=== PATIENT | male | born 1950 | race Caucasian/White ===

== ENCOUNTER 2021-03-04 08:16 | Emergency (ER) | payer MEDICARE, OTHER, SELFPAY ==
[2021-03-04 08:26] VITALS: BP 152/97; PULSE 86; RESP 20; TEMP 36.8; O2SAT 98
--- NOTE | 2021-03-04 08:50 | ED.URI ---
HPI - URI/Sore Throat General Chief Complaint: Upper Respiratory Infection Stated Complaint: Sore Throat/Dizziness Time Seen by Provider: 03/04/21 08:50 Source: patient and RN notes reviewed Mode of arrival: ambulatory Limitations: no limitations History of Present Illness HPI Narrative: Patient presents today complaining of a 3-week history of dry cough, rhinorrhea, sore throat. He also reports some sweats this morning. Denies shortness of breath. Reported some intermittent dizziness, but none currently. He has been taking some cough medicine with mild relief. Currently rates his sore throat 05/02. MD elicited complaint: cough and sore throat Related Data Allergies Allergy/AdvReac Type Severity Reaction Status Date / Time No Known Allergies Allergy Mild Verified 03/04/21 08:44 Review of Systems Review of Systems: CONSTITUTIONAL: Denies body aches, fever, chills. + Sweats EYES: Denies visual changes, redness, or discharge. ENT: Denies congestion, or otalgia.+ Sore throat, rhinorrhea CARDIOVASCULAR: Denies chest pain, palpitations, or edema. RESPIRATORY: Denies dyspnea.+ Cough GASTROINTESTINAL: Denies abdominal pain, nausea, vomiting, or diarrhea. GENITOURINARY: Denies dysuria or hematuria. SKIN: Denies rash, itching, or wounds. MUSCULOSKELETAL: Denies back pain, joint pain, or myalgia. NEUROLOGIC: Denies headache, numbness, tingling, or weakness. PSYCH: Denies depression or anxiety. PMFSH Comments At time of signature, I have reviewed and agree with nursing past medical, surgical, social and family history unless otherwise noted. Please see nursing chart for further information. There is no relevant family history pertinent to the presenting complaint Exam Narrative: GENERAL: Well-appearing, well-nourished, and in no acute distress. HEAD: Normocephalic, atraumatic. EYES: EOMI. No redness or drainage. Conjunctivae normal. ENT: Mucous membranes pink and moist. Nares congested. No rhinorrhea. TMs normal bilaterally. Throat mildly erythematous without edema or exudate. Uvula midline. NECK: Normal AROM. Supple. No lymphadenopathy. CHEST: No respiratory distress. Clear to auscultation. HEART: Regular rate and rhythm. No murmur appreciated. Normal peripheral pulses. EXTREMITIES: Normal range of motion. No edema. SKIN: Warm, dry, no rash. Capillary refill normal. Normal skin turgor. NEURO: No focal deficits. Alert and oriented x3. Gait steady. PSYCH: Normal affect. No signs of depression or anxiety. Course Vital Signs Vital signs: Vital Signs Temperature 98.3 F 03/04/21 08:26 Pulse Rate 86 03/04/21 08:26 Respiratory Rate 20 03/04/21 08:26 Blood Pressure 152/97 H 03/04/21 08:26 Pulse Oximetry 98 03/04/21 08:26 Temperature 98.3 F 03/04/21 08:26 Pulse Rate 86 03/04/21 08:26 Respiratory Rate 20 03/04/21 08:26 Blood Pressure 152/97 H 03/04/21 08:26 Pulse Oximetry 98 03/04/21 08:26 Reviewed. Pt has been instructed to follow up with his PCP regarding his elevated blood pressure today. MDM - URI/Sore Throat Differential Diagnosis Differential diagnosis: Likely upper respiratory infection, sinusitis, viral infection, bronchitis, pharyngitis and other (Strep throat) Lab Data Attestation: I reviewed the patient's lab results. Labs: Strep Screen Presumptive Negative *(Reference Range: Negative)* Critical Care Time Critical Care Time Critical Care Time: No Discharge Plan Discharge Clinical Impression: Bronchitis Upper respiratory infection Qualifiers: URI type: unspecified URI Qualified Code(s): J06.9 - Acute upper respiratory infection, unspecified Patient Disposition: Home, Self-Care Condition: Stable Instructions: Antibiotic Form, Upper Respiratory Infection (DC), Acute Bronchitis (ED) Additional Instructions: Your rapid strep screen is negative today. Please take the antibiotics and steroids as pre
== END 2021-03-04 09:12 | disposition home or self-care (01) ==
PROVIDERS: Emergency Provider Nurse Practitioner
DX: J40 Bronchitis, not specified as acute or chronic (principal); J06.9 Acute upper respiratory infection, unspecified
CPT/HCPCS: 87081; 87880; 99203; G0463

== ENCOUNTER 2024-08-25 08:41 | Emergency (ER) | payer MEDICARE, OTHER, SELFPAY ==
--- NOTE | ~2024-08-25 | XR_ITS ---
XR foot RT min 3V 08/25/2024 09:22 Indication: Right foot pain Procedure: 4 views right foot Comparison: No prior studies for comparison. Findings: There is a degenerative calcaneal enthesophyte. No fracture, subluxation or dislocation. Li sfranc joint intact. No focal soft tissue abnormality. No foreign bodies. Impression: 1: No acute fracture. Reviewed, dictated and finalized at location A. Impression: 1: No acute fracture.
[2024-08-25 08:49] VITALS: BP 166/95; PULSE 62; RESP 16; TEMP 37.1; O2SAT 99
--- OUTSIDE RECORDS SUMMARY | 2024-08-25 08:56 | XMS_ITS | Encounter Summary ---
Author Name [facility] [place] [facility] [place] Address [address] [place] [address] Care Team Providers Care [employer] Teacher Name Role Phone BERTHA RAYMOND Primary Care Provider [facility] Insurance Providers: All historical and current Section Date Range: From patient's date of to the date document was created. This section includes the names of all active insurance providers for the patient. Insurance Provider Type of Coverage Plan Name Start of Policy Coverage End of Policy Coverage Group Number Member ID Insurance Provider's Telephone Number Policy Rios's Name Patient's Relationship to Policy Rios SHIKHA NIEVES - [place] [employer] [place] SHIKHA YOUSIF Apr 27, 2019 SHIKHA NIEVES [id number] GODINEZ,TH [place] PATIENT MEDICARE (WNR) MEDICARE (M) PART A Nov 21, 2014 PART A [id number] [place] PATIENT MEDICARE (WNR) MEDICARE (M) PART B Nov 21, 2014 PART B [id number] PATIENT Selected Encounter This section includes the information on record at [place] for the Encounter. Date/Time Encounter Type Encounter Description Reason Provider Source Jun 17, 2024 11:00 AM OFF/OP EST JULY X REQ PHY/[facility] ICD-10-CM N42.89 Other specified disorders of prostate FERGUSON,AND REW IHE Encounter Template Text not used by [place] Assessments - Encounter Diagnoses This section includes the primary and secondary diagnoses documented for the Encounter. Date/Time Primary/Secondary Diagnosis Diagnosis Name Provider Source Jun 27, 2024 03:35 PM PRIMARY Other specified disorders of prostate [facility] Plan of Treatment: Future Appointments (+ 6 months) and Future Tests (+/- 45 days) The Plan of Treatment section includes future care activities for the patient from all [place] [facility] [place]. This section includes future appointments and future orders which are active, pending or scheduled. Future Appointments This section includes appointments that were scheduled to occur 6 months from the date of the Encounter, up to a maximum of 20 appointments. The data comes from all [facility]. Appointment Date/Time Appointment Type Appointme nt Facility Name Jun 28, 2024 02:06 PM [facility] Jul 11, 2024 09:00 AM AMBULATORY - SURGERY [facility] August 19, 2024 02:00 PM AMBULATORY - MEDICINE [facility] Oct 10, 2024 09:00 AM AMBULATORY - SURGERY [facility] Oct 18, 2024 09:30 AM AMBULATORY - MEDICINE [facility] Active, Pending, and Scheduled Orders This section includes a listing of several types of active, pending, and scheduled orders, including clinic medications orders, diagnostic test orders, procedure orders and consult orders; where the start date of the order is 45 days before the date of the Encounter or 45 days after the date of theEncounter. The data comes from all [facility]. Test Date/Time Test Type Test Details Facility Name May 11, 2024 12:00 AM Laboratory - Blood Bank Order TYPE & SCREEN - LAB BLOOD SP [facility] Jun 09, 2024 12:00 AM Laboratory - Blood Bank Order TYPE & SCREEN - LAB BLOOD [facility] Lab Results: +/- 30 days of the encounter This section includes the Chemistry and Hematology Lab Results on record with [place] for the patient. Radiology Reports and Pathology Reports are provided separately, in subsequent sections. Lab Results This section contains the Chemistry/Hematology Results that were resulted 30 days before or 30 daysafter the date of the Encounter. Date/Time Source Result Type Result - Unit Interpretation Reference Range Specimen Type Comment Jul 11, 2024 09:19 AM [facility] PROST. SPECIFIC AG.(PB-STL) SERUM Specimen Ty pe: SERUM Comment: The listed sex of this patient may not be a typical indication for this test. Therefore, reference ranges or interpretive criteria listed may not be valid. Clinical correlation suggested. Ordering Provider: JOSE FERGUSON Report Released Date/Time: Jul 11, 2024 08:55 AM Reporting Lab: [facility] [address] [facility] [address] Performing Lab: [address] [address] PROST. SPECIFIC AG.(PB-STL) <0.100 ng/mL 0-4 Jun 28, 2024 04:30 PM [facility] COMPREHENSIVE METABOLIC PANEL PLASMA Specimen Type: PLASMA Comment: No hemolysis noted. Ordering Provider: ABY RODRIGUES Report Released Date/Time: Jun 28, 2024 04:23 PM Reporting Lab: [facility] [address] [facility] [address] Performing Lab: [address] [address] CREATININE 1.18 mg/dL 0.7-1.3 UREA NITROGEN 19.0 mg/dL 9.0-25.0 GLUCOSE 100 mg/dL H 72-99 SODIUM 140 meq/L 136-145 POTASSIUM 4.3 meq/L 3.5-5 CHLORIDE 107 meq/L 98-107 CARBON DIOXIDE 26 meq/L 22-31 CALCIUM 9.3 mg/dL 8.4-10.4 PROTEIN 7.3 g/dL 6-8.6 ALBUMIN 4.2 g/dL 3.4-5 TOTAL BILIRUBIN 0.6 mg/dL 0.2-1.2 ALKALINE PHOSPHATASE 106 U/L 40-150 AST/SGOT 20 U/L 5-34 ALT/SGPT 15 U/L 8-40 EGFR (CKD-EPI 2020) 64.8 >60 Jun 28, 2024 04:30 PM [facility] CBC BLOOD Specimen Type: BLOOD No comment entered. Ordering Provider: ABY RODRIGUES Report Released Date/Time: Jun 28, 2024 04:23 PM Reporting Lab: [facility] [address] [facility] [address] Performing Lab: [place] [address] [facility] [address] WBC 5.5 10*3/uL 3.6-11.2 RBC 4.44 10*6/uL 4.10-5.70 HGB 14.2 g/dL 13.1-16.8 HCT 42.3 38.2-48.4 MCV 95.3 fL 80.0-100.0 MCH 32.0 pg 27.0-34.0 MCHC 33.6 g/dL 33.0-36.0 PLT 257 10*3/uL 150-400 MPV 10.2 fL 7.5-11.2 RDW 13.1 11.8-15.1 LYMPHOCYTES, AUTO % 43 MONOCYTES, AUTO % 7 NEUTROPHILS, AUTO % 45 EOSINOPHILS, AUTO % 3 BASOPHILS, AUTO % 1 LYMPHOCYTES, ABSOLUTE 2.38 10*3/uL 0.77- 4.50 MONOCYTES, ABSOLUTE 0.41 10*3/uL 0.19-0. 80 NEUTROPHILS, ABSOLUTE 2.47 10*3/uL 2.10- 8.00 EOSINOPHILS, ABSOLUTE 0.19 10*3/uL 0.00- 0.60 BASOPHILS, ABSOLUTE 0.06 10*3/uL 0.00-0. 20 Jun 10, 2024 04:46 AM [facility] GLUCOSE,BLOOD-poct (STL) BLOOD Specimen Type: BLOOD Comment: Test Performed by: [id number] Meter #: [id number] Ordering Provider: BRADLEY OVALLES Report Released Date/Time: Jun 10, 2024 05:21 AM Reporting Lab: [place] [address] [facility] [address] Performing Lab: [address] [address] GLUCOSE,BLOOD-poct (STL) 146 mg/dL H 72-99 Jun 09, 2024 08:12 PM [facility] CBC BLOOD Specimen Type: BLOOD No comment entered. Ordering Provider: BETO MCMILLAN Report Released Date/Time: Jun 09, 2024 05:43 PM Reporting Lab: [facility] [address] [facility] [address] Performing Lab: [address] [address] WBC 11.1 10*3/uL 3.6-11.2 RBC 4.00 10*6/uL L 4.10-5.70 HGB 12.6 g/dL L 13.1-16.8 HCT 36.8 L 38.2-48.4 MCV 92.0 fL 80.0-100.0 MCH 31.5 pg 27.0-34.0 MCHC 34.2 g/dL 33.0-36.0 PLT 173 10*3/uL 150-400 MPV 10.3 fL 7.5-11.2 RDW 13.2 11.8-15.1 NEUTROPHILS 95.6 MONOCYTES 0.9 PAPPENHEIMER BODIES 0 LYMPHOCYTES 3.5 PLT EST-CV ADEQUATE ADEQUATE NORMRBC Yes MONO#-MDIFF 0.10 10*3/uL L 0.19-0.80 LYMPH#-MDIFF 0.39 10*3/uL L 0.77-4.50 NEUT#-MDIFF 10.61 10*3/uL H 2.10-8.00 Jun 09, 2024 07:00 PM [facility] MRSA SURVL NARES DNA NARES Specimen Type: ZULEIKA ES Comment: Qualitative real-time PCR test for the rapid detection of methicillin-resistant Staphylococcus aureus (MRSA) DNA from nasal swabs. A negative result does not preclude infection with the agent(s) tested and should not be used as the sole basis for treatment or other patient management decisions. A positive test does not necessarily indicate the presence of viable organisms, following bacterial culture to recover the organism for further characterization and susceptibility testing. All results must be combined with clinical observations, patient history, and epidemiological information for final interpretation. Ordering Provider: BRADLEY OVALLES Report Released Date/Time: Jun 09, 2024 05:57 PM Reporting Lab: [address] [address] Performing Lab: [address] [address] MRSA SURVL NARES DNA Negative Negative Jun 09, 2024 10:40 AM [facility] COVID-19 DIAGNOSTIC (FLU/RSV)(STL) NASOPHARYNX Spec imen Type: NASOPHARYNX Comment: Qualitative real-time PCR and RT-PCR to detect viral RNA. A negative result does not preclude infection with the agent(s) tested and should not be used as the sole basis for treatment or other patient management decisions. If negative, but symptoms persist, consider re-testing. Positive results do not rule out bacterial infection or co-infection with other viruses. All results must be combined with clinical observations, patient history, and epidemiological information for final interpretation. Ordering Provider: RICKY RUSHING Report Released Date/Time: Jun 07, 2024 02:47 PM Reporting Lab: [place] [address] [facility] [address] Performing Lab: [address] [address] INFLUENZA A NEG Negative INFLUENZA B NEG Negative COVID-19 (STL-PB) NEG Not Detected RSV (Cepheid) Negative Negative Social History: Smoking Status (Most current) and Tobacco Use (All prior to encounter date) This section includes the most current, and the historical, smoking and tobacco- related health factors from the [place] facility where the Encounter took place. Current Smoking Status This section includes the most current smoking, or tobacco-related health factor, from the [place] facility where the Encounter took place. Date/Time Current Smoking Status Comment Facil ity Dec 24, 2023 11:44 AM CO-TOBACCO NEVER USED [facility] Radiology Reports: +/- 30 days of the encounter Radiology Reports For cases when an order for radiology services may have been completed prior to the date of the Encounter, the report list includes the Radiology Reports that were completed up to 30 days before dateof the Encounter. For cases when an order for radiology services may have been completed after the date of the Encounter, the report list also includes the Radiology Reports that were completed up to30 days after date of the Encounter. The data comes from all [place] treatment facilities. Date/Time Radiology Report Provider Source Jun 28, 2024 04:33 PM OBSTRUCTIVE SERIES : RAMEZ GODINEZ [id number] -1950 M Exm Date: JUN 28, 2024@16:33 Req Phys: ABY RODRIGUES Loc: PAT-EMERGENCY DEPT 2ND SHIFT (R Img Loc: -MAIN RADIOLOGY SUITE Service: Unknown [facility], [address] [place] [address] (Case [id number] COMPLETE) OBSTRUCTIVE SERIES (RAD Detailed) CPT:03900 Reason for Study: constipation x 2 wks Clinical History: Report Status: Verified Date Reported: JUN 28, 2024 Date Verified: JUN 28, 2024 Dump Motorman E-Sig:/ES/Ramez Schaffer MD Report: CASE #: [id number] DATE:06/28/2024 4:43 PM CLINICAL HISTORY:constipation x 2 wks COMPARISON: Chest radiograph dated 05/11/2024 PROCEDURES: OBSTRUCTIVE SERIES FINDINGS: Some right lung base atelectasis but no focal pneumonia or pleural effusion or CHF. Heart size within normal limits. Bowel gas pattern is nonspecific. No air-fluid levels identified on the upright view. No pneumoperitoneum identified. Visualized small bowel loop diameter within normal limits. Loops of colon over the right lower abdomen measures 6.5 cm in diameter, within upper limits of normal. Stool and gas throughout the colon to the rectum. Phleboliths over the pelvis. Impression: Nonspecific bowel gas pattern currently without evidence for bowel obstruction or perforation. Stool and gas throughout the colon to the rectum. Primary Interpreting Staff: Ramez Schaffer MD, Radiologist (Dump Motorman) /RAMEZ OLIVAS [facility] Pathology Reports: +/- 30 days of the encounter Pathology Reports For cases when an order for pathology services may have been completed prior to the date of the Encounter, the report list includes the Pathology Reports that were completed up to 30 days before dateof the Encounter. For cases when an order for pathology services may have been completed after the date of the Encounter, the report list also includes the Pathology Reports that were completed up to30 days after date of the Encounter. The data comes from all [place] treatment facilities. Date/Time Pathology Report Provider Source Jun 16, 2024 02:49 PM [facility] REPORT: LOCAL TITLE: LR SURGICAL PATHOLOGY REPORT STANDARD TITLE: PATHOLOGY PROCEDURE NOTE DATE OF NOTE: JUN 16, 2024@14:49:35 ENTRY DATE: JUN 16, 2024@14:49:35 AUTHOR: VIVEK ALLENIGNER: URGENCY: STATUS: COMPLETED $APHDR - - - - - - - - - - - - - - - - - - - - - - - - - - - - - - - - - - - - - - - - MEDICAL RECORD SURGICAL PATHOLOGY - - - - - - - - - - - - - - - - - - - - - - - - - - - - - - - - - - - - - - - - PATHOLOGY REPORT Accession No. SP [id number] - - - - - - - - - - - - - - - - - - - - - - - - - - - - - - - - - - - - - - - - $TEXT Submitted by: BETO MCMILLAN Date obtained: Jun 09, 2024 - - - - - - - - - - - - - - - - - - - - - - - - - - - - - - - - - - - - - - - - Specimen (Received Jun 10, 2024 10:03): A. LEFT BLADDER NECK MARGIN B. PROSTATE, BILATERAL SEMINAL VESSICLES C. BILATERAL PELVIC LYMPH NODES D. RIGHT BLADDER NECK MARGIN - - - - - - - - - - - - - - - - - - - - - - - - - - - - - - - - - - - - - - - - BRIEF CLINICAL HISTORY: None provided - - - - - - - - - - - - - - - - - - - - - - - - - - - - - - - - - - - - - - - - PREOPERATIVE DIAGNOSIS: Prostate cancer - - - - - - - - - - - - - - - - - - - - - - - - - - - - - - - - - - - - - - - - OPERATIVE FINDINGS: None provided - - - - - - - - - - - - - - - - - - - - - - - - - - - - - - - - - - - - - - - - POSTOPERATIVE DIAGNOSIS: Prostate cancer Surgeon/physician: KARLA FERGUSON MD =-=-=-=-=-=-=-=-=-=-=-=-=-=-= -=-=-=-=-=-=-=-=-=-=-=-=-=-=- =-=-=-=-=-=-=-=-=-=-= - - - - - - - - - - - - - - - - - - - - - - - - - - - - - - - - - - - - - - - - PATHOLOGY REPORT Accession No. SP [id number] - - - - - - - - - - - - - - - - - - - - - - - - - - - - - - - - - - - - - - - - GROSS DESCRIPTION: The specimen is received in formalin in four containers, each labeled with the patient's full name and SSN. Container A is additionally labeled left bladder neck margin is a tate-brown tissue fragment measuring 1.5 x 1.2 x 0.5 cm. The specimen is serially sectioned and entirely submitted in A1 and A2. Container B is additionally labeled Prostate and seminal vesicles and consists of a prostate gland with partially detached seminal vesicle and vas deferens, which is presumed to be a right seminal vesicle. Also present in the container is a separate detached seminal vesicle and vas deferens, which are presumed to be from left side. The right seminal vesicle measures 2.5 x 1 x 0.7 cm and the right vas deferens measures 1.5 cm in length and 0.5 cm in diameter. The detached presumed left seminal vesicle measures 2.2 x 1.7 x 0.7 cm and the left vas deferens measures 2.5 cm in length and 0.7 cm in diameter. There is also detached fibrofatty tissue measuring 3 x 1.2 x 0.3 cm. The prostate gland measures 4.5 x 4 x 2.5 cm. The specimen is inked in the following manner: Right- black Left- blue Posterior- central orange stripe Anterior- central yellow stripe Detached possible left seminal vesicle, vas deferens and fibrofatty tissue: Red After removing the right seminal vesicles and vas deferens the weight of the prostate is 41 g. The prostate is serially sectioned revealing a nodular cut surface with no dominant nodule identified. Pedodontist sections are submitted as follows: B1: fragment of fibrofatty tissue, entirely submitted B2 and B3: sections from detached possible left seminal vesicle B4: sections from right seminal vesicle B5: left apical margin B6: right apical margin B7: left bladder neck margin B8: right bladder neck margin B9-B10: first apical slice entirely submitted B11-B12: posterior part of second apical slice B13-B16: third slice entirely submitted B17-B18: posterior part of the fourth slice, entirely submitted B19-B22: fifth slice, entirely submitted B23-B24: posterior part of sixth slice, entirely submitted B25-B28: Eighth slice, entirely submitted B29: posterior part of the ninth slice, entirely submitted B30-B31: tenth slice, entirely submitted B32: posterior part of the eleventh slice, entirely submitted Approximately 95% of the specimen is submitted Container C is additionally labeled Bilateral pelvic lymph nodes and consists of tate-yellow adipose tissue measuring 5.5 x 3.5 x 2.5 cm. Sectioning reveals 3 possible lymph nodes ranging in size from 0.2 to 1.5 cm. The specimen is entirely submitted as follows C1: 1 possible lymph node candidate, bisected C2: 1 possible lymph node candidate C3:: 1 possible lymph node C4-C11: fibrofatty tissue, entirely submitted Container D is additionally labeled right bladder neck margin is a tate-brown tissue fragment measuring 2.5 x 1.3 x 0.7 cm. The specimen is Serially sectioned and entirely submitted in D1 and D2. MICROSCOPIC EXAM: (Dr. Juan Allen) The microscopic examination of the left bladder neck margin shows cauterized prostatic parenchyma with no definitive evidence of prostatic acinar adenocarcinoma. Immunostain for high molecular weight keratin (HMWK) is performed with appropriately reactive control and supports the diagnosis. The microscopic examination of the prostate specimen shows involvement of prostate by prostatic acinar adenocarcinoma, grade group 5 (Fairfield score 4+5=9). There is focal extraprostatic extension identified. There is involvement of the seminal vesicle also seen. The right posterior lateral margin is positive. There is perineural invasion also identified. Immunostains for for NKX3.1 are performed on blocks B2, B20, B23, B26, B30 and B32 with appropriately reactive controls and supports the diagnosis. The microscopic examination of bilateral pelvic lymph nodes show one of nine lymph nodes with evidence of metastatic adenocarcinoma. The microscopic examination of the right bladder neck margin show cauterized prostatic parenchyma with no definitive evidence of prostatic acinar adenocarcinoma. Immunostain for high molecular weight keratin (HMWK) is performed with appropriately reactive control and supports the diagnosis. Please see [facility] cancer case summary for further details. CASE SUMMARY: (PROSTATE GLAND: Radical Prostatectomy) Standard(s): AJCC-UICC 8 SPECIMEN Procedure: Radical prostatectomy Prostate Size: 41 g TUMOR Histologic Type: Acinar adenocarcinoma, conventional (usual) Histologic Grade: Grade group 5 (Fairfield Score 4 + 5 = 9) Intraductal Carcinoma (IDC): Not identified Cribriform Glands: Present, focal Treatment Effect: No known presurgical therapy TUMOR QUANTITATION Tumor Quantitation: Via percentage Estimated Percentage of Prostate Involved by Tumor: 10-15% Extraprostatic Extension (EPE): Present, focal Location of Extraprostatic Extension: Right posterolateral (neurovascular bundle) Urinary Bladder Neck Invasion: Not identified Seminal Vesicle Invasion: Present Lymphatic and / or Vascular Invasion: Not Identified Perineural Invasion: Present MARGINS Margin Status: Invasive carcinoma present at margin Linear Length of Margin(s) Involved by Carcinoma: Less than 3 mm (limited) Focality of Margin Involvement: Unifocal Margin(s) Involved by Invasive Carcinoma: Right posterolateral (neurovascular bundle) Margin Involvement by Invasive Carcinoma in Area of Extraprostatic Extension (EPE): Not identified REGIONAL LYMPH NODES Regional Lymph Node Status: Tumor present in regional lymph node Number of Lymph Nodes with Tumor: 1 Size of Largest Stephen Metastatic Deposit: 0.2 cm Number of Lymph Nodes Examined: 9 pTNM CLASSIFICATION (AJCC 8th Edition) pT Category pT3b: Tumor invades seminal vesicle pN1: Metastasis in regional nodes DIAGNOSIS: LEFT BLADDER NECK MARGIN, EXCISION (A): - CAUTERIZED PROSTATIC TISSUE WITH NO EVIDENCE OF PROSTATIC ADENOCARCINOMA PROSTATE AND BILATERAL SEMINAL VESICLES, RADICAL PROSTATECTOMY (B): - PROSTATIC ADENOCARCINOMA, GRADE GROUP 5, PATRICIA SCORE (4+5=9), pT3b/ pN1 - POSITIVE RIGHT POSTERIOR LATERAL MARGIN - SEMINAL VESICLE INVASION SEEN - EXTRAPROSTATIC EXTENSION IDENTIFIED - PERINEURAL INVASION PRESENT - SEE DESCRIPTION AND [facility] CANCER CASE SUMMARY FOR FURTHER DETAILS PELVIC LYMPH NODES, BILATERAL, EXCISION (C): - ONE OF NINE LYMPH NODES POSITIVE FOR METASTATIC ADENOCARCINOMA (/) RIGHT BLADDER NECK MARGIN, EXCISION (D): - CAUTERIZED PROSTATIC TISSUE WITH NO EVIDENCE OF PROSTATIC ADENOCARCINOMA /es/ VIVEK Bernabe ALLEN, PH.D. PATHOLOGIST Signed Jun 16, 2024@14:49 Performing Laboratory: Surgical Pathology Report Performed By: [address] CLIA# [id number] [address] [place] [phone] $FTR - - - - - - - - - - - - - - - - - - - - - - - - - - - - - - - - - - - - - - - - (End of report) VIVEK ALLEN MD evp managing director Date Jun 12, 2024 - - - - - - - - - - - - - - - - - - - - - - - - - - - - - - - - - - - - - - - - RAMEZ GODINEZ STANDARD FORM 515 ID:[id number] SEX:M :1950 AGE: 73 LOC:[facility] PCP: Bertha Raymond NP /paola/ VIVEK ALLEN M.D., PH.D. PATHOLOGIST Signed: 06/16/2024 14:49 VIVEK ALLEN [facility] May 31, 2024 04:37 PM LR SURG[facility] PATHOL OGY REPORT: LOCAL TITLE: LR SURGICAL PATHOLOGY REPORT STANDARD TITLE: PATHOLOGY PROCEDURE NOTE DATE OF NOTE: MAY 31, 2024@16:37:36 ENTRY DATE: MAY 31, 2024@16:37:36 AUTHOR: ALMA SÁNCHEZ EXP COSIGNER: URGENCY: STATUS: COMPLETED $APHDR - - - - - - - - - - - - - - - - - - - - - - - - - - - - - - - - - - - - - - - - MEDICAL RECORD SURGICAL PATHOLOGY - - - - - - - - - - - - - - - - - - - - - - - - - - - - - - - - - - - - - - - - PATHOLOGY REPORT Accession No. SP [id number] - - - - - - - - - - - - - - - - - - - - - - - - - - - - - - - - - - - - - - - - $TEXT Submitted by: ANKIT PUENTE Date obtained: May 27, 2024 13:32 - - - - - - - - - - - - - - - - - - - - - - - - - - - - - - - - - - - - - - - - Specimen (Received May 27, 2024 13:33): A. ASCENDING COLON POLYPS X 2 B. TRANSVERSE COLON POLYPS X 2 C. DESCENDING COLON POLYP - - - - - - - - - - - - - - - - - - - - - - - - - - - - - - - - - - - - - - - - BRIEF CLINICAL HISTORY: 73-year-old patient with a history of Positive FIT presents for colonoscopy assessment. - - - - - - - - - - - - - - - - - - - - - - - - - - - - - - - - - - - - - - - - PREOPERATIVE DIAGNOSIS: Polyps - - - - - - - - - - - - - - - - - - - - - - - - - - - - - - - - - - - - - - - - OPERATIVE FINDINGS: Same as above - - - - - - - - - - - - - - - - - - - - - - - - - - - - - - - - - - - - - - - - POSTOPERATIVE DIAGNOSIS: Colon polyps Surgeon/physician: RUSSELL RIBEIRO MD =-=-=-=-=-=-=-=-=-=-=-=-=-=-= -=-=-=-=-=-=-=-=-=-=-=-=-=-=- =-=-=-=-=-=-=-=-=-=-= - - - - - - - - - - - - - - - - - - - - - - - - - - - - - - - - - - - - - - - - PATHOLOGY REPORT Accession No. SP [id number] - - - - - - - - - - - - - - - - - - - - - - - - - - - - - - - - - - - - - - - - GROSS DESCRIPTION: Dr. Sánchez, 05/27/2024 The specimen is received in formalin in 3 containers, each labeled with the patient's full name and SSN. A. Labeled as ascending colon polyps x 2 are 2 tate-brown polypoid tissue fragments measuring from 0.6 x 0.4 x 0.3 and 0.3 x 0.2 x 0.1 cm, which are submitted in toto in A1. B. Labeled as transverse colon polyps x 2 are 4 tate-brown polypoid tissue fragments measuring from 1.3 x 0.4 x 0.3 cm, 1.3 x 0.3 x 0.3 cm, 1 x 0.5 x 0.4 cm which is inked and bisected, and 0.8 x 0.5 x 0.5 cm which is inked and bisected. Entirely submitted in toto in B1. C. Labeled as descending colon polyp are 2 tate polypoid tissue fragments measuring from 0.7 x 0.5 x 0.3 cm and 0.5 x 0.4 x 0.3 cm. Submitted in toto in C1. MICROSCOPIC EXAM: Microscopic examination substantiates the cited diagnoses. DIAGNOSIS: LARGE INTESTINE, ASCENDING COLON, POLYPS X 2, BIOPSY (A): -- TUBULAR ADENOMAS -- NO HIGH-GRADE DYSPLASIA OR MALIGNANCY LARGE INTESTINE, TRANSVERSE COLON, POLYPS X 2, BIOPSY (B): -- HYPERPLASTIC POLYP -- TUBULAR ADENOMA -- NO HIGH-GRADE DYSPLASIA OR MALIGNANCY LARGE INTESTINE, DESCENDING COLON, POLYP, BIOPSY (C): -- TUBULAR ADENOMAS -- NO HIGH-GRADE DYSPLASIA OR MALIGNANCY /paola/ ALMA SÁNCHEZ MD, PhD STAFF PATHOLOGIST Signed May 31, 2024@16:37 Performing Laboratory: Surgical Pathology Report Performed By: [facility] [address] [id number] [address] [place] [phone] $FTR - - - - - - - - - - - - - - - - - - - - - - - - - - - - - - - - - - - - - - - - (End of report) ALMA SÁNCHEZ MD Date May 31, 2024 - - - - - - - - - - - - - - - - - - - - - - - - - - - - - - - - - - - - - - - - RAMEZ GODINEZ STANDARD FORM 515 ID:[id number] SEX:M :1950 AGE: 73 LOC:GILABA2 PCP: Bertha Raymond NP /paola/ ALMA SÁNCHEZ MD, PhD STAFF PATHOLOGIST Signed: 05/31/2024 16:37 ALMA SÁNCHEZ [facility] Encounter Notes: All associated encounter notes This section contains the clinical notes associated to the Encounter. Date/Time Encounter Note(s) Provider Source Jun 23, 2024 02:44 PM ADDENDUM: LOCAL TITLE: Addendum STANDARD TITLE: ADDENDUM DATE OF NOTE: JUN 23, 2024@14:44:30 ENTRY DATE: JUN 23, 2024@14:44:30 AUTHOR: LES ROJAS EXP COSIGNER: URGENCY: STATUS: COMPLETED post-RALP......pt daughter in law called stating @ pt f/u visit pt, he was told Urology couldn't get all the cancer and she wanted to know more about that. Her name is Portia (pt son Nabil) neither one of their names on his acct. Informed her we would need to talk with the pt. She said ok. /es/ LES ROJAS, RN REGISTERED NURSE Signed: 06/23/2024 14:45 Receipt Acknowledged By: 06/23/2024 16:01 /paola/ KARLA FERGUSON MD Staff Physician, Urology --- Original Document --- 06/17/24 UROLOGY NOTE: CHIEF COMPLAINT, HPI, EXAM & DATA CC: POV HPI: 73 yo M with hx of CaP s/p RALP here for POV. - RALP 06/09 with path as below - postop notes pain well controlled, tolerating regular diet and ambulating without difficulty - incisions healing well DIAGNOSIS: LEFT BLADDER NECK MARGIN, EXCISION (A): - CAUTERIZED PROSTATIC TISSUE WITH NO EVIDENCE OF PROSTATIC ADENOCARCINOMA PROSTATE AND BILATERAL SEMINAL VESICLES, RADICAL PROSTATECTOMY (B): - PROSTATIC ADENOCARCINOMA, GRADE GROUP 5, PATRICIA SCORE (4+5=9), pT3b/ pN1 - POSITIVE RIGHT POSTERIOR LATERAL MARGIN - SEMINAL VESICLE INVASION SEEN - EXTRAPROSTATIC EXTENSION IDENTIFIED - PERINEURAL INVASION PRESENT - SEE DESCRIPTION AND CAP CANCER CASE SUMMARY FOR FURTHER DETAILS PELVIC LYMPH NODES, BILATERAL, EXCISION (C): - ONE OF NINE LYMPH NODES POSITIVE FOR METASTATIC ADENOCARCINOMA (03/31) RIGHT BLADDER NECK MARGIN, EXCISION (D): - CAUTERIZED PROSTATIC TISSUE WITH NO EVIDENCE OF PROSTATIC ADENOCARCINOMA ROS/PMH Denies F/C/N/V/CP/SOB Remainder of PMH listed below and reviewed? Yes TARGETED PHYSICAL EXAM: Gen: NAD HEENT: NC/AT Resp: NLB Abd: s/nt/nd, no rebound or guarding, incisions CDI with dermabond flaking off Back: No CVAT bilaterally Ext: WWP MSK: VADIM Neuro: non-focal Skin: warm and dry : rodriguez catheter with clear yellow urine (removed) CREATININE:CREATININE 1.08 mg/dL 05/11/2024 10:37 PSA: PROST. SPECIFIC AG.(PB-STL) 8.914 H* ng/mL 01/06/2024 13:14 ASSESS MENT AND PLAN ---- 73 yo M with hx of high risk CaP s/p RALP 06/09/2024 with pT3N1 disease here for postop check. FOLLOW-UP: - RTC as scheduled on 07/11 for postop check and first PSA - will defer referral for adjuvant therapies pending PSA - discussed Kegel exercises for KEVIN (MORE INFORMATION) --- * LABS----- PSA Trend: PROST. SPECIFIC AG.(PB-STL) 8.914 H* ng/mL 01/06/2024 13:14 PROST. SPECIFIC AG.(PB-STL) 8.468 H* ng/mL 12/28/2023 13:15 BMP: SODIUM 140 mEq/L 05/11/2024 10:37 POTASSIUM 4.4 mEq/L 05/11/2024 10:37 CHLORIDE 106 mEq/L 05/11/2024 10:37 UREA NITROGEN 17.0 mg/dL 05/11/2024 10:37 CREATININE 1.08 mg/dL 05/11/2024 10:37 CALCIUM 9.3 mg/dL 05/11/2024 10:37 CARBON DIOXIDE 27 mEq/L 05/11/2024 10:37 GLUCOSE 101 H mg/dL 05/11/2024 10:37 EGFR (CKD-EPI 2020) 72.0 05/11/2024 10:37 CBC: WBC 11.1 10*3/uL 06/09/2024 20:00 RBC 4.00 L 10*6/uL 06/09/2024 20:00 HGB 12.6 L g/dL 06/09/2024 20:00 HCT 36.8 L % 06/09/2024 20:00 MCV 92.0 fL 06/09/2024 20:00 MCH 31.5 pg 06/09/2024 20:00 MCHC 34.2 g/dL 06/09/2024 20:00 RDW 13.2 % 06/09/2024 20:00 PLT 173 10*3/uL 06/09/2024 20:00 MPV 10.3 fL 06/09/2024 20:00 NEUTROPHILS, AUTO % 54 % 05/11/2024 10:37 LYMPHOCYTES, AUTO % 35 % 05/11/2024 10:37 MONOCYTES, AUTO % 6 % 05/11/2024 10:37 EOSINOPHILS, AUTO % 3 % 05/11/2024 10:37 BASOPHILS, AUTO % 1 % 05/11/2024 10:37 NEUTROPHILS, ABSOLUTE 3.48 10*3/uL 05/11/2024 10:37 LYMPHOCYTES, ABSOLUTE 2.25 10*3/uL 05/11/2024 10:37 MONOCYTES, ABSOLUTE 0.39 10*3/uL 05/11/2024 10:37 EOSINOPHILS, ABSOLUTE 0.22 10*3/uL 05/11/2024 10:37 BASOPHILS, ABSOLUTE 0.05 10*3/uL 05/11/2024 10:37 NEUTROPHILS 95.6 % 06/09/2024 20:00 LYMPHOCYTES 3.5 % 06/09/2024 20:00 MONOCYTES 0.9 % 06/09/2024 20:00 UA: No URINALYSIS EO data found PAST MEDICAL, SOCIAL, FAMILY HX AND ROS 1) Exposure to potentially hazardous substance ([facility] [id number]) 2) HTN - Hypertension ([facility] [id number]) 3) Prediabetes 4) Chronic Kidney Disease Stage 3A ([facility] [id number]) 5) Elevated PSA MEDICATIONS: Active Outpatient Medications (including Supplies): Active Outpatient Medications Status 1) ACETAMINOPHEN 500MG TAB TAKE TWO TABLETS BY MOUTH FOUR TIMES ACTIVE A DAY CAUTION: DO NOT EXCEED 4000MG PER DAY ACETAMINOPHEN (APAP) FROM ALL MEDS. Indication: FOR PAIN 2) AMLODIPINE BESYLATE 2.5MG TAB TAKE THREE TABLETS BY MOUTH ACTIVE ONCE A DAY Indication: FOR HIGH BLOOD PRESSURE 3) BISACODYL 5MG EC TAB TAKE TWO TABLETS BY MOUTH ONE TIME TAKE ACTIVE BISACODYL TABLETS AT 4PM ON AFTERNOON PRIOR TO TEST. CALL [phone] WITH ANY QUESTIONS ABOUT THESE INSTRUCTIONS. MAIL Indication: Bowel Emptying 4) CEPHALEXIN 500MG CAP TAKE ONE CAPSULE BY MOUTH ONE-TIME FOR ACTIVE RODRIGUEZ CATHETER REMOVAL ON THURSDAY. TAKE BEFORE YOUR RODRIGUEZ CATHETER APPOINTMENT. TAKE WITH FOOD Indication: FOR URINARY TRACT INFECTION 5) COLON ELECTROLYTE LAVAGE PWD FOR SOLN MIX AND DRINK CONTENTS ACTIVE OF BOTTLE BY MOUTH DIRECTED FILL WITH WATER TO THE LINE INDICATED ON CONTAINER. DRINK DIRECTED. (THE DAY BEFORE YOUR TEST ONLY DRINK CLEAR LIQUIDS-NO SOLID FOOD! TAKE THE BISACODYL TABLETS AT 4PM AND MIX THE GOLYTELY WITH WATER AND REFRIGERATE. AT 7PM DRINK HALF OF THE GOLYTELY. REFRIGERATE OVERNIGHT. COMPLETE GOLYTELY 3 HRS BEFORE LEAVING HOME FOR TEST. READ YOUR INSTRUCTIONS!) Indication: Bowel Emptying 6) IBUPROFEN 600MG TAB TAKE ONE TABLET BY MOUTH THREE TIMES A ACTIVE DAY NEEDED TAKE WITH FOOD. Indication: FOR PAIN 7) OXYBUTYNIN CHLORIDE 5MG TAB TAKE ONE TABLET BY MOUTH THREE ACTIVE TIMES A DAY NEEDED Indication: FOR OVERACTIVE BLADDER 8) OXYCODONE HCL 5MG TAB TAKE ONE TABLET BY MOUTH EVERY 6 HOURS ACTIVE NEEDED MAY CAUSE CONSTIPATION Indication: FOR POST-OPERATIVE PAIN 9) PHENAZOPYRIDINE HCL 100MG TAB TAKE TWO TABLETS BY MOUTH ACTIVE THREE TIMES A DAY NEEDED TAKE WITH PLENTY OF WATER*MAY DISCOLOR THE URINE Indication: FOR URINARY ANALGESIA 10) POLYETHYLENE GLYCOL 3350 ORAL PWDR MIX AND DRINK 1 CAPFUL BY ACTIVE MOUTH ONCE A DAY NEEDED (MEASURE WITH CAP AND MIX IN 8 OZ OF WATER) Indication: FOR CONSTIPATION 11) SIMETHICONE 80MG CHEW TAB CHEW AND SWALLOW FOUR TABLETS BY ACTIVE MOUTH DIRECTED FOR TWO DOSES BEFORE GI PROCEDURE Indication: FOR GAS DISCOMFORT Allergies: Patient has answered NKA /paola/ KARLA FERGUSON MD Staff Physician, Urology Signed: 06/17/2024 11:28 LES ROJAS [facility] Jun 17, 2024 03:43 PM NURSING NOTE: LOCAL TITLE: JARVIS PROGRESS NOTE STL STANDARD TITLE: NURSING NOTE DATE OF NOTE: JUN 17, 2024@15:43 ENTRY DATE: JUN 17, 2024@15:47:32 AUTHOR: DEIDRE MCNEILL EXP COSIGNER: URGENCY: STATUS: COMPLETED JARVIS PROGRESS NOTE STL Has ADDENDA PT only needed catheter to be removed due the procedure he had few days ago,10cc of NS was extracted from the balloon of a 16fr rodriguez catheter and it was removed. Patient tolerated the procedure well and voiced no concerns. /paola/ DEIDRE MCNEILL LPN LICENSED PRACTICAL NURSE Signed: 06/17/2024 15:57 Receipt Acknowledged By: 06/20/2024 09:22 /carlita FERGUSON MD Staff Physician, Urology 06/24/2024 ADDENDUM STATUS: COMPLETED fixed encounter for the nursing clinic. [facility] is creating new encounter for provider and moving the note. /es/ CAMILO MERAZN, RN REGISTERED NURSE Signed: 06/24/2024 09:06 DEIDRE MCNEILL [facility] Jun 17, 2024 11:14 AM UROLOGY NOTE: LOCAL TITLE: UROLOGY NOTE STANDARD TITLE: UROLOGY NOTE DATE OF NOTE: JUN 17, 2024@11:14 ENTRY DATE: JUN 17, 2024@11:14:55 AUTHOR: KARLA FERGUSON COSIGNER: URGENCY: STATUS: COMPLETED UROLOGY NOTE Has ADDENDA CHIEF COMPLAINT, HPI, EXAM & DATA CC: POV HPI: 73 yo M with hx of CaP s/p RALP here for POV. - RALP 06/09 with path as below - postop notes pain well controlled, tolerating regular diet and ambulating without difficulty - incisions healing well DIAGNOSIS: LEFT BLADDER NECK MARGIN, EXCISION (A): - CAUTERIZED PROSTATIC TISSUE WITH NO EVIDENCE OF PROSTATIC ADENOCARCINOMA PROSTATE AND BILATERAL SEMINAL VESICLES, RADICAL PROSTATECTOMY (B): - PROSTATIC ADENOCARCINOMA, GRADE GROUP 5, PATRICIA SCORE (4+5=9), pT3b/ pN1 - POSITIVE RIGHT POSTERIOR LATERAL MARGIN - SEMINAL VESICLE INVASION SEEN - EXTRAPROSTATIC EXTENSION IDENTIFIED - PERINEURAL INVASION PRESENT - SEE DESCRIPTION AND CAP CANCER CASE SUMMARY FOR FURTHER DETAILS PELVIC LYMPH NODES, BILATERAL, EXCISION (C): - ONE OF NINE LYMPH NODES POSITIVE FOR METASTATIC ADENOCARCINOMA (03/31) RIGHT BLADDER NECK MARGIN, EXCISION (D): - CAUTERIZED PROSTATIC TISSUE WITH NO EVIDENCE OF PROSTATIC ADENOCARCINOMA ROS/PMH Denies F/C/N/V/CP/SOB Remainder of PMH listed below and reviewed? Yes TARGETED PHYSICAL EXAM: Gen: NAD HEENT: NC/AT Resp: NLB Abd: s/nt/nd, no rebound or guarding, incisions CDI with dermabond flaking off Back: No CVAT bilaterally Ext: WWP MSK: MAEW Neuro: non-focal Skin: warm and dry : rodriguez catheter with clear yellow urine (removed) CREATININE:CREATININE 1.08 mg/dL 05/11/2024 10:37 PSA: PROST. SPECIFIC AG.(PB-STL) 8.914 H* ng/mL 01/06/2024 13:14 ASSESS MENT AND PLAN ---- 73 yo M with hx of high risk CaP s/p RALP 06/09/2024 with pT3N1 disease here for postop check. FOLLOW-UP: - RTC as scheduled on 07/11 for postop check and first PSA - will defer referral for adjuvant therapies pending PSA - discussed Kegel exercises for KEVIN (MORE INFORMATION) --- * LABS----- PSA Trend: PROST. SPECIFIC AG.(PB-STL) 8.914 H* ng/mL 01/06/2024 13:14 PROST. SPECIFIC AG.(PB-STL) 8.468 H* ng/mL 12/28/2023 13:15 BMP: SODIUM 140 mEq/L 05/11/2024 10:37 POTASSIUM 4.4 mEq/L 05/11/2024 10:37 CHLORIDE 106 mEq/L 05/11/2024 10:37 UREA NITROGEN 17.0 mg/dL 05/11/2024 10:37 CREATININE 1.08 mg/dL 05/11/2024 10:37 CALCIUM 9.3 mg/dL 05/11/2024 10:37 CARBON DIOXIDE 27 mEq/L 05/11/2024 10:37 GLUCOSE 101 H mg/dL 05/11/2024 10:37 EGFR (CKD-EPI 2020) 72.0 05/11/2024 10:37 CBC: WBC 11.1 10*3/uL 06/09/2024 20:00 RBC 4.00 L 10*6/uL 06/09/2024 20:00 HGB 12.6 L g/dL 06/09/2024 20:00 HCT 36.8 L % 06/09/2024 20:00 MCV 92.0 fL 06/09/2024 20:00 MCH 31.5 pg 06/09/2024 20:00 MCHC 34.2 g/dL 06/09/2024 20:00 RDW 13.2 % 06/09/2024 20:00 PLT 173 10*3/uL 06/09/2024 20:00 MPV 10.3 fL 06/09/2024 20:00 NEUTROPHILS, AUTO % 54 % 05/11/2024 10:37 LYMPHOCYTES, AUTO % 35 % 05/11/2024 10:37 MONOCYTES, AUTO % 6 % 05/11/2024 10:37 EOSINOPHILS, AUTO % 3 % 05/11/2024 10:37 BASOPHILS, AUTO % 1 % 05/11/2024 10:37 NEUTROPHILS, ABSOLUTE 3.48 10*3/uL 05/11/2024 10:37 LYMPHOCYTES, ABSOLUTE 2.25 10*3/uL 05/11/2024 10:37 MONOCYTES, ABSOLUTE 0.39 10*3/uL 05/11/2024 10:37 EOSINOPHILS, ABSOLUTE 0.22 10*3/uL 05/11/2024 10:37 BASOPHILS, ABSOLUTE 0.05 10*3/uL 05/11/2024 10:37 NEUTROPHILS 95.6 % 06/09/2024 20:00 LYMPHOCYTES 3.5 % 06/09/2024 20:00 MONOCYTES 0.9 % 06/09/2024 20:00 UA: No URINALYSIS EO data found PAST MEDICAL, SOCIAL, FAMILY HX AND ROS 1) Exposure to potentially hazardous substance ([facility] [id number]) 2) HTN - Hypertension ([facility] [id number]) 3) Prediabetes 4) Chronic Kidney Disease Stage 3A ([facility] [id number]) 5) Elevated PSA MEDICATIONS: Active Outpatient Medications (including Supplies): Active Outpatient Medications Status 1) ACETAMINOPHEN 500MG TAB TAKE TWO TABLETS BY MOUTH FOUR TIMES ACTIVE A DAY CAUTION: DO NOT EXCEED 4000MG PER DAY ACETAMINOPHEN (APAP) FROM ALL MEDS. Indication: FOR PAIN 2) AMLODIPINE BESYLATE 2.5MG TAB TAKE THREE TABLETS BY MOUTH ACTIVE ONCE A DAY Indication: FOR HIGH BLOOD PRESSURE 3) BISACODYL 5MG EC TAB TAKE TWO TABLETS BY MOUTH ONE TIME TAKE ACTIVE BISACODYL TABLETS AT 4PM ON AFTERNOON PRIOR TO TEST. CALL [phone] WITH ANY QUESTIONS ABOUT THESE INSTRUCTIONS. MAIL Indication: Bowel Emptying 4) CEPHALEXIN 500MG CAP TAKE ONE CAPSULE BY MOUTH ONE-TIME FOR ACTIVE RODRIGUEZ CATHETER REMOVAL ON THURSDAY. TAKE BEFORE YOUR RODRIGUEZ CATHETER APPOINTMENT. TAKE WITH FOOD Indication: FOR URINARY TRACT INFECTION 5) COLON ELECTROLYTE LAVAGE PWD FOR SOLN MIX AND DRINK CONTENTS ACTIVE OF BOTTLE BY MOUTH DIRECTED FILL WITH WATER TO THE LINE INDICATED ON CONTAINER. DRINK DIRECTED. (THE DAY BEFORE YOUR TEST ONLY DRINK CLEAR LIQUIDS-NO SOLID FOOD! TAKE THE BISACODYL TABLETS AT 4PM AND MIX THE GOLYTELY WITH WATER AND REFRIGERATE. AT 7PM DRINK HALF OF THE GOLYTELY. REFRIGERATE OVERNIGHT. COMPLETE GOLYTELY 3 HRS BEFORE LEAVING HOME FOR TEST. READ YOUR INSTRUCTIONS!) Indication: Bowel Emptying 6) IBUPROFEN 600MG TAB TAKE ONE TABLET BY MOUTH THREE TIMES A ACTIVE DAY NEEDED TAKE WITH FOOD. Indication: FOR PAIN 7) OXYBUTYNIN CHLORIDE 5MG TAB TAKE ONE TABLET BY MOUTH THREE ACTIVE TIMES A DAY NEEDED Indication: FOR OVERACTIVE BLADDER 8) OXYCODONE HCL 5MG TAB TAKE ONE TABLET BY MOUTH EVERY 6 HOURS ACTIVE NEEDED MAY CAUSE CONSTIPATION Indication: FOR POST-OPERATIVE PAIN 9) PHENAZOPYRIDINE HCL 100MG TAB TAKE TWO TABLETS BY MOUTH ACTIVE THREE TIMES A DAY NEEDED TAKE WITH PLENTY OF WATER*MAY DISCOLOR THE URINE Indication: FOR URINARY ANALGESIA 10) POLYETHYLENE GLYCOL 3350 ORAL PWDR MIX AND DRINK 1 CAPFUL BY ACTIVE MOUTH ONCE A DAY NEEDED (MEASURE WITH CAP AND MIX IN 8 OZ OF WATER) Indication: FOR CONSTIPATION 11) SIMETHICONE 80MG CHEW TAB CHEW AND SWALLOW FOUR TABLETS BY ACTIVE MOUTH DIRECTED FOR TWO DOSES BEFORE GI PROCEDURE Indication: FOR GAS DISCOMFORT Allergies: Patient has answered NKA /paola/ KARLA FERGUSON MD Staff Physician, Urology Signed: 06/17/2024 11:28 06/23/2024 ADDENDUM STATUS: COMPLETED post-RALP......pt daughter in law called stating @ pt f/u visit pt, he was told Urology couldn't get all the cancer and she wanted to know more about that. Her name is Portia (pt son Nabil) neither one of their names on his acct. Informed her we would need to talk with the pt. She said ok. /paola/ LES ROJAS, RN REGISTERED NURSE Signed: 06/23/2024 14:45 Receipt Acknowledged By: * AWAITING SIGNATURE * KARLA FERGUSON [facility]
--- OUTSIDE RECORDS SUMMARY | 2024-08-25 08:56 | XMS_ITS | Encounter Summary ---
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 Name Role Phone BERTHA RAYMOND Primary Care Provider [facility] Insurance Providers: All historical and current Section [...] Relationship to Policy Rios SHIKHA NIEVES - GELA [place] SPECIAL CLASS SHIKHA YOUSIF Apr 27, 2019 SHIKHA NIEVES [id number] [phone] [id number] [facility] MEDICARE (WNR) MEDICARE (M) PART A Nov 21, 2014 PART A [id number] PATIENT MEDICARE (WNR) MEDICARE (M) PART B Nov 21, 2014 PART B [id number] [facility]18 [facility] PATIENT Selected Encounter This section includes the information on record at DC for the Encounter. Date/Time Encounter Type Encounter Description Reason Provider Source Apr 22, 2024 01:30 PM OFFICE O/P EST LOW 20 MIN PRIMARY CARE/MEDICINE ICD-10-CM I10 Essential (primary) hypertension FLORA RAYMOND OR Karla SHAVER Encounter Template Text not used by DC Assessments - Encounter Diagnoses This section includes the primary and secondary diagnoses documented for the Encounter. Date/Time Primary/Secondary Diagnosis Diagnosis Name Provider Source Apr 22, 2024 01:53 PM PRIMARY Essential (primary) hypertension CORINNA RAYMOND [facility] Apr 22, 2024 01:53 PM SECONDARY Chronic kidney disease, stage 3a CORINNA RAYMOND [facility] Apr 22, 2024 01:53 PM SECONDARY Elevated prostate specific antigen [PSA] CORINNA RAYMOND [facility] Apr 22, 2024 01:53 PM SECONDARY Prediabetes CORINNA RAYMOND [facility] Plan of Treatment: Future Appointments (+ 6 months) and Future Tests (+/- 45 days) The Plan of Treatment section includes future care activities for the patient from [facility] This section includes future appointments and future orders which are active, pending or scheduled. Future Appointments This section includes appointments that were scheduled to occur 6 months from the date of the Encounter, up to a maximum of 20 appointments. The data comes from all [place] treatment facilities. Appointment Date/Time Appointment Type Appointme nt Facility Name Apr 27, 2024 11:00 AM AMBULATORY - NONE [facility] May 06, 2024 10:00 AM AMBULATORY - MEDICINE [facility] May 11, 2024 10:00 AM AMBULATORY - SURGERY [facility] May 27, 2024 07:15 AM AMBULATORY - MEDICINE [facility] May 31, 2024 09:00 AM AMBULATORY - SURGERY [facility] Jun 09, 2024 08:44 AM AMBULATORY - NONE [facility] Jun 14, 2024 09:30 AM AMBULATORY - MEDICINE [facility] Jun 17, 2024 11:00 AM AMBULATORY - SURGERY [facility] Jun 28, 2024 02:06 PM AMBULATORY - MEDICINE [facility] Jul 11, 2024 09:00 AM AMBULATORY - SURGERY [facility] August 19, 2024 02:00 PM AMBULATORY - MEDICINE [facility] Oct 10, 2024 09:00 AM AMBULATORY - SURGERY [facility] Oct 18, 2024 09:30 AM AMBULATORY - MEDICINE [facility] Active, Pending, and Scheduled Orders This section includes a listing of several types of active, pending, and scheduled orders, including clinic medications orders, diagnostic test orders, procedure orders and consult orders; where the start date of the order is 45 days before the date of the Encounter or 45 days after the date of theEncounter. The data comes from all [place] treatment facilities. Test Date/Time Test Type Test Details Facility Name Apr 22, 2024 12:00 AM Laboratory - Chemi stry Order BASIC METABOLIC PANEL GREEN LI/HEP BLD/PLAS PLASMA SP [facility] May 11, 2024 12:00 AM Laboratory - Blood Bank Order TYPE & SCREEN - LAB BLOOD SP [facility] Lab Results: +/- 30 days of the encounter This section includes the Chemistry and Hematology Lab Results on record with DC for the patient. Radiology Reports and Pathology Reports are provided separately, in subsequent sections. Lab Results This section contains the Chemistry/Hematology Results that were resulted 30 days before or 30 daysafter the date of the Encounter. Date/Time Source Result Type Result - Unit Interpretation Reference Range Specimen Type Comment May 11, 2024 10:38 AM [facility] HGA1C BLOOD Specimen Type: BLOOD No comment entered. Ordering Provider: BERTHA RAYMOND Report Released Date/Time: Apr 22, 2024 01:42 PM Reporting Lab: [facility] [address] [facility] [address] Performing Lab: [facility] [address] [facility] [address] HGA1C 5.7 4.0-6.0 May 11, 2024 10:37 AM [facility] PT/INR NEW (STL-MA) PLASMA Specimen Type: PLAS MA No comment entered. Ordering Provider: MANJINDER CORBIN Report Released Date/Time: May 11, 2024 10:21 AM Reporting Lab: [facility] [address] [address] Performing Lab: [facility] [address] [facility] [address] PROTIME 11.6 s 9.4-12.5 INR VALUE 1.0 {INR} May 11, 2024 10:37 AM [facility] BASIC METABOLIC PANEL PLASMA Specimen Type: PL ASMA Comment: No hemolysis noted. Ordering Provider: MANJINDER CORBIN Report Released Date/Time: May 11, 2024 10:21 AM Reporting Lab: [address] [address] Performing Lab: [address] [address] CREATININE 1.08 mg/dL 0.7-1.3 UREA NITROGEN 17.0 mg/dL 9.0-25.0 GLUCOSE 101 mg/dL H 72-99 SODIUM 140 meq/L 136-145 POTASSIUM 4.4 meq/L 3.5-5 CHLORIDE 106 meq/L 98-107 CARBON DIOXIDE 27 meq/L 22-31 CALCIUM 9.3 mg/dL 8.4-10.4 EGFR (CKD-EPI 2020) 72.0 >60 May 11, 2024 10:37 AM [facility] CBC BLOOD Specimen Type: BLOOD No comment entered. Ordering Provider: MANJINDER CORBIN Report Released Date/Time: May 11, 2024 10:21 AM Reporting Lab: [address] [address] Performing Lab: [address] [address] WBC 6.4 10*3/uL 3.6-11.2 RBC 5.21 10*6/uL 4.10-5.70 HGB 16.2 g/dL 13.1-16.8 HCT 48.4 38.2-48.4 MCV 92.9 fL 80.0-100.0 MCH 31.1 pg 27.0-34.0 MCHC 33.5 g/dL 33.0-36.0 PLT 206 10*3/uL 150-400 MPV 10.1 fL 7.5-11.2 RDW 13.2 11.8-15.1 LYMPHOCYTES, AUTO % 35 MONOCYTES, AUTO % 6 NEUTROPHILS, AUTO % 54 EOSINOPHILS, AUTO % 3 BASOPHILS, AUTO % 1 LYMPHOCYTES, ABSOLUTE 2.25 10*3/uL 0.77- 4.50 MONOCYTES, ABSOLUTE 0.39 10*3/uL 0.19-0. 80 NEUTROPHILS, ABSOLUTE 3.48 10*3/uL 2.10- 8.00 EOSINOPHILS, ABSOLUTE 0.22 10*3/uL 0.00- 0.60 BASOPHILS, ABSOLUTE 0.05 10*3/uL 0.00-0. 20 Vital Signs: All taken on the encounter date This section contains inpatient and outpatient Vital Signs collected on the date of the Encounter. Date/Time Temperature Pulse Blood Pressure Respiratory Rate SP02 Pain Height Weight Body Mass Index Source Apr 22, 2024 01:46 PM 142/82 [facility] Apr 22, 2024 01:08 PM 146/86 [facility] Apr 22, 2024 01:04 PM 98.4 68 165/92 18 96 0 70 196.2 28 [facility] Radiology Reports: +/- 30 days of the [...] the Encounter. The data comes from all [place] treatment facilities. Date/Time Radiology Report Provider Source May 11, 2024 10:27 AM CHEST X-RAY, 2 VIE WS: RAMEZ GODINEZ [id number] -1950 M Ex Date: MAY 11, 2024@10:27 Req Phys: MANJINDER CORBIN Loc: PAT-UROLOGY RES (Req'g Loc) Img Loc: PAT-MAIN RADIOLOGY SUITE Service: [address] [address] (Case [id number] COMPLETE) CHEST X-RAY, 2 VIEWS (RAD Detailed) CPT:83790 Reason for Study: pre-operative testing Clinical History: Report Status: Verified Date Reported: MAY 12, 2024 Date Verified: MAY 12, 2024 Chief Yeoman E-Sig:/ES/ELIJAH MCCOY Report: CHEST X-RAY, 2 VIEWS COMPARISON: None. HISTORY: pre-operative testing FINDINGS: The heart size and pulmonary vasculature are normal. There is no consolidating infiltrate, effusion or pneumothorax. Mild hyperinflation. Impression: No active lung disease. RR Primary Interpreting Staff: ELIJAH MCCOY, Staff Physician (Chief Yeoman) /ELIJAH DELEON [facility] Apr 27, 2024 11:21 AM PET/CT PSMA-P: RAMEZ GODINEZ [id number] -1950 M Exm Date: APR 27, 2024@11:21 Req Phys: SAMANTHA JOINER S Pat Loc: PAT-UROLOGY TRUS NON-OR (Req'g Img Loc: PAT-PET-CT Service: [address] [address] (Case [id number] COMPLETE) PET/CT SKULL BASE TO MID-THIGH (NM Detailed) CPT:85205 CPT Modifiers : PI PET TUMOR INIT TX STRAT Reason for Study: high volume 4+5 on prostate biopsy, high risk patient (Case [id number] COMPLETE) F-18 PYLARIFY PER 1 MILLICURIE (NM Detailed) CPT:A9595 Clinical History: Indications for Diagnostic PSMA PET/CT: Patient: Suspected metastasis and a candidate for initial definitive therapy. Biopsy proven prostate cancer eligible for definitive treatment: Yes Biochemical recurrence of prostate cancer based on elevated PSA: No PSA level (ng/mL): PROST. SPECIFIC AG.(PB-STL) 8.914 H* ng/mL 01/06/2024 13:14 PROST. SPECIFIC AG.(PB-STL) 8.468 H* ng/mL 12/28/2023 13:15 Conventional imaging (bone scan and CT/MRI abdomen/pelvis) completed and available for viewing in PACS? Yes Conventional imaging negative/equivocal for metastatic disease? Report Status: Verified Date Reported: APR 27, 2024 Date Verified: APR 27, 2024 Chief Yeoman E-Sig:/ES/EMMANUEL PEREZ Report: PATIENT NAME: RAMEZ GODINEZ. CASE #: [id number], [id number]. PROCEDURE: PET/CT study Indication: high volume 4+5 on prostate biopsy, high risk patient HISTORY: 73-year-old Male with newly diagnosed prostatic acinar adenocarcinoma, grade group 5 (ankit score 4+5). PSA 8.9 ng/mL on 01/06/2024. TECHNIQUE:9.92 mCi of 18F-PSMA by IV in the left antecubital fossa. PET/CT image acquisition from top of the head to the upper thighs after approximately 67 minutes post-injection with the CT being low-dose, non-contrast. No separate report for the CT was generated since it was of non-diagnostic quality. SUV calculations were based on body weight. Comparison: No prior similar studies are available for comparison. FINDINGS: For reference, SUV max of liver is 9.8. HEAD AND NECK: A small lymph node in the left submental region with mild radiotracer activity SUV max 1.7 may be inflammatory. Physiologic activity in salivary and lacrimal glands. CHEST: Calcified granuloma in the right upper lobe below 1 cm without focal abnormal activity with calcified right hilar and right mediastinal small lymph nodes likely from old granulomatous disease etiology. There is mild increased radiotracer activity on the left hilum SUV max 3.1, nonspecific. The heart size is within normal limits. No pericardial effusion is noted. No pleural effusion is noted. ABDOMEN AND PELVIS: Photopenic cystic structures within the liver likely benign. Prostate gland is enlarged with increased radiotracer activity for example in the right side SUV max 40.0 and on the left side SUV max 6.4. No focal abnormal activity in the visceral organs. No hypermetabolic abdominal or pelvic lymphadenopathy is noted. Heterogeneous activity is seen in the bowel loops, likely physiologic There is no free intraperitoneal air or fluid. MUSCULOSKELETAL: Focal mild radiotracer activity in the left scapular fusing into medial spinous process SUV max 1.8 without significant underlying osseous changes difficult to characterize due to small size. Impression: 1. Multifocal disease within the enlarged prostate consistent with biopsy-proven malignancy. 2. No radiotracer avid concerning metastatic lymph node disease in the abdomen and pelvis. 3. Focus of mild radiotracer activity in the left scapula is indeterminate. Further correlation is recommended. Diagnostic code: 1001 Dictated by Emmanuel Perez MD (PET/CT fellow). Primary Diagnostic Code: SIGNIFICANT ABNORMALITY, ATTN NEEDED Primary Interpreting Staff: EMMANUEL PEREZ MD (Chief Yeoman) /PFT EMMANUEL PEREZ [facility] Mar 25, 2024 01:00 PM MRI PROSTATE W&W/O CONTRAST: RAMEZ GODINEZ [id number] -1950 M Exm Date: MAR 25, 2024@13:00 Req Phys: RICKY RUSHING Loc: PAT-UROLOGY RES (Req'g Loc) Img Loc: OUTSIDE -MRI Service: Unknown (Case [id number] COMPLETE) MRI PROSTATE W&W/O CONTRAST (MRI Detailed) CPT:88438 Reason for Study: OUTSIDE EXAM Clinical History: OUTSIDE EXAM Report Status: Electronically Filed Date Reported: JUL 12, 2024 Report: This study was performed outside the DC in another facility and images were uploaded into [employer] ([employer]). The report has been scanned into [employer]. In order to upload images a case number was needed, therefore this is an administrative report. Impression: This study was performed outside the DC in another facility and images were uploaded into [employer] ([employer]). The report has been scanned into [employer]. In order to upload images a case number was needed, therefore this is an administrative report VERIFIED BY: / *ELECTRONICALLY FILED* [facility] Pathology Reports: +/- 30 days of [...] the Encounter. The data comes from all [place] treatment facilities. Date/Time Pathology Report Provider Source May 11, 2024 10:45 AM LR MICROBIOLOGY REPORT: Accession [UID]: [id number] [[id number]] Received: May 11, 2024@10:46 Collection sample: URINE,CLEAN CATCH Collection date: May 11, 2024 10:45 Site/Specimen: URINE Provider: MANJINDER CORBIN Test(s) ordered: C&S URINE..................... completed: May 13, 2024 13:51 * BACTERIOLOGY FINAL REPORT => May 13, 2024 14:19 TECH CODE: [id number] GRAM STAIN: Bacteriology Remark(s): 2.20.25 KAA Culture in progress 2.21.25 KAA CULTURE SHOWS >10,000 - <25,000 CFU/ML PROTEUS MIRABILIS AND >10,000 - <25,000 CFU/ML STAPH EPIDERMIDIS There will be no work up. =--=--=--=--=--=--=--=--=--=-- =--=--=--=--=--=--=--=--=--=-- =--=--=--=--=--=-- Performing Laboratory: Bacteriology Report Performed By: [facility]# [id number] [address] [place] [id number] LIZZIE COYNE Sirisha [facility] Apr 22, 2024 11:50 AM LR SURGICAL PATHOLOGY REPORT: LOCAL TITLE: LR SURGICAL PATHOLOGY REPORT STANDARD TITLE: PATHOLOGY PROCEDURE NOTE DATE OF NOTE: APR 22, 2024@11:50:27 ENTRY DATE: APR 22, 2024@11:50:27 AUTHOR: WILKIMBERLY SHERMAN: URGENCY: STATUS: COMPLETED $APHDR - - - [...] - PATHOLOGY REPORT Accession No. SP [id number] - - - - - - - - - - - - - - - - - - - - - - - - - - - - - - - - - - - - - - - - $TEXT Submitted by: SAMANTHA JOINER Date obtained: Apr 20, 2024 - - - - - - - - - - - - - - - - - - - - - - - - - - - - - - - - - - - - - - - - Specimen (Received Apr 20, 2024 12:21): A. right prostate B. left prostate C. right MRI targeted lesion - - - - - - - - - - - - - - - - - - - - - - - - - - - - - - - - - - - - - - - - BRIEF CLINICAL HISTORY: elevated PSA - - - - - - - - - - - - - - - - - - - - - - - - - - - - - - - - - - - - - - - - PREOPERATIVE DIAGNOSIS: elevated PSA - - - - - - - - - - - - - - - - - - - - - - - - - - - - - - - - - - - - - - - - OPERATIVE FINDINGS: normal TRUS - - - - - - - - - - - - - - - - - - - - - - - - - - - - - - - - - - - - - - - - POSTOPERATIVE DIAGNOSIS: same Surgeon/physician: SAMANTHA JOINER MD =-=-=-=-=-=-=-=-=-=-=-=-=-=-=- =-=-=-=-=-=-=-=-=-=-=-=-=-=-=- =-=-=-=-=-=-=-=-=-= - - - - - - - - - - - - - - - - - - - - - - - - - - - - - - - - - - - - - - - - PATHOLOGY REPORT Accession No. SP [id number] - - - - - - - - - - - - - - - - - - - - - - - - - - - - - - - - - - - - - - - - GROSS DESCRIPTION: (Kaden Perez MD 04/20/24) The specimens are received in formalin in three containers, each labeled with the patient's full name and SSN. A. Labeled as Rt prostate are seven cores of tate tissue measuring from 0.6-1.6 cm in length and 0.1 cm in diameter, as well as three fragments of similar tissue measuring from 0.2 to 0.3 cm in greatest dimension, which are submitted in toto in A1 & A2. B. Labeled as Lt prostate are eight cores of tate tissue measuring from 0.5-1.2 cm in length and 0.1 cm in diameter, as well as two fragments of similar tissue measuring 0.3 and 0.4 cm in greatest dimension, which are submitted in toto in B1 & B2. C. Labeled as MRI targeted prostate are three cores of tate tissue measuring 1.1 and 1.3 cm in length and 0.1 cm in diameter, which are submitted in toto in C1. MICROSCOPIC EXAM: (Kaden Perez MD) Microscopic examination substantiates the stated diagnoses. Immunostains for high molecular weight keratin and NKX3.1, performed with appropriately reactive controls, support the diagnoses. These findings are called to Dr. Rosy Joiner at 11:42 a.m. on 04/22/[address] Kaden Perez. This case was reviewed intradepartmentally by Dr. Mahnaz Dewitt, with diagnostic agreement. DIAGNOSIS: PROSTATE, RIGHT, NEEDLE BIOPSY (A): - PROSTATIC ACINAR ADENOCARCINOMA, GRADE GROUP 4 (ANKIT SCORE 4+4) - CRIBRIFORM PATTERN 4: NOT IDENTIFIED - INTRADUCTAL CARCINOMA (IDC): NOT IDENTIFIED - TOTAL LINEAR LENGTH OF TUMOR: 14 MM - TUMOR INVOLVES 5 OF 10 CORES/FRAGMENTS OCCUPYING AN ESTIMATED 30% OF TOTAL PROSTATIC TISSUE - PERINEURAL INVASION IDENTIFIED PROSTATE, LEFT, NEEDLE BIOPSY (B): - BENIGN PROSTATIC TISSUE PROSTATE, RIGHT, MRI-TARGETED NEEDLE BIOPSY (C): - PROSTATIC ACINAR ADENOCARCINOMA, GRADE GROUP 5 (ANKIT SCORE 4+5) - PERCENTAGE OF PATTERN 4: 80-90% - PERCENTAGE OF PATTERN 5: 10-20% - CRIBRIFORM PATTERN 4: NOT IDENTIFIED - INTRADUCTAL CARCINOMA (IDC): NOT IDENTIFIED - TOTAL LINEAR LENGTH OF TUMOR: 10 MM - TUMOR INVOLVES 3 OF 3 CORES/FRAGMENTS OCCUPYING AN ESTIMATED 60% OF TOTAL PROSTATIC TISSUE /paola/ KIMBERLY PEREZ PATHOLOGIST Signed Apr 22, 2024@11:50 Performing Laboratory: Surgical Pathology Report Performed By: [facility] CLIA# [id number] [address] [place] [phone] $FTR - - - - - - - - - - - - - - - - - - - - - - - - - - - - - - - - - - - - - - - - (End of report) KIMBERLY PEREZ MD Date Apr 22, 2024 - - - - - - - - - - - - - - - - - - - - - - - - - - - - - - - - - - - - - - - - RAMEZ GODINEZ STANDARD FORM 515 ID:[id number] SEX:M :1950 AGE: 73 LOC:PAT-UROLOGY TRUS NON-OR PCP: Bertha Raymond NP /paola/ KIMBERLY PEREZ PATHOLOGIST Signed: 04/22/2024 11:50 KIMBERLY PEREZ [facility] Encounter Notes: All associated encounter notes This section contains the clinical notes associated to the Encounter. Date/Time Encounter Note(s) Provider Source May 12, 2024 09:59 AM PHYSICIAN LETTERS: LOCAL TITLE: TEST RESULT GENERAL LETTER STL STANDARD TITLE: PHYSICIAN LETTERS DATE OF NOTE: MAY 12, 2024@09:59 ENTRY DATE: MAY 12, 2024@09:59:33 AUTHOR: BERTHA RAYMOND EXP COSIGNER: URGENCY: STATUS: COMPLETED [address] [address] MAY 12, 2024 RAMEZ GODINEZ [address] [place], [place] [address] Dear Ramez Godinez, I would like to update you on your recent test results. HEMOGLOBIN A1C - Gives us information about your diabetes (sugar or glucose) control over the past 3 months. Your target is to keep your A1C below 5.7%. HGA1C 5.7 % 05/11/2024 10:38 These readings are within normal limits. PLAN Please continue your treatment as we discussed during your visit. If you have any questions please call your case filler. I look forward to seeing you at your next clinic appointment. Thank you for choosing the [facility] for your healthcare. FUTURE APPOINTMENTS: 05/26/2024 10:15 PAT-GI/ENDO LAB ANESTHESIA 08/19/2024 14:00 PAT-NOCO PACT 7 PCP Sincerely, BERTHA RAYMOND, MSN, AGNP-C NURSE PRACTITIONER RAMEZ GODINEZ [facility] Apr 22, 2024 01:22 PM PRIMARY CARE NOTE: LOCAL TITLE: PRIMARY CARE PROVIDER ESTABLISHED VISIT [facility] STANDARD TITLE: PRIMARY CARE NOTE DATE OF NOTE: APR 22, 2024@13:22 ENTRY DATE: APR 22, 2024@12:33:58 AUTHOR: BERTHA RAYMOND EXP COSIGNER: URGENCY: STATUS: COMPLETED ESTABLISHED PATIENT KGLE-IA-ERQT REASON FOR VISIT/CHIEF COMPLAINT: follow up HPI: PMH, see problem list 73 y/o male who presents to the medical clinic for his scheduled follow up visit. The purpose of the visit today is to follow up on the veterans chronic medical conditions. Denies new concerns or complaints. Last PCP visit: 12/28/2023 HTN. Home BP readings: not monitoring. Denies c/o SOB, CP, MELENDEZ, peripheral edema. WHAT IS YOUR GOAL FOR TODAY? F/U chronic medical conditions SOURCE(S) OF HISTORY: -Patient PAST MEDICAL HISTORY: 1) Exposure to potentially hazardous substance ([facility] [id number]) comment: Entered automatically through JOSE Problem List documentation prog 2) HTN - Hypertension ([facility] [id number]) 3) Prediabetes 4) Chronic Kidney Disease Stage 3A ([facility] [id number]) 5) Elevated PSA SURGICAL HISTORY: denies FAMILY MEDICAL HISTORY: Maternal Aunt: Mentally ill Mother: Lung cancer, Maternal nephews: issues SOCIAL HISTORY: Nicotine: denies Alcohol: consumes 1-2 drinks per month Illicit Drugs: denies -Lives: with daughter and grandchildren Allergy: Patient has answered NKA Allergy list reviewed and remains current. MEDICATIONS: Active Outpatient Medications (including Supplies): Active Outpatient Medications Status 1) AMLODIPINE BESYLATE 5MG TAB TAKE ONE TABLET BY MOUTH ONCE A ACTIVE DAY Indication: FOR HIGH BLOOD PRESSURE MEDICATION RECONCILIATION: completed REVIEW OF SYSTEMS: See HPI for further details of positive complaints. All 10 systems reviewed and otherwise negative. PHYSICAL EXAMINATION: VITALS (most recent, as listed in the electronic record): Temperature: 98.4 F [36.9 C] (04/22/2024 13:04) BP: 142/82 (04/22/2024 13:46) Pulse: 68 (04/22/2024 13:04) Resp: 18 (04/22/2024 13:04) PulsOx: 96% (04/22/2024 13:04) Pain: 0 (04/22/2024 13:04) Weight: Measurement DT WEIGHT LB(KG)[BMI] 04/22/2024 13:04 196.2(88.99)[28*] 02/15/2024 11:50 197.8(89.72)[28*] 01/29/2024 10:45 196.1(88.95)[27] PHYSICAL EXAMINATION: General appearance: well-groomed, well-nourished, in no distress HEENT: sclera/conjunctiva clear, TMs pearly horner, nares patent no secretions or inflammation, oropharynx WNL Neck: supple, no lymphadenopathy or thyromegaly Cardiovascular: RRR, no murmur, no gallop Respiratory: CTA, no wheezes, crackles or rhonchi ABD/GI: normal contour, bs + in all quads, non-tender M/S: normal gait and posture Extremities: radial/PT pulses 2+, warm, well-perfused Psych: normal affect Neuro: Alert and oriented x 3 Skin: warm, dry, normal color and texture, skin intact DATA REVIEW: HGA1C 5.8 % 12/28/2023 13:15 === Lipid Panel: TRIGLYCERIDE 81 mg/dL 12/28/2023 13:15 CHOLESTEROL 179 mg/dL 12/28/2023 13:15 HDL(New) 49 mg/dL 12/28/2023 13:15 CALCULATED LDL 114 mg/dL 12/28/2023 13:15 === CMP: SODIUM 142 mEq/L 12/28/2023 13:15 POTASSIUM 4.7 mEq/L 12/28/2023 13:15 CHLORIDE 108 H mEq/L 12/28/2023 13:15 UREA NITROGEN 14.6 mg/dL 12/28/2023 13:15 CREATININE 1.37 H mg/dL 12/28/2023 13:15 CALCIUM 9.7 mg/dL 12/28/2023 13:15 PROTEIN 7.2 g/dL 12/28/2023 13:15 ALBUMIN 4.1 g/dL 12/28/2023 13:15 ALKALINE PHOSPHATASE 100 U/L 12/28/2023 13:15 ALT/SGPT 21 U/L 12/28/2023 13:15 AST/SGOT 21 U/L 12/28/2023 13:15 TOTAL BILIRUBIN 0.6 mg/dL 12/28/2023 13:15 CARBON DIOXIDE 25 mEq/L 12/28/2023 13:15 GLUCOSE 102 H mg/dL 12/28/2023 13:15 EGFR (CKD-EPI 2020) 54.1 12/28/2023 13:15 === CBC: WBC 7.1 10*3/uL 12/28/2023 13:15 RBC 5.19 10*6/uL 12/28/2023 13:15 HGB 16.2 g/dL 12/28/2023 13:15 HCT 48.4 % 12/28/2023 13:15 MCV 93.3 fL 12/28/2023 13:15 MCH 31.2 pg 12/28/2023 13:15 MCHC 33.5 g/dL 12/28/2023 13:15 RDW 13.3 % 12/28/2023 13:15 PLT 193 10*3/uL 12/28/2023 13:15 MPV 11.3 H fL 12/28/2023 13:15 NEUTROPHILS, AUTO % 63 % 12/28/2023 13:15 LYMPHOCYTES, AUTO % 29 % 12/28/2023 13:15 MONOCYTES, AUTO % 6 % 12/28/2023 13:15 EOSINOPHILS, AUTO % 2 % 12/28/2023 13:15 BASOPHILS, AUTO % 1 % 12/28/2023 13:15 NEUTROPHILS, ABSOLUTE 4.45 10*3/uL 12/28/2023 13:15 LYMPHOCYTES, ABSOLUTE 2.01 10*3/uL 12/28/2023 13:15 MONOCYTES, ABSOLUTE 0.41 10*3/uL 12/28/2023 13:15 EOSINOPHILS, ABSOLUTE 0.13 10*3/uL 12/28/2023 13:15 BASOPHILS, ABSOLUTE 0.04 10*3/uL 12/28/2023 13:15 === PSA: PROST. SPECIFIC AG.(PB-STL) 8.914 H* ng/mL 01/06/2024 13:14 PROST. SPECIFIC AG.(PB-STL) 8.468 H* ng/mL 12/28/2023 13:15 === TSH: TSH 1.681 uIU/mL 12/28/2023 13:15 === ASSESSMENT/PLAN: # HTN: - Blood pressure marginally controlled. Increase amlodipine to 7.5mg/day to optimize BP control. Consider further dose titrations pending response to Tx. - Check renal function. Continue lifestyle modifications. F/U RNCM in two weeks for BP check. # Elevated PSA: - Evaluated by Urology. Prostate biopsy complete and showed benign prostatic tissue and adenocarcinoma. Vet has appt with on 05/02/2024 to review pathology further. pMRI on hold. # Prediabetes: - Diet controlled. Lifestyle modifications reviewed. Repeat a1c # CKD IIIa: - Repeat renal panel. Renally dose medications. Adequate hydration encouraged HM: AAA screen: denies h/o tobacco use Colorectal cancer screening: Last completed: + FOBT, referred to GI. c-scope scheduled 05/26/2024 Prostate cancer screening: Last completed: 8.914 H* ng/mL 01/06/2024 13:14 Lung cancer screening: Eligibility: denies h/o tobacco use ADMINISTERED Immunization Series Date Facility Reaction Info COVID-19 ([facility]), MRNA, LNP-S, * 2 07/07/2020 No Site COVID-19 ([facility]), MRNA, LNP-S, * 1 06/09/2020 No Site REFUSED ======= Immunization Date Facility Info COVID-19 ([facility]), MRNA, LNP-S, * 12/28/2023 [facility] <I> INFLUENZA, UNSPECIFIED FORMULATI* 12/28/2023 [facility] <I> INFLUENZA, UNSPECIFIED FORMULATI* 12/24/2023 No Site <I> PNEUMOCOCCAL CONJUGATE, UNSPECIF* 12/24/2023 No Site <I> TDAP 12/24/2023 No Site <I> ZOSTER RECOMBINANT 12/24/2023 No Site <I> clinical reminders completed; educated on continuing to avoid salt, conc sweets; benefits of continued exercise, reg PCP visits, routine eyes exams Plan of care has been discussed with including expected therapeutic benefits and potential side effects of prescribed medications and treatments. Current medication list has been reconciled with and updated accordingly. Gap was instructed to keep all scheduled appointments and to contact chemistry manager for any additional problems. Gap verbalizes understanding and is in agreement with the plan of care. RTC: two week BP check RNCM; 4m F2F visit PCP or sooner PRN PREVENTION & SCREENING: ALCOHOL: Clinical Reminder not due now or within a month BLOOD PRESSURE: Clinical Reminder not due now or within a month HEMOGLOBIN A1C: Clinical Reminder not due now or within a month RHS Screen - VS: RHS Screen Environmental Check Screening was not completed at this time due to: Other: single Diagnostic Colonoscopy - L,N,P,PH: (+) FIT/FOBT identified. A diagnostic Colonoscopy is due based on information available to this reminder. A colonoscopy is currently scheduled or in process of being scheduled. Influenza Immunization - L,N,P,PH,U: Deferral / Refusal The patient declines to receive the recommended dose of seasonal influenza vaccine. Immunization: INFLUENZA, UNSPECIFIED FORMULATION Refusal Reason: PATIENT DECISION Patient refuses all immunization(s) in the FLU group Date Documented: 04/22/24 13:51 HTN Assess for Elevated BP>=140/90 - N,P,PH: The patient's medication regimen was adjusted to improve blood pressure control. Comment: increase amlodipine to 7.5mg/day The patient was counseled on the importance of regular exercise and/or physical activity in the control of blood pressure. The patient was instructed to try to participate in 120 minutes of aerobic exercise per week if possible and that any increase in physical activity may be useful in controlling blood pressure. The patient was counseled on the importance of diet and weight loss/ control in the regulation of blood pressure. The patient was counseled to reduce their weight to within 10 percent of their ideal body weight. The possible improvement in blood pressure control with even 5 to 10 pounds of weight loss was reviewed. The patient was educated on the importance of taking prescribed therapy for hypertension. /paola/ BERTHA RAYMOND, MSN, AGNP-C NURSE PRACTITIONER Signed: 04/22/2024 13:54 BERTHA RAYMOND [facility] Apr 22, 2024 01:08 PM NURSING NOTE: LOCAL TITLE: V15 PACT FACE TO FACE NOTE STL STANDARD TITLE: NURSING NOTE DATE OF NOTE: APR 22, 2024@13:08 ENTRY DATE: APR 22, 2024@13:08:42 AUTHOR: MERLIN MACARIO EXP COSIGNER: URGENCY: STATUS: COMPLETED Provider Visit: Patient Identifiers : Full Name Date of Reason for visit: Established Follow-Up Mode of Arrival: Ambulatory Allergy Review: Patient has answered NKA Allergy list reviewed and remains current. Recent Vital Signs: Temperature: 98.4 F [36.9 C] (04/22/2024 13:04) Pulse: 68 (04/22/2024 13:04) Respiration: 18 (04/22/2024 13:04) B/P: 146/86 (04/22/2024 13:08) Pain: 0 (04/22/2024 13:04) Wt: 196.2 lb [88.99 kg] (04/22/2024 13:04) Ht: 70 in [177.8 cm] (04/22/2024 13:04) BMI: 28.2 POX: 96% (04/22/2024 13:04) PERSONAL HEALTH INVENTORY Notes: No data available for PHI note titles PERSONAL HEALTH INVENTORY - MAP: 01/06/2024 Personal Health Plan [place], [place] (MAP) family 12/28/2023 Personal Health Plan [place], [place] (MAP) My kids What matters most to you in your life right now? -- 's Response: safety of my children Would you like to discuss any personal problem, family problem, alcohol use, drug use, or a mental or emotional illness? No [facility] ([facility]), please select appointment type: Face to face: No- Are you interested in getting this done? No Contact provided Primary Care phone number and encouraged to call if any questions or concerns. Review that after hours nurse line [phone] and emergency room are available 13/10 for patient use. Contact verbalized good understanding. Sexual Orientation - CP,L,N,P,PH,PS,S,U: The patient thinks of their sexual orientation as: Straight or Heterosexual COVID-19 Immunization - L,N,P,PH,U: Refused Pfizer Monovalent COVID-19 vaccine Immunization: COVID-19 ([facility]), MRNA, LNP-S, PF, JENIFER-SUCROSE, 30 MCG/0.3 ML (AGES 12+ YEARS) Refusal Reason: PATIENT DECISION Patient refuses all immunization(s) in the COVID-19 group Date Documented: 04/22/24 13:11 Influenza Immunization - L,N,P,PH,U: Deferral / Refusal The patient declines to receive the recommended dose of seasonal influenza vaccine. Immunization: INFLUENZA, UNSPECIFIED FORMULATION Refusal Reason: PATIENT DECISION Patient refuses all immunization(s) in the FLU group Date Documented: 04/22/24 13:11 Herpes Zoster (Shingles) Vaccine - L,N,P,PH,U: The patient declines to receive the recommended dose of zoster (shingles) vaccine. Immunization: ZOSTER RECOMBINANT Refusal Reason: PATIENT DECISION Patient refuses all immunization(s) in the ZOSTER group Date Documented: 04/22/24 13:11 Pneumococcal Conjugate Vaccine (PCV15/PCV20) - L,N,P,PH,U: Refuses PCV vaccine Immunization: PNEUMOCOCCAL CONJUGATE, UNSPECIFIED FORMULATION Refusal Reason: PATIENT DECISION Patient refuses all immunization(s) in the PneumoPCV group Date Documented: 04/22/24 13:11 Tdap Immunization - L,N,P,PH,U: The patient declines to receive the recommended dose of Tdap vaccine. Immunization: TDAP Refusal Reason: PATIENT DECISION Patient refuses all immunization(s) in the TDAP group Date Documented: 04/22/24 13:12 /paola/ MERLIN MACARIO LICENSED PRACTICAL NURSE Signed: 04/22/2024 13:12 MERLIN MACARIO [facility]
--- OUTSIDE RECORDS SUMMARY | 2024-08-25 08:56 | XMS_ITS | Encounter Summary ---
Author Name [facility] [place] [facility] Address [address] [place] [address] Care Team Providers Care Hr Administrator Name Role Phone BERTHA RAYMOND Primary Care Provider [facility] Insurance Providers: All historical and current [...] Relationship to Policy Rios SHIKHA NIEVES - [facility] SHIKHA YOUSIF Apr 27, 2019 SHIKHA NIEVES [id number] [facility] PATIENT MEDICARE (WNR) MEDICARE (M) PART A Nov 21, 2014 PART A [id number] PATIENT MEDICARE (WNR) MEDICARE (M) PART B Nov 21, 2014 PART B [id number] [facility] PATIENT Selected Encounter This section includes the information on record at [place] for the Encounter. 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 Date/Time Primary/Secondary Diagnosis Diagnosis Name Provider Source May 11, 2024 02:02 PM PRIMARY Carcinoma in situ of prostate MADELYN CORBIN [facility] Plan of Treatment: Future Appointments (+ 6 months) and Future Tests (+/- 45 days) The Plan of Treatment section includes future care activities for the patient from all [place] [facility] This section includes future appointments and future orders which are active, pending or scheduled. Future Appointments This section includes appointments that were scheduled to occur 6 months from the date of the Encounter, up to a maximum of 20 appointments. The data comes from all [place] treatment [facility]. Appointment Date/Time Appointment Type Appointme nt Facility Name May 27, 2024 07:15 AM AMBULATORY - MEDICINE [facility] May 31, 2024 09:00 AM AMBULATORY - SURGERY [facility] Jun 09, 2024 08:44 AM AMBULATORY - NONE [facility] Jun 14, 2024 09:30 AM AMBULATORY - MEDICINE [facility] Jun 17, 2024 11:00 AM AMBULATORY - SURGERY [facility] Jun 28, 2024 02:06 PM AMBULATORY - [facility] Jul 11, 2024 09:00 AM AMBULATORY - SURGERY [facility] August 19, 2024 02:00 PM [facility] Oct 10, 2024 09:00 AM AMBULATORY - SURGERY [facility] Oct 18, 2024 09:30 AM AMBULATORY - MEDICINE [facility] Active, Pending, and Scheduled Orders This section includes a listing of several types of active, pending, and scheduled orders, including clinic medications orders, diagnostic test orders, procedure orders and consult orders; where the start date of the order is 45 days before the date of the Encounter or 45 days after the date of theEncounter. The data comes from all [facility]. Test Date/Time Test Type Test Details Facility Name Apr 22, 2024 12:00 AM Laboratory - Chemi stry Order BASIC METABOLIC PANEL GREEN LI/HEP BLD/PLAS PLASMA SP [facility] May 11, 2024 12:00 AM Laboratory - Blood Bank Order TYPE & SCREEN - LAB BLOOD SP [facility] Jun 09, 2024 12:00 AM Laboratory - Blood Bank Order TYPE & SCREEN - LAB BLOOD WC [facility] Lab Results: +/- 30 days of the encounter This section includes the Chemistry and Hematology Lab Results on record with [facility] for the [facility]. Radiology Reports and Pathology Reports are provided separately, in subsequent sections. Lab Results This section contains the Chemistry/Hematology Results that were resulted 30 days before or 30 daysafter the date of the Encounter. Date/Time Source Result Type Result - Unit Interpretation Reference Range Specimen Type Comment Jun 10, 2024 04:46 AM [facility] GLUCOSE,BLOOD-poct (STL) BLOOD Specimen Type: BLOOD Comment: Test Performed by: [id number] Meter #: [id number] Ordering Provider: HEBER OVALLES Report Released Date/Time: Jun 10, 2024 05:21 AM Reporting Lab: [place] [address] [facility] [address] Performing Lab: [place] [address] [facility] [address] GLUCOSE,BLOOD-poct (STL) 146 mg/dL H 72-99 Jun 09, 2024 08:12 PM [facility] CBC BLOOD Specimen Type: BLOOD No comment entered. Ordering Provider: BETO MCMILLAN Report Released Date/Time: Jun 09, 2024 05:43 PM Reporting Lab: [place] [address] [facility] [address] Performing Lab: [address] [address] WBC 11.1 10*3/uL 3.6-11.2 RBC 4.00 10*6/uL [...] H 2.10-8.00 Jun 09, 2024 07:00 PM [facility] MRSA SURVL NARES DNA NARES Specimen Type: [...] Jun 09, 2024 05:57 PM Reporting Lab: [address] [address] Performing Lab: [address] [address] MRSA SURVL NARES DNA Negative Negative Jun 09, 2024 10:40 AM [facility] COVID-19 DIAGNOSTIC (FLU/RSV)(STL) NASOPHARYNX Spec imen Type: [...] Jun 07, 2024 02:47 PM Reporting Lab: [address] [address] Performing Lab: [address] [address] INFLUENZA A NEG Negative INFLUENZA B NEG Negative COVID-19 (L-PB) NEG Not Detected RSV (Cepheid) Negative Negative May 11, 2024 10:38 AM [facility] HGA1C BLOOD Specimen Type: BLOOD No comment entered. Ordering Provider: BERTHA RAYMOND Report Released Date/Time: Apr 22, 2024 01:42 PM Reporting Lab: [address] [address] Performing Lab: [address] [address] HGA1C 5.7 4.0-6.0 May 11, 2024 10:37 AM [facility] PT/INR NEW ([facility] PLASMA Specimen Type: PLAS MA No comment entered. Ordering Provider: MANJINDER CORBIN Report Released Date/Time: May 11, 2024 10:21 AM Reporting Lab: [address] [address] Performing Lab: [address] [address] PROTIME 11.6 s 9.4-12.5 INR VALUE 1.0 {INR} May 11, 2024 10:37 AM [facility] BASIC METABOLIC PANEL PLASMA Specimen Type: PL ASMA Comment: No hemolysis noted. Ordering Provider: MANJINDER CORBIN Report Released Date/Time: May 11, 2024 10:21 AM Reporting Lab: [address] [address] Performing Lab: [address] [address] CREATININE 1.08 mg/dL 0.7-1.3 UREA NITROGEN 17.0 mg/dL 9.0-25.0 GLUCOSE 101 mg/dL H 72-99 SODIUM 140 meq/L 136-145 POTASSIUM 4.4 meq/L 3.5-5 CHLORIDE 106 meq/L 98-107 CARBON DIOXIDE 27 meq/L 22-31 CALCIUM 9.3 mg/dL 8.4-10.4 EGFR (CKD-EPI 2020) 72.0 >60 May 11, 2024 10:37 AM [facility] CBC BLOOD Specimen Type: BLOOD No comment entered. Ordering Provider: MANJINDER CORBIN Report Released Date/Time: May 11, 2024 10:21 AM Reporting Lab: [facility] [address] [facility] [address] Performing Lab: [facility] [address] [facility] [address] WBC 6.4 10*3/uL 3.6-11.2 RBC 5.21 10*6/uL [...] Pain Height Weight Body Mass Index Source May 11, 2024 09:31 AM 98.1 73 148/83 18 97 0 70 196 28 [facility] Social History: Smoking Status (Most current) and Tobacco Use (All prior to encounter date) This section includes the most current, and the historical, smoking and tobacco- related health factors from the [place] facility where the Encounter took place. Current Smoking Status This section includes the most current smoking, or tobacco-related health factor, from the [place] facility where the Encounter took place. Date/Time Current Smoking Status Comment Facil ity Dec 24, 2023 11:44 AM [place] NEVER USED [facility] Radiology Reports: +/- 30 days of the [...] the Encounter. The data comes from all [place] treatment facilities. Date/Time Radiology Report Provider Source May 11, 2024 10:27 AM CHEST X-RAY, 2 VIE WS: RAMEZ GODINEZ [id number] -1950 M Exm Date: MAY 11, 2024@10:27 Req Phys: MANJINDER CORBIN Loc: PAT-UROLOGY RES (Req'g Loc) Img Loc: -MAIN RADIOLOGY SUITE Service: [address] [address] (Case [id number] COMPLETE) CHEST X-RAY, 2 VIEWS (RAD Detailed) CPT:91151 Reason for Study: pre-operative testing Clinical History: Report Status: Verified Date Reported: MAY 12, 2024 Date Verified: MAY 12, 2024 Security Incident Handler E-Sig:/PAOLA/ELIJAH MCCOY Report: CHEST X-RAY, 2 VIEWS COMPARISON: None. HISTORY: pre-operative testing FINDINGS: The heart size and pulmonary vasculature are normal. There is no consolidating infiltrate, effusion or pneumothorax. Mild hyperinflation. Impression: No active lung disease. RR Primary Interpreting Staff: ELIJAH MCCOY Staff Physician (Security Incident Handler) /ELIJAH DELEON [facility] Apr 27, 2024 11:21 AM PET/CT PSMA-P: RAMEZ GODINEZ [id number] -1950 M Exm Date: APR 27, 2024@11:21 Req Phys: SAMANTHA JOINER Loc: PAT-UROLOGY TRUS NON-OR (Req'g Img Loc: PAT-PET-CT Service: [facility] [address] [place] [address] (Case [id number] COMPLETE) PET/CT SKULL BASE TO MID-THIGH (NM Detailed) CPT:63660 CPT Modifiers : PI PET TUMOR INIT [...] 27, 2024 Date Verified: APR 27, 2024 Security Incident Handler E-Sig:/ES/EMMANUEL PEREZ Report: PATIENT NAME: RAMEZ GODINEZ. CASE #: [id number], [id number]. PROCEDURE: PET/CT study Indication: high volume 4+5 [...] NEEDED Primary Interpreting Staff: EMMANUEL PEREZ MD (Security Incident Handler) /PFEMMANUEL JEREZ [facility] Pathology Reports: +/- 30 days of [...] the Encounter. The data comes from all [facility] facilities. Date/Time Pathology Report Provider Source May 31, 2024 04:37 PM LR SURGICAL PATHOLOGY REPORT: LOCAL TITLE: LR SURGICAL PATHOLOGY REPORT STANDARD TITLE: PATHOLOGY PROCEDURE NOTE DATE OF NOTE: MAY 31, 2024@16:37:36 ENTRY DATE: MAY 31, 2024@16:37:36 AUTHOR: ALMA SÁNCHEZ COSIGNER: URGENCY: STATUS: COMPLETED $APHDR - - [...] DIAGNOSIS: Colon polyps Surgeon/physician: RUSSELL RIBEIRO MD =-=-=-=-=-=-=-=-=-=-=-=-=-=-=- =-=-=-=-=-=-=-=-=-=-=-=-=-=-=- =-=-=-=-=-=-=-=-=-= - - - [...] Performing Laboratory: Surgical Pathology Report Performed By: [facility]# [id number] [address] [place] [phone] $FTR - - - - - - - - - - - - - - - - - - - - - - - - - - - - - - - - - - - - - - - - (End of report) ALMA SÁNCHEZ MD ph Date May 31, 2024 - - - - - - - - - - - - - - - - - - - - - - - - - - - - - - - - - - - - - - - - RAMEZ GODINEZ STANDARD FORM 515 ID:[id number] SEX:M :1950 AGE: 73 LOC:GILABA2 PCP: Bertha Raymond NP /paola/ ALMA ÁSNCHEZ MD, PhD STAFF PATHOLOGIST Signed: 05/31/2024 16:37 ALMA SÁNCHEZ [facility] May 11, 2024 10:45 AM LR MICROBIOLOGY REPORT: Accession [UID]: [id number] [[id number]] Received: May 11, 2024@10:46 Collection sample: URINE,CLEAN CATCH Collection date: May 11, 2024 10:45 Site/Specimen: URINE Provider: MANJINDER CORBIN Test(s) ordered: C&S URINE..................... completed: May 13, 2024 13:51 * BACTERIOLOGY FINAL REPORT => May 13, 2024 14:19 TECH CODE: [id number] GRAM STAIN: Bacteriology Remark(s): 2.20.25 KAA Culture in progress 2.21.25 KAA CULTURE SHOWS >10,000 - <25,000 CFU/ML PROTEUS MIRABILIS AND >10,000 - <25,000 CFU/ML STAPH EPIDERMIDIS There will be no work up. =--=--=--=--=--=--=--=--=--=-- =--=--=--=--=--=--=--=--=--=-- =--=--=--=--=--=-- Performing Laboratory: Bacteriology Report Performed By: [facility]# [id number] [facility] [address] [place] [phone] LIZZIE COYNE [facility] Apr 22, 2024 11:50 AM LR SURGICAL PATHOLOGY REPORT: LOCAL TITLE: LR SURGICAL PATHOLOGY REPORT STANDARD TITLE: PATHOLOGY PROCEDURE NOTE DATE OF NOTE: APR 22, 2024@11:50:27 ENTRY DATE: APR 22, 2024@11:50:27 AUTHOR: KIMBERLY PEREZ EXP COSIGNER: URGENCY: STATUS: COMPLETED $APHDR - [...] case was reviewed intradepartmentally by Dr. Mahnaz Sánchez, with diagnostic agreement. DIAGNOSIS: PROSTATE, RIGHT, NEEDLE [...] AN ESTIMATED 60% OF TOTAL PROSTATIC TISSUE /es/ KIMBERLY PEREZ PATHOLOGIST Signed Apr 22, 2024@11:50 Performing Laboratory: Surgical Pathology Report Performed By: [facility] CLIA# [id number] [facility] [address] [place] [address] $FTR - - - - - - - - - - - - - - - - - - - - - - - - - - - - - - - - - - - - - - - - (End of report) KIMBERLY PEREZ MD nw Date Apr 22, 2024 - - - - - - - - - - - - - - - - - - - - - - - - - - - - - - - - - - - - - - - - RAMEZ GODINEZ STANDARD FORM 515 ID:[id number] SEX:M :1950 AGE: 73 LOC:PAT-UROLOGY TRUS NON-OR PCP: Bertha Raymond NP /paola/ KIMBERLY PEREZ PATHOLOGIST Signed: 04/22/2024 11:50 KIMBERLY PEREZ [facility] Encounter Notes: All associated encounter notes This section contains the clinical notes associated to the Encounter. Date/Time Encounter Note(s) Provider Source May 23, 2024 03:00 PM UROLOGY H & P NOTE : LOCAL TITLE: UROLOGY HISTORY AND PHYSICAL STL STANDARD TITLE: UROLOGY H & P NOTE DATE OF NOTE: MAY 23, 2024@15:00 ENTRY DATE: MAY 23, 2024@15:00:56 AUTHOR: BETO MCMILLAN EXP COSIGNER: KARLA FERGUSON URGENCY: STATUS: COMPLETED PRE OP H&P Pre-OP diagnosis: Prostate Cancer Indication for surgery: 73 yo M with hx of elevated PSA 8.5>8.9 No prior PSAs, he is establishing primary care for first time in many years No family hx of medical records analyst breast Ca, ovarian Ca, social hx noncontributory No hematuria or UTIs No LUTS Good erections, no PDE5i No abdominal surgeries. Never had a surgery before He does not take blood thinners He does take amlodipine, recently had his dose of medication changed Very healthy and active Has been retired from [email or web address] since the 90s Runs marathons and other races, notes split times have incrased some in last 20-30 years Recently had prostate biopsy on 04/20/2024 which came back as GG5 in the MRI targeted needle biopsy, and GG4 in Right prostate biopsy. PET Scan obtained showing Multifocal disease within the enlarged prostate consistent with biopsy-proven malignancy. Urine Culture: Test(s) ordered: C&S URINE..................... completed: May 13, 2024 13:51 * BACTERIOLOGY FINAL REPORT => May 13, 2024 14:19 TECH CODE: [id number] GRAM STAIN: Bacteriology Remark(s): - 2.20.25 KAA - Culture in progress - 2.21.25 KAA - CULTURE SHOWS >10,000 - <25,000 CFU/ML PROTEUS MIRABILIS AND >10,000 - <25,000 CFU/ML STAPH EPIDERMIDIS There will be no work up. Antibiotics: Ancef Anticoagulant: None Clinically Significant Labs all normal?: Yes Appearance: Robust and comfortable? Yes Mental Status: Alert, oriented x3, normal cognitive function? Yes Other (Physical Exam, Lab, Radiology, Etc) All testing done, WNL Preoperative Findings/Diagnosis: Prostate Cancer Plan/Procedure: RALP PLJOHNNIE /paola/ BETO MCMILLAN MD Resident Physician, Urology Signed: 05/23/2024 15:14 /paola/ KARLA FERGUSON MD Staff Physician, Urology Cosigned: 05/23/2024 16:01 BETO MCMILLAN [facility] May 11, 2024 10:25 AM ADDENDUM: LOCAL TITLE: Addendum STANDARD TITLE: ADDENDUM DATE OF NOTE: MAY 11, 2024@10:25 ENTRY DATE: MAY 11, 2024@10:25:45 AUTHOR: CATHERINE CORBIN EXP COSIGNER: KARLA FERGUSON URGENCY: STATUS: COMPLETED Patient would like to proceed with RALP with PLND if we can get him on the schedule. Pre-operative testing has been ordered. Thanks! /es/ MANJINDER CORBIN MD, MD RESIDENT PHYSICIAN, UROLOGY // Signed: 05/11/2024 10:27 /es/ KARLA FERGUSON MD Staff Physician, Urology Cosigned: 05/11/2024 14:03 Receipt Acknowledged By: 05/12/2024 07:37 /es/ RICKY RUSHING, BEHAVIORAL SCIENCE CHAIR-HOOD, MSN, RN Nurse Practitioner, Urology 05/12/2024 15:55 /es/ TONY LOZANO PC-C 05/12/2024 07:09 /es/ GRACE RAMOS Physician Headlight Adjuster, Urology --- Original Document --- 05/11/24 UROLOGY NOTE: CHIEF COMPLAINT, HPI, EXAM & DATA CC: prostate cancer HPI: 73 yo M with hx of elevated PSA 8.5>8.9 No prior PSAs, he is establishing primary care for first time in many years No family hx of medical records analyst breast Ca, ovarian Ca No hematuria or UTIs No LUTS Good erections, no PDE5i No abdominal surgeries. Never had a surgery before He does not take blood thinners He does take amlodipine, recently had his dose of medication changed Very healthy and active Has been retired from [email or web address] since the s Runs marathons and other races, notes split times have incrased some in last 20-30 years Has a tip of a pencil (punctate) in arm and shoulder Recently had prostate biopsy on 04/20/2024 which came back as GG5 in the MRI targeted needle biopsy, and GG4 in Right prostate biopsy. PET Scan obtained showing Multifocal disease within the enlarged prostate consistent with biopsy-proven malignancy. ROS/PMH Denies F/C/N/V/CP/SOB Remainder of PMH listed below and reviewed? Yes TARGETED PHYSICAL EXAM: Gen: NAD HEENT: NC/AT Resp: NLB Abd: s/nt/nd, no rebound or guarding Back: No CVAT bilaterally Ext: WWP MSK: MAEW Neuro: non-focal Skin: warm and dry : PVR (by scan): CREATININE:CREATININE 1.37 H mg/dL 12/28/2023 13:15 PSA: PROST. SPECIFIC AG.(PB-STL) 8.914 H* ng/mL 01/06/2024 13:14 IMAGING: HISTORY: 73-year-old Male with newly diagnosed prostatic [...] scapula is indeterminate. Further correlation is recommended. Prostate Biopsy Results: DIAGNOSIS: PROSTATE, RIGHT, NEEDLE BIOPSY (A): - [...] AN ESTIMATED 60% OF TOTAL PROSTATIC TISSUE ASSESS MENT AND PLAN ---- 73 yo M with high risk localized GG5 prostate cancer based on MRI targeted biopsy, PET Scan with localized prostate cancer. We discussed definitive treatment as follows. 1. RADIATION THERAPY: This involves exposing the prostate to radiation in an attempt to either kill the cancer cells or at least make them stop multiplying. It can be delivered by several methods or combinations of methods. You can go in 5 days out of 7 for external beam radiation. This involves aiming radiation at the prostate from a different direction each day. This may take 5-6 weeks. There are risks of irritation of the bowel and bladder press tender long goods including overactive bowel/bladder and bladder bleeding. There is an equal rate of erectile dysfunction long-term after radiation or surgery, but this tends to occur over time (years) with radiation vs. immediately with surgery. Also, there is normal prostate remaining and the old cancer may become active or new cancer may arise. Salvage options after radiation are limited. 2. RADICAL PROSTATECTOMY: This is surgery that involves removing the entire prostate gland and the seminal vesicles. The bladder is then reattached to the urethra. This also allows for removal of the lymph nodes that drain the prostate, looking for possible spread of the cancer. This can be done in an open fashion through the lower abdomen, or laparoscopically, using a minimally invasive approach with a robot to aid the surgery. The advantage of the surgery is that if the cancer is confined to the prostate, and the prostate is totally removed, the cancer is gone forever. However, there may be a chance the cancer has already spread and this depends on your biopsy results, age and PSA. We simply do not have tests sensitive enough to know if there has been microscopic spread of the cancer. Only in time will a return of PSA tell us that cancer remains. There are secondary therapies available for this, including turning off the production of the male hormone, testosterone, and radiation. The main risks of the surgery can be loss of erectile function [75% of men notice some decrease or loss of function, which may be correctable with medication, a vacuum device, or implantation of a prosthesis] and loss of control of the urine [5% may lose complete control, while about 75% may find they leak a few drops if they strain, sneeze, or cough, when they are tired. Recovery of both erections and urinary control can take up to 12 months and there are surgeries to correct each long-term if desired. - Discussed risks of RALP including injury to blood vessels, rectum, bowel, postop incontinence and impotence Patient today would like to proceed with surgery. - preoperative labs and testing ordered (MORE INFORMATION) --- * LABS----- PSA Trend: PROST. SPECIFIC AG.(PB-STL) 8.914 H* ng/mL 01/06/2024 13:14 PROST. SPECIFIC AG.(PB-STL) 8.468 H* ng/mL 12/28/2023 13:15 BMP: SODIUM 142 mEq/L 12/28/2023 13:15 POTASSIUM 4.7 mEq/L 12/28/2023 13:15 CHLORIDE 108 H mEq/L 12/28/2023 13:15 UREA NITROGEN 14.6 mg/dL 12/28/2023 13:15 CREATININE 1.37 H mg/dL 12/28/2023 13:15 CALCIUM 9.7 mg/dL 12/28/2023 13:15 CARBON DIOXIDE 25 mEq/L 12/28/2023 13:15 GLUCOSE 102 H mg/dL 12/28/2023 13:15 EGFR (CKD-EPI 2020) 54.1 12/28/2023 13:15 CBC: WBC 7.1 10*3/uL 12/28/2023 13:15 RBC [...] 13:15 BASOPHILS, ABSOLUTE 0.04 10*3/uL 12/28/2023 13:15 UA: No URINALYSIS EO data found PAST MEDICAL, SOCIAL, FAMILY HX AND ROS 1) Exposure to potentially hazardous substance ([facility] [id number]) 2) HTN - Hypertension ([facility] [id number]) 3) Prediabetes 4) Chronic Kidney Disease Stage 3A ([facility] [id number]) 5) Elevated PSA MEDICATIONS: Active Outpatient Medications (including Supplies): Active Outpatient Medications Status 1) AMLODIPINE BESYLATE 2.5MG TAB TAKE THREE TABLETS BY MOUTH ACTIVE ONCE A DAY Indication: FOR HIGH BLOOD PRESSURE Allergies: Patient has answered NKA /paola/ MANJINDER CORBIN MD, MD RESIDENT PHYSICIAN, UROLOGY // Signed: 05/11/2024 10:24 /paola/ KARLA FERGUSON MD Staff Physician, Urology Cosigned: 05/11/2024 14:02 MANJINDER CORBIN [facility] May 11, 2024 09:48 AM UROLOGY NOTE: LOCAL TITLE: UROLOGY NOTE STANDARD TITLE: UROLOGY NOTE DATE OF NOTE: MAY 11, 2024@09:48 ENTRY DATE: MAY 11, 2024@09:48:53 AUTHOR: CATHERINE CORBIN EXP COSIGNER: FERGUSON,KARLA URGENCY: STATUS: COMPLETED UROLOGY NOTE Has ADDENDA CHIEF COMPLAINT, HPI, EXAM & DATA CC: prostate cancer HPI: 73 yo M with hx of elevated PSA 8.5>8.9 No prior PSAs, he is establishing primary care for first time in many years No family hx of medical records analyst breast Ca, ovarian Ca No hematuria or UTIs No LUTS Good erections, no PDE5i No abdominal surgeries. Never had a surgery before He does not take blood thinners He does take amlodipine, recently had his dose of medication changed Very healthy and active Has been retired from [email or web address] since the Runs marathons and other races, notes split times have incrased some in last 20-30 years Has a tip of a pencil (punctate) in arm and shoulder Recently had prostate biopsy on 04/20/2024 which came back as GG5 in the MRI targeted needle biopsy, and GG4 in Right prostate biopsy. PET Scan obtained showing Multifocal disease within the enlarged prostate consistent with biopsy-proven malignancy. ROS/PMH Denies F/C/N/V/CP/SOB Remainder of PMH listed below and reviewed? Yes TARGETED PHYSICAL EXAM: Gen: NAD HEENT: NC/AT Resp: NLB Abd: s/nt/nd, no rebound or guarding Back: No CVAT bilaterally Ext: WWP MSK: MAEW Neuro: non-focal Skin: warm and dry : PVR (by scan): CREATININE:CREATININE 1.37 H mg/dL 12/28/2023 13:15 PSA: PROST. SPECIFIC AG.(PB-STL) 8.914 H* ng/mL 01/06/2024 13:14 IMAGING: HISTORY: 73-year-old Male with newly diagnosed prostatic [...] scapula is indeterminate. Further correlation is recommended. Prostate Biopsy Results: DIAGNOSIS: PROSTATE, RIGHT, NEEDLE BIOPSY (A): - [...] AN ESTIMATED 60% OF TOTAL PROSTATIC TISSUE ASSESS MENT AND PLAN ---- 73 yo M with high risk localized GG5 prostate cancer based on MRI targeted biopsy, PET Scan with localized prostate cancer. We discussed definitive treatment as follows. 1. RADIATION THERAPY: This involves exposing the prostate to radiation in an attempt to either kill the cancer cells or at least make them stop multiplying. It can be delivered by several methods or combinations of methods. You can go in 5 days out of 7 for external beam radiation. This involves aiming radiation at the prostate from a different direction each day. This may take 5-6 weeks. There are risks of irritation of the bowel and bladder correction including overactive bowel/bladder and bladder bleeding. There is an equal rate of erectile dysfunction long-term after radiation or surgery, but this tends to occur over time (years) with radiation vs. immediately with surgery. Also, there is normal prostate remaining and the old cancer may become active or new cancer may arise. Salvage options after radiation are limited. 2. RADICAL PROSTATECTOMY: This is surgery that involves removing the entire prostate gland and the seminal vesicles. The bladder is then reattached to the urethra. This also allows for removal of the lymph nodes that drain the prostate, looking for possible spread of the cancer. This can be done in an open fashion through the lower abdomen, or laparoscopically, using a minimally invasive approach with a robot to aid the surgery. The advantage of the surgery is that if the cancer is confined to the prostate, and the prostate is totally removed, the cancer is gone forever. However, there may be a chance the cancer has already spread and this depends on your biopsy results, age and PSA. We simply do not have tests sensitive enough to know if there has been microscopic spread of the cancer. Only in time will a return of PSA tell us that cancer remains. There are secondary therapies available for this, including turning off the production of the male hormone, testosterone, and radiation. The main risks of the surgery can be loss of erectile function [75% of men notice some decrease or loss of function, which may be correctable with medication, a vacuum device, or implantation of a prosthesis] and loss of control of the urine [5% may lose complete control, while about 75% may find they leak a few drops if they strain, sneeze, or cough, when they are tired. Recovery of both erections and urinary control can take up to 12 months and there are surgeries to correct each long-term if desired. - Discussed risks of RALP including injury to blood vessels, rectum, bowel, postop incontinence and impotence Patient today would like to proceed with surgery. - preoperative labs and testing ordered (MORE INFORMATION) --- * LABS----- PSA Trend: PROST. SPECIFIC AG.(PB-STL) 8.914 H* ng/mL 01/06/2024 13:14 PROST. SPECIFIC AG.(PB-STL) 8.468 H* ng/mL 12/28/2023 13:15 BMP: SODIUM 142 mEq/L 12/28/2023 13:15 POTASSIUM 4.7 mEq/L 12/28/2023 13:15 CHLORIDE 108 H mEq/L 12/28/2023 13:15 UREA NITROGEN 14.6 mg/dL 12/28/2023 13:15 CREATININE 1.37 H mg/dL 12/28/2023 13:15 CALCIUM 9.7 mg/dL 12/28/2023 13:15 CARBON DIOXIDE 25 mEq/L 12/28/2023 13:15 GLUCOSE 102 H mg/dL 12/28/2023 13:15 EGFR (CKD-EPI 2020) 54.1 12/28/2023 13:15 CBC: WBC 7.1 10*3/uL 12/28/2023 13:15 RBC [...] 13:15 BASOPHILS, ABSOLUTE 0.04 10*3/uL 12/28/2023 13:15 UA: No URINALYSIS EO data found PAST MEDICAL, SOCIAL, FAMILY HX AND ROS 1) Exposure to potentially hazardous substance ([facility] [id number]) 2) HTN - Hypertension ([facility] [id number]) 3) Prediabetes 4) Chronic Kidney Disease Stage 3A ([facility] [id number]) 5) Elevated PSA MEDICATIONS: Active Outpatient Medications (including Supplies): Active Outpatient Medications Status 1) AMLODIPINE BESYLATE 2.5MG TAB TAKE THREE TABLETS BY MOUTH ACTIVE ONCE A DAY Indication: FOR HIGH BLOOD PRESSURE Allergies: Patient has answered NKA /paola/ MANJINDER CORBIN MD, MD RESIDENT PHYSICIAN, UROLOGY // Signed: 05/11/2024 10:24 /paola/ KARLA FERGUSON MD Staff Physician, Urology Cosigned: 05/11/2024 14:02 05/11/2024 ADDENDUM STATUS: COMPLETED Patient would like to proceed with RALP with [facility] if we can get him on the schedule. Pre-operative testing has been ordered. Thanks! /carlita CORBIN MD, MD RESIDENT PHYSICIAN, UROLOGY // Signed: 05/11/2024 10:27 /paola/ KARLA FERGUSON MD Staff Physician, Urology Cosigned: 05/11/2024 14:03 Receipt Acknowledged By: * AWAITING SIGNATURE * RICKY RUSHING * AWAITING SIGNATURE * TONY LOZANO ELIZABETH A [facility]
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
--- OUTSIDE RECORDS SUMMARY | 2024-08-25 08:56 | XMS_ITS ---
Author Name [facility] [place] [facility] Address [address] [place] [address] Care Team Providers Care Assembler Handbags Name Role Phone BERTHA RAYMOND Primary Care Provider [facility] Insurance Providers: All historical and current [...] Relationship to Policy Rios SHIKHA NIEVES - [place] SHIKHA YOUSIF Apr 27, 2019 SHIKHA NIEVES [id number] [facility] PATIENT MEDICARE (WNR) MEDICARE (M) PART A Nov 21, 2014 PART A [id number] [facility] PATIENT MEDICARE (WNR) MEDICARE (M) PART B Nov 21, 2014 PART B [id number] [facility] PATIENT Selected Encounter This section includes the information on record at [place] for the Encounter. Date/Time Encounter Type Encounter Description Reason Provider Source Jun 28, 2024 04:08 PM OFFICE O/P EST LOW 20 MIN [facility]OLOGY [facility] ICD-10-CM C61 Malignant neoplasm of prostate MALORIE FERGUSON Encounter Template Text not used by [place] Assessments - Encounter Diagnoses This section includes the primary and secondary diagnoses documented for the Encounter. Date/Time Primary/Secondary Diagnosis Diagnosis Name Provider Source Jul 06, 2024 04:31 PM PRIMARY Malignant neoplasm of prostate ANGELITA BACK [facility] Plan of Treatment: Future Appointments (+ 6 months) and Future Tests (+/- 45 days) The Plan of Treatment section includes future care activities for the patient from all [place] treatmentfacilities. This section includes future appointments and future orders which are active, pending or scheduled. Future Appointments This section includes appointments that were scheduled to occur 6 months from the date of the Encounter, up to a maximum of 20 appointments. The data comes from all [place] treatment facilities. Appointment Date/Time Appointment Type Appointme nt Facility Name Jul 11, 2024 09:00 AM AMBULATORY - SURGERY [facility] August 19, 2024 02:00 PM AMBULATORY - MEDICINE [facility] Oct 10, 2024 09:00 AM AMBULATORY SURGERY [facility] Oct 18, 2024 09:30 AM [facility] Active, Pending, and Scheduled Orders This section includes a listing of several types of active, pending, and scheduled orders, including clinic medications orders, diagnostic test orders, procedure orders and consult orders; where the start date of the order is 45 days before the date of the Encounter or 45 days after the date of theEncounter. The data comes from all [facility]. Test Date/Time Test Type Test Details Facility Name Jun 09, 2024 12:00 AM Laboratory - Blood Bank Order TYPE & SCREEN - LAB BLOOD [facility] Lab Results: +/- 30 days of the encounter This section includes the Chemistry and Hematology Lab Results on record with [place] for the patient. Radiology Reports and Pathology Reports are provided separately, in subsequent sections. Lab Results This section contains the Chemistry/Hematology Results that were resulted 30 days before or 30 daysafter the date of the Encounter. Date/Time Source Result Type Result - Unit Interpretation Reference Range Specimen Type Comment Jul 11, 2024 09:19 AM [facility] PROST. SPECIFIC AG.(PB-STL) SERUM Specimen Ty pe: SERUM Comment: The listed sex of this patient may not be a typical indication for this test. Therefore, reference ranges or interpretive criteria listed may not be valid. Clinical correlation suggested. Ordering Provider: JOSE FERGUSON Report Released Date/Time: Jul 11, 2024 08:55 AM Reporting Lab: [address] [address] Performing Lab: [address] [address] PROST. SPECIFIC AG.(PB-STL) <0.100 ng/mL 0-4 Jun 28, 2024 04:30 PM [facility] COMPREHENSIVE METABOLIC PANEL PLASMA Specimen Type: PLASMA Comment: No hemolysis noted. Ordering Provider: ABY RODRIGUES Report Released Date/Time: Jun 28, 2024 04:23 PM Reporting Lab: [address] [address] Performing Lab: [address] [address] CREATININE 1.18 mg/dL 0.7-1.3 UREA NITROGEN 19.0 [...] 64.8 >60 Jun 28, 2024 04:30 PM [facility] CBC BLOOD Specimen Type: BLOOD No comment entered. Ordering Provider: ABY RODRIGUES Report Released Date/Time: Jun 28, 2024 04:23 PM Reporting Lab: [address] [address] Performing Lab: [address] [address] WBC 5.5 10*3/uL 3.6-11.2 RBC 4.44 10*6/uL [...] 0.00-0. 20 Jun 10, 2024 04:46 AM [facility] GLUCOSE,BLOOD-poct (STL) BLOOD Specimen Type: BLOOD Comment: Test Performed by: [id number] Meter #: [id number] Ordering Provider: BRADLEY OVALLES Report Released Date/Time: Jun 10, 2024 05:21 AM Reporting Lab: [address] [address] Performing Lab: [address] [address] GLUCOSE,BLOOD-poct (STL) 146 mg/dL H 72-99 Jun 09, 2024 08:12 PM [facility] CBC BLOOD Specimen Type: BLOOD No comment entered. Ordering Provider: BETO MCMILLAN Report Released Date/Time: Jun 09, 2024 05:43 PM Reporting Lab: [address] [address] Performing Lab: [address] [address] WBC 11.1 10*3/uL 3.6-11.2 RBC 4.00 10*6/uL [...] H 2.10-8.00 Jun 09, 2024 07:00 PM [facility] MRSA SURVL NARES DNA NARES Specimen [...] Jun 09, 2024 05:57 PM Reporting Lab: [place] [id number] [facility] [address] Performing Lab: [address] [address] MRSA SURVL NARES DNA Negative Negative Jun 09, 2024 10:40 AM [facility] COVID-19 DIAGNOSTIC (FLU/RSV)(STL) NASOPHARYNX Spec imen [...] Jun 07, 2024 02:47 PM Reporting Lab: [facility] [address] [facility] [address] Performing Lab: [place] [address] [facility] [address] INFLUENZA A NEG Negative INFLUENZA B NEG Negative COVID-19 (STL-PB) NEG Not Detected RSV (Cepheid) Negative Negative Vital Signs: All taken on the encounter date This section contains inpatient and outpatient Vital Signs collected on the date of the Encounter. Date/Time Temperature Pulse Blood Pressure Respiratory Rate SP02 Pain Height Weight Body Mass Index Source Jun 28, 2024 02:16 PM 98 61 170/66 16 0 [facility] Social History: Smoking Status (Most current) and Tobacco Use (All prior to encounter date) This section includes the most current, and the historical, smoking and tobacco- related health factors from the [place] facility where the Encounter took place. Current Smoking Status This section includes the most current smoking, or tobacco-related health factor, from the [place] facility where the Encounter took place. Date/Time Current Smoking Status Comment Facil kunaly Dec 24, 2023 11:44 AM VA-TOBACCO NEVER USED [facility] Radiology Reports: +/- 30 days [...] the Encounter. The data comes from all [place] treatment facilities. Date/Time Radiology Report Provider Source Jun 28, 2024 04:33 PM OBSTRUCTIVE SERIES : RAMEZ GODINEZ [id number] -1950 M Exm Date: JUN 28, 2024@16:33 Req Phys: ABY RODRIGUES Loc: PAT-EMERGENCY DEPT 2ND SHIFT (R Img Loc: -MAIN RADIOLOGY SUITE Service: Unknown [facility], [address] [place] [address] (Case [id number] COMPLETE) OBSTRUCTIVE SERIES (RAD Detailed) CPT:54028 Reason for Study: constipation x 2 wks Clinical History: Report Status: Verified Date Reported: JUN 28, 2024 Date Verified: JUN 28, 2024 Manager Instrumentation E-Sig:/ES/Ramez Schaffer MD Report: CASE #: [id number] DATE:06/28/2024 4:43 PM CLINICAL HISTORY:constipation x 2 [...] Primary Interpreting Staff: Ramez Schaffer MD, Radiologist (Manager Instrumentation) /RAMEZ OLIVAS [facility] Pathology Reports: +/- 30 days of [...] the Encounter. The data comes from all [place] treatment facilities. Date/Time Pathology Report Provider Source [...] cut surface with no dominant nodule identified. Women'S Soccer Coach sections are submitted as follows: B1: fragment [...] conventional (usual) Histologic Grade: Grade group 5 (Edna Score 4 + 5 = 9) Intraductal [...] NINE LYMPH NODES POSITIVE FOR METASTATIC ADENOCARCINOMA (1/9) RIGHT BLADDER NECK MARGIN, EXCISION (D): - CAUTERIZED PROSTATIC TISSUE WITH NO EVIDENCE OF PROSTATIC ADENOCARCINOMA /es/ VIVEK Bernabe ALLEN, PH.D. PATHOLOGIST Signed Jun 16, 2024@14:49 Performing Laboratory: Surgical Pathology Report Performed By: [address] CLIA# [id number] [address] [place] [address] [place] [address] $FTR - - - - - - - - - - - - - - - - - - - - - - - - - - - - - - - - - - - - - - - - (End of report) VIVEK ALLEN MD vp product marketing Date Jun 12, 2024 - - - - - - - - - - - - - - - - - - - - - - - - - - - - - - - - - - - - - - - - RAMEZ GODINEZ STANDARD FORM 515 ID:[id number] SEX:M :1950 AGE: 73 LOC:APFEE PCP: Bertha Raymond NP /paola/ VIVEK ALLEN M.D., PH.D. PATHOLOGIST Signed: 06/16/2024 14:49 VIVEK ALLEN [facility] May 31, 2024 04:37 PM [...] Performing Laboratory: Surgical Pathology Report Performed By: [facility]# [id number] [address] [place] [phone] $FTR - - - - - - [...] - - RAMEZ GODINEZ STANDARD FORM 515 ID:[id number] SEX:M :1950 AGE: 73 LOC:GILABA2 PCP: Bertha Raymond NP /paola/ ALMA SÁNCHEZ MD, PhD STAFF PATHOLOGIST Signed: 05/31/2024 16:37 ALMA SÁNCHEZ [facility] Encounter Notes: All associated encounter notes This section contains the clinical notes associated to the Encounter. Date/Time Encounter Note(s) Provider Source Jun 28, 2024 04:08 PM UROLOGY NOTE: LOCAL TITLE: UROLOGY NOTE STANDARD TITLE: UROLOGY NOTE DATE OF NOTE: JUN 28, 2024@16:08 ENTRY DATE: JUN 28, 2024@16:11:53 AUTHOR: ANGELITA BACK COSIGNER: KARLA FERGUSON URGENCY: STATUS: COMPLETED CHIEF COMPLAINT, HPI, EXAM & DATA CC:Constipation, bump by incision HPI: 73 yo M with hx of CaP s/p RALP (06/09) here noting constipation and a knot by his midline incision. Patient recently noted bump by midline incision that is hard and not associated with pain, induration, erythema or other concerning signs. He notes he has not had a bowel movement since surgery which was 3 weeks prior. He has tried laxatives without improvement. He has continued to eat without nausea. Denies fevers. Void trialed post operatively without issue. No workup done at the time of evaluation. RELEVANT ROS/PMH: Denies frequency, urgency, dysuria, hematuria, fevers, chills Vital Signs: Pulse: 61 (06/28/2024 14:16) BP: 170/66 (06/28/2024 14:16) RESP: 16 (06/28/2024 14:16) Temp: 98 F [36.7 C] (06/28/2024 14:16) PHYSICAL EXAM: Gen: NAD HEENT: NC/AT Resp: NLB Abd: s/nt/nd, no rebound or guarding, tense lump superior to midline incision. Does not increase with valsalva, nontender Back: No CVAT bilaterally Ext: WWP MSK: MAEW Neuro: non-focal Skin: warm and dry Remainder of PMH listed below and reviewed? Yes -------LABS------- BMP: SODIUM 140 mEq/L 05/11/2024 10:37 POTASSIUM [...] 20:00 UA: No URINALYSIS EO data found PSA Trend: PROST. SPECIFIC AG.(PB-STL) 8.914 H* ng/mL 01/06/2024 13:14 PROST. SPECIFIC AG.(PB-STL) 8.468 H* ng/mL 12/28/2023 13:15 ASSESSME NT AND PLAN -- 73 yo M with constipation and tense lump by midline incsion. Presentation is not consistent with incarcerated incisional hernia. However, constipation x3 weeks should be investigated further. -KUB -CBC BMP -Additional workup pending these studies -Urology to follow (MORE INFORMATION) - * PAST MEDICAL, SOCIAL, FAMILY HX AND ROS 1) Exposure to potentially hazardous substance ([facility] [id number]) 2) HTN - Hypertension ([facility] [id number]) 3) Prediabetes 4) Chronic Kidney Disease Stage 3A ([facility] [id number]) 5) Elevated PSA MEDICATIONS: Active Outpatient Medications [...] EC TAB TAKE TWO TABLETS BY MOUTH ONCE A DAY ACTIVE NEEDED Indication: FOR CONSTIPATION 4) CEPHALEXIN 500MG CAP TAKE ONE CAPSULE BY MOUTH ONE-TIME FOR ACTIVE RODRIGUEZ CATHETER REMOVAL ON THURSDAY. TAKE BEFORE YOUR RODRIGUEZ CATHETER APPOINTMENT. TAKE WITH FOOD Indication: FOR URINARY TRACT INFECTION 5) IBUPROFEN 600MG TAB TAKE ONE TABLET BY MOUTH THREE TIMES A ACTIVE DAY NEEDED TAKE WITH FOOD. Indication: FOR PAIN 6) MAGNESIUM CITRATE LIQUID TAKE 1 BOTTLE BY MOUTH ONCE A DAY ACTIVE Indication: FOR BOWEL EMPTYING 7) OXYBUTYNIN CHLORIDE 5MG TAB TAKE ONE [...] 8 OZ OF WATER) Indication: FOR CONSTIPATION Allergies: Patient has answered NKA Cultures: SHRUTHI - Microbiology Collected: 05/11/2024 10:45 Acc: [facility] 25 1377 Collection Sample: URINE,CLEAN CATCH Site/Specimen: URINE Test(s) ordered: C&S URINE Bact Report: FINAL Remarks: 2.20.25 [facility] Culture in progress 2.21.25 [facility] CULTURE SHOWS >10,000 - <25,000 CFU/ML PROTEUS MIRABILIS AND >10,000 - <25,000 CFU/ML STAPH EPIDERMIDIS There will be no work up. /paola/ ANGELITA BACK MD RESIDENT Signed: 06/28/2024 16:25 /paola/ KARLA FERGUSON MD Staff Physician, Urology Cosigned: 06/28/2024 16:50 ANGELITA BACK [facility]
--- OUTSIDE RECORDS SUMMARY | 2024-08-25 08:56 | XMS_ITS ---
[place] HOSPITALIZATION [facility] Encounter Summary Created on: August 25, 2024 RAMEZ GODINEZ : 1950 Sex: Male Author Name [facility] [place] [facility] Address [address] [place] [address] Care Team Providers Care Clinical Informatics Specialist Name Role Phone BERTHA RAYMOND Primary Care Provider Unavailab le Insurance Providers: All historical and current [...] to Policy Rios SHIKHA NIEVES - GELA [place] SPECIAL CLASS SHIKHA YOUSIF Apr 27, 2019 SHIKHA NIEVES [id number] [facility] PATIENT MEDICARE (WNR) MEDICARE (M) PART A Nov 21, 2014 PART A [id number] [phone] [facility] PATIENT MEDICARE (WNR) MEDICARE (M) PART B Nov 21, 2014 PART B [id number] [phone] [facility] PATIENT Selected Encounter This section includes the information on record at [place] for the Encounter. Date/Time Encounter Type Encounter Description Reason Pro vider Source Jun 09, 2024 05:42 PM Inpatient Visit HOSPITALIZATION ICD-10-CM Z90.79 Acquired absence of other genital organ(s) SHERRON HORVATH IHHugo Encounter Template Text not used by [place] Assessments - Encounter Diagnoses This section includes the primary and secondary diagnoses documented for the Encounter. Date/Time Primary/Secondary Diagnosis Diagnosis Name Provider Source Jun 10, 2024 12:55 PM Diagnosis for Length of Stay Malignant neoplasm of prostate [facility] Jun 10, 2024 12:55 PM SECONDARY Acquired absence of other genital organ(s) [facility] Jun 10, 2024 12:55 PM SECONDARY Chronic kidney disease, stage 2 (mild) [facility] Jun 10, 2024 12:55 PM SECONDARY Encounter for surgical aftcr following surgery on the sys [facility] Jun 10, 2024 12:55 PM SECONDARY Hypertensive chronic kidney disease w stg 1-4/unsp chr kdny [facility] Plan of Treatment: Future Appointments (+ 6 months) and Future Tests (+/- 45 days) The Plan of Treatment section includes future care activities for the patient from all [place] [facility] This section includes future appointments and future orders which are active, pending or scheduled. Future Appointments This section includes appointments that were scheduled to occur 6 months from the date of the Encounter, up to a maximum of 20 appointments. The data comes from all [facility]. Appointment Date/Time Appointment Type Appointme nt Facility Name Jun 14, 2024 09:30 AM AMBULATORY - MEDICINE [facility] Jun 17, 2024 11:00 AM AMBULATORY - SURGERY [facility] Jun 28, 2024 02:06 PM AMBULATORY MEDICINE [facility] Jul 11, 2024 09:00 AM AMBULATORY - SURGERY [facility] August 19, 2024 02:00 PM AMBULATORY - MEDICINE [facility] Oct 10, 2024 09:00 AM AMBULATORY - SURGERY [facility] Oct 18, 2024 09:30 AM AMBULATORY MEDICINE [facility] Active, Pending, and Scheduled Orders This section includes a listing of several types of active, pending, and scheduled orders, including clinic medications orders, diagnostic test orders, procedure orders and consult orders; where the start date of the order is 45 days before the date of the Encounter or 45 days after the date of theEncounter. The data comes from all [facility]. Test Date/Time Test Type Test Details Facility Name May 11, 2024 12:00 AM Laboratory - Blood Bank Order TYPE & SCREEN - LAB BLOOD SP [facility] Jun 09, 2024 12:00 AM Laboratory - Blood Bank Order TYPE & SCREEN - LAB BLOOD WC [facility] Lab Results: +/- 30 days of the [...] Type Comment Jun 28, 2024 04:30 PM [facility] CBC BLOOD Specimen Type: BLOOD No comment entered. Ordering Provider: ABY RODRIGUES Report Released Date/Time: Jun 28, 2024 04:23 PM Reporting Lab: [address] [address] Performing Lab: [address] [address] WBC 5.5 10*3/uL 3.6-11.2 RBC 4.44 10*6/uL [...] 0.00-0. 20 Jun 28, 2024 04:30 PM [facility] COMPREHENSIVE METABOLIC PANEL PLASMA Specimen Type: PLASMA Comment: No hemolysis noted. Ordering Provider: ABY RODRIGUES Report Released Date/Time: Jun 28, 2024 04:23 PM Reporting Lab: [facility] [address] [address] Performing Lab: [address] [address] CREATININE 1.18 mg/dL 0.7-1.3 UREA NITROGEN 19.0 [...] 64.8 >60 Jun 10, 2024 04:46 AM [facility] GLUCOSE,BLOOD-poct (STL) BLOOD Specimen Type: BLOOD Comment: Test Performed by: [id number] Meter #: [id number] Ordering Provider: BANDAR HORVATH Report Released Date/Time: Jun 10, 2024 05:21 AM Reporting Lab: [facility] [address] [address] Performing Lab: [place] [address] [address] [address] GLUCOSE,BLOOD-poct (STL) 146 mg/dL H 72-99 Jun 09, 2024 08:12 PM [facility] CBC BLOOD Specimen Type: BLOOD No comment entered. Ordering Provider: XUAN MCMILLAN Report Released Date/Time: Jun 09, 2024 05:43 PM Reporting Lab: [address] [address] Performing Lab: [facility] [address] [facility] [address] WBC 11.1 10*3/uL 3.6-11.2 RBC 4.00 10*6/uL [...] H 2.10-8.00 Jun 09, 2024 07:00 PM [facility] MRSA SURVL NARES DNA NARES Specimen Type: [...] epidemiological information for final interpretation. Ordering Provider: BANDAR HORVATH Report Released Date/Time: Jun 09, 2024 05:57 PM Reporting Lab: [facility] [address] [facility] [address] Performing Lab: [place] [address] [address] [facility] [address] MRSA SURVL NARES DNA Negative Negative Jun 09, 2024 10:[address] [facility] COVID-19 DIAGNOSTIC (FLU/RSV)(STL) NASOPHARYNX Spec imen Type: [...] Jun 07, 2024 02:47 PM Reporting Lab: [address] [address] Performing Lab: [address] [address] INFLUENZA A NEG Negative INFLUENZA B NEG Negative COVID-19 (STL-PB) NEG Not Detected RSV (Cepheid) Negative Negative May 11, 2024 10:38 AM [facility] HGA1C BLOOD Specimen Type: BLOOD No comment entered. Ordering Provider: BERTHA RAYMOND Report Released Date/Time: Apr 22, 2024 01:42 PM Reporting Lab: [address] [address] Performing Lab: [address] [address] HGA1C 5.7 4.0-6.0 May 11, 2024 10:37 AM [facility] PT/INR NEW (L-MA) PLASMA Specimen Type: PLAS MA No comment entered. Ordering Provider: MANJINDER CORBIN Report Released Date/Time: May 11, 2024 10:21 AM Reporting Lab: [address] [address] Performing Lab: [address] [address] PROTIME 11.6 s 9.4-12.5 INR VALUE 1.0 {INR} May 11, 2024 10:37 AM [facility] BASIC METABOLIC PANEL PLASMA Specimen Type: PL ASMA Comment: No hemolysis noted. Ordering Provider: MANJINDER CORBIN Report Released Date/Time: May 11, 2024 10:21 AM Reporting Lab: [facility] [address] [facility] [address] Performing Lab: [address] [address] CREATININE 1.08 mg/dL 0.7-1.3 UREA NITROGEN 17.0 mg/dL 9.0-25.0 GLUCOSE 101 mg/dL H 72-99 SODIUM 140 meq/L 136-145 POTASSIUM 4.4 meq/L 3.5-5 CHLORIDE 106 meq/L 98-107 CARBON DIOXIDE 27 meq/L 22-31 CALCIUM 9.3 mg/dL 8.4-10.4 EGFR (CKD-EPI 2020) 72.0 >60 May 11, 2024 10:37 AM [facility] CBC BLOOD Specimen Type: BLOOD No comment entered. Ordering Provider: MANJINDER CORBIN Report Released Date/Time: May 11, 2024 10:21 AM Reporting Lab: [address] [address] Performing Lab: [address] [address] WBC 6.4 10*3/uL 3.6-11.2 RBC 5.21 10*6/uL [...] Source Jun 09, 2024 09:28 PM 3 [facility] Jun 09, 2024 09:02 PM 97.4 87 123/72 18 92 3 [facility] Jun 09, 2024 06:05 PM 4 [facility] Jun 09, 2024 06:03 PM 4 [facility] Jun 09, 2024 05:58 PM 97.7 91 103/64 20 95 4 [facility] Social History: Smoking Status (Most current) and Tobacco Use (All prior to encounter date) This section includes the most current, and the historical, smoking and tobacco- related health factors from the [place] facility where the Encounter took place. Current Smoking Status This section includes the most current smoking, or tobacco-related health factor, from the [place] facility where the Encounter took place. Date/Time Current Smoking Status Comment Facil ity Dec 24, 2023 11:44 AM VA-TOBACCO NEVER USED [facility] Radiology Reports: +/- 30 days [...] the Encounter. The data comes from all [place] treatment facilities. Date/Time Radiology Report Provider Source Jun 28, 2024 04:33 PM OBSTRUCTIVE SERIES : RAMEZ GODINEZ Jay [id number] -1950 M Exm Date: JUN 28, 2024@16:33 Req Phys: ABY RODRIGUES Loc: -EMERGENCY DEPT 2ND SHIFT (R Img Loc: -MAIN RADIOLOGY SUITE Service: Unknown [facility] [address] [place] [address] (Case [id number] COMPLETE) OBSTRUCTIVE SERIES (RAD Detailed) CPT:94235 Reason for Study: constipation x 2 wks Clinical History: Report Status: Verified Date Reported: JUN 28, 2024 Date Verified: JUN 28, 2024 Electronic Equipment Set Up Operator E-Sig:/ES/Ramez Schaffer MD Report: CASE #: [id number] DATE:06/28/2024 4:43 PM CLINICAL HISTORY:constipation x 2 [...] Primary Interpreting Staff: Ramez Schaffer MD, Radiologist (Electronic Equipment Set Up Operator) /RAMEZ OLIVSA [facility] May 11, 2024 10:27 AM CHEST X-RAY, 2 VIE WS: RAMEZ GODINEZ [id number] -1950 M Ex Date: MAY 11, 2024@10:27 Req Phys: MANJINDER CORBIN Loc: -UROLOGY RES (Req'g Loc) Img Loc: -MAIN RADIOLOGY SUITE Service: Unknown [facility] [address] [place] [address] (Case [id number] COMPLETE) CHEST X-RAY, 2 VIEWS (RAD Detailed) CPT:23701 Reason for Study: pre-operative testing Clinical History: Report Status: Verified Date Reported: MAY 12, 2024 Date Verified: MAY 12, 2024 Electronic Equipment Set Up Operator E-Sig:/ES/ELIJAH MCCOY Report: CHEST X-RAY, 2 VIEWS COMPARISON: None. HISTORY: pre-operative testing FINDINGS: The heart size and pulmonary vasculature are normal. There is no consolidating infiltrate, effusion or pneumothorax. Mild hyperinflation. Impression: No active lung disease. RR Primary Interpreting Staff: ELIJAH MCCOY Staff Physician (Boris) /ELIJAH DELEON [facility] Pathology Reports: +/- 30 days of [...] the Encounter. The data comes from all [place] treatment facilities. Date/Time Pathology Report Provider Source [...] - - - - $TEXT Submitted by: XUAN MCMILLAN Date obtained: Jun 09, 2024 - [...] cut surface with no dominant nodule identified. Kids Club Attendant sections are submitted as follows: B1: fragment [...] by prostatic acinar adenocarcinoma, grade group 5 ([place] score 4+5=9). There is focal extraprostatic extension [...] NINE LYMPH NODES POSITIVE FOR METASTATIC ADENOCARCINOMA (1/) RIGHT BLADDER NECK MARGIN, EXCISION (D): - CAUTERIZED PROSTATIC TISSUE WITH NO EVIDENCE OF PROSTATIC ADENOCARCINOMA /paola/ VIVEK ALLEN M.D., PH.D. PATHOLOGIST Signed Jun 16, 2024@14:49 Performing Laboratory: Surgical Pathology Report Performed By: [address]# [id number] [address] [place] [address] $FTR - - - - - - - - - - - - - - - - - - - - - - - - - - - - - - - - - - - - - - - - (End of report) VIVEK ALLEN MD Date Jun 12, 2024 - - - - - - - - - - - - - - - - - - - - - - - - - - - - - - - - - - - - - - - - RAMEZ GODINEZ STANDARD FORM 515 ID:[id number] SEX:M :1950 AGE: 73 LOC:APFEE PCP: Bertha Raymond NP /paola/ VIVEK ALLEN M.D., PH.D. PATHOLOGIST Signed: 06/16/2024 14:49 VIVEK ALLEN [facility] May 31, 2024 04:37 PM [...] Performing Laboratory: Surgical Pathology Report Performed By: [facility], V[facility]N [address] [facility] [id number] [address] [facility] [address] [place] [address] $FTR - - - - - - [...] - - - - - RAMEZ GODINEZ A STANDARD FORM 515 ID:[id number] SEX:M :1950 AGE: 73 LOC:GILABA2 PCP: Bertha Raymond NP /paola/ ALMA SÁNCHEZ MD, PhD STAFF PATHOLOGIST Signed: 05/31/2024 16:37 ALMA SÁNCHEZ [facility] May 11, 2024 10:45 AM LR MICROBIOLOGY RE PORT: Accession [UID]: [id number] [[id number]] Received: May 11, 2024@10:46 Collection sample: URINE,CLEAN CATCH Collection date: May 11, 2024 10:45 Site/Specimen: URINE Provider: MANJINDER CORBIN Test(s) ordered: C&S URINE..................... completed: May 13, 2024 13:51 * BACTERIOLOGY FINAL REPORT => May 13, 2024 14:19 TECH CODE: [id number] GRAM STAIN: Bacteriology Remark(s): 2.20.25 KAA Culture in progress 2.21.25 KAA CULTURE SHOWS >10,000 - <25,000 CFU/ML PROTEUS MIRABILIS AND >10,000 - <25,000 CFU/ML STAPH EPIDERMIDIS There will be no work up. =--=--=--=--=--=--=--=--=--=- -=--=--=--=--=--=--=--=--=--= --=--=--=--=--=--=-- Performing Laboratory: Bacteriology Report Performed By: [facility] CLIA# [id number] [address] [facility] [address] [place] [address] LIZZIE COYNE [facility] Encounter Notes: All associated encounter notes This section contains the clinical notes associated to the Encounter. Date/Time Encounter Note(s) Provider Source Jun 10, 2024 12:55 PM DISCHARGE SUMMARY: LOCAL TITLE: DISCHARGE OBSERVATION SURGERY STL STANDARD TITLE: DISCHARGE SUMMARY DICT DATE: JUN 10, 2024@10:43 ENTRY DATE: JUN 10, 2024@10:43:29 DICTATED BY: CATHERINE CORBIN ATTENDING: KARLA FERGUSON URGENCY: routine STATUS: COMPLETED DISCHARGE OBSERVATION SURGERY STL Has ADDENDA DISCHARGE OBSERVATION SURGERY STL DIAGNOSES: Other:Prostate Cancer Complications: none Comorbidities: HTN, CKD Reason for Observation Admission: Post-Op Prostatectomy Outcome: 73 yo M with hx of elevated PSA 8.5>8.9 Recently had prostate biopsy on 04/20/2024 which came back as GG5 in the MRI targeted needle biopsy, and GG4 in Right prostate biopsy. PET Scan obtained showing Multifocal disease within the enlarged prostate consistent with biopsy-proven malignancy. The patient underwent prostatectomy on May by Dr. Ferguson, was admitted to floor after stabilization in the PACU. See operative report for full details of procedure. IV fluids for hydration, rodriguez catheter in place draining pink urine. Pain controlled with multimodal agents, allowed clear liquid diet, vital signs closely monitored. POD #1 Advanced to regular diet, tolerated well. Pain controlled on oral agents. Incisions well approximated, closed with dermabond, no signs of infection. Ambulating at baseline. Pt to go home with rodriguez catheter, educated on care of rodriguez and use of leg strap and leg bag. The patient was deemed to be medically stable for discharge from the hospital on 06/10/2024 and was in agreement with the plan to discharge home. The patient will follow up in clinic in 7 days for rodriguez catheter removal. Strict return precautions were provided and good understanding was confirmed. DISCHARGE MEDICATIONS: TO HELP YOU UNDERSTAND YOUR DRUG LIST ACTIVE means that you are presently taking these meds PENDING means that the medications have just been renewed or just ordered. HOLD means that the medications are on your list but will not be sent to you unless you or your doctor wants them taken off hold. NON-VA means you are getting the medication from somewhere besides the [place]. Active Outpatient Medications (including Supplies): Active Outpatient [...] 4PM ON AFTERNOON PRIOR TO TEST. CALL [phone] WITH ANY QUESTIONS ABOUT THESE INSTRUCTIONS. MAIL [...] BEFORE GI PROCEDURE Indication: FOR GAS DISCOMFORT - Please take only those medications on the above list. - At your next appointment, please remember to bring all of your medication bottles with you. Please include any vitamins, herbal supplements & over the counter medications. - If you have any further questions regarding your medications, please call your primary care clinic or if after hours, please call and ask automatic pad making machine operator to connect to Nurse Talk. NEW MEDICATIONS (and indications): - Tylenol - for pain control - Ibuprofen - for pain control refractory to tylenol - Oxycodone - for pain control refractory to tylenol and ibuprofen - Miralax - for constipation *oxycodone may cause constipation - Keflex - one dose of antibiotic, to be taken the morning of rodriguez cathter removal - Oxybutynin - for bladder spasms related to your catheter. Do not take the mornign of catheter removal The following changes were made to the medications you were taking prior to this hospitalization: none These medications have been stopped during your hospitalization (and reason why): none At your next appointment, please remember to bring all of your medication bottles with you Medication Reconciliation: I have discussed active and pending medications with the patient and/or patient centered care specialist. I have made changes as appropriate............... ....YES DISCHARGE DIETARY INSTRUCTIONS: Your current weight is: 198.7 lb [90.13 kg] (06/09/2024 11:00) No Dietary Instructions If you have questions, contact the dietitians at . DISCHARGE PHYSICAL ACTIVITY INSTRUCTIONS: Other (specify below): * Do NOT lift anything over 10 pounds for 4 weeks. * Do NOT drive or operate machinery if you are taking narcotic pain medicine. * Do NOT take baths or swim in pools for 4 weeks. * You may take showers. Gently wash over wounds with soap and water, and dab or pat dry with a towel. * Take short frequent walks every day. Climbing stairs is OK. * Do NOT sit in hard backed chairs, ride bicycles, or engage in other activities that may put pressure on the perineal region. * Be VERY careful not to accidentally dislodge or pull your Rodriguez catheter out during activities. * It is normal to have some swelling in your penis and scrotum. This should improve over the next few days. To minimize or reduce the swelling, supportive briefs or a jock strap should be worn. When sitting or lying, scrotal elevation with a pillow or rolled up towel will help. Care Instructions: * Place over the counter triple antibiotic ointment on the tip of your penis 3 times a day while you have your catheter in place. * Measure and write down how much drainage comes from your catheter. Bring this information to your next doctors appointment. Your catheter can be attached to a leg bag as needed. * You may remove any bandages upon arriving home from the hospital. You may have paper strips left over your incisions. These strips will fall off on their own in about 10-14 days. If they do not fall off after 14 days, you may gently remove them. * Do NOT place anything in your rectum. This includes medications such as suppositories, applicators of any sort, enemas, sexual paraphernalia, or anal intercourse. * You may see some blood in or around the catheter during periods of increased activity or when having a bowel movement. This is expected to some degree. Do not be alarmed unless the bleeding continues for more than 30 minutes or if it gets worse. Then refer to above directions as to when to call your doctor. * Please be sure to take your stool softeners as prescribed to keep your bowel movements as effortless as possible until fully healed. If you develop diarrhea, you may hold the softeners until bowel movements firm up. WOUND MANAGEMENT: Other (specify below) You should expect to have some pain after your procedure. This is a normal part of the recovery process. The pain is more tolerable for some patients and less tolerable for others. When you are in pain: - Start by applying ice packs or heating pads and using over the counter medications such as acetaminophen (Tylenol) or ibuprofen (Advil or Motrin) unless otherwise specified by your doctor. - If your pain is still uncontrolled, you may take a stronger, prescription medication that contains opioids. Take only as much of this medication as you need. - As you recover, your pain will decrease and you will need less pain medication. You should only take pain medication if you are in pain. - If you are no longer taking any of your opioid medication and have leftover pills, dispose of them by placing them in a plastic bag, adding dish soap, and throwing them in the trash. TOBACCO CESSATION EDUCATION/COUNSELING: The patient is not a tobacco smoker WORSENING and/or DANGEROUS SYMPTOMS TO REPORT (Phys. entry required): * You have a fever higher than 101.5 F (38.6 C). * You have nausea, vomiting or diarrhea. * Your pain medicine is not helping your pain. * You feel dizzy, very tired or like you may faint. (It is normal to feel somewhat tired for 1-2 weeks after surgery.) * You have large blood clots in your urine. * You have pus or bright red drainage from your incision. * If your catheter or tube comes out accidentally. * If there is no urine in your tubing for 2-3 hours. * The urine should remain clear enough that you can see newsprint through the tubing. If you can NOT, please call. * If the urine in the tubing has white pus, blood clots, or resembles tomato juice. Contact your Primary Care Physician Thursday through Thursday 8:00a.m. - 4:00p.m. After normal business hours the [place] Telephone Care Program is available (Thursday through Thursday 4p.m. to 8a.m.; Weekends and Holidays) at [phone] ext. [phone]. DISCHARGE INTRUCTIONAL MATERIALS *To be printed by Nurse and provided to patient FUTURE APPOINTMENT(S): To reschedule [facility] appointments call and use extension below. Date/time Clinic Phone number 06/17/24 11:00 am PAT-UROLOGY CATHETER RN [phone] 07/11/24 9:00 am PAT-UROLOGY MD RES [phone] 08/19/24 2:00 pm [facility] PACT 7 PCP [phone] Follow-up with your Primary Care Physician: BERTHA RAYMOND in 1 month *This listing may be incomplete. CONDITION OF PATIENT AT DISCHARGE: Good Time Spent:31-[address] OF DISPOSITION: Home OTHER (Include employment status): Retired NOTE: If you are having feelings of Depression or EmotionalDistress, or feel you just need to talk with someone, please call 2-9-1 PRESS 1. verified by: nishant/ethan /paola/ KARLA FERGUSON MD Staff Physician, Urology Signed: 06/10/2024 12:51 for MANJINDER CORBIN MD, MD RESIDENT PHYSICIAN, UROLOGY // /paola/ KARLA FERGUSON MD Staff Physician, Urology Cosigned: 06/10/2024 12:51 06/10/2024 ADDENDUM STATUS: COMPLETED On review of laboratory values, patient with mildly decreased GFR consistent with likely Stage 2 CKD with undetermined etiology. /paola/ KARLA FERGUSON MD Staff Physician, Urology Signed: 06/20/2024 13:23 KARLA FERGUSON [facility] Jun 10, 2024 10:49 AM NURSING TRANSFER SUMMARIZATION DISCHARGE NOTE: LOCAL TITLE: JARVIS DISCHARGE/TRANSFER SUMMARY ST STANDARD TITLE: NURSING TRANSFER SUMMARIZATION DISCHARGE NOTE DATE OF NOTE: JUN 10, 2024@10:49 ENTRY DATE: JUN 10, 2024@10:49:22 AUTHOR: VASQUEZ COSTELLO EXP COSIGNER: URGENCY: STATUS: COMPLETED DISCHARGE - TRANSFER SUMMARY Action: Discharge Diagnosis: Last Admission: 06/09/24 5:42:12 pm Admit Dx: PROSTATE CANCER Age: 73 Allergies: Patient has answered NKA Patient Condition: Stable Vital Signs: Temperature: 98 F [36.7 C] (06/10/2024 08:05) Pulse: 73 (06/10/2024 08:05) Respiration: 20 (06/10/2024 08:05) Blood Pressure: 145/81 (06/10/2024 08:05) Pain: 0 (06/10/2024 10:40) Fall Risk Assessment Score: 20 Fall Risk Level: Low Risk ======= SUICIDE SCREEN ======= Result of C-SSRS screener done was NEGATIVE. C-SSRS Screen is Negative Isolation: No Precautions: None Orientation: x3 Hygiene: Self Care Nutrition: Regular diet Special needs: Assistance: Independent Bowel/Bladder: Date of last bowel movement: May Defecation: Normal Able to void: YES Continent: YES Catheter: Yes Date of insertion: May Type: Cymraes rodriguez Indication: Urology surgery Expected Duration: 7 days Wound / Skin Condition: Assessment Type: SKIN REINSPECTION/REASSESSMENT SKIN INSPECTION: Skin Color: Usual for ethnicity Skin Temperature: Warm Skin Moisture: Normal Skin Turgor: Elastic (normal/immediate) Echo Skin Assessment: The patient's Echo Scale Score is 21. The patient is considered not at risk for development of pressure ulcers/injuries. Sensory perception -- ability to respond meaningfully to pressure-related discomfort No impairment. Moisture -- degree to which skin is exposed to moisture Rarely moist. Activity -- ability to change and control body position Walks occasionally. Mobility -- ability to change and control body position No limitation. Nutrition -- usual food intake patterns Adequate. Friction and shear No apparent problem. INTERVENTIONS: The pressure injury interventions were not needed - patient/resident is not at risk. RISK FACTORS THAT INCREASE RISK FOR DEVELOPING PRESSURE INJURIES: The patient/resident has the following: Device(s): (nasogastric tubes, oxygen tubing, urinary catheters, cell phone etc.) Comment: maisha RUTLEDGE SKIN ALTERATIONS: Wound Documentation from the past year: Skin Assessment 06/09/2024 Skin Integrity - Wound 06/09/2024 Skin Integrity - Wound SKIN INTEGRITY: Intact Incision and Flaps: Incision 1: Location: 5 lap sites Status: Edges well approximated Closure: Glue Stabilization: None Wound drainage none. STANDARD OF CARE / PRACTICE IMPLEMENTED: Indicate status at Discharge/Transfer: Resolved Flu Shot Given: No Patient refused Pneumococcal Shot Given: No Patient refused MRSA Discharge Swab Done: No Reason: NA Discharged/Transfered to: Own home without home care services Accompanied by (Name & Relationship): Next of Kin notified: NO Discharge/Transfer Mode: Ambulatory Discharged/Transferred with: Written Discharge Instructions Medications Clothing / Valuables returned: Yes Describe: tablet, cell phone, temple meat cutter, pants, shirt, jacket Prosthetics with patient: Dentures/Partials with patient: None Glasses with patient: NA Other: NA Printed MD Instruction sheet with medication list reviewed and given to the patient/caregiver. Patient/Caregiver verifies medication list is complete and accurate. Patient/Caregiver appeared ready for instruction (good eye contact, appropriate questions, active participation, etc) Person(s) who received education: Patient Education Topic/Teaching Needs: Disease/Condition Medication Methods used Included: A copy of the Discharge Instructions Health Summary given to patient/caregiver and signed by patient/guardian. Patient's medications were reviewed and reconciled by discharge team. Teaching outcomes: Good level of understanding /paola/ MATTEO SPARROW, RN REGISTERED NURSE Signed: 06/10/2024 10:55 VASQUEZ COSTELLO [facility] Jun 10, 2024 10:47 AM NURSING NOTE: LOCAL TITLE: [facility] NSG IV INSERTION AND MAINTENANCE STANDARD TITLE: NURSING NOTE DATE OF NOTE: JUN 10, 2024@10:47 ENTRY DATE: JUN 10, 2024@10:48:01 AUTHOR: VASQUEZ COSTELLO EXP COSIGNER: URGENCY: STATUS: COMPLETED Version 2.2 Charting in accordance with [place] APPROVED [place] STANDARD (OKAES) ACUTE INPATIENT/REHABILITATION NURSING ADMISSION SCREENING, ASSESSMENT, AND STANDARDS OF CARE IV Line Insertion and Maintenance Peripheral IV Line #1: Discontinue: Location: Left, Wrist Date/Time: May@10:48 Reason for discontinuation: Therapy complete Line #2: Discontinue: Location: Left, Hand Date/Time: May@10:48 Reason for discontinuation: Therapy complete /es/ MATTEO SPARROW, RN REGISTERED NURSE Signed: 06/10/2024 10:48 VASQUEZ COSTELLO [facility] Jun 10, 2024 10:40 AM NURSING INPATIENT NOTE: LOCAL TITLE: [place] ACUTE INPATIENT NSG SHIFT ASSESSMENT STANDARD TITLE: NURSING INPATIENT NOTE DATE OF NOTE: JUN 10, 2024@10:40 ENTRY DATE: JUN 10, 2024@10:40:09 AUTHOR: VASQUEZ COSTELLO EXP COSIGNER: URGENCY: STATUS: COMPLETED Version 2.2 Charting in accordance with [facility] [place] STANDARD (OKAES) ACUTE INPATIENT/REHABILITATION NURSING ADMISSION SCREENING, ASSESSMENT, AND STANDARDS OF CARE ASSESSMENT HANDOFF Bedside report and handoff completed Safety check completed PAIN ASSESSMENT Patient's acceptable pain goal: 0 No pain Are you currently experiencing pain? No: Pain Score: 0 STANTON FALL SCALE & TIPS PROGRAM Stanton Fall Scale: The Stanton Fall scale was performed and score was 20. This is indicative of low risk of falls. History of falling: immediate or within 3 months? No Secondary diagnosis: No Ambulatory aid: None/bedrest/nurse assist Intravenous therapy/Heparin lock: Yes Gait/Transferring: Normal/bed rest/immobile Mental Status: Oriented to own ability/knows own limitations Fall Tailoring Interventions for Patient Safety (TIPS) Fall TIPS initiated with patient: Yes Interventions: IV assistance when walking Fall TIPS reviewed with patient: Yes Interventions: IV assistance when walking ENVIRONMENTAL SAFETY MANAGEMENT Implemented safety standards of care: -[place] to unit & environment -Adequate room lighting -Bed in low and locked position -Call light within reach -Personal items within reach -Traffic path in room free of clutter -Non-slip footwear -Upper/half length side rails up for bed mobility -Sensory aids within reach -Encourage patient to utilize sensory support NEUROLOGICAL Neurological Orientation: Oriented x4 Level of Consciousness (AVPU): Alert = Appears aware of and responsive to the environment on their own. Follows commands, opens eyes spontaneously, and tracks objects. Affect/behavior: Cooperative Calm NEUROMUSCULAR/NEUROVASCULA R EXTREMITIES ASSESSMENT Strength: Pest Control Service Technician Bilateral: Strong Upper Extremity Bilateral: Full strength Lower Extremity Bilateral: Full strength Sensation: Upper Extremity Sensation Bilateral: Intact Lower Extremity Sensation Bilateral: Intact Temperature: Upper Extremity Temperature Bilateral: Warm Lower Extremity Temperature Bilateral: Warm CARDIOVASCULAR Heart Sounds: Normal (S1S2) Heart Rate/Rhythm (without machine packaging technician): Regular Capillary Refill: All 4 extremities, less than or equal to 3 seconds. Peripheral Pulses: All 4 extremities, 3+ normal. Edema: None RESPIRATORY Respirations: Unlabored Pattern: Regular Breath Sounds Auscultated: Anterior and posterior Left Upper Lobe: Clear Right Upper Lobe: Clear Right Middle Lobe: Clear Left Lower Lobe: Clear Right Lower Lobe: Clear GASTROINTESTINAL Last bowel movement: 06/09/24 Elimination: Continent Abdominal Description: Rounded Palpation: Soft, Non-tender Bowel Sounds: RUQ: Active LUQ: Active RLQ: Active LLQ: Active GENITOURINARY Elimination: Continent Urinary catheter Urinary Catheter: Type: Indwelling: Assessment: Type: Urethral: Regular CAUTI Prevention Maintenance Bundle Maintained: - Maintain closed drainage system - Collecting bag below the level of the bladder and remains off the floor - Catheter and collecting tube free from kinking and remains off the floor - Collection bag regularly emptied using a separate, clean collecting container for single patient use; avoiding splashing, and no contact of the drainage spigot with the nonsterile collecting container - Daily periurethral hygiene Catheter secured: Left leg Site Condition: No redness, pain, swelling Indication(s): Urologic surgery ========= INTEGUMENTARY/SKIN/WOUND - (INCLUDING ECHO) SEE NOTE: VAAES SKIN INPECTION/ASSESSMENT ========= ACTIVITIES OF DAILY LIVING Hygiene ADLs: Oral Care: Non-ventilator patient: Patient teeth brushed: Independently MOBILITY Mobility Status: Independent: Able to stand and step without staff assistance Steady standing balance Gait: Steady IV LINES Peripheral IV: Line #1: Assessment: Location: Left, Wrist Gauge: 18 Dressing Condition: Clean, dry, intact Site Condition: No redness, swelling, pain Line Status: Flushed Line #2: Assessment: Location: Left, Hand Gauge: 20 Dressing Condition: Clean, dry, intact Site Condition: No redness, swelling, pain Line Status: Flushed PSYCHOSOCIAL Type of Emotional Support Provided: 1:1 discussion /es/ MATTEO SPARROW, RN REGISTERED NURSE Signed: 06/10/2024 10:47 VASQUEZ COSTELLO [facility] Jun 10, 2024 10:34 AM NURSING INPATIENT NOTE: LOCAL TITLE: [facility] NURSING FREQUENT DOCUMENTATION STANDARD TITLE: NURSING INPATIENT NOTE DATE OF NOTE: JUN 10, 2024@10:34 ENTRY DATE: JUN 10, 2024@10:34:44 AUTHOR: VASQUEZ COSTELLO EXP COSIGNER: URGENCY: STATUS: COMPLETED Version 2.4 Charting in accordance with [facility] [place] STANDARD (OKAES) ACUTE INPATIENT/REHABILITATION NURSING ADMISSION SCREENING, ASSESSMENT, AND STANDARDS OF CARE NATIONAL EARLY WARNING SCORE (NEWS) The vital signs below were used for scoring: Temperature: 98.0 Pulse: 73 Blood Pressure: 145/81 Respiration: 20 Pulse Oximetry: 95 The NEWS total is 1. 1. Temperature (C/F): Score = 0 36.1 - 38.0 C (96.9 - 100.4 F) 2. Pulse: Score = 0 51-90 3. Respirations: Score = 0 12-20 4. Blood Pressure (Only Systolic BP, mmHg): Score = 0 111-219 5. Pulse Oximetry: Score = 1 94% - 95% 6. Supplemental oxygen in use: Score = 0 No 7. AVPU: Score = 0 Alert /es/ MATTEO SPARROW, RN REGISTERED NURSE Signed: 06/10/2024 10:35 VASQUEZ COSTELLO [facility] Jun 10, 2024 07:21 AM UROLOGY NOTE: LOCAL TITLE: UROLOGY NOTE STANDARD TITLE: UROLOGY NOTE DATE OF NOTE: JUN 10, 2024@07:21 ENTRY DATE: JUN 10, 2024@07:22:11 AUTHOR: BANDAR HORVATH EXP COSIGNER: KARLA FERGUSON URGENCY: STATUS: COMPLETED Urology Progress Note Brief history: 73 y/o M POD 1 from [facility]. S/ Patient was seen and examined this morning No acute events overnight Endorses pain is well controlled Urine clear yellow in tubing Afebrile overnight. O/ Vitals: VS - Vital Signs Measurement DT TEMP PULSE RESP BP HT WT F(C) IN(CM) LB(KG)[BMI] ---- ----- ---- -- ------ 06/10/2024 04:50 98.2(36.8) 74 18 127/67 06/10/2024 00:48 98.3(36.8) 77 18 128/67 06/09/2024 21:02 97.4(36.3) 87 18 123/72 06/09/2024 17:58 97.7(36.5) 91 20 103/64 06/09/2024 11:00 97.5(36.4) 75 23 173/89 71.0(180) 199(90.1)[28*] 05/31/2024 08:39 98.3(36.8) 68 16 164/77 203(92.1)[29*] Measurement DT CVP POx CG CMH20(MMHG) (L/MIN)(%) IN(CM) ------ 06/10/2024 04:50 92 06/10/2024 00:48 92 06/09/2024 21:02 92 06/09/2024 17:58 95 06/09/2024 11:00 96 05/31/2024 08:39 96 Measurement DT Pain ---- 06/10/2024 05:00 3 06/10/2024 04:50 3 06/10/2024 00:48 3 06/09/2024 21:28 3 06/09/2024 21:02 3 06/09/2024 18:05 4 06/09/2024 18:03 4 06/09/2024 17:58 4 06/09/2024 11:00 2 Physical Exam: Constitutional: alert, cooperative, no acute distress. CV: RRR Resp: non-labored breathing. Abdomen: soft, non distended, Incisions c/d/i, abdomen is appropriately TTP : cyu in rodriguez Neuro: A&O x3. No focal deficits Labs: LAB CHEMISTRY & HEMATOLOGY Collection DT Specimen Test Name Result Units Ref Range 06/10/2024 04:46 BLOOD POCTGLU 146 H mg/dL 72 - 99 Comment: Test Performed by: [id number] Meter #: [id number] 06/09/2024 20:00 BLOOD PLT EST-CV ADEQUATE Ref: ADEQUATE WBC 11.1 10*3/uL 3.6 - 11.2 RBC 4.00 L 10*6/uL 4.10 - 5.70 HGB 12.6 L g/dL 13.1 - 16.8 HCT 36.8 L % 38.2 - 48.4 MCV 92.0 fL 80.0 - 100.0 MCH 31.5 pg 27.0 - 34.0 MCHC 34.2 g/dL 33.0 - 36.0 RDW 13.2 % 11.8 - 15.1 PLT 173 10*3/uL 150 - 400 MPV 10.3 fL 7.5 - 11.2 NEUTROPHILS 95.6 % LYMPHOCYTES 3.5 % MONOCYTES 0.9 % NEUT#-MDIFF 10.61 H K/cmm 2.10 - 8.00 LYMPH#-MDIFF 0.39 L K/cmm 0.77 - 4.50 MONO#-MDIFF 0.10 L K/cmm 0.19 - 0.80 NORMRBC Yes PAPPENHEIMER BODI 0 06/09/2024 10:40 NASOPHARYN COVID-19 ([facility]L-PB)Not Detected Ref: Not Detected RSV (Cepheid) Negative Ref: Negative INFLUENZA A NEG Ref: Negative INFLUENZA B NEG Ref: Negative Comment: Qualitative real-time PCR and RT-PCR to detect viral RNA. A Comment: negative result does not preclude infection with the agent(s) Comment: tested and should not be used as the sole basis for treatment or Comment: other patient management decisions. If negative, but symptoms Comment: persist, consider re-testing. Positive results do not rule out Comment: bacterial infection or co-infection with other viruses. All results Comment: must be combined with clinical observations, patient history, and Comment: epidemiological information for final interpretation. LAB MICROBIOLOGY No data available Assessment and Plan: The patient is a 73 yo M POD from [facility] and doing well meeting barriers to discharge. Will discharge xuan. Bandar Horvath M.D. Urology Resident [facility] in [place] /paola/ BANDAR HORVATH MD UROLOGY RESIDENT Signed: 06/10/2024 07:25 /paola/ KARLA FERGUSON MD Staff Physician, Urology Cosigned: 06/10/2024 08:04 BANDAR HORVATH [facility] Jun 10, 2024 07:12 AM PHYSICIAN EDUCATIO N DISCHARGE NOTE: LOCAL TITLE: DISCHARGE INSTRUCTIONS [facility] STANDARD TITLE: PHYSICIAN EDUCATION DISCHARGE NOTE DATE OF NOTE: JUN 10, 2024@07:12 ENTRY DATE: JUN 10, 2024@07:12:48 AUTHOR: CATHERINE CORBIN EXP COSIGNER: KARLA FERGUSON URGENCY: STATUS: COMPLETED DISCHARGE INSTRUCTIONS FOR PROSTATECTOMY Call your doctor if: * You have a fever higher than 101.5 F (38.6 C). * You have nausea, vomiting or diarrhea. * Your pain medicine is not helping your pain. * You feel dizzy, very tired or like you may faint. (It is normal to feel somewhat tired for 1-2 weeks after surgery.) * You have large blood clots in your urine. * You have pus or bright red drainage from your incision. * If your catheter or tube comes out accidentally. * If there is no urine in your tubing for 2-3 hours. * The urine should remain clear enough that you can see newsprint through the tubing. If you can NOT, please call. * If the urine in the tubing has white pus, blood clots, or resembles tomato juice. Call your surgeons office during regular business hours. Diet: You may resume your usual home diet. Activity: * Do NOT lift anything over 10 pounds for 4 weeks. * Do NOT drive or operate machinery if you are taking narcotic pain medicine. * Do NOT take baths or swim in pools for 4 weeks. * You may take showers. Gently wash over wounds with soap and water, and dab or pat dry with a towel. * Take short frequent walks every day. Climbing stairs is OK. * Do NOT sit in hard backed chairs, ride bicycles, or engage in other activities that may put pressure on the perineal region. * Be VERY careful not to accidentally dislodge or pull your Rodriguez catheter out during activities. * It is normal to have some swelling in your penis and scrotum. This should improve over the next few days. To minimize or reduce the swelling, supportive briefs or a jock strap should be worn. When sitting or lying, scrotal elevation with a pillow or rolled up towel will help. Care Instructions: * Place over the counter triple antibiotic ointment on the tip of your penis 3 times a day while you have your catheter in place. * Measure and write down how much drainage comes from your catheter. Bring this information to your next doctors appointment. Your catheter can be attached to a leg bag as needed. * You may remove any bandages upon arriving home from the hospital. You may have paper strips left over your incisions. These strips will fall off on their own in about 10-14 days. If they do not fall off after 14 days, you may gently remove them. * Do NOT place anything in your rectum. This includes medications such as suppositories, applicators of any sort, enemas, sexual paraphernalia, or anal intercourse. * You may see some blood in or around the catheter during periods of increased activity or when having a bowel movement. This is expected to some degree. Do not be alarmed unless the bleeding continues for more than 30 minutes or if it gets worse. Then refer to above directions as to when to call your doctor. * Please be sure to take your stool softeners as prescribed to keep your bowel movements as effortless as possible until fully healed. If you develop diarrhea, you may hold the softeners until bowel movements firm up. Special Instructions: Smoking increases wound healing time. Please refrain, or at least, reduce smoking for 4 weeks. If you would like a prescription for a nicotine patch, please contact your care provider who will be happy to help. ADDITIONAL INSTRUCTIONS: Pain Control You should expect to have some pain after your procedure. This is a normal part of the recovery process. The pain is more tolerable for some patients and less tolerable for others. When you are in pain: - Start by applying ice packs or heating pads and using over the counter medications such as acetaminophen (Tylenol) or ibuprofen (Advil or Motrin) unless otherwise specified by your doctor. - If your pain is still uncontrolled, you may take a stronger, prescription medication that contains opioids. Take only as much of this medication as you need. - As you recover, your pain will decrease and you will need less pain medication. You should only take pain medication if you are in pain. - If you are no longer taking any of your opioid medication and have leftover pills, dispose of them by placing them in a plastic bag, adding dish soap, and throwing them in the trash. FOLLOW UP: RODRIGUEZ CATHETER REMOVAL - You will have your catheter removed in the clinic on 06/17/2024 and then we will discuss the pathology results and next steps. The clinic will call you to confirm your appointment We would additionally like to see you in 1 month for a post-operative visit. The clinic will call you to schedule your appointment Active issues requiring follow up: rodriguez catheter removal Test results pending at discharge: pathology /paola/ MANJINDER CORBIN MD, MD RESIDENT PHYSICIAN, UROLOGY // Signed: 06/10/2024 07:14 /paola/ KARLA FERGUSON MD Staff Physician, Urology Cosigned: 06/10/2024 08:05 MANJINDER CORBIN [facility] Jun 10, 2024 06:49 AM NURSING INPATIENT NOTE: LOCAL TITLE: [facility] NURSING FREQUENT DOCUMENTATION STANDARD TITLE: NURSING INPATIENT NOTE DATE OF NOTE: JUN 10, 2024@06:49 ENTRY DATE: JUN 10, 2024@06:49:47 AUTHOR: GABRIELLE STEPHENS COSIGNER: URGENCY: STATUS: COMPLETED Version 2.4 Charting in accordance with [place] APPROVED [place] STANDARD (OKAES) ACUTE INPATIENT/REHABILITATION NURSING ADMISSION SCREENING, ASSESSMENT, AND STANDARDS OF CARE ACTIVITY/MOBILIZATION Mobility Status: Independent: Able to stand and step without staff assistance Steady standing balance Gait: Steady [facility] - Highest Level of Mobility achieved this shift: 7 - Walked 25 feet or more (walked outside room) ========= INCENTIVE SPIROMETRY ========= Maximum volume achieved (mL): 2000 Times performed: 6 teaching/return demonstration completed /paola/ GABRIELLE FELIPE RN REGISTERED NURSE Signed: 06/10/2024 06:51 GABRIELLE STEPHENS [facility] Jun 10, 2024 05:00 AM NURSING INPATIENT NOTE: LOCAL TITLE: VAAES ACUTE INPATIENT NSG SHIFT ASSESSMENT STANDARD TITLE: NURSING INPATIENT NOTE DATE OF NOTE: JUN 10, 2024@05:00 ENTRY DATE: JUN 10, 2024@05:00:25 AUTHOR: GABRIELLE STEPHENS COSIGNER: URGENCY: STATUS: COMPLETED Version 2.2 Charting in accordance with [place] APPROVED [place] STANDARD (VAAES) ACUTE INPATIENT/REHABILITATION NURSING ADMISSION SCREENING, ASSESSMENT, AND STANDARDS OF CARE REASSESSMENT PAIN ASSESSMENT Patient's acceptable pain goal: 3 Sometimes distracts me Are you currently experiencing pain? Yes - DVPRS scale used to assess Location: [employer] Pain Rating Scale (DVPRS): 3 Sometimes distracts me Pain Score: 3 ENVIRONMENTAL SAFETY MANAGEMENT Implemented safety standards of care: -[place] to unit & environment -Adequate room lighting -Bed in low and locked position -Call light within reach -Personal items within reach -Traffic path in room free of clutter -Non-slip footwear -Upper/half length side rails up for bed mobility -Sensory aids within reach -Encourage patient to utilize sensory support Additional safety measures: Increased frequency of rounding NEUROLOGICAL Neurological Orientation: Oriented x4 Level of Consciousness (AVPU): Alert = Appears aware of and responsive to the environment on their own. Follows commands, opens eyes spontaneously, and tracks objects. Affect/behavior: Cooperative Calm NEUROMUSCULAR/NEUROVASCULA R EXTREMITIES ASSESSMENT Strength: Pest Control Service Technician Bilateral: Strong Upper Extremity Bilateral: Full strength Lower Extremity Bilateral: Full strength Sensation: Upper Extremity Sensation Bilateral: Intact Lower Extremity Sensation Bilateral: Intact Temperature: Upper Extremity Temperature Bilateral: Warm Lower Extremity Temperature Bilateral: Warm CARDIOVASCULAR Heart Sounds: Normal (S1S2) Heart Rate/Rhythm (without machine packaging technician): Regular Capillary Refill: All 4 extremities, less than or equal to 3 seconds. Peripheral Pulses: All 4 extremities, 3+ normal. Edema: None RESPIRATORY Respirations: Unlabored Pattern: Regular Breath Sounds Auscultated: Anterior and posterior Left Upper Lobe: Clear Right Upper Lobe: Clear Right Middle Lobe: Clear Left Lower Lobe: Clear Right Lower Lobe: Clear Supplemental Oxygen Therapy: Measured FiO2 (%): 92 Method: Other: room air Comment: pt. denies/does not appear to have SOB GASTROINTESTINAL Elimination: Continent Abdominal Description: Rounded Palpation: Other: not palpated pt with ABD surgery Bowel Sounds: RUQ: Active LUQ: Active RLQ: Active LLQ: Active GENITOURINARY Elimination: Urinary catheter Color/Characteristic: Yellow Urinary Catheter: Type: Indwelling: Assessment: Type: Urethral: Regular CAUTI Prevention Maintenance Bundle Maintained: - Maintain closed drainage system - Collecting bag below the level of the bladder and remains off the floor - Catheter and collecting tube free from kinking and remains off the floor - Collection bag regularly emptied using a separate, clean collecting container for single patient use; avoiding splashing, and no contact of the drainage spigot with the nonsterile collecting container - Daily periurethral hygiene Catheter secured: Left leg Site Condition: No redness, pain, swelling Indication(s): Urologic surgery ========= INTEGUMENTARY/SKIN/WOUND - (INCLUDING ECHO) SEE NOTE: VAAES SKIN INPECTION/ASSESSMENT ========= /paola/ GABRIELLE FELIPE RN REGISTERED NURSE Signed: 06/10/2024 05:03 GABRIELLE STEPHENS [facility] Jun 09, 2024 09:27 PM NURSING INPATIENT NOTE: LOCAL TITLE: VAAES ACUTE INPATIENT NSG SHIFT ASSESSMENT STANDARD TITLE: NURSING INPATIENT NOTE DATE OF NOTE: JUN 09, 2024@21:27 ENTRY DATE: JUN 09, 2024@21:27:47 AUTHOR: GABRIELLE STEPHENS EXP COSIGNER: URGENCY: STATUS: COMPLETED Version 2.2 Charting in accordance with [place] APPROVED [place] STANDARD (VAAES) ACUTE INPATIENT/REHABILITATION NURSING ADMISSION SCREENING, ASSESSMENT, AND STANDARDS OF CARE ASSESSMENT HANDOFF Bedside report and handoff completed Safety check completed PAIN ASSESSMENT Patient's acceptable pain goal: 3 Sometimes distracts me Are you currently experiencing pain? Yes - DVPRS scale used to assess Location: [employer] Pain Rating Scale (DVPRS): 3 Sometimes distracts me Pain Score: 3 STANTON FALL SCALE & TIPS PROGRAM Stanton Fall Scale: The Stanton Fall scale was performed and score was 35. This is indicative of moderate risk for falls. History of falling: immediate or within 3 months? No Secondary diagnosis: Yes Ambulatory aid: None/bedrest/nurse assist Intravenous therapy/Heparin lock: Yes Gait/Transferring: Normal/bed rest/immobile Mental Status: Oriented to own ability/knows own limitations Fall Tailoring Interventions for Patient Safety (TIPS) Fall TIPS initiated with patient: Yes Interventions: Communicate recent fall or risk of harm Fall TIPS reviewed with patient: Yes Interventions: Communicate recent fall or risk of harm Comment: pt. able to walk/move independently at this time was encourage to call for staff assistance as needed ENVIRONMENTAL SAFETY MANAGEMENT Implemented safety standards of care: -[place] to unit & environment -Adequate room lighting -Bed in low and locked position -Call light within reach -Personal items within reach -Traffic path in room free of clutter -Non-slip footwear -Upper/half length side rails up for bed mobility -Sensory aids within reach -Encourage patient to utilize sensory support Additional safety measures: Increased frequency of rounding NEUROLOGICAL Neurological Orientation: Oriented x4 Level of Consciousness (AVPU): Alert = Appears aware of and responsive to the environment on their own. Follows commands, opens eyes spontaneously, and tracks objects. Affect/behavior: Cooperative Calm ========= ASPIRATION RISK ASSESSMENT AND SWALLOW SCREEN ========= Aspiration Risk(s): Screening complete. No aspiration risk identified. Bedside Swallow Screen not indicated. NEUROMUSCULAR/NEUROVASCULA R EXTREMITIES ASSESSMENT Strength: Pest Control Service Technician Bilateral: Strong Upper Extremity Bilateral: Full strength Lower Extremity Bilateral: Full strength Sensation: Upper Extremity Sensation Bilateral: Intact Lower Extremity Sensation Bilateral: Intact Temperature: Upper Extremity Temperature Bilateral: Warm Lower Extremity Temperature Bilateral: Warm CARDIOVASCULAR Heart Sounds: Normal (S1S2) Heart Rate/Rhythm (without machine packaging technician): Regular Capillary Refill: All 4 extremities, less than or equal to 3 seconds. Peripheral Pulses: All 4 extremities, 3+ normal. Edema: None Cardiovascular - Embolism Prevention: Graduated Compression Stockings: Knee high Bilateral RESPIRATORY Respirations: Unlabored Pattern: Regular Breath Sounds Auscultated: Anterior and posterior Left Upper Lobe: Clear Right Upper Lobe: Clear Right Middle Lobe: Clear Left Lower Lobe: Clear Right Lower Lobe: Clear Supplemental Oxygen Therapy: Measured FiO2 (%): 92 Method: Other: room air Comment: pt. denies/does not appear to have SOB pt. sitting up in bed GASTROINTESTINAL Elimination: Continent Abdominal Description: Rounded Palpation: Other: not palpated pt. with ABD surgery today Bowel Sounds: RUQ: Active LUQ: Active RLQ: Active LLQ: Active Symptoms: Constipation Comment: bowel regiment in place GENITOURINARY Elimination: Urinary catheter Color/Characteristic: Cherelle Urinary Catheter: Type: Indwelling: Assessment: Type: Urethral: Regular CAUTI Prevention Maintenance Bundle Maintained: - Maintain closed drainage system - Collecting bag below the level of the bladder and remains off the floor - Catheter and collecting tube free from kinking and remains off the floor - Collection bag regularly emptied using a separate, clean collecting container for single patient use; avoiding splashing, and no contact of the drainage spigot with the nonsterile collecting container - Daily periurethral hygiene Catheter secured: Left leg Site Condition: No redness, pain, swelling Indication(s): Urologic surgery ========= INTEGUMENTARY/SKIN/WOUND - (INCLUDING ECHO) SEE NOTE: VAAES SKIN INPECTION/ASSESSMENT ========= ACTIVITIES OF DAILY LIVING Hygiene ADLs: Eating: Independent Oral Care: Non-ventilator patient: Patient teeth brushed: Independently The [facility] was educated that poor oral hygiene increases the risk of hospital acquired pneumonia and dental problems like gingivitis and tooth decay. [facility] was educated using their preferred method and verbalized understanding. Personal Care: Independent Comment: towels/toiletries at bedside Toileting: Independent MOBILITY Mobility Status: Gait: Other: have not witnessed pt. ambulate IV LINES Peripheral IV: Line #1: Assessment: Location: Left, Hand Gauge: 18 Dressing Condition: Clean, dry, intact Site Condition: No redness, swelling, pain Line Status: Flushed Line #2: Assessment: Location: Left, Wrist Gauge: 20 Dressing Condition: Clean, dry, intact Site Condition: No redness, swelling, pain Line Status: Flushed /paola/ GABRIELLE S ANGELO BSN RN REGISTERED NURSE Signed: 06/09/2024 21:36 GABRIELLE STEPHENS [facility] Jun 09, 2024 09:24 PM NURSING NOTE: LOCAL TITLE: [facility] SKIN INSPECTION/ASSESSMENT STANDARD TITLE: NURSING NOTE DATE OF NOTE: JUN 09, 2024@21:24 ENTRY DATE: JUN 09, 2024@21:25:01 AUTHOR: GABRIELLE STEPHENS EXP COSIGNER: URGENCY: STATUS: COMPLETED Assessment Type: SKIN REINSPECTION/REASSESSMENT SKIN INSPECTION: Skin Color: Usual for ethnicity Skin Temperature: Warm Skin Moisture: Normal Skin Turgor: Elastic (normal/immediate) Echo Skin Assessment: The patient's Echo Scale Score is 21. The patient is considered not at risk for development of pressure ulcers/injuries. Sensory perception -- ability to respond meaningfully to pressure-related discomfort No impairment. Moisture -- degree to which skin is exposed to moisture Rarely moist. Activity -- ability to change and control body position Walks occasionally. Mobility -- ability to change and control body position No limitation. Nutrition -- usual food intake patterns Adequate. Friction and shear No apparent problem. INTERVENTIONS: New or changed pressure ulcer/injury interventions or medical condition. Pressure-Redistribution measures: Encourage small, frequent position changes Other: pt. able to move/turn self in bed independently at this time Maximize mobilization: Encourage activity as tolerated Manage nutrition: Monitor fluid/food intake Provide or encourage oral care prn RISK FACTORS THAT INCREASE RISK FOR DEVELOPING PRESSURE INJURIES: The patient/resident has the following: Device(s): (nasogastric tubes, oxygen tubing, urinary catheters, cell phone etc.) Comment: PIV x 2 rodriguez Cath Incision and Flaps: Incision 1: Location: ABD 4 lap sites Status: Edges well approximated Closure: Glue Stabilization: Other: VAISHALI Surrounding tissue: bruising Wound drainage none. /paola/ GABRIELLE FELIPE RN REGISTERED NURSE Signed: 06/09/2024 21:27 GABRIELLE STEPHENS [facility] Jun 09, 2024 09:17 PM NURSING INPATIENT NOTE: LOCAL TITLE: [facility] NURSING FREQUENT DOCUMENTATION STANDARD TITLE: NURSING INPATIENT NOTE DATE OF NOTE: JUN 09, 2024@21:17 ENTRY DATE: JUN 09, 2024@21:17:57 AUTHOR: GABRIELLE STEPHENS EXP COSIGNER: URGENCY: STATUS: COMPLETED Version 2.4 Charting in accordance with [place] APPR[place]ED [place] STANDARD (OKAES) ACUTE INPATIENT/REHABILITATION NURSING ADMISSION SCREENING, ASSESSMENT, AND STANDARDS OF CARE NATIONAL EARLY WARNING SCORE (NEWS) The following vital measurements were used to complete the NEWS. Measurement DT TEMP PULSE RESP BP POx F(C) (L/MIN)(%) 06/09/2024 21:02 97.4(36.3) 87 18 123/72 92 The NEWS total is 2. 1. Temperature (C/F): Score = 0 36.1 - 38.0 C (96.9 - 100.4 F) 2. Pulse: Score = 0 51-90 3. Respirations: Score = 0 12-20 4. Blood Pressure (Only Systolic BP, mmHg): Score = 0 111-219 5. Pulse Oximetry: Score = 2 92% - 93% 6. Supplemental oxygen in use: Score = 0 No 7. AVPU: Score = 0 Alert Patient Status: Remains on unit /paola/ GABRIELLE FELIPE RN REGISTERED NURSE Signed: 06/09/2024 21:19 GABRIELLE STEPHENS [facility] Jun 09, 2024 06:56 PM NURSING NOTE: LOCAL TITLE: JARVIS PERSONAL EFFECTS [facility] STANDARD TITLE: NURSING NOTE DATE OF NOTE: JUN 09, 2024@18:56 ENTRY DATE: JUN 09, 2024@18:56:37 AUTHOR: VASQUEZ COSTELLO EXP COSIGNER: URGENCY: STATUS: COMPLETED PERSONAL EFFECTS Hazardous Check: Advised of prohibited hazardous items, Denies hazardous items, No hazardous items observed Medication Check: Denies medication on person Prosthetic Check: None Patient Valuables Observed: tablet, cell phone, temple meat cutter, pants, shirt, jacket /paola/ MATTEO SPARROW, RN REGISTERED NURSE Signed: 06/09/2024 18:57 VASQUEZ COSTELLO [facility] Jun 09, 2024 06:55 PM NURSING TREATMENT PLAN NOTE: LOCAL TITLE: [facility]ARVIS PLAN OF CARE STANDARD TITLE: NURSING TREATMENT PLAN NOTE DATE OF NOTE: JUN 09, 2024@18:55 ENTRY DATE: JUN 09, 2024@18:55:09 AUTHOR: VASQUEZ COSTELLO EXP COSIGNER: URGENCY: STATUS: COMPLETED JARVIS PLAN OF CARE Has ADDENDA Plan of Care and Discharge Plan (nurse) TREATMENT PLAN Significant other involved in treatment plan and discharge planning No Patient involved in making decisions about their care, treatment and plan for discharge Yes Date: May Does patient have pain and/or chest pain? Yes, Pain NURSING DIAGNOSIS: Alteration in comfort: pain related to Goals: Prior to discharge, patient will:--Injury due to fall will be minimized during hospital stay, --Verbalize safety measures to lower risk of fall/injury (lock w/c, use hand rails, ask for assistance) --Be able to participate in daily activities, --Achieve acceptable pain level per patient Intervention: --Implement and document use of alternative , non pharmacological interventions i.e. Care plan status: Continued Progress toward goals documented continuously through progress notes Patient education: --Normal function and disease process. /MATTEO Perez, RN REGISTERED NURSE Signed: 06/09/2024 18:56 06/10/2024 ADDENDUM STATUS: COMPLETED Care plan resolved /MATTEO Perez RN REGISTERED NURSE Signed: 06/10/2024 10:47 VASQUEZ COSTELLO [facility] Jun 09, 2024 06:13 PM NURSING NOTE: LOCAL TITLE: VAAES SKIN INSPECTION/ASSESSMENT STANDARD TITLE: NURSING NOTE DATE OF NOTE: JUN 09, 2024@18:13 ENTRY DATE: JUN 09, 2024@18:13:25 AUTHOR: VASQUEZ COSTELLO COSIGNER: URGENCY: STATUS: COMPLETED Assessment Type: INITIAL SKIN INSPECTION/ASSESSMENT SKIN INSPECTION: Skin Color: Usual for ethnicity Skin Temperature: Warm Skin Moisture: Normal Skin Turgor: Elastic (normal/immediate) Echo Skin Assessment: The patient's Echo Scale Score is 21. The patient is considered not at risk for development of pressure ulcers/injuries. Sensory perception -- ability to respond meaningfully to pressure-related discomfort No impairment. Moisture -- degree to which skin is exposed to moisture Rarely moist. Activity -- ability to change and control body position Walks occasionally. Mobility -- ability to change and control body position No limitation. Nutrition -- usual food intake patterns Adequate. Friction and shear No apparent problem. INTERVENTIONS: The pressure injury interventions were not needed - patient/resident is not at risk. RISK FACTORS THAT INCREASE RISK FOR DEVELOPING PRESSURE INJURIES: The patient/resident has the following: Device(s): (nasogastric tubes, oxygen tubing, urinary catheters, cell phone etc.) Comment: maisha cell will SKIN ALTERATIONS: Pressure Ulcer/Injury Documentation from the past year: No data available SKIN INTEGRITY: Intact Incision and Flaps: Incision 1: Location: 5 lap sites Status: Edges well approximated Closure: Glue Wound drainage none. /paola/ MATTEO SPARROW, RN REGISTERED NURSE Signed: 06/09/2024 18:15 VASQUEZ COSTELLO [facility] Jun 09, 2024 06:12 PM ADMINISTRATIVE NOT E: LOCAL TITLE: ADMINISTRATIVE STL STANDARD TITLE: ADMINISTRATIVE NOTE DATE OF NOTE: JUN 09, 2024@18:12 ENTRY DATE: JUN 09, 2024@18:12:44 AUTHOR: RACHEL THOMPSON EXP COSIGNER: URGENCY: STATUS: COMPLETED ADVISED RESIDENT: MAGDALENA HORVATH PT HAS ARRIVED TO THE FLOOR /paola/ RACHEL Richardson ADVANCED CARE CONSULTANT Signed: 06/09/2024 18:13 Receipt Acknowledged By: * AWAITING SIGNATURE * KEVIN LAMAR 06/09/2024 23:52 /paola/ MAHENDRA GUTIERREZ SUPERVISOR OF COMMUNICATIONS CARE CONSULTANT RACHEL THOMPSON [facility] Jun 09, 2024 06:10 PM NURSING INPATIENT NOTE: LOCAL TITLE: [facility] NURSING FREQUENT DOCUMENTATION STANDARD TITLE: NURSING INPATIENT NOTE DATE OF NOTE: JUN 09, 2024@18:10 ENTRY DATE: JUN 09, 2024@18:10:45 AUTHOR: VASQUEZ COSTELLO EXP COSIGNER: URGENCY: STATUS: COMPLETED Version 2.4 Charting in accordance with [place] APPROVED [place] STANDARD (VAAES) ACUTE INPATIENT/REHABILITATION NURSING ADMISSION SCREENING, ASSESSMENT, AND STANDARDS OF CARE NATIONAL EARLY WARNING SCORE (NEWS) The following vital measurements were used to complete the NEWS. Measurement DT TEMP PULSE RESP BP POx F(C) (L/MIN)(%) 06/09/2024 17:58 97.7(36.5) 91 20 103/64 95 06/09/2024 11:00 97.5(36.4) 75 23 173/89 96 05/31/2024 08:39 98.3(36.8) 68 16 164/77 96 05/11/2024 09:31 98.1(36.7) 73 18 148/83 97 04/22/2024 13:46 142/82 04/22/2024 13:08 146/86 04/22/2024 13:04 98.4(36.9) 68 18 165/92 96 02/15/2024 11:50 152/88 02/15/2024 11:50 97.7(36.5) 70 16 142/88 98 01/29/2024 10:45 97.6(36.4) 60 16 149/87 96 01/21/2024 17:16 97.1(36.2) 68 18 150/78 97 01/15/2024 14:17 63 164/81 01/06/2024 13:34 172/72 01/06/2024 12:57 160/90 01/06/2024 12:50 98.2(36.8) 61 20 188/96 97 12/28/2023 12:58 170/72 12/28/2023 12:31 178/93 12/28/2023 12:31 98(36.7) 75 18 168/82 97 The NEWS total is 3. 1. Temperature (C/F): Score = 0 36.1 - 38.0 C (96.9 - 100.4 F) 2. Pulse: Score = 1 91-110 3. Respirations: Score = 0 12-20 4. Blood Pressure (Only Systolic BP, mmHg): Score = 1 101-110 5. Pulse Oximetry: Score = 1 94% - 95% 6. Supplemental oxygen in use: Score = 0 No 7. AVPU: Score = 0 Alert 1730 - patient arrived to the floor 1755 - took patient vitals 1830 - patient family is at the bedside /paola/ MATTEO SPARROW, RN REGISTERED NURSE Signed: 06/09/2024 18:13 VASQUEZ COSTELLO [facility] Jun 09, 2024 06:09 PM NURSING NOTE: LOCAL TITLE: [facility] NSG IV INSERTION AND MAINTENANCE STANDARD TITLE: NURSING NOTE DATE OF NOTE: JUN 09, 2024@18:09 ENTRY DATE: JUN 09, 2024@18:09:59 AUTHOR: VASQUEZ COSTELLO EXP COSIGNER: URGENCY: STATUS: COMPLETED Version 2.2 Charting in accordance with [place] APPROVED [place] STANDARD (OKAES) ACUTE INPATIENT/REHABILITATION NURSING ADMISSION SCREENING, ASSESSMENT, AND STANDARDS OF CARE IV Line Insertion and Maintenance Peripheral IV Line #1: Assessment: Location: Left, Wrist Gauge: 18 Dressing Condition: Clean, dry, intact Site Condition: No redness, swelling, pain Line Status: Flushed Line #2: Assessment: Location: Left, Hand Gauge: 20 Dressing Condition: Clean, dry, intact Site Condition: No redness, swelling, pain Line Status: Flushed /es/ MATTEO SPARROW, RN REGISTERED NURSE Signed: 06/09/2024 18:10 VASQUEZ COSTELLO [facility] Jun 09, 2024 06:03 PM NURSING INPATIENT NOTE: LOCAL TITLE: [place] ACUTE INPATIENT NSG SHIFT ASSESSMENT STANDARD TITLE: NURSING INPATIENT NOTE DATE OF NOTE: JUN 09, 2024@18:03 ENTRY DATE: JUN 09, 2024@18:03:54 AUTHOR: VASQUEZ COSTELLO EXP COSIGNER: URGENCY: STATUS: COMPLETED Version 2.2 Charting in accordance with [place] APPROVED [place] STANDARD (OKAES) ACUTE INPATIENT/REHABILITATION NURSING ADMISSION SCREENING, ASSESSMENT, AND STANDARDS OF CARE ASSESSMENT HANDOFF Bedside report and handoff completed Safety check completed PAIN ASSESSMENT Patient's acceptable pain goal: 2 Notice pain, does not interfere with activities Are you currently experiencing pain? Yes - DVPRS scale used to assess Location: pelvic Defense and [employer] Pain Rating Scale (DVPRS): 4 Distracts me, can do usual activities Pain Score: 4 STANTON FALL SCALE & TIPS PROGRAM Stanton Fall Scale: The Stanton Fall scale was performed and score was 20. This is indicative of low risk of falls. History of falling: immediate or within 3 months? No Secondary diagnosis: No Ambulatory aid: None/bedrest/nurse assist Intravenous therapy/Heparin lock: Yes Gait/Transferring: Normal/bed rest/immobile Mental Status: Oriented to own ability/knows own limitations Fall Tailoring Interventions for Patient Safety (TIPS) Fall TIPS initiated with patient: Yes Interventions: Assistance out of bed: Call for assistance before getting out of bed Fall TIPS reviewed with patient: Yes Interventions: Assistance out of bed: Call for assistance before getting out of bed ENVIRONMENTAL SAFETY MANAGEMENT Implemented safety standards of care: -[place] to unit & environment -Adequate room lighting -Bed in low and locked position -Call light within reach -Personal items within reach -Traffic path in room free of clutter -Non-slip footwear -Upper/half length side rails up for bed mobility -Sensory aids within reach -Encourage patient to utilize sensory support NEUROLOGICAL Neurological Orientation: Oriented x4 Level of Consciousness (AVPU): Alert = Appears aware of and responsive to the environment on their own. Follows commands, opens eyes spontaneously, and tracks objects. Affect/behavior: Cooperative Calm NEUROMUSCULAR/NEUROVASCULA R EXTREMITIES ASSESSMENT Strength: Pest Control Service Technician Bilateral: Strong Upper Extremity Bilateral: Full strength Lower Extremity Bilateral: Full strength Sensation: Upper Extremity Sensation Bilateral: Intact Lower Extremity Sensation Bilateral: Intact Temperature: Upper Extremity Temperature Bilateral: Warm Lower Extremity Temperature Bilateral: Warm CARDIOVASCULAR Heart Sounds: Normal (S1S2) Heart Rate/Rhythm (without machine packaging technician): Regular Capillary Refill: All 4 extremities, less than or equal to 3 seconds. Peripheral Pulses: All 4 extremities, 3+ normal. Edema: None RESPIRATORY Respirations: Unlabored Pattern: Regular Breath Sounds Auscultated: Anterior and posterior Left Upper Lobe: Clear Right Upper Lobe: Clear Right Middle Lobe: Clear Left Lower Lobe: Clear Right Lower Lobe: Clear GASTROINTESTINAL Last bowel movement: 06/07/24 Elimination: Continent Abdominal Description: Rounded Palpation: Soft, Non-tender Bowel Sounds: RUQ: Active LUQ: Active RLQ: Active LLQ: Active GENITOURINARY Elimination: Continent Urinary catheter Urinary Catheter: Type: Indwelling: Assessment: Type: Urethral: Regular CAUTI Prevention Maintenance Bundle Maintained: - Maintain closed drainage system - Collecting bag below the level of the bladder and remains off the floor - Catheter and collecting tube free from kinking and remains off the floor - Collection bag regularly emptied using a separate, clean collecting container for single patient use; avoiding splashing, and no contact of the drainage spigot with the nonsterile collecting container - Daily periurethral hygiene Catheter secured: Left leg Site Condition: No redness, pain, swelling Indication(s): Urologic surgery ========= INTEGUMENTARY/SKIN/WOUND - (INCLUDING ECHO) SEE NOTE: VAAES SKIN INPECTION/ASSESSMENT ========= ACTIVITIES OF DAILY LIVING Hygiene ADLs: Oral Care: Non-ventilator patient: Patient teeth brushed: Independently MOBILITY Mobility Status: Independent: Able to stand and step without staff assistance Steady standing balance Gait: Steady IV LINES Peripheral IV: Present on admission: Line #1: Location: Left, Wrist Gauge: 18 Line #2: Location: Left, Hand Gauge: 20 PSYCHOSOCIAL Type of Emotional Support Provided: 1:1 discussion /es/ MATTEO SPARROW, RN REGISTERED NURSE Signed: 06/09/2024 18:09 VASQUEZ COSTELLO [facility] Jun 09, 2024 05:59 PM NURSING ADMISSION EVALUATION NOTE: LOCAL TITLE: VAAES ACUTE INPATIENT NSG ADMISSION SCREEN STANDARD TITLE: NURSING ADMISSION EVALUATION NOTE DATE OF NOTE: JUN 09, 2024@17:59 ENTRY DATE: JUN 09, 2024@17:59:23 AUTHOR: VASQUEZ COSTELLO EXP COSIGNER: URGENCY: STATUS: COMPLETED ========= ALLERGY/ADVERSE DRUG REACTION (ADR) REVIEW (MRT5) ========= FACILITY ALLERGY/ADR -------- No Remote Allergy/ADR Data available for this patient [facility] No Known Allergies Allergy/Adverse Drug Reaction Review to be conducted by: Provider ======== MEDICATION REVIEW (MRR1) ======== Did patient bring medication(s) from home? No Medication Review to be conducted by Provider ======== GENERAL INFORMATION ======== Admission information given by: Patient Is there a legal guardian/conservator? No Preferred language for discussing healthcare: Spanish Preferred mode of communication: Verbal Items at Bedside: None ========= INFECTIOUS DISEASE RISK SCREEN ========= Travel Screen: Have you traveled within the [place] within the last 21 days? No Have you traveled outside the [place] within the last 21 days? No Within the last 14 days, have you had: No known exposure Other Exposure to Infectious Disease: No known exposure Patient reported the following symptoms: No Symptoms Present History of Multiple Drug Resistant Organism (MDRO): No ========= NUTRITION SCREENING ========= Malnutrition Screening Weight (Previous 6 months): Measurement DT WEIGHT LB(KG)[BMI] 06/09/2024 11:00 198.7(90.13)[28*] 05/31/2024 08:39 203(92.08)[29*] 05/11/2024 09:31 196(88.90)[28*] 04/22/2024 13:04 196.2(88.99)[28*] 02/15/2024 11:50 197.8(89.72)[28*] 01/29/2024 10:45 196.1(88.95)[27] 01/06/2024 12:50 196(88.90)[27] 12/28/2023 12:31 199(90.26)[28*] Lost weight recently without trying: No (0 points) Have you been eating poorly because of decreased appetite? No (0 points) Total Score: 0 Other Nutrition Screening Questions: The patient does not report any concerns with their teeth that would make it difficult to eat. The patient does not report overeating to the point of feeling sick or making themselves vomit. The patient denies gaining 10 lbs.(4.5 kgs) or more in the past 3 months without trying. The patient denies having any food allergies, intolerance, special dietary needs, or ethnic, cultural or gnosticist preferences that would affect their dietary needs. Food Insecurity Screening Within the past 12 months, you worried whether your food would run out before you got money to buy more. Never true Within the past 12 months, the food you bought just did not last you and you did not have the money to get more. Never true Food Insecurity Disposition: ======== RISK SCREENINGS ======== Alcohol Screen: Screen to be completed by: Nurse: SCREEN FOR ALCOHOL (AUDIT-C) An alcohol screening test (AUDIT-C) was negative (score=0). 1. How often did you have a drink containing alcohol in the past year? Consider a drink to be a 12 ounce can or bottle of regular beer, 8 ounces of malt liquor, a 5 ounce glass of table wine, or a 1.5 ounce shot of liquor (like scotch, gin, or vodka). Never 2. How many drinks containing alcohol did you have on a typical day when you were drinking in the past year? Response not required due to responses to other questions. 3. How often did you have six or more drinks on one occasion in the past year? Response not required due to responses to other questions. *Does the patient consume alcohol? No Tobacco Use: Never - tobacco user Do you currently or have you ever used alternative nicotine products? No Substance Use Assessment: *Do you use any recreational drugs or narcotics (prescription or non-prescription)? No ========= RISK OF WANDERING ========= The patient does not have a history of wandering. The patient does not have a history of elopement. The patient is not expressing a desire to leave. ======= SUICIDE SCREEN ======= [place] Suicide Severity Rating Scale (C-SSRS) 1. Over the past month, have you wished you were or wished you could go to sleep and not wake up? No 2. Over the past month, have you had any actual thoughts of killing yourself? No 3. Over the past month, have you been thinking about how you might do this? Response not required due to responses to other questions. 4. Over the past month, have you had these thoughts and had some intention of acting on them? Response not required due to responses to other questions. 5. Over the past month, have you started to work out or worked out the details of how to kill yourself? Response not required due to responses to other questions. 6. If yes, at any time in the past month did you intend to carry out this plan? Response not required due to responses to other questions. 7. In your lifetime, have you ever done anything, started to do anything, or prepared to do anything to end your life (for example, collected pills, obtained a gun, gave away valuables, went to the roof but didn't jump)? No 8. If YES, was this within the past 3 months? Response not required due to responses to other questions. C-SSRS Screen is Negative ======== EXPOSURE TO VIOLENCE AND ABUSE PRE-SCREEN ======== Are you worried for your safety, that you will be hurt or harmed? No Has anyone tried to force you to sign papers or use your money against your will? No ======== POST TRAUMATIC STRESS DISORDER CARE CONSIDERATIONS ======== To minimize a startle response, what is your preference on how best to awaken you? No preference ========= REPRODUCTIVE & SEXUAL HEALTH ========= Do you have any sexual or reproductive concerns you would like your healthcare team to be aware of? No ======== ADVANCE DIRECTIVE ======== Notification of Rights Related to Advance Directives: Written notification not provided. Explain: pt refused *The patient wishes to receive information about or assistance with Advance Care Planning and/or Advance Directive: No ======= SPIRITUALITY ======= Are there gnosticist practices or spiritual concerns you want the seconds grader, your provider, and other health care team members to know? No ======== ANTICIPATED DISCHARGE NEEDS ======== Where do you live? Housing owned/rented by [employer]: Method of transportation upon discharge: Private Vehicle: Are there any anticipated barriers to discharge? No ======= EDUCATIONAL NEEDS/LEARNING STYLE ======= Barriers to learning: None evident Patient learning style preferences: 1:1 STANTON FALL SCALE & TIPS PROGRAM Stanton Fall Scale: The Stanton Fall scale was performed and score was 35. This is indicative of moderate risk for falls. History of falling: immediate or within 3 months? No Secondary diagnosis: Yes Ambulatory aid: None/bedrest/nurse assist Intravenous therapy/Heparin lock: Yes Gait/Transferring: Normal/bed rest/immobile Mental Status: Oriented to own ability/knows own limitations Fall Tailoring Interventions for Patient Safety (TIPS) Fall TIPS initiated with patient: Yes Interventions: Assistance out of bed: Call for assistance before getting out of bed PAIN ASSESSMENT Patient's acceptable pain goal: 2 Notice pain, does not interfere with activities Are you currently experiencing pain? Yes - DVPRS scale used to assess Location: pelvic Defense and [facility] Pain Rating Scale (DVPRS): 4 Distracts me, can do usual activities Pain Score: 4 /paola/ MATTEO SPARROW, RN REGISTERED NURSE Signed: 06/09/2024 18:03 VASQUEZ COSTELLO [facility] Jun 09, 2024 05:48 PM ADMINISTRATIVE NOT E: LOCAL TITLE: ADMINISTRATIVE ST STANDARD TITLE: ADMINISTRATIVE NOTE DATE OF NOTE: JUN 09, 2024@17:48 ENTRY DATE: JUN 09, 2024@17:49:01 AUTHOR: RACHEL THOMPSON EXP COSIGNER: URGENCY: STATUS: COMPLETED PT WAS ADMITTED UNDER OE ON 06/09/2024 @17:42 /paola/ RACHEL Richardson ADVANCED CARE CONSULTANT Signed: 06/09/2024 17:49 Receipt Acknowledged By: 06/09/2024 23:51 /es/ JOBY MOYER SUPERVISORY CARE CONSULTANT * AWAITING SIGNATURE * ELIJAH CORNEJO TIFFANY M [facility]
--- OUTSIDE RECORDS SUMMARY | 2024-08-25 08:56 | XMS_ITS | Encounter Summary ---
Author Name [facility] [place] Organization [facility] [place] Address [address] [place] [address] Care Team Providers Care Cushion Worker Name Role Phone BERTHA RAYMOND Primary Care Provider [facility] Insurance Providers: All historical and current [...] Relationship to Policy Rios SHIKHA NIEVES - [facility] SHIKHA YOUSIF Apr 27, 2019 SHIKHA NIEVES [id number] [facility] PATIENT MEDICARE (WNR) MEDICARE (M) PART A Nov 21, 2014 PART A [id number] [facility] OM PATIENT MEDICARE (WNR) MEDICARE (M) PART B Nov 21, 2014 PART B [id number] [facility] PATIENT Selected Encounter This section includes the information on record at [place] for the Encounter. Date/Time Encounter Type Encounter Description Reason Provider Source May 31, 2024 09:00 AM OFFICE O/P EST HI 40 MIN ANESTHESIA PRE/POST-OP CONSULT ICD-10-CM Z01.818 Encounter for other preprocedural examination TONY BAH IHE Encounter Template Text not used by [place] Assessments - Encounter Diagnoses This section includes the primary and secondary diagnoses documented for the Encounter. Date/Time Primary/Secondary Diagnosis Diagnosis Name Provider Source May 31, 2024 09:08 AM PRIMARY Encounter for other preprocedural examination DELANEY BAH [facility] May 31, 2024 09:08 AM SECONDARY Carcinoma in situ of prostate DELANEY BAH [facility] May 31, 2024 09:08 AM SECONDARY Chronic kidney disease, stage 3a DELANEY BAH [facility] May 31, 2024 09:08 AM SECONDARY Essential (primary) hypertension DELANEY BAH [facility] Plan of Treatment: Future Appointments (+ 6 [...] Appointment Type Appointme nt Facility Name Jun 09, 2024 08:44 AM AMBULATORY - NONE [facility] Jun 14, 2024 09:30 AM AMBULATORY - MEDICINE [facility] Jun 17, 2024 11:00 AM AMBULATORY - SURGERY [facility] Jun 28, 2024 02:06 PM AMBULATORY - MEDICINE [facility] Jul 11, 2024 09:00 AM AMBULATORY - SURGERY [facility] August 19, 2024 02:00 PM AMBULATORY - MEDICINE [facility] Oct 10, 2024 09:00 AM AMBULATORY - SURGERY [facility] Oct 18, 2024 09:30 AM AMBULATORY - MEDICINE [facility] Active, Pending, and Scheduled Orders This section includes a listing of several types of active, pending, and scheduled orders, including clinic medications orders, diagnostic test orders, procedure orders and consult orders; where the start date of the order is 45 days before the date of the Encounter or 45 days after the date of theEncount. The data comes from all [place] treatment facilities. Test Date/Time Test Type Test Details Facility Name Apr 22, 2024 12:00 AM Laboratory - Chemi stry Order BASIC METABOLIC PANEL GREEN LI/HEP BLD/PLAS PLASMA SP [facility] May 11, 2024 12:00 AM Laboratory - Blood Bank Order TYPE & SCREEN - LAB BLOOD SP [facility] Jun 09, 2024 12:00 AM Laboratory - Blood Bank Order TYPE & SCREEN - LAB BLOOD WC [facility] Lab Results: +/- 30 days of the [...] Type Comment Jun 28, 2024 04:30 PM [facility] CBC BLOOD Specimen Type: BLOOD No comment entered. Ordering Provider: ABY RODRIGUES Report Released Date/Time: Jun 28, 2024 04:23 PM Reporting Lab: [address] [address] Performing Lab: [address] [address] WBC 5.5 10*3/uL 3.6-11.2 RBC 4.44 10*6/uL [...] 0.00-0. 20 Jun 28, 2024 04:30 PM [facility] COMPREHENSIVE METABOLIC PANEL PLASMA Specimen Type: PLASMA Comment: No hemolysis noted. Ordering Provider: ABY RODRIGUES Report Released Date/Time: Jun 28, 2024 04:23 PM Reporting Lab: [address] [address] Performing Lab: [address] [address] CREATININE 1.18 mg/dL 0.7-1.3 UREA NITROGEN 19.0 [...] 64.8 >60 Jun 10, 2024 04:46 AM [facility] GLUCOSE,BLOOD-poct (STL) BLOOD Specimen Type: BLOOD Comment: Test Performed by: [id number] Meter #: [id number] Ordering Provider: BRADLEY OVALLES Report Released Date/Time: Jun 10, 2024 05:21 AM Reporting Lab: [address] [address] Performing Lab: [address] [address] GLUCOSE,BLOOD-poct (STL) 146 mg/dL H 72-99 Jun 09, 2024 08:12 PM [facility] CBC BLOOD Specimen Type: BLOOD No comment entered. Ordering Provider: BETO MCMILLAN Report Released Date/Time: Jun 09, 2024 05:43 PM Reporting Lab: [address] [address] Performing Lab: [address] [address] WBC 11.1 10*3/uL 3.6-11.2 RBC 4.00 10*6/uL [...] H 2.10-8.00 Jun 09, 2024 07:00 PM [facility] MRSA SURVL NARES DNA NARES Specimen Type: [...] Jun 09, 2024 05:57 PM Reporting Lab: [address] [address] Performing Lab: [facility] [address] [facility] [address] MRSA SURVL NARES DNA Negative Negative Jun 09, 2024 10:40 AM [facility] COVID-19 DIAGNOSTIC (FLU/RSV)(STL) NASOPHARYNX Spec imen Type: [...] Jun 07, 2024 02:47 PM Reporting Lab: [address] [address] Performing Lab: [address] [address] INFLUENZA A NEG Negative INFLUENZA B NEG Negative COVID-19 (STL-PB) NEG Not Detected RSV (Cepheid) Negative Negative May 11, 2024 10:38 AM [facility] HGA1C BLOOD Specimen Type: BLOOD No comment entered. Ordering Provider: BERTHA RAYMOND Report Released Date/Time: Apr 22, 2024 01:42 PM Reporting Lab: [address] [address] Performing Lab: [address] [address] HGA1C 5.7 4.0-6.0 May 11, 2024 10:37 AM [facility] PT/INR NEW (L-MA) PLASMA Specimen Type: PLAS MA No comment entered. Ordering Provider: MANJINDER CORBIN Report Released Date/Time: May 11, 2024 10:21 AM Reporting Lab: [address] [address] Performing Lab: [facility] [address] [address] PROTIME 11.6 s 9.4-12.5 INR VALUE 1.0 {INR} May 11, 2024 10:37 AM [facility] BASIC METABOLIC PANEL PLASMA Specimen Type: PL ASMA Comment: No hemolysis noted. Ordering Provider: MANJINDER CORBIN Report Released Date/Time: May 11, 2024 10:21 AM Reporting Lab: [place] [id number] Performing Lab: [address] [address] CREATININE 1.08 mg/dL 0.7-1.3 UREA NITROGEN 17.0 mg/dL 9.0-25.0 GLUCOSE 101 mg/dL H 72-99 SODIUM 140 meq/L 136-145 POTASSIUM 4.4 meq/L 3.5-5 CHLORIDE 106 meq/L 98-107 CARBON DIOXIDE 27 meq/L 22-31 CALCIUM 9.3 mg/dL 8.4-10.4 EGFR (CKD-EPI 2020) 72.0 >60 May 11, 2024 10:37 AM [facility] CBC BLOOD Specimen Type: BLOOD No comment entered. Ordering Provider: MANJINDER CORBIN Report Released Date/Time: May 11, 2024 10:21 AM Reporting Lab: [address] [address] Performing Lab: [address] [address] WBC 6.4 10*3/uL 3.6-11.2 RBC 5.21 10*6/uL [...] Height Weight Body Mass Index Source May 31, 2024 08:39 AM 98.3 68 164/77 16 96 203 29 [facility] Social History: Smoking Status [...] Facil ity Dec 24, 2023 11:44 AM [place]-TOBACCO NEVER USED [facility] Radiology Reports: +/- 30 days [...] 04:33 PM OBSTRUCTIVE SERIES : RAMEZ GODINEZ [id number] -1950 M Exm Date: JUN 28, 2024@16:33 Req Phys: ABY RODRIGUES Loc: PAT-EMERGENCY DEPT 2ND SHIFT (R Img Loc: PAT-MAIN RADIOLOGY SUITE Service: [facility], [address]IS [address] [place] [address] (Case [id number] COMPLETE) OBSTRUCTIVE SERIES (RAD Detailed) CPT:32437 Reason for Study: constipation x 2 wks Clinical History: Report Status: Verified Date Reported: JUN 28, 2024 Date Verified: JUN 28, 2024 Clay Maker E-Sig:/ES/Ramez Schaffer MD Report: CASE #: [id number] DATE:06/28/2024 4:43 PM CLINICAL HISTORY:constipation x 2 [...] Primary Interpreting Staff: Ramez Schaffer MD, Radiologist (Clay Maker) /RAMEZ OLIVAS [facility] May 11, 2024 10:27 AM CHEST X-RAY, 2 VIE WS: HERBERTRAMEZ Thompson [id number] -1950 M Exm Date: MAY 11, 2024@10:27 Req Phys: MANJINDER CORBIN Loc: PAT-UROLOGY RES (Req'g Loc) Img Loc: -MAIN RADIOLOGY SUITE Service: Unknown [facility] [address] [place] [address] (Case [id number] COMPLETE) CHEST X-RAY, 2 VIEWS (RAD Detailed) CPT:44184 Reason for Study: pre-operative testing Clinical History: Report Status: Verified Date Reported: MAY 12, 2024 Date Verified: MAY 12, 2024 Clay Maker E-Sig:/ES/ELIJAH MCCOY Report: CHEST X-RAY, 2 VIEWS COMPARISON: None. HISTORY: pre-operative testing FINDINGS: The heart size and pulmonary vasculature are normal. There is no consolidating infiltrate, effusion or pneumothorax. Mild hyperinflation. Impression: No active lung disease. RR Primary Interpreting Staff: ELIJAH MCCOY Staff Physician (Clay Maker) /ELIJAH DELEON [facility] Pathology Reports: +/- 30 [...] cut surface with no dominant nodule identified. Battery Builder sections are submitted as follows: B1: fragment [...] by prostatic acinar adenocarcinoma, grade group 5 ([place] score 4+5=9). There is focal extraprostatic extension [...] conventional (usual) Histologic Grade: Grade group 5 ([place] Score 4 + 5 = 9) Intraductal [...] NO EVIDENCE OF PROSTATIC ADENOCARCINOMA /es/ VIVEK ALLEN M.D., PH.D. PATHOLOGIST Signed Jun 16, 2024@14:49 Performing Laboratory: Surgical Pathology Report Performed By: [facility] CLIA# [id number] [address] [place] [id number] $FTR - - - - - - - - - - - - - - - - - - - - - - - - - - - - - - - - - - - - - - - - (End of report) VIVEK ALLEN MD svp innovation partnerships Date Jun 12, 2024 - - - - - - - - - - - - - - - - - - - - - - - - - - - - - - - - - - - - - - - - RAMEZ GODINEZ STANDARD FORM 515 ID:[id number] SEX:M :1950 AGE: 73 LOC:APFEE PCP: Bertha Raymond NP /paola/ VIVEK ALLEN M.D., PH.D. PATHOLOGIST Signed: 06/16/2024 14:49 VIVEK ALLEN [facility] May 31, 2024 04:37 PM [...] Performing Laboratory: Surgical Pathology Report Performed By: [id number] [address] [address] $FTR - - - - - - [...] - RAMEZ GODINEZ A STANDARD FORM 515 ID:[id number] SEX:M :1950 AGE: 73 LOC:GILABA2 PCP: Bertha Raymond NP /es/ ALMA SÁNCHEZ MD, PhD STAFF PATHOLOGIST Signed: 05/31/2024 16:37 ALMA SÁNCHEZ [facility] May 11, 2024 10:45 AM LR MICROBIOLOGY RE PORT: Accession [UID]: [id number] [[id number]] Received: May 11, 2024@10:46 Collection sample: URINE,CLEAN CATCH Collection date: May 11, 2024 10:45 Site/Specimen: URINE Provider: MANJINDER CORBIN Test(s) ordered: C&S URINE..................... completed: May 13, 2024 13:51 * BACTERIOLOGY FINAL REPORT => May 13, 2024 14:19 TECH CODE: [id number] GRAM STAIN: Bacteriology Remark(s): 2..25 KAA Culture in progress 2..25 KAA CULTURE SHOWS >10,000 - <25,000 CFU/ML PROTEUS MIRABILIS AND >10,000 - <25,000 CFU/ML STAPH EPIDERMIDIS There will be no work up. =--=--=--=--=--=--=--=--=--=- -=--=--=--=--=--=--=--=--=--= --=--=--=--=--=--=-- Performing Laboratory: Bacteriology Report Performed By: [facility] CLIA# [id number] [address] [facility] [address] [place] [address] LIZZIE COYNE [facility] Encounter Notes: All associated encounter notes This section contains the clinical notes associated to the Encounter. Date/Time Encounter Note(s) Provider Source May 31, 2024 08:21 AM ANESTHESIOLOGY CONSULT: LOCAL TITLE: ANESTHESIA PREOPERATIVE EVALUATION CONSULT STL STANDARD TITLE: ANESTHESIOLOGY CONSULT DATE OF NOTE: MAY 31, 2024@08:21 ENTRY DATE: MAY 31, 2024@08:21:55 AUTHOR: ARTUR BAHER: URGENCY: STATUS: COMPLETED ANESTHESIA PREOPERATIVE EVALUATION CONSULT STL Has ADDENDA I have reviewed pertinent CPRS documentation in the electronic medical record for this patient. The recommendations/findings offered are the result of information from the requesting provider, a chart review, and IN PERSON CLINIC VISIT. RAMEZ GODINEZ is a 73 year old MALE Pre-operative diagnosis: prostate cancer Operation proposed: RALP + BLND on 06/16/2024 VITALS: Age: 73 Weight: 203 lb [92.08 kg] (05/31/2024 08:39) Height: 70 in [177.8 cm] (05/11/2024 09:31) BP: 164/77 (05/31/2024 08:39) Pulse: 68 (05/31/2024 08:39) Resp: 16 (05/31/2024 08:39) SpO2: 96% (05/31/2024 08:39) Temp: 98.3 F [36.8 C] (05/31/2024 08:39) BMI: 29.2 ALLERGIES Patient has answered NKA MEDICATIONS RXAE - Active/Exp Opt Meds 1) AMLODIPINE BESYLATE 2.5MG TAB ACTIVE TAKE THREE TABLETS BY MOUTH ONCE A DAY FOR HIGH BLOOD PRESSURE 2) BISACODYL 5MG EC TAB ACTIVE TAKE TWO TABLETS BY MOUTH ONE TIME TAKE BISACODYL TABLETS AT 4PM ON AFTERNOON PRIOR TO TEST. CALL [phone] WITH ANY QUESTIONS ABOUT THESE INSTRUCTIONS. MAIL 3) COLON ELECTROLYTE LAVAGE PWD FOR SOLN ACTIVE MIX AND DRINK CONTENTS OF BOTTLE BY MOUTH DIRECTED FILL WITH WATER TO THE LINE INDICATED ON CONTAINER. DRINK DIRECTED. (THE DAY BEFORE YOUR TEST ONLY DRINK CLEAR LIQUIDS-NO SOLID FOOD! TAKE THE BISACODYL TABLETS AT 4PM AND MIX THE GOLYTELY WITH WATER AND REFRIGERATE. AT 7PM DRINK HALF OF THE GOLYTELY. REFRIGERATE OVERNIGHT. COMPLETE GOLYTELY 3 HRS BEFORE LEAVING HOME FOR TEST. READ YOUR INSTRUCTIONS!) 4) SIMETHICONE 80MG CHEW TAB ACTIVE CHEW AND SWALLOW FOUR TABLETS BY MOUTH DIRECTED FOR GAS DISCOMFORT FOR TWO DOSES BEFORE GI PROCEDURE LABS WBC 6.4 10*3/uL 05/11/2024 10:37 RBC 5.21 10*6/uL 05/11/2024 10:37 HGB 16.2 g/dL 05/11/2024 10:37 HCT 48.4 % 05/11/2024 10:37 MCV 92.9 fL 05/11/2024 10:37 MCH 31.1 pg 05/11/2024 10:37 MCHC 33.5 g/dL 05/11/2024 10:37 RDW 13.2 % 05/11/2024 10:37 PLT 206 10*3/uL 05/11/2024 10:37 MPV 10.1 fL 05/11/2024 10:37 NEUTROPHILS, AUTO % 54 % 05/11/2024 10:37 [...] 10:37 BASOPHILS, ABSOLUTE 0.05 10*3/uL 05/11/2024 10:37 INR VALUE 1.0 INR 05/11/2024 10:37 PROTIME 11.6 sec 05/11/2024 10:37 No PTT EO data found SODIUM 140 mEq/L 05/11/2024 10:37 POTASSIUM 4.4 mEq/L 05/11/2024 10:37 CHLORIDE 106 mEq/L 05/11/2024 10:37 UREA NITROGEN 17.0 mg/dL 05/11/2024 10:37 CREATININE 1.08 mg/dL 05/11/2024 10:37 CALCIUM 9.3 mg/dL 05/11/2024 10:37 PROTEIN 7.2 g/dL 12/28/2023 13:15 ALBUMIN 4.1 g/dL 12/28/2023 13:15 ALKALINE PHOSPHATASE 100 U/L 12/28/2023 13:15 ALT/SGPT 21 U/L 12/28/2023 13:15 AST/SGOT 21 U/L 12/28/2023 13:15 TOTAL BILIRUBIN 0.6 mg/dL 12/28/2023 13:15 CARBON DIOXIDE 27 mEq/L 05/11/2024 10:37 GLUCOSE 101 H mg/dL 05/11/2024 10:37 EGFR (CKD-EPI 2020) 72.0 05/11/2024 10:37 HGA1C 5.7 % 05/11/2024 10:38 No URINE DRUG SCREEN EO data found No HIV SCREENING EO data found [facility] Hep C tests in last five years. HEP C Ab HCV Ab (STL) Nonreactive S/CO (12/28/23 13:15) DIAGNOSTICS EKG 05/11/24: Normal sinus rhythm, 64 bpm Normal ECG When compared with ECG of 28-DEC-2023 13:02, No significant change was found CXR: Impression for CHEST X-RAY, 2 VIEWS, 05/11/24, case [id number] No active lung disease. 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 RESPIRATORY for: - Recent or current SOB - Sleep apnea - Asthma - COPD - recent URI symptoms CARDIAC for: - Recent chest pain + Hypertension, marginally controlled per PCP - Hyperlipidemia - Myocardial infarction - Coronary artery disease - Heart failure - Valvular disease - Atrial fibrillation/flutter - orthopnea - syncope PSYCH/CENTRAL NERVOUS for: - Depression - Anxiety - Post-traumatic stress disorder - Cerebral vascular accident - Seizures ENDOCRINE for: - Diabetes - Hypothyroid RENAL for: + Chronic kidney disease, stage 3a - Nephrolithiasis GI for: - GERD - Liver disease - GI bleed VASCULAR/HEMATOLOGY/ONCOLOG Y for: - Anemia - Thrombocytopenia - Bleeding disorders MUSCULOSKELETAL/SKIN/PERIPH ERAL NERVOUS for: - Obesity - Arthritis/Degenerative joint disease - Rheumatoid arthritis - Neuropathy /REPRODUCTIVE for: + Prostate cancer HABITS: Alcohol: occas Tobacco: never Other drugs: none SURGICAL HISTORY: colonoscopy 05/27/24 Previous anesthesia complications: None Family history of anesthesia complications: None PHYSICAL EXAM: Auscultation Finding: Heart Sounds: Regular Rate, Regular Rhythm Breath Sounds: Clear, no wheezes/rales/rhonchi AIRWAY: MP CLASS: 1 SUBMANDIBULAR SPACE: 3 fingerbreadths RANGE OF MOTION: slightly limited extension TEETH: Intact BETA BLOCKERS: none RECOMMENDATIONS/PLAN: 1. Additional labs/imaging/consults needed for anesthesia team: NONE 2. he patient may proceed as planned and will be reassessed by Anesthesia AM of surgery. 3. NPO after midnight except for small sips of water with meds. 4. Unless directed by procedural team, take morning medications with a sip of water. Time spent reviewing patient's [place] medical records: 15 min Time spent in consultation with the patient: 25 minutes /paola/ ARTUR BAH PA-C Physician Heavy Truck Technician, Anesthesiology Signed: 05/31/2024 09:08 Receipt Acknowledged By: 05/31/2024 10:03 /paola/ GRACE RAMOS Physician Heavy Truck Technician, Urology 06/06/2024 ADDENDUM STATUS: COMPLETED pt moved up to 06/09/2024 /carlita BAH PA-C Physician Heavy Truck Technician, Anesthesiology Signed: 06/06/2024 12:55 ARTUR BAH [facility]
--- OUTSIDE RECORDS SUMMARY | 2024-08-25 08:56 | XMS_ITS | Encounter Summary ---
Author Name [facility] of [facility] ([place]) Organization [facility] of [facility] Address [address] [place] [address] Care Team Providers Care Sand Molder Name Role Phone BERTHA RAYMOND Primary Care Provider [facility] Insurance Providers: All historical and current [...] to Policy Rios SHIKHA NIEVES - GELA [place] SPECIAL CLASS SHIKHA YOUSIF Apr 27, 2019 SHIKHA NIEVES [id number] [facility] PATIENT MEDICARE (WNR) MEDICARE (M) PART A Nov 21, 2014 PART A [id number] [facility] PATIENT MEDICARE (WNR) MEDICARE (M) PART B Nov 21, 2014 PART B [id number] [facility] PATIENT Selected Encounter This section includes the information on record at ME for the Encounter. Date/Time Encounter Type Encounter Description Reason Pro vider Source May 11, 2024 10:21 AM Outpatient Encounter [facility]OLOGY [facility]INIC [facility] Encounter Template Text not used by ME Plan of Treatment: Future Appointments (+ 6 months) and Future Tests (+/- 45 days) The Plan of Treatment section includes future care activities for the patient [facility] This section includes future appointments and future orders which are active, pending or scheduled. Future Appointments This section includes appointments that were scheduled to occur 6 months from the date of the Encounter, up to a maximum of 20 appointments. The data comes from all [facility]. Appointment Date/Time Appointment Type Appointme nt Facility Name May 27, 2024 07:15 AM AMBULATORY - MEDICINE [facility] May 31, 2024 09:00 AM AMBULATORY - SURGERY [facility] Jun 09, 2024 08:44 AM AM[facility]ULATORY - NONE [facility] Jun 14, 2024 09:30 AM AMBULATORY - MEDICINE [facility] Jun 17, 2024 11:00 AM AMBULATORY - SURGERY [facility] Jun 28, 2024 02:06 PM AMBULATORY - MEDICINE [facility] Jul 11, 2024 09:00 AM AMBULATORY - SURGERY [facility] August 19, 2024 02:00 PM AMBULATORY - MEDICINE [facility] Oct 10, 2024 09:00 AM AMBULATORY - SURGERY [facility] L [facility] Oct 18, 2024 09:30 AM AMBULATORY [...] of theEncounter. The data comes from all [facility]. Test Date/Time Test Type Test Details Facility Name Apr 22, 2024 12:00 AM Laboratory - Chemi stry Order BASIC METABOLIC PANEL GREEN LI/HEP BLD/PLAS PLASMA [facility] May 11, 2024 12:00 AM Laboratory - Blood Bank Order TYPE & SCREEN - LAB BLOOD SP [facility] Jun 09, 2024 12:00 AM Laboratory - Blood Bank Order TYPE & SCREEN - LAB BLOOD WC [facility] Lab Results: +/- 30 days of the encounter This section includes the Chemistry and Hematology Lab Results on record with ME for the patient. Radiology Reports and Pathology Reports are provided separately, in subsequent sections. Lab Results This section contains the Chemistry/Hematology Results that were resulted 30 days before or 30 daysafter the date of the Encounter. Date/Time Source Result Type Result - Unit Interpretation Reference Range Specimen Type Comment Jun 10, 2024 04:46 AM [facility] GLUCOSE,BLOOD-poct (STL) BLOOD Specimen Type: BLOOD Comment: Test Performed by: [id number] Meter #: [id number] Ordering Provider: HEBER OVALLES Report Released Date/Time: Jun 10, 2024 05:21 AM Reporting Lab: [address] [address] Performing Lab: [address] [address] GLUCOSE,BLOOD-poct (L) 146 mg/dL H 72-99 Jun 09, 2024 08:12 PM [facility] CBC BLOOD Specimen Type: BLOOD No comment entered. Ordering Provider: BETO MCMILLAN Report Released Date/Time: Jun 09, 2024 05:43 PM Reporting Lab: [place] [address] [facility] [address] Performing Lab: [address] [address] WBC 11.1 10*3/uL 3.6-11.2 RBC 4.00 10*6/uL [...] H 2.10-8.00 Jun 09, 2024 07:00 PM [facility] MRSA SURVL NARES DNA NARES Specimen [...] Jun 09, 2024 05:57 PM Reporting Lab: [address] [address] Performing Lab: [address] [address] MRSA SURVL NARES DNA Negative Negative Jun 09, 2024 10:40 AM [facility] COVID-19 DIAGNOSTIC (FLU/RSV)(STL) NASOPHARYNX Spec imen [...] Jun 07, 2024 02:47 PM Reporting Lab: [address] [address] Performing Lab: [address] [address] INFLUENZA A NEG Negative INFLUENZA B NEG Negative COVID-19 (STL-PB) NEG Not Detected RSV (Cepheid) Negative Negative May 11, 2024 10:38 AM [facility] HGA1C BLOOD Specimen Type: BLOOD No comment entered. Ordering Provider: BERTHA RAYMOND Report Released Date/Time: Apr 22, 2024 01:42 PM Reporting Lab: [facility] [address] [place] [address] Performing Lab: [address] [address] HGA1C 5.7 4.0-6.0 May 11, 2024 10:37 AM [facility] PT/INR NEW (STL-MA) PLASMA Specimen Type: PLAS MA No comment entered. Ordering Provider: MANJINDER CORBIN Report Released Date/Time: May 11, 2024 10:21 AM Reporting Lab: [address] [address] Performing Lab: [address] [address] PROTIME 11.6 s 9.4-12.5 INR VALUE 1.0 {INR} May 11, 2024 10:37 AM [facility] BASIC METABOLIC PANEL PLASMA Specimen Type: PL ASMA Comment: No hemolysis noted. Ordering Provider: MANJINDER CORBIN Report Released Date/Time: May 11, 2024 10:21 AM Reporting Lab: [place] [address] [facility] [address] Performing Lab: [address] [address] CREATININE 1.08 mg/dL 0.7-1.3 UREA NITROGEN 17.0 mg/dL 9.0-25.0 GLUCOSE 101 mg/dL H 72-99 SODIUM 140 meq/L 136-145 POTASSIUM 4.4 meq/L 3.5-5 CHLORIDE 106 meq/L 98-107 CARBON DIOXIDE 27 meq/L 22-31 CALCIUM 9.3 mg/dL 8.4-10.4 EGFR (CKD-EPI 2020) 72.0 >60 May 11, 2024 10:37 AM [facility] CBC BLOOD Specimen Type: BLOOD No comment entered. Ordering Provider: MANJINDER CORBIN Report Released Date/Time: May 11, 2024 10:21 AM Reporting Lab: [facility] [address] [facility] [address] Performing Lab: [facility] [address] [facility] [address] WBC 6.4 10*3/uL 3.6-11.2 RBC 5.21 10*6/uL [...] 148/83 18 97 0 70 196 28 [facility] Social History: Smoking Status (Most current) and Tobacco Use (All prior to encounter date) This section includes the most current, and the historical, smoking and tobacco- related health factors from the ME facility where the Encounter took place. Current Smoking Status This section includes the most current smoking, or tobacco-related health factor, from the ME facility where the Encounter took place. Date/Time Current Smoking Status Comment Facil ity Dec 24, 2023 11:44 AM VA-TOBACCO NEVER USED [facility] Radiology Reports: +/- 30 days of [...] the Encounter. The data comes from all [place] treatment facilities. Date/Time Radiology Report Provider Source May 11, 2024 10:27 AM CHEST X-RAY, 2 VIE WS: HERBERTRAMEZ Thompson [id number] -1950 M Exm Date: MAY 11, 2024@10:27 Req Phys: MANJINDER CORBIN Loc: -UROLOGY MD RES (Req'g Loc) Img Loc: -MAIN RADIOLOGY SUITE Service: [address] [address] (Case [id number] COMPLETE) CHEST X-RAY, 2 VIEWS (RAD Detailed) CPT:83771 Reason for Study: pre-operative testing Clinical History: Report Status: Verified Date Reported: MAY 12, 2024 Date Verified: MAY 12, 2024 Laboratory Chemist E-Sig:/PAOLA/ELIJAH MCCOY Report: CHEST X-RAY, 2 VIEWS COMPARISON: None. HISTORY: pre-operative testing FINDINGS: The heart size and pulmonary vasculature are normal. There is no consolidating infiltrate, effusion or pneumothorax. Mild hyperinflation. Impression: No active lung disease. RR Primary Interpreting Staff: ELIJAH MCCOY, Staff Physician (Laboratory Chemist) /ELIJAH DELEON [facility] Apr 27, 2024 11:21 AM PET/CT PSMA-P: HERBERTRAMEZ Jay [id number] -1950 M Exm Date: APR 27, 2024@11:21 Req Phys: SAMANTHA JOINER Loc: -UROLOGY TRUS NON-OR (Req'g Img Loc: -PET-CT Service: Unknown [address] [address] (Case [id number] COMPLETE) PET/CT SKULL BASE TO MID-THIGH (NM Detailed) CPT:29694 CPT Modifiers : PI PET TUMOR INIT [...] 27, 2024 Date Verified: APR 27, 2024 Laboratory Chemist E-Sig:/ES/EMMANUEL PEREZ Report: PATIENT NAME: RAMEZ GODINEZ. CASE #: [id number], [id number]. PROCEDURE: PET/CT study Indication: high volume 4+5 [...] NEEDED Primary Interpreting Staff: EMMANUEL PEREZ MD (Laboratory Chemist) /PFT EMMANUEL PEREZ [facility] Pathology Reports: +/- 30 days [...] the Encounter. The data comes from all [place] treatment facilities. Date/Time Pathology Report Provider Source [...] - POSTOPERATIVE DIAGNOSIS: Colon polyps Surgeon/physician: RUSSELL K DIECKGRAEFE MD =-=-=-=-=-=-=-=-=-=-=-=-=-=-=- =-=-=-=-=-=-=-=-=-=-=-=-=-=-=- =-=-=-=-=-=-=-=-=-= - - - [...] Performing Laboratory: Surgical Pathology Report [facility] By: [facility] CLIA# [id number] [address] [facility] [address] [place] [address] $FTR - - - - - - [...] - RAMEZ GODINEZ A STANDARD FORM 515 ID:[id number] SEX:M :1950 AGE: 73 [facility] PCP: Bertha Raymond NP /paola/ ALMA SÁNCHEZ MD, PhD STAFF PATHOLOGIST Signed: 05/31/2024 16:37 ALMA SÁNCHEZ [facility] May 11, 2024 10:45 AM LR MICROBIOLOGY REPORT: Accession [UID]: [id number] [[id number]] Received: May 11, 2024@10:46 Collection sample: URINE,CLEAN CATCH Collection date: May 11, 2024 10:45 Site/Specimen: URINE Provider: MANJINDER CORBIN Test(s) ordered: C&S URINE..................... completed: May 13, 2024 13:51 * BACTERIOLOGY FINAL REPORT => May 13, 2024 14:19 TECH CODE: [id number] GRAM STAIN: Bacteriology Remark(s): 2..25 KAA Culture in progress 2.21.25 KAA CULTURE SHOWS >10,000 - <25,000 CFU/ML PROTEUS MIRABILIS AND >10,000 - <25,000 CFU/ML STAPH EPIDERMIDIS There will be no work up. =--=--=--=--=--=--=--=--=--=-- =--=--=--=--=--=--=--=--=--=-- =--=--=--=--=--=-- Performing Laboratory: Bacteriology Report Performed By: [facility] CLIA# [id number] [address] [place] [address] LIZZIE COYNE [facility] Apr 22, 2024 11:50 AM LR SURGICAL PATHOLOGY REPORT: LOCAL TITLE: LR SURGICAL PATHOLOGY REPORT STANDARD TITLE: PATHOLOGY PROCEDURE NOTE DATE OF NOTE: APR 22, 2024@11:50:27 ENTRY DATE: APR 22, 2024@11:50:27 AUTHOR: KIMBERLY PEREZ: URGENCY: STATUS: COMPLETED $APHDR - - - [...] Performing Laboratory: Surgical Pathology Report Performed By: [facility] [address] [facility] CLIL# [id number] [facility] Kaden HERRERA [address] [address] $FTR - - - - - - [...] - - RAMEZ GODINEZ STANDARD FORM 515 ID:[id number] SEX:M :1950 AGE: 73 LOC:PAT-UROLOGY TRUS NON-OR PCP: Bertha Raymond NP /paola/ KIMBERLY PEREZ PATHOLOGIST Signed: 04/22/2024 11:50 KIMBERLY PEREZ [facility] Encounter Notes: All associated encounter notes This section contains the clinical notes associated to the Encounter. Date/Time Encounter Note(s) Provider Source May 11, 2024 02:15 PM CARDIOLOGY DIAGNOS TIC STUDY CONSULT: LOCAL TITLE: EKG CONSULT ST STANDARD TITLE: CARDIOLOGY DIAGNOSTIC STUDY CONSULT DATE OF NOTE: MAY 11, 2024@14:15:08 ENTRY DATE: MAY 11, 2024@14:15:08 AUTHOR: CLINICAL,DEVICE PRO EXP COSIGNER: URGENCY: STATUS: COMPLETED DOCUMENT IN [facility] SEE FULL REPORT IN [facility] SIGNATURE NOT REQUIRED SEE SIGNATURE IN [facility] ([place] EKG) AUTO-INSTRUMENT DIAGNOSIS Procedure: [id number] 12 Lead ECG Release Status: Released Off-Line Verified Date Verified: May 11, 2024@14:15:04 04265.2 Ventricular Rate: 64 BPM 99390.3 Atrial Rate: 64 BPM 98342.4 P-R Interval: 170 ms 14288.5 QRS Duration: 82 ms 86119.6 Q-T Interval: 408 ms 41287 QTC Calculation(Bazett)420 ms 84339.12 Calculated P [place]: 50 degrees 81456.13 Calculated R [place]: 30 degrees 79889.14 Calculated T [place]: 54 degrees Normal sinus rhythm Normal ECG When compared with ECG of 28-DEC-2023 13:02, No significant change was found Administrative Closure: 05/11/2024 by: CLINICAL,DEVICE PROXY SERVICE CLINICAL,DEVICE PROXY SERVICE [facility]
--- OUTSIDE RECORDS SUMMARY | 2024-08-25 08:56 | XMS_ITS ---
Author Name [facility] [place] [facility] Address [address] [place] [address] Care Team Providers Care Machine Binder Stripper Name Role Phone BERTHA RAYMOND Primary Care Provider [facility] Insurance Providers: All historical and current [...] to Policy Rios SHIKHA NIEVES - [place] SHIKHA YOUSIF Apr 27, 2019 SHIKHA NIEVES [id number] GODINEZ,TH OM PATIENT MEDICARE (WNR) MEDICARE (M) PART A Nov 21, 2014 PART A [id number] [phone] [facility] PATIENT MEDICARE (WNR) MEDICARE (M) PART B Nov 21, 2014 PART B [id number] [facility] PATIENT Selected Encounter This section includes the information on record at [place] for the Encounter. Date/Time Encounter Type Encounter Description Reason Provider Source May 27, 2024 09:10 AM Outpatient Encounter ADMIN PAT ACTIVTIES (MASNONCT) NATALIE WASHINGTON Encounter Template Text not used by [place] Plan of Treatment: Future Appointments (+ 6 months) and Future Tests (+/- 45 days) The Plan of Treatment section includes future care activities for the [facility] [place] [facility] This section includes future appointments and future orders which are active, pending or scheduled. Future Appointments This section includes appointments that were scheduled to occur 6 months from the date of the Encounter, up to a maximum of 20 appointments. The [facility] comes from [facility] Appointment Date/Time Appointment Type Appointme nt Facility Name May 31, 2024 09:00 AM AMBULATORY - SURGERY [facility] Jun 09, 2024 08:44 [facility] Jun 14, 2024 09:30 AM AMBULATORY - MEDICINE [facility] Jun 17, 2024 11:00 AM AMBULATORY - SUR[facility]ERY [facility] Jun 28, 2024 02:06 PM AMBULATORY - MEDICINE [facility] Jul 11, 2024 09:00 AM AMBULATORY - SURGERY [facility] August 19, 2024 02:00 PM AMBULATORY - MEDICINE [facility] Oct 10, 2024 09:00 AM AMBULATORY - SURGERY [facility] Oct 18, 2024 09:30 AM AMBULATORY - MEDICINE [facility] Active, Pending, and Scheduled Orders This section includes a listing of several types of active, pending, and scheduled orders, including clinic medications orders, diagnostic test orders, procedure orders and consult orders; where the start date of the order is 45 days before the date of the Encounter or 45 days after the date of theEncounter. The [facility] comes from [facility]. Test Date/Time Test Type Test Details Facility Name Apr 22, 2024 12:00 AM Laboratory - Chemi stry Order BASIC METABOLIC PANEL GREEN LI/HEP BLD/PLAS PLASMA SP [facility] May 11, 2024 12:00 AM Laboratory - Blood Bank Order TYPE & SCREEN - LAB BLOOD SP [facility] Jun 09, 2024 12:00 AM Laboratory - Blood Bank Order TYPE & SCREEN - LAB BLOOD WC [facility] Lab Results: +/- 30 days of the encounter This section includes the Chemistry and Hematology Lab Results on record with [place] for the patient. Radiology Reports and Pathology Reports are provided separately, in subsequent sections. Lab Results This section contains the Chemistry/Hematology Results that were resulted 30 days before or 30 daysafter the date of the Encounter. Date/Time Source Result Type Result - Unit Interpretation Reference Range Specimen Type Comment Jun 10, 2024 04:46 AM [facility] GLUCOSE,BLOOD-poct (STL) BLOOD Specimen Type: BLOOD Comment: Test Performed by: [id number] Meter #: [id number] Ordering Provider: HEBER OVALLES Report Released Date/Time: Jun 10, 2024 05:21 AM Reporting Lab: [address] [address] Performing Lab: [address] [address] GLUCOSE,BLOOD-poct (STL) 146 mg/dL H 72-99 Jun 09, 2024 08:12 PM [facility] CBC BLOOD Specimen Type: BLOOD No comment entered. Ordering Provider: BETO MCMILLAN Report Released Date/Time: Jun 09, 2024 05:43 PM Reporting Lab: [place] [address] [facility] [address] Performing Lab: [address] [address] WBC 11.1 10*3/uL 3.6-11.2 RBC 4.00 10*6/uL [...] H 2.10-8.00 Jun 09, 2024 07:00 PM [facility] MRSA SURVL NARES [...] Jun 09, 2024 05:57 PM Reporting Lab: [address] [address] Performing Lab: [address] [address] MRSA SURVL NARES DNA Negative Negative Jun 09, 2024 10:40 AM [facility] COVID-19 DIAGNOSTIC (FLU/RSV)(STL) [...] Jun 07, 2024 02:47 PM Reporting Lab: [address] [address] Performing Lab: [address] [address] INFLUENZA A NEG Negative INFLUENZA B NEG Negative COVID-19 (STL-PB) NEG Not Detected RSV (Cepheid) Negative Negative May 11, 2024 10:[address] [facility] HGA1C BLOOD Specimen Type: BLOOD No comment entered. Ordering Provider: BERTHA RAYMOND Report Released Date/Time: Apr 22, 2024 01:42 PM Reporting Lab: [address] [address] Performing Lab: [address] [address] HGA1C 5.7 4.0-6.0 May 11, 2024 10:37 AM [facility] PT/INR NEW (STL-MA) PLASMA Specimen Type: PLAS MA No comment entered. Ordering Provider: MANJINDER CORBIN Report Released Date/Time: May 11, 2024 10:21 AM Reporting Lab: [address] [address] Performing Lab: [address] [address] PROTIME 11.6 s 9.4-12.5 INR VALUE 1.0 {INR} May 11, 2024 10:37 AM [facility] BASIC METABOLIC PANEL PLASMA Specimen Type: PL ASMA Comment: No hemolysis noted. Ordering Provider: MANJINDER CORBIN Report Released Date/Time: May 11, 2024 10:21 AM Reporting Lab: [address] [address] Performing Lab: [address] [address] CREATININE 1.08 mg/dL 0.7-1.3 UREA NITROGEN 17.0 mg/dL 9.0-25.0 GLUCOSE 101 mg/dL H 72-99 SODIUM 140 meq/L 136-145 POTASSIUM 4.4 meq/L 3.5-5 CHLORIDE 106 meq/L 98-107 CARBON DIOXIDE 27 meq/L 22-31 CALCIUM 9.3 mg/dL 8.4-10.4 EGFR (CKD-EPI 2020) 72.0 >60 May 11, 2024 10:37 AM [facility] CBC BLOOD Specimen Type: BLOOD No comment entered. Ordering Provider: MANJINDER CORBIN Report Released Date/Time: May 11, 2024 10:21 AM Reporting Lab: [facility] [address] [facility] [address] Performing Lab: [facility] [address] [facility] [address] WBC 6.4 10*3/uL 3.6-11.2 RBC 5.21 10*6/uL [...] 0.60 BASOPHILS, ABSOLUTE 0.05 10*3/uL 0.00-0. 20 Social History: Smoking Status (Most current) and Tobacco Use (All prior to encounter date) This section includes the most current, and the historical, smoking and tobacco- related health factors from the [place] facility where the Encounter took place. Current Smoking Status This section includes the most current smoking, or tobacco-related health factor, from the [place] facility where the Encounter took place. Date/Time Current Smoking Status Comment Facil ity Dec 24, 2023 11:44 AM VA-TOBACCO NEVER USED [facility] Radiology Reports: +/- 30 days [...] the Encounter. The data comes from all [place] treatment facilities. Date/Time Radiology Report Provider Source May 11, 2024 10:27 AM CHEST X-RAY, 2 VIE WS: RAMEZ GODINEZ [id number] -1950 M Exm Date: MAY 11, 2024@10:27 Req Phys: MANJINDER CORBIN Loc: -UROLOGY MD RES (Req'g Loc) Img Loc: -MAIN RADIOLOGY SUITE Service: Unknown [address] [address] (Case [id number] COMPLETE) CHEST X-RAY, 2 VIEWS (RAD Detailed) CPT:96798 Reason for Study: pre-operative testing Clinical History: Report Status: Verified Date Reported: MAY 12, 2024 Date Verified: MAY 12, 2024 Geological Engineer E-Sig:/PAOLA/ELIJAH MCCOY Report: CHEST X-RAY, 2 VIEWS COMPARISON: None. HISTORY: pre-operative testing FINDINGS: The heart size and pulmonary vasculature are normal. There is no consolidating infiltrate, effusion or pneumothorax. Mild hyperinflation. Impression: No active lung disease. RR Primary Interpreting Staff: ELIJAH MCCOY, Staff Physician (Geological Engineer) /ELIJAH DELEON [facility] Apr 27, 2024 11:21 AM PET/CT PSMA-P: RAMEZ GODINEZ [id number] -1950 M Exm Date: APR 27, 2024@11:21 Req Phys: SAMANTHA JOINER Pat Loc: -UROLOGY TRUS NON-OR (Req'g Img Loc: -PET-CT Service: Unknown [address] [address] (Case [id number] COMPLETE) PET/CT SKULL BASE TO MID-THIGH (NM Detailed) CPT:58575 CPT Modifiers : PI PET TUMOR INIT [...] 27, 2024 Date Verified: APR 27, 2024 Geological Engineer E-Sig:/PAOLA/EMMANUEL PEREZ Report: PATIENT NAME: RAMEZ GODINEZ. CASE #: [id number], [id number]. PROCEDURE: PET/CT study Indication: high volume 4+5 on prostate biopsy, high risk patient HISTORY: 73-year-old Male with newly diagnosed prostatic acinar adenocarcinoma, grade group 5 (edna score 4+5). PSA 8.9 ng/mL on 01/06/2024. [...] NEEDED Primary Interpreting Staff: EMMANUEL PEREZ MD (Geological Engineer) /PFT EMMANUEL PEREZ [facility] Pathology Reports: +/- 30 days of [...] the Encounter. The data comes from all [place] treatment facilities. Date/Time Pathology Report Provider Source [...] cut surface with no dominant nodule identified. Manager Of Human Resources sections are submitted as follows: B1: fragment [...] conventional (usual) Histologic Grade: Grade group 5 ([place] Score 4 + 5 = 9) Intraductal [...] Performing Laboratory: Surgical Pathology Report Performed By: [address] CLIA# [id number] [address] [address] $FTR - - - - - - - - - - - - - - - - - - - - - - - - - - - - - - - - - - - - - - - - (End of report) IVVEK ALLEN MD vp software engineering Date Jun 12, 2024 - - - - - - - - - - - - - - - - - - - - - - - - - - - - - - - - - - - - - - - - RAMEZ GODINEZ STANDARD FORM 515 ID:[id number] SEX:M :1950 AGE: 73 LOC:APFEE PCP: Bertha Raymond NP /paola/ VIVEK ALLEN M.D., PH.D. PATHOLOGIST Signed: 06/16/2024 14:49 VIVEK ALLEN [facility] May 31, 2024 04:37 PM LR [...] Performing Laboratory: Surgical Pathology Report Performed By: [address]# [id number] [address] [place] [id number] $FTR - - - - - - [...] - - RAMEZ GODINEZ STANDARD FORM 515 ID:[id number] SEX:M :1950 AGE: 73 LOC:GILABA2 PCP: Bertha Raymond NP /paola/ ALMA SÁNCHEZ MD, PhD STAFF PATHOLOGIST Signed: 05/31/2024 16:37 ALMA SÁNCHEZ [facility] May 11, 2024 10:45 AM LR MICROBIOLOGY RE PORT: Accession [UID]: [id number] [[id number]] Received: May 11, 2024@10:46 Collection sample: URINE,CLEAN CATCH Collection date: May 11, 2024 10:45 Site/Specimen: URINE Provider: MANJINDER CORBIN Test(s) ordered: C&S URINE..................... completed: May 13, 2024 13:51 * BACTERIOLOGY FINAL REPORT => May 13, 2024 14:19 TECH CODE: [id number] GRAM STAIN: Bacteriology Remark(s): 2..25 KAA Culture in progress 2..25 KAA CULTURE SHOWS >10,000 - <25,000 CFU/ML PROTEUS MIRABILIS AND >10,000 - <25,000 CFU/ML STAPH EPIDERMIDIS There will be no work up. =--=--=--=--=--=--=--=--=--=- -=--=--=--=--=--=--=--=--=--= --=--=--=--=--=--=-- Performing Laboratory: Bacteriology Report Performed By: [facility] [address] [place] [address]# [id number] [address] [facility] [address] [place] [address] LIZZIE COYNE [facility] Encounter Notes: All associated encounter notes This section contains the clinical notes associated to the Encounter. Date/Time Encounter Note(s) Provider Source May 27, 2024 09:10 AM ANESTHESIOLOGY SIVA WSHEET: LOCAL TITLE: ANES INTRA-OP FLOWSHEET STL STANDARD TITLE: ANESTHESIOLOGY FLOWSHEET DATE OF NOTE: MAY 27, 2024@09:10 ENTRY DATE: MAY 27, 2024@09:10:59 AUTHOR: NATALIE WASHINGTON EXP COSIGNER: URGENCY: STATUS: COMPLETED Patient: RAMEZ GODINEZ SSN: [id number] Date of Operation: 05/27/2024 Surgery Start Time: Surgery End Time: Anesthesia Care Start: 05/27/2024 7:47 Anesthesia Care End: 05/27/2024 9:10 Anesthesia Method: - Monitored 05/27/2024 7:57 (Primary), Level Of Consciousness: Sedated, Monitors Applied, Oxygen Therapy: Mask, EtCO2 Verified: Waveform Positioning: Head Neutral, Head And Neck In Alignment With Spine, Pressure Points Padded & Checked, Eyes, Ears And Nose Free Of Pressure ASA Number: 2 Procedure: colonoscopy Diagnosis: +fit Holding, Anesthesia, PACU Drugs: --------- Lidocaine: 100 mg Propofol: 100 mg Propofol gtt: 553.134 mg Holding, Anesthesia, PACU Fluids: Normal Saline: 500 ml Resources: Headrest - Pillow Staff: --------- BELL BAXTER ANES. SUPER. NATALIE WASHINGTON PRIN. ANES. Procedure Date: 05/27/2024 Procedure Start Time: 05/27/2024 7:56 Procedure End Time: 05/27/2024 9:05 /paola/ NATALIE WASHINGTON TYPEWRITERS FUNCTIONAL TESTER, Anesthesiology Signed: 05/27/2024 09:10 NATALIE WASHINGTON [facility]
--- OUTSIDE RECORDS SUMMARY | 2024-08-25 08:56 | XMS_ITS | Encounter Summary ---
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 Date/Time Encounter Type Encounter Description Reason Provider Source August 19, 2024 02:00 PM OFFICE O/P EST LOW 20 MIN PRIMARY CARE/MEDICINE ICD-10-CM I10 Essential (primary) hypertension FLORA PERES OR Karla SHAVER Encounter Template Text not used by [place] Assessments - Encounter Diagnoses This section includes the primary and secondary diagnoses documented for the Encounter. Date/Time Primary/Secondary Diagnosis Diagnosis Name Provider Source August 19, 2024 12:00 PM PRIMARY Essential (primary) hypertension CORINNA PERES [facility] August 19, 2024 12:00 PM SECONDARY Carcinoma in situ of prostate CORINNA PERES [facility] August 19, 2024 12:00 PM SECONDARY Corns and callosities CORINNA PERES [facility] August 19, 2024 12:00 PM SECONDARY Pain in left foot CORINNA PERES [facility] Plan of Treatment: Future Appointments (+ 6 months) and Future Tests (+/- 45 days) The Plan of Treatment section includes future care activities for the patient from all [place] treatmentfacilities. This section includes future appointments and future orders which are active, pending or scheduled. Future Appointments This section includes appointments that were scheduled to occur 6 months from the date of the Encounter, up to a maximum of 20 appointments. The data comes from all [facility] facilities. Appointment Date/Time Appointment Type Appointme nt Facility Name Oct 10, 2024 09:00 AM AMBULATORY - SURGERY [facility] Oct 18, 2024 09:30 AM AMBULATORY [...] of theEncounter. The data comes from all [place] treatment facilities. Test Date/Time Test Type Test Details Facility Name August 19, 2024 12:00 AM Imaging - General Radiology Order FOOT,LEFT 3 VIEWS OR MORE LEFT [facility] Vital Signs: All taken on the encounter date This section contains inpatient and outpatient Vital Signs collected on the date of the Encounter. Date/Time Temperature Pulse Blood Pressure Respiratory Rate SP02 Pain Height Weight Body Mass Index Source August 19, 2024 11:17 AM 140/78 [facility] August 19, 2024 11:15 AM 97.5 62 147/78 20 95 9 195.4 28 [facility] Encounter Notes: All associated encounter notes This section contains the clinical notes associated to the Encounter. Date/Time Encounter Note(s) Provider Source August 19, 2024 11:20 AM PRIMARY CARE NOTE: LOCAL TITLE: PRIMARY CARE PROVIDER ESTABLISHED VISIT ST STANDARD TITLE: PRIMARY CARE NOTE DATE OF NOTE: AUGUST 19, 2024@11:20 ENTRY DATE: AUGUST 19, 2024@11:20:58 AUTHOR: BERTHA PERES EXP COSIGNER: URGENCY: STATUS: COMPLETED Reason for visit: Scheduled follow-up Chief complaint: Denies new concerns or complaints. HPI: PMH, see problem list 73 y/o male who presents to the medical clinic for his scheduled follow up visit. The purpose of the visit today is to follow up on the veterans chronic medical conditions. Last PCP visit: 04/04/2024 HTN. Home BP readings: not monitoring. Denies c/o SOB, CP, MELENDEZ, peripheral edema. Prostate cancer. Underwent laparoscopic prostatectomy 06/09/2024. Managed by urology. Last PSA level undetectable. Chronic left heel pain ongoing for 1 year. [place] states pain significantly limits his ability to walk long distance. His goal is to obtain a podiatry consult. WHAT IS YOUR GOAL FOR TODAY? F/U chronic medical conditions SOURCE(S) OF HISTORY: -Patient PAST MEDICAL HISTORY: 1) Exposure to potentially hazardous substance ([facility] [id number]) comment: Entered automatically through JOSE Problem List documentation prog 2) HTN - Hypertension ([facility] [id number]) 3) Prediabetes 4) Chronic Kidney Disease Stage 3A ([facility] [id number]) 5) Elevated PSA SURGICAL HISTORY: denies FAMILY MEDICAL HISTORY: Maternal Aunt: Mentally ill Mother: Lung cancer, Maternal nephews: issues SOCIAL HISTORY: Nicotine: denies Alcohol: consumes 1-2 drinks per month Illicit Drugs: denies -Lives: with daughter and grandchildren allergy: Patient has answered NKA Allergy list reviewed and remains current. MEDICATIONS: Active Outpatient Medications (including Supplies): Active Outpatient Medications Status 1) AMLODIPINE BESYLATE 2.5MG TAB TAKE THREE TABLETS BY MOUTH ACTIVE ONCE A DAY Indication: FOR HIGH BLOOD PRESSURE 2) BRIEF,PROTECTIVE UNDERWEAR LARGE [place]INSON USE 1 BRIEF TO ACTIVE AFFECTED AREA(S) NEEDED Indication: FOR INCONTINENCE 3) INCONT LINER DEPEND GUARDS USE/APPLY PAD THREE TIMES A ACTIVE DAY NEEDED Indication: FOR INCONTINENCE CARE MEDICATION RECONCILIATION: completed REVIEW OF SYSTEMS: See HPI for further details of positive complaints. All 10 systems reviewed and otherwise negative. PHYSICAL EXAMINATION: VITALS (most recent, as listed in the electronic record): Temperature: 97.5 F [36.4 C] (08/19/2024 11:15) BP: 140/78 (08/19/2024 11:17) Pulse: 62 (08/19/2024 11:15) Resp: 20 (08/19/2024 11:15) PulsOx: 95% (08/19/2024 11:15) Pain: 9 (08/19/2024 11:15) Weight: Measurement DT WEIGHT LB(KG)[BMI] 08/19/2024 11:15 195.4(88.63)[28*] 07/11/2024 08:54 197.5(89.58)[28*] 06/09/2024 11:00 198.7(90.13)[28*] PHYSICAL EXAMINATION: General appearance: well-groomed, well-nourished, in [...] and texture, skin intact DATA REVIEW: HGA1C 5.7 % 05/11/2024 10:38 HGA1C 5.8 % 12/28/2023 13:15 === Lipid Panel: TRIGLYCERIDE 81 mg/dL 12/28/2023 13:15 CHOLESTEROL 179 mg/dL 12/28/2023 13:15 HDL(New) 49 mg/dL 12/28/2023 13:15 CALCULATED LDL 114 mg/dL 12/28/2023 13:15 === CMP: SODIUM 140 mEq/L 06/28/2024 16:30 POTASSIUM 4.3 mEq/L 06/28/2024 16:30 CHLORIDE 107 mEq/L 06/28/2024 16:30 UREA NITROGEN 19.0 mg/dL 06/28/2024 16:30 CREATININE 1.18 mg/dL 06/28/2024 16:30 CALCIUM 9.3 mg/dL 06/28/2024 16:30 PROTEIN 7.3 g/dL 06/28/2024 16:30 ALBUMIN 4.2 g/dL 06/28/2024 16:30 ALKALINE PHOSPHATASE 106 U/L 06/28/2024 16:30 ALT/SGPT 15 U/L 06/28/2024 16:30 AST/SGOT 20 U/L 06/28/2024 16:30 TOTAL BILIRUBIN 0.6 mg/dL 06/28/2024 16:30 CARBON DIOXIDE 26 mEq/L 06/28/2024 16:30 GLUCOSE 100 H mg/dL 06/28/2024 16:30 EGFR (CKD-EPI 2020) 64.8 06/28/2024 16:30 === CBC: WBC 5.5 10*3/uL 06/28/2024 16:30 RBC 4.44 10*6/uL 06/28/2024 16:30 HGB 14.2 g/dL 06/28/2024 16:30 HCT 42.3 % 06/28/2024 16:30 MCV 95.3 fL 06/28/2024 16:30 MCH 32.0 pg 06/28/2024 16:30 MCHC 33.6 g/dL 06/28/2024 16:30 RDW 13.1 % 06/28/2024 16:30 PLT 257 10*3/uL 06/28/2024 16:30 MPV 10.2 fL 06/28/2024 16:30 NEUTROPHILS, AUTO % 45 % 06/28/2024 16:30 LYMPHOCYTES, AUTO % 43 % 06/28/2024 16:30 MONOCYTES, AUTO % 7 % 06/28/2024 16:30 EOSINOPHILS, AUTO % 3 % 06/28/2024 16:30 BASOPHILS, AUTO % 1 % 06/28/2024 16:30 NEUTROPHILS, ABSOLUTE 2.47 10*3/uL 06/28/2024 16:30 LYMPHOCYTES, ABSOLUTE 2.38 10*3/uL 06/28/2024 16:30 MONOCYTES, ABSOLUTE 0.41 10*3/uL 06/28/2024 16:30 EOSINOPHILS, ABSOLUTE 0.19 10*3/uL 06/28/2024 16:30 BASOPHILS, ABSOLUTE 0.06 10*3/uL 06/28/2024 16:30 NEUTROPHILS 95.6 % 06/09/2024 20:00 LYMPHOCYTES 3.5 % 06/09/2024 20:00 MONOCYTES 0.9 % 06/09/2024 20:00 === PSA: PROST. SPECIFIC AG.(PB-STL) <0.100 ng/mL 07/11/2024 09:19 PROST. SPECIFIC AG.(PB-STL) 8.914 H* ng/mL 01/06/2024 13:14 PROST. SPECIFIC AG.(PB-STL) 8.468 H* ng/mL 12/28/2023 13:15 === TSH: TSH 1.681 uIU/mL 12/28/2023 13:15 === ASSESSMENT/PLAN: # HTN: - Blood pressure marginally controlled. Increase amlodipine to 10mg/day to optimize BP control. Trend renal function. Continue lifestyle modifications. F/U RNCM in two weeks for BP check. # H/O Prostate CA: - Managed by urology. S/P laparoscopic prostatectomy 06/09/2024. Continue surveillance PSA with specialist. # Chronic left heel pain: - Callus likely contributing. Order left foot x-ray as prerequisite to podiatry consult. See reminders for foot exam. Can submit podiatry consult once imaging is complete. HM: AAA screen: denies h/o tobacco use Colorectal cancer screening: Last completed: + FOBT 12/2023. C-scope 05/27/2024 5 TA, repeat 3 years. Prostate cancer screening: Last completed: <0.100 ng/mL 07/11/2024 09:19 Lung cancer screening: Eligibility: denies h/o tobacco use ADMINISTERED Immunization Series Date Facility Reaction Info COVID-19 (PFIZER), MRNA, LNP-S, * 2 07/07/2020 No Site COVID-19 (PFIZER), MRNA, LNP-S, * 1 06/09/2020 No Site REFUSED ======= Immunization Date Facility Info COVID-19 ([facility]), MRNA, LNP-S, * 08/18/2024 No Site <I> COVID-19 (PFIZER), MRNA, LNP-S, * 04/22/2024 [facility] <I> COVID-19 (PFIZER), MRNA, LNP-S, * 12/28/2023 [facility] <I> INFLUENZA, UNSPECIFIED FORMULATI* 04/22/2024 [facility] <I> INFLUENZA, UNSPECIFIED FORMULATI* 12/28/2023 [facility] <I> INFLUENZA, UNSPECIFIED FORMULATI* 12/24/2023 No Site <I> PNEUMOCOCCAL CONJUGATE, UNSPECIF* 04/22/2024 [facility]* <I> PNEUMOCOCCAL CONJUGATE, UNSPECIF* 12/24/2023 No Site <I> TDAP 04/22/2024 [facility]* <I> TDAP 12/24/2023 No Site <I> ZOSTER RECOMBINANT 04/22/2024 [facility]* <I> ZOSTER RECOMBINANT 12/24/2023 No Site <I> clinical reminders completed; educated on continuing to avoid salt, conc sweets; benefits of continued exercise, reg PCP visits, routine eyes exams Plan of care has been discussed with including expected therapeutic benefits and potential side effects of prescribed medications and treatments. Current medication list has been reconciled with and updated accordingly. was instructed to keep all scheduled appointments and to contact insurance manager for any additional problems. [place] verbalizes understanding and is in agreement with the plan of care. RTC: 2 months hypertension follow-up: 2-week BP check RN TANG Chavira spent 29 minutes in records review, chart review, examination/assessment of patient, education, charting and seismograph recorder. RHS Screen - VS: RHS Screen Environmental Check Upon inquiry, the individual reports that the environment is safe to proceed. Informed Consent to Screen and Document The individual consents to proceed with screening. The individual consents to documentation of responses. PRIMARY SCREEN: In the past 12 months, how often did a current or former intimate partner (e.g., boyfriend, girlfriend, , , sexual partner): 1. Scream or curse at you Never 2. Insult or talk down to you Never 3. Threaten you with harm Never 4. Physically hurt you Never 5. Force or pressure you to have sexual contact against your will, or when you were unable to say no Never The HITS tool (items 1-4 above) is [place] copyright protected by Augusto Ward MD, and the user has full rights to use it throughout the [place] system. PRIMARY SCREEN RESULT: The Primary Screen is NEGATIVE. The individual answered never to all forms of IPV above (i.e., answered never to all 5 items) The individual accepts education and/or resources: No EDUCATION: The individual indicated readiness to learn. Education offered during this session as noted above. The individual indicated understanding by asking relevant questions and making appropriate comments. No barriers to learning were observed or identified. PAVE Foot Check - L,N,P,PH,PO,PT,U: A complete foot check was completed at this encounter. VISUAL INSPECTION: Includes inspection for skin breaks, deformity, erythema, trauma, pallor on elevation, dependent rubor, nail deformities, extensive callus and pitting edema. Visual exam results: Abnormal Observations: Thickened toenails, Other: callus left heel PEDAL PULSES: Includes palpation of dorsalis and posterior tibial pulses and signs/symptoms of vascular compromise like pain, pallor, parasthesia or paralysis. Present (even if diminished) SENSORY CHECK: Includes 10 gram Monofilament ([place]-Cash) test of sensation. Intact (Greater than or equal to 80% of sites checked) Abnormal (Less than 80% of sites checked): Intact LOW-RISK: LOW RISK INFORMATION PROVIDED: 1. Advised patient not to walk barefoot. 2. Explained the importance of daily foot checks for changes. 3. Stressed the importance of daily foot hygiene, including bathing and complete drying. /paola/ BERTHA PERES, MSN, AGNP-C NURSE PRACTITIONER Signed: 08/19/2024 12:02 BERTHA PERES [facility] August 19, 2024 11:18 AM NURSING NOTE: LOCAL TITLE: V15 PACT FACE TO FACE NOTE STL STANDARD TITLE: NURSING NOTE DATE OF NOTE: AUGUST 19, 2024@11:18 ENTRY DATE: AUGUST 19, 2024@11:18:23 AUTHOR: ZANDRA PALUMBO EXP COSIGNER: URGENCY: STATUS: COMPLETED Provider Visit: Patient Identifiers : Full Name Date of Reason for visit: Established Follow-Up Mode of Arrival: Ambulatory Allergy Review: ALLERGIES/ADVERSE REACTIONS - NONE FOUND Allergy list reviewed and remains current. Recent Vital Signs: Temperature: 97.5 F [36.4 C] (08/19/2024 11:15) Pulse: 62 (08/19/2024 11:15) Respiration: 20 (08/19/2024 11:15) B/P: 140/78 (08/19/2024 11:17) Pain: 9 (08/19/2024 11:15) Wt: 195.4 lb [88.63 kg] (08/19/2024 11:15) Ht: 70 in [177.8 cm] (07/11/2024 08:54) BMI: 28.1 POX: 95% (08/19/2024 11:15) PERSONAL HEALTH INVENTORY Notes: No data available for PHI note titles PERSONAL HEALTH INVENTORY - MAP: 04/22/2024 Personal Health Plan [place], [place]iration, Purpose (MAP) safety of my children 01/06/2024 Personal Health Plan [place], Aspiration, Purpose (MAP) family 12/28/2023 Personal Health Plan [place], Aspiration, Purpose (MAP) My kids What matters most to you in your life right now? 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 No My [facility] ([facility]), please select appointment type: Face to face: Yes- Done Contact provided Primary Care phone number and encouraged to call if any questions or concerns. Review that after hours nurse line [phone] and emergency room are available 13/10 for patient use. Contact verbalized good understanding. No notification required for this note. Herpes Zoster (Shingles) Vaccine - L,N,P,PH,U: The patient declines to receive the recommended dose of zoster (shingles) vaccine. Immunization: ZOSTER RECOMBINANT Refusal Reason: PATIENT DECISION Patient refuses all immunization(s) in the ZOSTER group Date Documented: 08/19/24 11:21 Pneumococcal Conjugate Vaccine (PCV15/PCV20/PCV21) - L,N,P,PH,U: Refuses PCV vaccine Immunization: PNEUMOCOCCAL CONJUGATE, UNSPECIFIED FORMULATION Refusal Reason: PATIENT DECISION Patient refuses all immunization(s) in the PneumoPCV group Date Documented: 08/19/24 11:21 Tdap Immunization - L,N,P,PH,U: The patient declines to receive the recommended dose of Tdap vaccine. Immunization: TDAP Refusal Reason: PATIENT DECISION Patient refuses all immunization(s) in the TDAP group Date Documented: 08/19/24 11:21 /paola/ ZANDRA PALUMBO RN, MSN REGISTERED NURSE Signed: 08/19/2024 11:22 ZANDRA PALUMBO [facility]
--- OUTSIDE RECORDS SUMMARY | 2024-08-25 08:57 | XMS_ITS | Encounter Summary ---
Author Name [facility] [place] [facility] [place] Address [address] [place] [address] Care Team Providers Care Utility Operator Name Role Phone BERTHA RAYMOND Primary Care Provider [facility] Insurance Providers: All historical and current [...] to Policy Rios SHIKHA NIEVES - [place] [facility] SHIKHA YOUSIF Apr 27, 2019 SHIKHA NIEVES [id number] GODINEZ,TH [place] PATIENT MEDICARE (WNR) MEDICARE (M) PART A Nov 21, 2014 PART A [id number] [facility] OM PATIENT MEDICARE (WNR) MEDICARE (M) PART B Nov 21, 2014 PART B [id number] [facility] PATIENT Selected Encounter This section includes the information on record at [place] for the Encounter. Date/Time Encounter Type Encounter Description Reason Provider Source May 27, 2024 07:15 AM OFF/OP CNSLTJ NEW/EST MOD 40 GI ENDOSCOPY ICD-10-CM Z12.11 Encounter for screening for malignant neoplasm of colon LG RIBEIRO IHHugo Encounter Template Text not used by [place] Assessments - Encounter Diagnoses This section includes the primary and secondary diagnoses documented for the Encounter. Date/Time Primary/Secondary Diagnosis Diagnosis Name Provider Source Jun 17, 2024 12:23 PM PRIMARY Encounter for screening for malignant neoplasm of colon YUE PU[facility]EID ON [facility] Plan of Treatment: Future Appointments (+ 6 months) and Future Tests (+/- 45 days) The Plan of Treatment section includes future care activities for the patient [facility] [place] [facility] This section includes future appointments and future orders which are active, pending or scheduled. Future Appointments This section includes appointments that were scheduled to occur 6 months from the date of the Encounter, up to a maximum of 20 appointments. The data comes from all [facility]. Appointment Date/Time Appointment Type Appointme nt Facility Name May 31, 2024 09:00 AM AMBULATORY - SURGERY . [facility] Jun 09, 2024 08:44 AM AMBULATORY - NONE [facility] Jun 14, 2024 09:30 AM AMBULATORY - MEDICINE [facility] Jun 17, 2024 11:00 AM AMBULATORY - SURGERY [facility] Jun 28, 2024 02:06 PM AMBULATORY - MEDICINE [facility] Jul 11, 2024 09:00 AM AMBULATORY - SURGERY [facility] August 19, 2024 02:00 PM AMBULATORY - [facility] Oct 10, 2024 09:00 AM AMBULATORY - SURGERY [facility] Oct 18, 2024 09:30 AM AMBULATORY - MEDICINE [facility] Active, Pending, and Scheduled Orders This section includes a listing of several types of active, pending, and scheduled orders, including clinic medications orders, diagnostic test orders, procedure orders and consult orders; where the start date of the order is 45 days before the date of the Encounter or 45 days after the date of theEncounter. The data comes from all [facility]. Test Date/Time Test Type Test Details Facility Name Apr 22, 2024 12:00 AM Laboratory - Chemi stry Order BASIC METABOLIC PANEL GREEN LI/HEP BLD/PLAS PLASMA SP [facility] May 11, 2024 12:00 AM Laboratory - Blood Bank Order TYPE & SCREEN - LAB BLOOD SP [facility] Jun 09, 2024 12:00 AM Laboratory - Blood Bank Order TYPE & SCREEN - LAB BLOOD WC [facility] Lab Results: +/- 30 days of the [...] Type Comment Jun 10, 2024 04:46 AM [facility] GLUCOSE,BLOOD-poct (STL) BLOOD Specimen Type: BLOOD Comment: Test Performed by: [id number] Meter #: [id number] Ordering Provider: HEBER OVALLES Report Released Date/Time: Jun 10, 2024 05:21 AM Reporting Lab: [address] [address] Performing Lab: [address] [address] GLUCOSE,BLOOD-poct (STL) 146 mg/dL H 72-99 Jun 09, 2024 08:12 PM [facility] CBC BLOOD Specimen Type: BLOOD No comment entered. Ordering Provider: BETO MCMILLAN Report Released Date/Time: Jun 09, 2024 05:43 PM Reporting Lab: [address] [address] Performing Lab: [address] [address] WBC 11.1 10*3/uL 3.6-11.2 RBC 4.00 10*6/uL [...] H 2.10-8.00 Jun 09, 2024 07:00 PM [facility] MRSA SURVL NARES DNA NARES Specimen Type: [...] 09, 2024 05:57 PM Reporting Lab: [address] [address] Performing Lab: [address] [address] MRSA SURVL NARES DNA Negative Negative Jun 09, 2024 10:40 AM [facility] COVID-19 DIAGNOSTIC (FLU/RSV)(STL) NASOPHARYNX Spec imen Type: [...] Jun 07, 2024 02:47 PM Reporting Lab: [facility] [address] [facility] [address] Performing Lab: [address] [address] INFLUENZA A NEG Negative INFLUENZA B NEG Negative COVID-19 (STL-PB) NEG Not Detected RSV (Cepheid) Negative Negative May 11, 2024 10:38 AM [facility] HGA1C BLOOD Specimen Type: BLOOD No comment entered. Ordering Provider: BERTHA RAYMOND Report Released Date/Time: Apr 22, 2024 01:42 PM Reporting Lab: [address] [address] Performing Lab: [address] [address] HGA1C 5.7 4.0-6.0 May 11, 2024 10:37 AM [facility] PT/INR NEW ([facility]) PLASMA Specimen Type: PLAS MA No comment entered. Ordering Provider: MANJINDER CORBIN Report Released Date/Time: May 11, 2024 10:21 AM Reporting Lab: [address] [address] Performing Lab: [address] [address] PROTIME 11.6 s 9.4-12.5 INR VALUE 1.0 {INR} May 11, 2024 10:37 AM [facility] BASIC METABOLIC PANEL PLASMA Specimen Type: PL ASMA Comment: No hemolysis noted. Ordering Provider: MANJINDER CORBIN Report Released Date/Time: May 11, 2024 10:21 AM Reporting Lab: [address] [address] Performing Lab: [address] [address] CREATININE 1.08 mg/dL 0.7-1.3 UREA NITROGEN 17.0 mg/dL 9.0-25.0 GLUCOSE 101 mg/dL H 72-99 SODIUM 140 meq/L 136-145 POTASSIUM 4.4 meq/L 3.5-5 CHLORIDE 106 meq/L 98-107 CARBON DIOXIDE 27 meq/L 22-31 CALCIUM 9.3 mg/dL 8.4-10.4 EGFR (CKD-EPI 2020) 72.0 >60 May 11, 2024 10:37 AM [facility] CBC BLOOD Specimen Type: BLOOD No comment entered. Ordering Provider: MANJINDER CORBIN Report Released Date/Time: May 11, 2024 10:21 AM Reporting Lab: [facility] [address] [facility] [address] Performing Lab: [facility] [address] [facility] [address] WBC 6.4 10*3/uL 3.6-11.2 RBC 5.21 10*6/uL [...] and tobacco- related health factors from the [place] facility where the Encounter took place. Current Smoking Status This section includes the most current smoking, or tobacco-related health factor, from the [place] facility where the Encounter took place. Date/Time Current Smoking Status Comment Facil ity Dec 24, 2023 11:44 AM VA-TOBACCO NEVER USED [facility] Radiology Reports: +/- 30 days of [...] the Encounter. The data comes from all [place] treatment facilities. Date/Time Radiology Report Provider Source May 11, 2024 10:27 AM CHEST X-RAY, 2 VIE WS: RAMEZ GODINEZ [id number] -1950 M Exm Date: MAY 11, 2024@10:27 Req Phys: MANJINDER CORBIN Loc: -UROLOGY MD RES (Req'g Loc) Img Loc: -MAIN RADIOLOGY SUITE Service: Unknown [address] [address] (Case [id number] COMPLETE) CHEST X-RAY, 2 VIEWS (RAD Detailed) CPT:68602 Reason for Study: pre-operative testing Clinical History: Report Status: Verified Date Reported: MAY 12, 2024 Date Verified: MAY 12, 2024 Cloth Colors Examiner E-Sig:/PAOLA/ELIJAH MCCOY Report: CHEST X-RAY, 2 VIEWS COMPARISON: None. HISTORY: pre-operative testing FINDINGS: The heart size and pulmonary vasculature are normal. There is no consolidating infiltrate, effusion or pneumothorax. Mild hyperinflation. Impression: No active lung disease. RR Primary Interpreting Staff: ELIJAH MCCOY, Staff Physician (Cloth Colors Examiner) /ELIJAH DELEON [facility] Apr 27, 2024 11:21 AM PET/CT PSMA-P: RAMEZ GODINEZ [id number] -1950 M Exm Date: APR 27, 2024@11:21 Req Phys: SAMANTHA JOINER Loc: -UROLOGY TRUS NON-OR (Req'g Img Loc: -PET-CT Service: Unknown [facility] [address] [place] [address] (Case [id number] COMPLETE) PET/CT SKULL BASE TO MID-THIGH (NM Detailed) CPT:91149 CPT Modifiers : PI PET TUMOR INIT [...] 27, 2024 Date Verified: APR 27, 2024 Cloth Colors Examiner E-Sig:/ES/EMMANUEL PEREZ Report: PATIENT NAME: RAMEZ GODINEZ. CASE #: [id number], [id number]. PROCEDURE: PET/CT study Indication: high volume 4+5 [...] NEEDED Primary Interpreting Staff: EMMANUEL PEREZ MD (Cloth Colors Examiner) /PFT EMMANUEL PEREZ [facility] Pathology Reports: +/- 30 days of [...] the Encounter. The data comes from all [place] treatment facilities. Date/Time Pathology Report Provider Source [...] cut surface with no dominant nodule identified. Instructional Aide sections are submitted as follows: B1: fragment [...] conventional (usual) Histologic Grade: Grade group 5 ([place] Score 4 + 5 = 9) Intraductal [...] Performing Laboratory: Surgical Pathology Report Performed By: [facility], [facility] [address] [facility]# [id number] [address] [facility] [address] [place] [address] $FTR - - - - - - - - - - - - - - - - - - - - - - - - - - - - - - - - - - - - - - - - (End of report) VIVEK ALLEN MD vp scientific Date Jun 12, 2024 - - - - - - - - - - - - - - - - - - - - - - - - - - - - - - - - - - - - - - - - RAMEZ GODINEZ STANDARD FORM 515 ID:[id number] SEX:M :1950 AGE: 73 LOC:APFEE PCP: Bertha Raymond NP /paola/ VIVEK ALLEN M.D., PH.D. PATHOLOGIST Signed: 06/16/2024 14:49 VIVEK ALLEN Sirisha [facility] May 31, 2024 04:37 PM [...] Performing Laboratory: Surgical Pathology Report Performed By: [facility] [address]# [id number] [address] [place] [address] $FTR - - - - - - [...] - - RAMEZ GODINEZ STANDARD FORM 515 ID:[id number] SEX:M :1950 AGE: 73 LOC:GILABA2 PCP: Bertha Raymond NP /paola/ ALMA SÁNCHEZ MD, PhD STAFF PATHOLOGIST Signed: 05/31/2024 16:37 ALMA SÁNCHEZ [facility] May 11, 2024 10:45 AM LR MICROBIOLOGY RE PORT: Accession [UID]: [id number] [[id number]] Received: May 11, 2024@10:46 Collection sample: URINE,CLEAN CATCH Collection date: May 11, 2024 10:45 Site/Specimen: URINE Provider: MANJINDER CORBIN Test(s) ordered: C&S URINE..................... completed: May 13, 2024 13:51 * BACTERIOLOGY FINAL REPORT => May 13, 2024 14:19 TECH CODE: [id number] GRAM STAIN: Bacteriology Remark(s): 2.20.25 KAA Culture in progress 2.21.25 KAA CULTURE SHOWS >10,000 - <25,000 CFU/ML PROTEUS MIRABILIS AND >10,000 - <25,000 CFU/ML STAPH EPIDERMIDIS There will be no work up. =--=--=--=--=--=--=--=--=--=- -=--=--=--=--=--=--=--=--=--= --=--=--=--=--=--=-- Performing Laboratory: Bacteriology Report Performed By: [place] [facility] [address] [facility] CLIA# [id number] [address] [facility] [address] [place] [address] LIZZIE COYNE [facility] Encounter Notes: All associated encounter notes This section contains the clinical notes associated to the Encounter. Date/Time Encounter Note(s) Provider Source Jun 04, 2024 01:17 PM GASTROENTEROLOGY LETTERS: LOCAL TITLE: GI BIOPSY RESULTS LETTER STANDARD TITLE: GASTROENTEROLOGY LETTERS DATE OF NOTE: JUN 04, 2024@13:17 ENTRY DATE: JUN 04, 2024@13:17:13 AUTHOR: RUSSELL RIBEIRO EXP COSIGNER: URGENCY: STATUS: COMPLETED [place] [address] [place] [address] JUN 04, 2024 RAMEZ GODINEZ [address] [place], [place] [address] Dear Ramez Godinez, Thank you for completing your Colonoscopy recently at [facility]. I am writing to give you the pathology results for the tissue removed during the procedure. I am happy to report that the tissue we removed is not cancer. This is good news. The tissue samples sent to pathology were: One or more small tubular adenoma - Adenomatous polyps are pre-cancerous polyps. These are the most common type of polyps. Most adenomas do not develop into cancer, but they do have the potential to become malignant over several years. This is why they are most oftern removed. After reviewing your results I recommend you complete a follow-up colonoscopy in 3 years. If you want to see the full pathology report, you may do this by logging on the [employer] website at www.[employer].nc.gov. If you have not already done so, I recommend you visit this web site to set up your account. You will then be able to review this result and all future results. Please call [phone] if you have any questions about this letter. Sincerely, Russell Ribeiro MD, PhD. Staff Physician, Chief, Gastroenterology Service RUSSELL RIBEIRO [facility] Jun 01, 2024 12:00 PM GASTROENTEROLOGY LETTERS: LOCAL TITLE: GI BIOPSY RESULTS LETTER STANDARD TITLE: GASTROENTEROLOGY LETTERS DATE OF NOTE: JUN 01, 2024@12:00 ENTRY DATE: JUN 01, 2024@12:00:13 AUTHOR: RUSSELL RIBEIRO EXP COSIGNER: URGENCY: STATUS: COMPLETED [place] [address] [place] [address] JUN 01, 2024 RAMEZ GODINEZ [address] [place], [place] [address] Dear Ramez Godinez, Thank you for completing your Colonoscopy recently at [facility]. I am writing to give you the pathology results for the tissue removed during the procedure. I am happy to report that the tissue we removed is not cancer. This is good news. The tissue samples sent to pathology were: One or more small tubular adenoma - Adenomatous polyps are pre-cancerous polyps. These are the most common type of polyps. Most adenomas do not develop into cancer, but they do have the potential to become malignant over several years. This is why they are most oftern removed. After reviewing your results I recommend you complete a follow-up colonoscopy in 3 years due to the size and number of polyps. If you want to see the full pathology report, you may do this by logging on the [employer] website at www.[employer].nc.gov. If you have not already done so, I recommend you visit this web site to set up your account. You will then be able to review this result and all future results. Please call [phone] if you have any questions about this letter. Sincerely, Russell Ribeiro MD, PhD. Staff Physician, Chief, Gastroenterology Service RUSSELL RIBEIRO [facility] May 27, 2024 07:36 AM PREPROCEDURE NOTE: LOCAL TITLE: PHYSICIAN PRE-PROCEDURE ASSESSMENT STL STANDARD TITLE: PREPROCEDURE NOTE DATE OF NOTE: MAY 27, 2024@07:36 ENTRY DATE: MAY 27, 2024@07:37:21 AUTHOR: ANKIT PUENTE EXP COSIGNER: RUSSELL RIBEIRO URGENCY: STATUS: COMPLETED PHYSICIAN PRE-PROCEDURE ASSESSMENT STL Has ADDENDA Airway: No significant abnormality Mallampati Score: 2 Neck Extension: Not Limited Teeth: No significant abnormality Cardiac: No significant abnormality Pulmonary: No significant abnormality Gastrointestinal: No significant abnormality Neurological: No significant abnormality ASA Score: 2 Abdominal and Pelvic Surgical History: Sedation/Anesthesia Plan: Moderate sedation History of previous adverse reaction to sedation: No Tobacco use: No Alcohol use: No Recreational drug use: No Last oral intake:3/4 Time spent:5-9 minutes /paola/ ANKIT PUENTE Gastroenterology Fellow Signed: 05/27/2024 09:16 /paola/ Russell Ribeiro MD, PhD. Staff Physician, Chief, Gastroenterology Service Cosigned: 05/27/2024 14:00 06/01/2024 ADDENDUM STATUS: COMPLETED GROSS DESCRIPTION: Dr. Sánchez, 05/27/2024 The specimen [...] ADENOMAS -- NO HIGH-GRADE DYSPLASIA OR MALIGNANCY /es/ Russell Ribeiro MD, PhD. Staff Physician, Chief, Gastroenterology Service Signed: 06/01/2024 11:43 ANKIT PUENTE [facility]
--- OUTSIDE RECORDS SUMMARY | 2024-08-25 08:57 | XMS_ITS | Encounter Summary ---
Author Name [facility] [place] [facility] [place] [facility] [place] Address [address] [place] [address] Care Team Providers Care Emission Specialist Name Role Phone BERTHA PERES Primary Care Provider [facility] Insurance Providers: All historical and current [...] to Policy Rios SHIKHA NIEVES - GELA [place] SHIKHA YOUSIF Apr 27, 2019 SHIKHA NIEVES [id number] [facility] (WNR) MEDICARE (M) PART A Nov 21, 2014 PART A [id number] [facility] PATIENT MEDICARE (WNR) MEDICARE (M) PART B Nov 21, 2014 PART B [id number] [facility] PATIENT Selected Encounter This section includes the information on record at [place] for the Encounter. Date/Time Encounter Type Encounter Description Reason Provider Source Jul 11, 2024 09:00 AM POSTOP FOLLOW-UP VISIT UROLOGY CLINIC ICD-10-CM C61 Malignant neoplasm of prostate MALORIE FERGUSON Encounter Template Text not used by [place] Assessments - Encounter Diagnoses This section includes the primary and secondary diagnoses documented for the Encounter. Date/Time Primary/Secondary Diagnosis Diagnosis Name Provider Source Jul 20, 2024 09:10 AM PRIMARY Malignant neoplasm of prostate BATSHEVA FERGUSON [facility] Plan of Treatment: Future Appointments (+ 6 months) and Future Tests (+/- 45 days) The Plan of Treatment section includes future care activities for the patient from all [place] treatmentfacilities. This section includes future appointments and future orders which are active, pending or scheduled. Future Appointments This section includes appointments that were scheduled to occur 6 months from the date of the Encounter, up to a maximum of 20 appointments. The data comes from all [place] treatment [facility]. Appointment Date/Time Appointment Type Appointme nt Facility Name August 19, 2024 02:00 PM AMBULATORY - MEDICINE [facility] Oct 10, 2024 09:00 AM AMBULATORY - SURGERY [facility] Oct 18, 2024 09:30 AM AMBULATORY - MEDICINE [facility] Active, Pending, and Scheduled Orders This section includes a listing of several types of active, pending, and scheduled orders, including clinic medications orders, diagnostic test orders, procedure orders and consult orders; where the start date of the order is 45 days before the date of the Encounter or 45 days after the date of theEncounter. The data comes from all [facility]. Test Date/Time Test Type Test Details Facility Name Jun 09, 2024 12:00 AM Laboratory - Blood Bank Order TYPE & SCREEN - LAB BLOOD WC [facility] August 19, 2024 12:00 AM Imaging - General Radiology Order FOOT,LEFT [address] [facility] Lab Results: +/- 30 days of the encounter This section includes the Chemistry and Hematology Lab Results on record with [place] for the patient. Radiology Reports and Pathology Reports are provided separately, in subsequent sections. Lab Results This section contains the Chemistry/Hematology Results that were resulted 30 days before or 30 daysafter the date of the Encounter. Date/Time Source Result Type Result - Unit Interpretation Reference Range Specimen Type Comment Jul 11, 2024 09:19 AM [facility] PROST. SPECIFIC AG.(PB-STL) SERUM Specimen Ty pe: SERUM Comment: The listed sex of this patient may not be a typical indication for this test. Therefore, reference ranges or interpretive criteria listed may not be valid. Clinical correlation suggested. Ordering Provider: JOSE FERGUSON Report Released Date/Time: Jul 11, 2024 08:55 AM Reporting Lab: [address] [address] Performing Lab: [place] [address] [facility] [address] PROST. SPECIFIC AG.(PB-STL) <0.100 ng/mL 0-4 Jun 28, 2024 04:30 PM [facility] CBC BLOOD Specimen Type: BLOOD No comment entered. Ordering Provider: ABY RODRIGUES Report Released Date/Time: Jun 28, 2024 04:23 PM Reporting Lab: [place] [address] [facility] [address] Performing Lab: [address] [address] WBC 5.5 10*3/uL 3.6-11.2 RBC 4.44 10*6/uL [...] 0.00-0. 20 Jun 28, 2024 04:30 PM [facility] COMPREHENSIVE METABOLIC PANEL PLASMA Specimen Type: PLASMA Comment: No hemolysis noted. Ordering Provider: ABY RODRIGUES Report Released Date/Time: Jun 28, 2024 04:23 PM Reporting Lab: [facility] [address] [facility] [address] Performing Lab: [facility] [address] [facility] [address] CREATININE 1.18 mg/dL 0.7-1.3 UREA NITROGEN 19.0 [...] U/L 8-40 EGFR (CKD-EPI 2020) 64.8 >60 Vital Signs: All taken on the encounter date This section contains inpatient and outpatient Vital Signs collected on the date of the Encounter. Date/Time Temperature Pulse Blood Pressure Respiratory Rate SP02 Pain Height Weight Body Mass Index Source Jul 11, 2024 08:54 AM 97.3 70 148/87 18 98 0 70 197.5 28 [facility] Social History: Smoking Status (Most current) and Tobacco Use (All prior to encounter date) This section includes the most current, and the historical, smoking and tobacco- related health factors from the [place] facility where the Encounter took place. Current Smoking Status This section includes the most current smoking, or tobacco-related health factor, from the [place] facility where the Encounter took place. Date/Time Current Smoking Status Comment Facil ity Dec 24, 2023 11:44 AM [place]-TOBACCO NEVER USED [facility] Radiology Reports: +/- 30 days of [...] the Encounter. The data comes from all [place] treatment facilities. Date/Time Radiology Report Provider Source Jun 28, 2024 04:33 PM OBSTRUCTIVE SERIES : RAMEZ GODINEZ [id number] -1950 M Exm Date: JUN 28, 2024@16:33 Req Phys: ABY RODRIGUES Loc: PAT-EMERGENCY DEPT 2ND SHIFT (R Img Loc: PAT-MAIN RADIOLOGY SUITE Service: Unknown [facility] [address] [place] [address] (Case [id number] COMPLETE) OBSTRUCTIVE SERIES (RAD Detailed) CPT:19177 Reason for Study: constipation x 2 wks Clinical History: Report Status: Verified Date Reported: JUN 28, 2024 Date Verified: JUN 28, 2024 Art Instructor E-Sig:/ES/Ramez Schaffer MD Report: CASE #: [id number] DATE:06/28/2024 4:43 PM CLINICAL HISTORY:constipation x 2 [...] Primary Interpreting Staff: Ramez Schaffer MD, Radiologist (Art Instructor) /RAMEZ OLIVAS [facility] Pathology Reports: +/- 30 days [...] the Encounter. The data comes from all [place] treatment facilities. Date/Time Pathology Report Provider Source [...] cut surface with no dominant nodule identified. Cooperer sections are submitted as follows: B1: fragment [...] by prostatic acinar adenocarcinoma, grade group 5 (Ambler score 4+5=9). There is focal extraprostatic extension [...] conventional (usual) Histologic Grade: Grade group 5 (Ambler Score 4 + 5 = 9) Intraductal [...] NO EVIDENCE OF PROSTATIC ADENOCARCINOMA /es/ VIVEK ALLEN, M.D., PH.D. PATHOLOGIST Signed Jun 16, 2024@14:49 Performing Laboratory: Surgical Pathology Report [facility] By: [facility] CLIA# [id number] [address] [address] $FTR - - - - - - - - - - - - - - - - - - - - - - - - - - - - - - - - - - - - - - - - (End of report) VIVEK ALLEN MD svp marketing & communications at [employer] Date Jun 12, 2024 - - - - - - - - - - - - - - - - - - - - - - - - - - - - - - - - - - - - - - - - RAMEZ GODINEZ STANDARD FORM 515 ID:[id number] SEX:M :1950 AGE: 73 LOC:APFEE PCP: Bertha Peres NP /paola/ VIVEK ALLEN M.D., PH.D. PATHOLOGIST Signed: 06/16/2024 14:49 VIVEK ALLEN [facility] Encounter Notes: All associated encounter notes This section contains the clinical notes associated to the Encounter. Date/Time Encounter Note(s) Provider Source Jul 11, 2024 09:00 AM ADDENDUM: LOCAL TITLE: Addendum STANDARD TITLE: ADDENDUM DATE OF NOTE: JUL 11, 2024@09:00 ENTRY DATE: JUL 11, 2024@09:00:01 AUTHOR: KARLA FERGUSON EXP COSIGNER: URGENCY: STATUS: COMPLETED Patient with complaint of chronic left heel pain since February, denies specific trauma. Has noted difficulty wearing hard soled shoes and with ambulation, primarily walking on the balls of his left foot since then. Physical exam without concerning point tenderness, edema, erythema or palpable bony abnormality. Discussed follow up with PCP for further evaluation. /carlita FERGUSON MD Staff Physician, Urology Signed: 07/11/2024 09:02 Receipt Acknowledged By: 07/11/2024 12:34 /paola/ BERTHA PERES, MSN, AGNP-C NURSE PRACTITIONER === --- Original Document --- 07/11/24 UROLOGY NOTE: CHIEF COMPLAINT, HPI, EXAM & DATA CC: postop visit HPI: 73 yo with hx of HR CaP s/p RALP. - PSA trend as below, none postop - 03/2024 TRUS bx with Gl 4+5 disease - 04/2024 PSMA PET without met disease - 05/2024 RALP with pT3bN1 disease - 06/2024 ED visit with constipation, KUB not concerning for ileus and labs wnl - presents today doing well, having regular BMs, tolerating diet and denies incisional or abdominal pain - voiding well with good stream, has leakage with standing, coughing, straining that is mild in nature - denies postop erections, not a current priority ROS/PMH Denies F/C/N/V/CP/SOB Remainder of PMH listed below and reviewed? Yes TARGETED PHYSICAL EXAM: Gen: NAD Resp: NLB Neuro: non-focal Skin: warm and dry Abd: incisions CDI without evidence of hernia : deferred CREATININE:CREATININE 1.18 mg/dL 06/28/2024 16:30 PSA: PROST. SPECIFIC AG.(PB-STL) 8.914 H* ng/mL 01/06/2024 13:14 ASSES SMENT AND PLAN ----- 73 yo with hx of HR CaP s/p RALP 05/2024 here for postop visit. Discussed Kegel exercises for improved urinary control. Reviewed his pathology and discussed high risk of persistently elevated PSA and need for further therapies for his prostate cancer. Will hold off on additional treatments pending PSA today. FOLLOW-UP: - obtain PSA today - RTC in 3 months with PSA (MORE INFORMATION) ---- * LABS---- PSA Trend: PROST. SPECIFIC AG.(PB-STL) 8.914 H* ng/mL 01/06/2024 13:14 PROST. SPECIFIC AG.(PB-STL) 8.468 H* ng/mL 12/28/2023 13:15 BMP: SODIUM 140 mEq/L 06/28/2024 16:30 POTASSIUM 4.3 mEq/L 06/28/2024 16:30 CHLORIDE 107 mEq/L 06/28/2024 16:30 UREA NITROGEN 19.0 mg/dL 06/28/2024 16:30 CREATININE 1.18 mg/dL 06/28/2024 16:30 CALCIUM 9.3 mg/dL 06/28/2024 16:30 CARBON DIOXIDE 26 mEq/L 06/28/2024 16:30 GLUCOSE 100 H mg/dL 06/28/2024 16:30 EGFR (CKD-EPI 2020) 64.8 06/28/2024 16:30 CBC: WBC 5.5 10*3/uL 06/28/2024 16:30 RBC [...] ROS 1) Exposure to potentially hazardous substance ([facility] [id number]) 2) HTN - Hypertension ([facility] [id number]) 3) Prediabetes 4) Chronic Kidney Disease Stage 3A ([facility] [id number]) 5) Elevated PSA MEDICATIONS: Active Outpatient Medications (including Supplies): Active Outpatient Medications Status == = 1) AMLODIPINE BESYLATE 2.5MG TAB TAKE THREE TABLETS BY MOUTH ACTIVE ONCE A DAY Indication: FOR HIGH BLOOD PRESSURE 2) BISACODYL 5MG EC TAB TAKE TWO TABLETS BY MOUTH ONCE A DAY ACTIVE NEEDED Indication: FOR CONSTIPATION 3) BRIEF,PROTECTIVE UNDERWEAR LARGE ROBINSON USE 1 BRIEF TO ACTIVE AFFECTED AREA(S) NEEDED Indication: FOR INCONTINENCE 4) DOCUSATE NA 100MG CAP TAKE ONE CAPSULE BY MOUTH TWICE A DAY ACTIVE HOLD FOR LOOSE STOOL/DIARRHEA. Indication: FOR SOFTENING STOOL 5) INCONT LINER DEPEND GUARDS USE/APPLY PAD THREE TIMES A ACTIVE DAY NEEDED Indication: FOR INCONTINENCE CARE 6) MAGNESIUM CITRATE LIQUID TAKE 1 BOTTLE BY MOUTH ONCE A DAY ACTIVE Indication: FOR BOWEL EMPTYING Allergies: Patient has answered NKA /paola/ KARLA FERGUSON MD Staff Physician, Urology Signed: 07/11/2024 08:59 07/11/2024 ADDENDUM STATUS: COMPLETED Called patient with PSA results, came back at undetectable. Will continue plan for close monitoring with PSA in 3 months. Will defer adjuvant therapies at this time to allow full recovery from surgery and further monitoring of his PSA. /paola/ KARLA FERGUSON MD Staff Physician, Urology Signed: 07/11/2024 11:03 07/11/2024 ADDENDUM STATUS: COMPLETED Vet has PC appt scheduled. Will adress at upcoming visit. /paola/ BERTHA PERES, MSN, AGNP-C NURSE PRACTITIONER Signed: 07/11/2024 12:35 KARLA FERGUSON [facility] Jul 11, 2024 08:36 AM UROLOGY NOTE: LOCAL TITLE: UROLOGY NOTE STANDARD TITLE: UROLOGY NOTE DATE OF NOTE: JUL 11, 2024@08:36 ENTRY DATE: JUL 11, 2024@08:36:44 AUTHOR: KARLA FERGUSON EXP COSIGNER: URGENCY: STATUS: COMPLETED UROLOGY NOTE Has ADDENDA CHIEF COMPLAINT, HPI, EXAM & DATA CC: postop visit HPI: 73 yo with hx of HR CaP s/p RALP. - PSA trend as below, none postop - 03/2024 TRUS bx with Gl 4+5 disease - 04/2024 PSMA PET without met disease - 05/2024 RALP with pT3bN1 disease - 06/2024 ED visit with constipation, KUB not concerning for ileus and labs wnl - presents today doing well, having regular BMs, tolerating diet and denies incisional or abdominal pain - voiding well with good stream, has leakage with standing, coughing, straining that is mild in nature - denies postop erections, not a current priority ROS/PMH Denies F/C/N/V/CP/SOB Remainder of PMH listed below and reviewed? Yes TARGETED PHYSICAL EXAM: Gen: NAD Resp: NLB Neuro: non-focal Skin: warm and dry Abd: incisions CDI without evidence of hernia : deferred CREATININE:CREATININE 1.18 mg/dL 06/28/2024 16:30 PSA: PROST. SPECIFIC AG.(PB-STL) 8.914 H* ng/mL 01/06/2024 13:14 ASSES SMENT AND PLAN ----- 73 yo with hx of HR CaP s/p RALP 05/2024 here for postop visit. Discussed Kegel exercises for improved urinary control. Reviewed his pathology and discussed high risk of persistently elevated PSA and need for further therapies for his prostate cancer. Will hold off on additional treatments pending PSA today. FOLLOW-UP: - obtain PSA today - RTC in 3 months with PSA (MORE INFORMATION) ---- * LABS---- PSA Trend: PROST. SPECIFIC AG.(PB-STL) 8.914 H* ng/mL 01/06/2024 13:14 PROST. SPECIFIC AG.(PB-STL) 8.468 H* ng/mL 12/28/2023 13:15 BMP: SODIUM 140 mEq/L 06/28/2024 16:30 POTASSIUM 4.3 mEq/L 06/28/2024 16:30 CHLORIDE 107 mEq/L 06/28/2024 16:30 UREA NITROGEN 19.0 mg/dL 06/28/2024 16:30 CREATININE 1.18 mg/dL 06/28/2024 16:30 CALCIUM 9.3 mg/dL 06/28/2024 16:30 CARBON DIOXIDE 26 mEq/L 06/28/2024 16:30 GLUCOSE 100 H mg/dL 06/28/2024 16:30 EGFR (CKD-EPI 2020) 64.8 06/28/2024 16:30 CBC: WBC 5.5 10*3/uL 06/28/2024 16:30 RBC [...] ROS 1) Exposure to potentially hazardous substance ([facility] [id number]) 2) HTN - Hypertension ([facility] [id number]) 3) Prediabetes 4) Chronic Kidney Disease Stage 3A ([facility] [id number]) 5) Elevated PSA MEDICATIONS: Active Outpatient Medications (including Supplies): Active Outpatient Medications Status == = 1) AMLODIPINE BESYLATE 2.5MG TAB TAKE THREE TABLETS BY MOUTH ACTIVE ONCE A DAY Indication: FOR HIGH BLOOD PRESSURE 2) BISACODYL 5MG EC TAB TAKE TWO TABLETS BY MOUTH ONCE A DAY ACTIVE NEEDED Indication: FOR CONSTIPATION 3) BRIEF,PROTECTIVE UNDERWEAR LARGE ROBINSON USE 1 BRIEF TO ACTIVE AFFECTED AREA(S) NEEDED Indication: FOR INCONTINENCE 4) DOCUSATE NA 100MG CAP TAKE ONE CAPSULE BY MOUTH TWICE A DAY ACTIVE HOLD FOR LOOSE STOOL/DIARRHEA. Indication: FOR SOFTENING STOOL 5) INCONT LINER DEPEND GUARDS USE/APPLY PAD THREE TIMES A ACTIVE DAY NEEDED Indication: FOR INCONTINENCE CARE 6) MAGNESIUM CITRATE LIQUID TAKE 1 BOTTLE BY MOUTH ONCE A DAY ACTIVE Indication: FOR BOWEL EMPTYING Allergies: Patient has answered NKA /es/ KARLA FERGUSON MD Staff Physician, Urology Signed: 07/11/2024 08:59 07/11/2024 ADDENDUM STATUS: COMPLETED Patient with complaint of chronic left heel pain since February, denies specific trauma. Has noted difficulty wearing hard soled shoes and with ambulation, primarily walking on the balls of his left foot since then. Physical exam without concerning point tenderness, edema, erythema or palpable bony abnormality. Discussed follow up with PCP for further evaluation. /paola/ KARLA FERGUSON MD Staff Physician, Urology Signed: 07/11/2024 09:02 Receipt Acknowledged By: 07/11/2024 12:34 /paola/ BERTHA PERES MSN, AVELINAP-C NURSE PRACTITIONER 07/11/2024 ADDENDUM STATUS: COMPLETED Called patient with PSA results, came back at undetectable. Will continue plan for close monitoring with PSA in 3 months. Will defer adjuvant therapies at this time to allow full recovery from surgery and further monitoring of his PSA. /paola/ KARLA FERGUSON MD Staff Physician, Urology Signed: 07/11/2024 11:03 07/11/2024 ADDENDUM STATUS: COMPLETED Vet has PC appt scheduled. Will adress at upcoming visit. /paola/ ELIUD MAJANO, AVELINAP-C NURSE PRACTITIONER Signed: 07/11/2024 12:35 KARLA FERGUSON [facility]
--- OUTSIDE RECORDS SUMMARY | 2024-08-25 08:57 | XMS_ITS | Encounter Summary ---
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 Date/Time Encounter Type Encounter Description Reason Provider Source Jun 09, 2024 02:49 PM Outpatient Encounter ADMIN PAT ACTIVTIES (MASNONCT) ZULLY GONZALEZ [facility] Encounter Template Text not used by [place] Plan of Treatment: Future Appointments (+ 6 months) and Future Tests (+/- 45 days) The Plan of Treatment section includes future care activities for the patient [facility] [place] [facility] This section includes future appointments and future orders which are active, pending or scheduled. Future Appointments This section includes appointments that were scheduled to occur 6 months from the date of the Encounter, up to a maximum of 20 appointments. The data comes from all [facility]. Appointment Date/Time Appointment Type Appointme nt Facility Name Jun 14, 2024 09:30 AM AMBULATORY - MEDICINE [facility] Jun 17, 2024 11:00 AM AMBULATORY - SURGERY [facility] Jun 28, 2024 02:06 PM AMBULATORY MEDICINE [facility] Jul 11, 2024 09:00 AM [facility] SURGERY [facility] August 19, 2024 02:00 PM AMBULATORY [facility] Oct 10, 2024 09:00 AM AMBULATORY SURGERY [facility] Oct 18, 2024 09:30 AM [facility] Active, Pending, and Scheduled Orders This section includes a listing of several types of active, pending, and scheduled orders, including clinic medications orders, diagnostic test orders, procedure orders and consult orders; where the start date of the order is 45 days before the date of the Encounter or 45 days after the date of theEncounter. The data comes from all [facility]. Test Date/Time Test Type Test Details Facility Name May 11, 2024 12:00 AM Laboratory - Blood Bank Order TYPE & SCREEN - LAB BLOOD SP [facility] Jun 09, 2024 12:00 AM Laboratory - Blood Bank Order TYPE & SCREEN - LAB BLOOD WC [facility] Lab Results: +/- 30 days of the encounter This section includes the Chemistry and Hematology Lab Results on record with [place] for the patient. Radiology Reports and Pathology Reports are provided separately, in subsequent sections. Lab Results This section contains the Chemistry/Hematology Results that were resulted 30 days before or 30 daysafter the date of the Encounter. Date/Time Source Result Type Result - Unit Interpretation Reference Range Specimen Type Comment Jun 28, 2024 04:30 PM [facility] COMPREHENSIVE METABOLIC PANEL PLASMA Specimen Type: PLASMA Comment: No hemolysis noted. Ordering Provider: ABY RODRIGUES Report Released Date/Time: Jun 28, 2024 04:23 PM Reporting Lab: [address] [address] Performing Lab: [address] [address] CREATININE 1.18 mg/dL 0.7-1.3 UREA NITROGEN 19.0 [...] 64.8 >60 Jun 28, 2024 04:30 PM [facility] CBC BLOOD Specimen Type: BLOOD No comment entered. Ordering Provider: ABY RODRIGUES Report Released Date/Time: Jun 28, 2024 04:23 PM Reporting Lab: [address] [address] Performing Lab: [address] [address] WBC 5.5 10*3/uL 3.6-11.2 RBC 4.44 10*6/uL [...] 0.00-0. 20 Jun 10, 2024 04:46 AM [facility] GLUCOSE,BLOOD-poct (STL) BLOOD Specimen Type: BLOOD Comment: Test Performed by: [id number] Meter #: [id number] Ordering Provider: BRADLEY OVALLES Report Released Date/Time: Jun 10, 2024 05:21 AM Reporting Lab: [address] [address] Performing Lab: [address] [address] GLUCOSE,BLOOD-poct (STL) 146 mg/dL H 72-99 Jun 09, 2024 08:12 PM [facility] CBC BLOOD Specimen Type: BLOOD No comment entered. Ordering Provider: BETO MCMILLAN Report Released Date/Time: Jun 09, 2024 05:43 PM Reporting Lab: [address] [address] Performing Lab: [address] [address] WBC 11.1 10*3/uL 3.6-11.2 RBC 4.00 10*6/uL [...] H 2.10-8.00 Jun 09, 2024 07:00 PM [facility] MRSA SURVL NARES DNA NARES Specimen [...] Jun 09, 2024 05:57 PM Reporting Lab: [address] [address] Performing Lab: [address] [address] MRSA SURVL NARES DNA Negative Negative Jun 09, 2024 10:40 AM [facility] COVID-19 DIAGNOSTIC (FLU/RSV)(STL) NASOPHARYNX Spec imen [...] Jun 07, 2024 02:47 PM Reporting Lab: [address] [address] Performing Lab: [address] [place] [address] INFLUENZA A NEG Negative INFLUENZA B NEG Negative COVID-19 ([facility]) NEG Not Detected RSV (Cepheid) Negative Negative May 11, 2024 10:38 AM [facility] HGA1C BLOOD Specimen Type: BLOOD No comment entered. Ordering Provider: BERTHA RAYMOND Report Released Date/Time: Apr 22, 2024 01:42 PM Reporting Lab: [place] [id number] Performing Lab: [place] [id number] HGA1C 5.7 4.0-6.0 May 11, 2024 10:37 AM [facility] PT/INR NEW ([facility]) PLASMA Specimen Type: PLAS MA No comment entered. Ordering Provider: MANJINDER CORBIN Report Released Date/Time: May 11, 2024 10:21 AM Reporting Lab: [address] [address] Performing Lab: [address] [address] PROTIME 11.6 s 9.4-12.5 INR VALUE 1.0 {INR} May 11, 2024 10:37 AM [facility] BASIC METABOLIC PANEL PLASMA Specimen Type: PL ASMA Comment: No hemolysis noted. Ordering Provider: MANJINDER CORBIN Report Released Date/Time: May 11, 2024 10:21 AM Reporting Lab: [address] [address] Performing Lab: [address] [address] CREATININE 1.08 mg/dL 0.7-1.3 UREA NITROGEN 17.0 mg/dL 9.0-25.0 GLUCOSE 101 mg/dL H 72-99 SODIUM 140 meq/L 136-145 POTASSIUM 4.4 meq/L 3.5-5 CHLORIDE 106 meq/L 98-107 CARBON DIOXIDE 27 meq/L 22-31 CALCIUM 9.3 mg/dL 8.4-10.4 EGFR (CKD-EPI 2020) 72.0 >60 May 11, 2024 10:37 AM [facility] CBC BLOOD Specimen Type: BLOOD No comment entered. Ordering Provider: MANJINDER CORBIN Report Released Date/Time: May 11, 2024 10:21 AM Reporting Lab: [facility] [address] [facility] [address] Performing Lab: [facility] [address] [facility] [address] WBC 6.4 10*3/uL 3.6-11.2 RBC 5.21 10*6/uL [...] Source Jun 09, 2024 09:28 PM 3 [facility] N Jun 09, 2024 09:02 PM 97.4 87 123/72 18 92 3 [facility] N Jun 09, 2024 06:05 PM 4 [facility] Jun 09, 2024 06:03 PM 4 [facility] Jun 09, 2024 05:58 PM 97.7 91 103/64 20 95 4 [facility] N Social History: Smoking Status (Most current) and Tobacco Use (All prior to encounter date) This section includes the most current, and the historical, smoking and tobacco- related health factors from the [place] facility where the Encounter took place. Current Smoking Status This section includes the most current smoking, or tobacco-related health factor, from the [place] facility where the Encounter took place. Date/Time Current Smoking Status Comment Facil ity Dec 24, 2023 11:44 AM VA-TOBACCO NEVER USED [facility] Radiology Reports: +/- 30 days [...] the Encounter. The data comes from all [place] treatment facilities. Date/Time Radiology Report Provider Source Jun 28, 2024 04:33 PM OBSTRUCTIVE SERIES : RAMEZ GODINEZ [id number] -1950 M Exm Date: JUN 28, 2024@16:33 Req Phys: ABY RODRIGUES Loc: -EMERGENCY DEPT 2ND SHIFT (R Img Loc: -MAIN RADIOLOGY SUITE Service: [facility], [facility] [address] [place] [address] (Case [id number] COMPLETE) OBSTRUCTIVE SERIES (RAD Detailed) CPT:11309 Reason for Study: constipation x 2 wks Clinical History: Report Status: Verified Date Reported: JUN 28, 2024 Date Verified: JUN 28, 2024 Production Superintendent Hydro E-Sig:/ES/Ramez Schaffer MD Report: CASE #: [id number] DATE:06/28/2024 4:43 PM CLINICAL HISTORY:constipation x 2 [...] Primary Interpreting Staff: Ramez Schaffer MD, Radiologist (Production Superintendent Hydro) /RAMEZ OLIVAS [facility] May 11, 2024 10:27 AM CHEST X-RAY, 2 VIE WS: RAMEZ GODINEZ [id number] -1950 M Exm Date: MAY 11, 2024@10:27 Req Phys: MANJINDER CORBIN Loc: PAT-UROLOGY RES (Req'g Loc) Img Loc: -MAIN RADIOLOGY SUITE Service: [address] [address] (Case [id number] COMPLETE) CHEST X-RAY, 2 VIEWS (RAD Detailed) CPT:76440 Reason for Study: pre-operative testing Clinical History: Report Status: Verified Date Reported: MAY 12, 2024 Date Verified: MAY 12, 2024 Boris E-Sig:/PAOLA/ELIJAH MCCOY Report: CHEST X-RAY, 2 VIEWS COMPARISON: None. HISTORY: pre-operative testing FINDINGS: The heart size and pulmonary vasculature are normal. There is no consolidating infiltrate, effusion or pneumothorax. Mild hyperinflation. Impression: No active lung disease. RR Primary Interpreting Staff: ELIJAH MCCOY Staff Physician (Production Superintendent Hydro) /ELIJAH DELEON [facility] Pathology Reports: +/- 30 days [...] the Encounter. The data comes from all [place] treatment facilities. Date/Time Pathology Report Provider Source [...] cut surface with no dominant nodule identified. Superintendent Refuse Disposal sections are submitted as follows: B1: fragment [...] by prostatic acinar adenocarcinoma, grade group 5 (Enumclaw score 4+5=9). There is focal extraprostatic extension [...] NO EVIDENCE OF PROSTATIC ADENOCARCINOMA /es/ VIVEK Jonel ALLEN., PH.D. PATHOLOGIST Signed Jun 16, 2024@14:49 Performing Laboratory: Surgical Pathology Report Performed By: [facility] [address] [facility] CLCARMEN# [id number] [address] [facility] [address] [place] [address] $FTR - - - - - - - - - - - - - - - - - - - - - - - - - - - - - - - - - - - - - - - - (End of report) VIVEK ALLEN MD svp digital sales Date Jun 12, 2024 - - - - - - - - - - - - - - - - - - - - - - - - - - - - - - - - - - - - - - - - RAMEZ GODINEZ STANDARD FORM 515 ID:[id number] SEX:M :1950 AGE: 73 LOC:APFEE PCP: Bertha Raymond NP /carlita ALLEN M.D., PH.D. PATHOLOGIST Signed: 06/16/2024 14:49 VIVEK ALLEN [facility] May 31, 2024 04:37 [...] Performing Laboratory: Surgical Pathology Report Performed By: [address] CLIA# [id number] [address] [place] [phone] $FTR - - - - - - [...] - - RAMEZ GODINEZ STANDARD FORM 515 ID:[id number] SEX:M :1950 AGE: 73 LOC:GILABA PCP: Bertha Raymond NP /es/ ALMA SÁNCHEZ MD, PhD STAFF PATHOLOGIST Signed: 05/31/2024 16:37 ALMA SÁNCHEZ [facility] May 11, 2024 10:45 AM LR MICROBIOLOGY RE PORT: Accession [UID]: [id number] [[id number]] Received: May 11, 2024@10:46 Collection sample: URINE,CLEAN CATCH Collection date: May 11, 2024 10:45 Site/Specimen: URINE Provider: MANJINDER CORBIN Test(s) ordered: C&S URINE..................... completed: May 13, 2024 13:51 * BACTERIOLOGY FINAL REPORT => May 13, 2024 14:19 TECH CODE: [id number] GRAM STAIN: Bacteriology Remark(s): 2.20.25 KAA Culture in progress 2.21.25 KAA CULTURE SHOWS >10,000 - <25,000 CFU/ML PROTEUS MIRABILIS AND >10,000 - <25,000 CFU/ML STAPH EPIDERMIDIS There will be no work up. =--=--=--=--=--=--=--=--=--=- -=--=--=--=--=--=--=--=--=--= --=--=--=--=--=--=-- Performing Laboratory: Bacteriology Report Performed By: [facility] [address] [facility] CLIA# [id number] [address] [facility] [address] [place] [address] [facility] Encounter Notes: All associated encounter notes This section contains the clinical notes associated to the Encounter. Date/Time Encounter Note(s) Provider Source Jun 09, 2024 02:49 PM ANESTHESIOLOGY NOT E: LOCAL TITLE: ANESTHESIA ALBUMIN MEDICATION NOTE STL STANDARD TITLE: ANESTHESIOLOGY NOTE DATE OF NOTE: JUN 09, 2024@14:49 ENTRY DATE: JUN 09, 2024@14:49:45 AUTHOR: ZULLY GONZALEZ EXP COSIGNER: URGENCY: STATUS: COMPLETED ALBUMIN ADMINISTRATION Bottle 1 Lot# [id number] Expiration Date: 2026 Comment: discussed with Dr. Pabon /paola/ ZULLY GONZALEZ CRNA COMPOSITE BOND TECHNICIAN, Anesthesiology Signed: 06/09/2024 14:50 ZULLY GONZALEZ [facility]
--- OUTSIDE RECORDS SUMMARY | 2024-08-25 08:57 | XMS_ITS | Encounter Summary ---
Author Name [facility] [place] [facility] [place] Organization [facility] [place] [facility] [place] Address [address] [place] [address] Care Team Providers Care Plodding Operator Name Role Phone BERTHA RAYMOND Primary Care Provider [facility] Insurance Providers: All historical and current [...] to Policy Rios SHIKHA NIEVES - GELA [place] SPECIAL [place] SHIKHA YOUSIF Apr 27, 2019 SHIKHA NIEVES [id number] [facility]ICARE (WNR) MEDICARE (M) PART A Nov 21, 2014 PART A [id number] [phone] [facility] PATIENT MEDICARE (WNR) MEDICARE (M) PART B Nov 21, 2014 PART B [id number] [facility] PATIENT Selected Encounter This section includes the information on record at [place] for the Encounter. Date/Time Encounter Type Encounter Description Reason Provider Source Jun 28, 2024 02:06 PM EMERGENCY DEPT VISIT LOW [facility] EMERGENCY DEPT ICD-10-CM K59.00 Constipation, unspecified LOUIS RODRIGUES Encounter Template Text not used by [place] Assessments - Encounter Diagnoses This section includes the primary and secondary diagnoses documented for the Encounter. Date/Time Primary/Secondary Diagnosis Diagnosis Name Provider Source Jun 28, 2024 06:31 PM PRIMARY Constipation, unspecified LOUIS RODRIGUES [facility] Plan of Treatment: Future Appointments (+ 6 months) and Future Tests (+/- 45 days) The Plan of Treatment section includes future care activities for the patient from all [place] treatmentfacilities. This section includes future appointments and future orders which are active, pending or scheduled. Future Appointments This section includes appointments that were scheduled to occur 6 months from the date of the Encounter, up to a maximum of 20 appointments. The data comes from all [facility]. Appointment Date/Time Appointment Type Appointme nt Facility Name Jul 11, 2024 09:00 AM AMBULATORY - SURGERY [facility] August 19, 2024 02:00 PM AMBULATORY - MEDICINE [facility] Oct 10, 2024 09:00 AM AMBULATORY SURGERY [facility] Oct 18, 2024 09:30 AM [facility] Active, Pending, and Scheduled Orders This section includes a listing of several types of active, pending, and scheduled orders, including clinic medications orders, diagnostic test orders, procedure orders and consult orders; where the start date of the order is 45 days before the date of the Encounter or 45 days after the date of theEncounter. The data comes from all [facility]. Test Date/Time Test Type Test Details Facility Name Jun 09, 2024 12:00 AM Laboratory - Blood Bank Order TYPE & SCREEN - LAB BLOOD WC [facility] Lab Results: +/- 30 days of the encounter This section includes the Chemistry and Hematology Lab Results on record with [place] for the patient. Radiology Reports and Pathology Reports are provided separately, in subsequent sections. Lab Results This section contains the Chemistry/Hematology Results that were resulted 30 days before or 30 daysafter the date of the Encounter. Date/Time Source Result Type Result - Unit Interpretation Reference Range Specimen Type Comment Jul 11, 2024 09:19 AM [facility] PROST. SPECIFIC AG.(PB-STL) SERUM Specimen Ty pe: SERUM Comment: The listed sex of this patient may not be a typical indication for this test. Therefore, reference ranges or interpretive criteria listed may not be valid. Clinical correlation suggested. Ordering Provider: JOSE FERGUSON Report Released Date/Time: Jul 11, 2024 08:55 AM Reporting Lab: [address] [address] Performing Lab: [address] [address] PROST. SPECIFIC AG.(PB-STL) <0.100 ng/mL 0-4 Jun 28, 2024 04:30 PM [facility] CBC BLOOD Specimen Type: BLOOD No comment entered. Ordering Provider: LOUIS RODRIGUES Report Released Date/Time: Jun 28, 2024 04:23 PM Reporting Lab: [address] [address] Performing Lab: [address] [address] WBC 5.5 10*3/uL 3.6-11.2 RBC 4.44 10*6/uL [...] 0.00-0. 20 Jun 28, 2024 04:30 PM [facility] COMPREHENSIVE METABOLIC PANEL PLASMA Specimen Type: PLASMA Comment: No hemolysis noted. Ordering Provider: LOUIS RODRIGUES Report Released Date/Time: Jun 28, 2024 04:23 PM Reporting Lab: [address] [address] Performing Lab: [address] [address] CREATININE 1.18 mg/dL 0.7-1.3 UREA NITROGEN 19.0 [...] 64.8 >60 Jun 10, 2024 04:46 AM [facility] GLUCOSE,BLOOD-poct (STL) BLOOD Specimen Type: BLOOD Comment: Test Performed by: [id number] Meter #: [id number] Ordering Provider: BRADLEY OVALLES Report Released Date/Time: Jun 10, 2024 05:21 AM Reporting Lab: [address] [address] Performing Lab: [address] [address] GLUCOSE,BLOOD-poct (STL) 146 mg/dL H 72-99 Jun 09, 2024 08:12 PM [facility] CBC BLOOD Specimen Type: BLOOD No comment entered. Ordering Provider: BETO MCMILLAN Report Released Date/Time: Jun 09, 2024 05:43 PM Reporting Lab: [address] [address] Performing Lab: [address] [address] WBC 11.1 10*3/uL 3.6-11.2 RBC 4.00 10*6/uL [...] H 2.10-8.00 Jun 09, 2024 07:00 PM [facility] MRSA SURVL NARES DNA NARES Specimen Type: NA RES Comment: Qualitative real-time PCR test for the [...] epidemiological information for final interpretation. Ordering Provider: BRADLYE OVALLES Report Released Date/Time: Jun 09, 2024 05:57 PM Reporting Lab: [facility] [address] [facility] [address] Performing Lab: [address] [address] MRSA SURVL NARES DNA Negative Negative Jun 09, 2024 10:40 AM [facility] COVID-19 DIAGNOSTIC (FLU/RSV)(STL) NASOPHARYNX Spec imen Type: [...] Jun 07, 2024 02:47 PM Reporting Lab: [facility] [address] [facility] [address] Performing Lab: [place] [address] [facility] [address] INFLUENZA A NEG Negative INFLUENZA B NEG [...] 02:16 PM 98 61 170/66 16 0 [facility] Social History: Smoking Status (Most current) and Tobacco Use (All prior to encounter date) This section includes the most current, and the historical, smoking and tobacco- related health factors from the [place] facility where the Encounter took place. Current Smoking Status This section includes the most current smoking, or tobacco-related health factor, from the [place] facility where the Encounter took place. Date/Time Current Smoking Status Comment Facil kunaly Dec 24, 2023 11:44 AM [place]-TOBACCO NEVER USED [facility] Radiology Reports: +/- 30 days of [...] the Encounter. The data comes from all [place] treatment facilities. Date/Time Radiology Report Provider Source Jun 28, 2024 04:33 PM OBSTRUCTIVE SERIES : RAMEZ GODINEZ [id number] -1950 M Exm Date: JUN 28, 2024@16:33 Req Phys: LOUIS RODRIGUES Loc: PAT-EMERGENCY DEPT 2ND SHIFT (R Img Loc: -MAIN RADIOLOGY SUITE Service: Unknown [facility], [address] [place] [address] (Case [id number] COMPLETE) OBSTRUCTIVE SERIES (RAD Detailed) CPT:09294 Reason for Study: constipation x 2 wks Clinical History: Report Status: Verified Date Reported: JUN 28, 2024 Date Verified: JUN 28, 2024 Planting Machine Operator E-Sig:/ES/Ramez Schaffer MD Report: CASE #: [id number] DATE:06/28/2024 4:43 PM CLINICAL HISTORY:constipation x 2 [...] Primary Interpreting Staff: Ramez Schaffer MD, Radiologist (Planting Machine Operator) /RAMEZ OLIVAS [facility] Pathology Reports: +/- 30 days [...] the Encounter. The data comes from all [place] treatment facilities. Date/Time Pathology Report Provider Source Jun 16, 2024 02:49 PM LR SURGICAL PATHOL OGY REPORT: LOCAL TITLE: LR SURGICAL PATHOLOGY REPORT STANDARD TITLE: PATHOLOGY PROCEDURE NOTE DATE OF NOTE: JUN 16, 2024@14:49:35 ENTRY DATE: JUN 16, 2024@14:49:35 AUTHOR: VIVEK ALLENER: URGENCY: STATUS: COMPLETED $APHDR - - - [...] cut surface with no dominant nodule identified. Cosmetic Sales Advisor sections are submitted as follows: B1: fragment [...] Laboratory: Surgical Pathology Report Performed By: [address] CLIA# [id number] [address] [place] [address], [place] [address] $FTR - - - - - - - - - - - - - - - - - - - - - - - - - - - - - - - - - - - - - - - - (End of report) VIVEK ALLEN MD vp purchasing Date Jun 12, 2024 - - - - - - - - - - - - - - - - - - - - - - - - - - - - - - - - - - - - - - - - RAMEZ GODINEZ STANDARD FORM 515 ID:[id number] SEX:M :1950 AGE: 73 LOC:APFEE PCP: Bertha Raymond NP /paola/ VIVEK ALLEN M.D., PH.D. PATHOLOGIST Signed: 06/16/2024 14:49 VIVEK ALLEN [facility] May 31, 2024 [...] - - - - GROSS DESCRIPTION: Dr. Sánchze, 05/27/2024 The specimen is received in formalin [...] Performing Laboratory: Surgical Pathology Report Performed By: [facility] [address] [facility]# [id number] [address] [place] [phone] $FTR - - - - - - [...] - - RAMEZ GODINEZ STANDARD FORM 515 ID:[id number] SEX:M :1950 AGE: 73 LOC:GILABA2 PCP: Bertha Raymond NP /paola/ ALMA SÁNCHEZ MD, PhD STAFF PATHOLOGIST Signed: 05/31/2024 16:37 ALMA SÁNCHEZ [facility] Encounter Notes: All associated encounter notes This section contains the clinical notes associated to the Encounter. Date/Time Encounter Note(s) Provider Source Jun 28, 2024 04:29 PM NURSING NOTE: LOCAL TITLE: [facility] IV INSERTION AND MAINTENANCE STANDARD TITLE: NURSING NOTE DATE OF NOTE: JUN 28, 2024@16:29 ENTRY DATE: JUN 28, 2024@16:29:39 AUTHOR: JACINTO ADRIAN COSIGNER: URGENCY: STATUS: COMPLETED Version 2.2 Charting in accordance with [facility] SUN'AQ STANDARD (CAAES) ACUTE INPATIENT/REHABILITATION NURSING ADMISSION SCREENING, ASSESSMENT, AND STANDARDS OF CARE IV Line Insertion and Maintenance Peripheral IV Line #1: Insertion: Date: 06/28/2024 Time: 16:30 Inserted by (name): Jacinto BONNER Gauge: [id number] Location: [facility] Line # 1: Assessment: Dressing Condition: --Clean, dry, intact --Transparent dressing Site Condition: --No redness, swelling, pain. Line Status: -- + Blood return. -- IV flushed. -- IV saline locked. /es/ JACINTO ADRIAN RN REGISTERED NURSE Signed: 06/28/2024 16:30 JACINTO ADRIAN [facility] Jun 28, 2024 02:35 PM PHYSICIAN EMERGENC Y DEPT NOTE: LOCAL TITLE: EMERGENCY DEPARTMENT ST STANDARD TITLE: PHYSICIAN EMERGENCY DEPT NOTE DATE OF NOTE: JUN 28, 2024@14:35 ENTRY DATE: JUN 28, 2024@14:35:40 AUTHOR: LOUIS RODRIGUES COSIGNER: URGENCY: STATUS: COMPLETED TRIAGE CHIEF COMPLAINT: Localized area of swelling noted by patient anterior abdominal wall, adjacent to surgical incision, status post prostatectomy HPI: Patient is a 73-year-old male patient with past medical history of hypertension, recent diagnosis of prostate carcinoma, status post prostatectomy by urology on 06/09/2024, presented to the emergency room today with complaints that he had noticed small area of swelling right adjacent to the anterior lower abdominal wall surgical incision that he has noticed since a day or so after his surgery. Patient denies having any pain in that area, feels like there is a small tiny nodular swelling. Denies any redness, denies any surgical incision opening up or having any drainage from it. On further questioning patient also described that he has not had any significant bowel movement for last 2 weeks, says that he is feeling fine, denies any abdominal pain, denies any nausea or vomiting or any abdominal distention. He also says that he has been passing gas and has had no discomfort. His appetite is normal. Has used ethylene glycol in small amounts as needed for constipation but has not had any bowel movement. Spoke to his son as well along with the patient who is here with the patient. REVIEW OF SYSTEMS: See HPI for further details. All 10 systems reviewed and otherwise negative unless otherwise detailed herein. PAST MEDICAL HISTORY: 1) Exposure to potentially hazardous substance ([facility] [id number]) 2) HTN - Hypertension ([facility] [id number]) 3) Prediabetes 4) Chronic Kidney Disease Stage 3A ([facility] [id number]) 5) Elevated PSA CURRENT MEDICATIONS: Active Outpatient Medications (including Supplies): Active Outpatient Medications Status 1) ACETAMINOPHEN 500MG TAB TAKE TWO TABLETS BY MOUTH FOUR TIMES ACTIVE A DAY CAUTION: DO NOT EXCEED 4000MG PER DAY ACETAMINOPHEN (APAP) FROM ALL MEDS. Indication: FOR PAIN 2) AMLODIPINE BESYLATE 2.5MG TAB TAKE THREE TABLETS BY MOUTH ACTIVE ONCE A DAY Indication: FOR HIGH BLOOD PRESSURE 3) CEPHALEXIN 500MG CAP TAKE ONE CAPSULE BY MOUTH ONE-TIME FOR ACTIVE RODRIGUEZ CATHETER REMOVAL ON THURSDAY. TAKE BEFORE YOUR RODRIGUEZ CATHETER APPOINTMENT. TAKE WITH FOOD Indication: FOR URINARY TRACT INFECTION 4) IBUPROFEN 600MG TAB TAKE ONE TABLET BY MOUTH THREE TIMES A ACTIVE DAY NEEDED TAKE WITH FOOD. Indication: FOR PAIN 5) OXYBUTYNIN CHLORIDE 5MG TAB TAKE ONE TABLET BY MOUTH THREE ACTIVE TIMES A DAY NEEDED Indication: FOR OVERACTIVE BLADDER 6) OXYCODONE HCL 5MG TAB TAKE ONE TABLET BY MOUTH EVERY 6 HOURS ACTIVE NEEDED MAY CAUSE CONSTIPATION Indication: FOR POST-OPERATIVE PAIN 7) PHENAZOPYRIDINE HCL 100MG TAB TAKE TWO TABLETS BY MOUTH ACTIVE THREE TIMES A DAY NEEDED TAKE WITH PLENTY OF WATER*MAY DISCOLOR THE URINE Indication: FOR URINARY ANALGESIA 8) POLYETHYLENE GLYCOL 3350 ORAL PWDR MIX AND DRINK 1 CAPFUL BY ACTIVE MOUTH ONCE A DAY NEEDED (MEASURE WITH CAP AND MIX IN 8 OZ OF WATER) Indication: FOR CONSTIPATION I have reviewed the patient's medication list with the patient and/or his/her care-business account leader. Any medication discrepancies have been resolved. Patient will be provided with an updated list of his/her medication(s). SURGICAL HISTORY: not pertinent FAMILY HISTORY: not pertinent SOCIAL HISTORY: Social History Main Topics: Smoking status: No data available for: Current Tobacco User Alcohol Use: not indorsed ____ Illicit Drug Use: not indorsed Sexual Activity: Other Topics of Concern: ALLERGIES: Review of patient's allergies indicates: Patient has answered NKA PHYSICAL EXAM: VITAL SIGNS: 170/66 (06/28/2024 14:16)61 (06/28/2024 14:16)95% (06/10/2024 08:05)98 F [36.7 C] (06/28/2024 14:16)16 (06/28/2024 14:16) Measurement DT WEIGHT LB(KG)[BMI] 06/09/2024 11:00 198.7(90.13)[28*] 05/31/2024 08:39 203(92.08)[29*] 05/11/2024 09:31 196(88.90)[28*] Measurement DT PAIN 06/28/2024 14:16 0 CONSTITUTIONAL: No acute distress, Non-toxic appearance HENT: airway patent, oropharynx clear EYES: Conj pink, sclera clear NECK: Normal range of motion, No tenderness, Supple, No stridor, No LAD. CARDIOVASCULAR: Normal heart rate, Normal rhythm, No murmurs, No rubs, No gallops. PULMONARY/CHEST: CTA bilaterally, thorax stable without tenderness ABDOMEN: Bowel sounds normal, Soft, flat, No tenderness, No bruit, No masses, No pulsatile masses Has anterior lower abdominal wall surgical scars, adjacent to one of the midline transverse scar there is a small 1 cm palpable swelling lateral to the scar, nontender Also seems to have a small umbilical hernia, nontender BACK: No tenderness, No CVA tenderness : RECTAL: EXTREMITIES: Normal range of motion, Intact distal pulses, No edema, No tenderness LYMPHATIC: No LAD appreciated NEUROLOGIC: Alert & oriented x 3, Normal motor function, Normal gait, no ataxia, No focal deficits appreciated on cursory screening exam SKIN: Warm, Dry, No erythema, No rash LABS: CBC, CMP unremarkable RADIOLOGY: Obstructive series: Impression: Nonspecific bowel gas pattern currently without evidence for bowel obstruction or perforation. Stool and gas throughout the colon to the rectum. Primary Interpreting Staff: Ramez Schaffer MD, Radiologist (Planting Machine Operator) /TE ECG IMPRESSION: ED COURSE & MEDICAL DECISION MAKING: Nursing notes, medications, vital signs, allergies and pertinent labs & imaging studies reviewed (see chart for details) with lab results reviewed with patient/family and radiology results reviewed with patient/family. Stable, alert, nontoxic, nonfocal with clinically apparent small area of anterior abdominal wall swelling adjacent to the surgical incision, the area seems to be very small about less than 1 cm in swelling, nontender on palpation. Urology was consulted for this. Patient also describes having constipation however he has no other complaints with good appetite, has been passing flatus, has had no vomiting or abdominal pain. Obstructive series is negative for any signs of bowel obstruction with having normal bowel gas pattern throughout the colon. Patient encouraged to increase fiber, increase p.o. fluids. Laxatives given. Urology is okay with discharge, informed the patient about all those findings. Discharged home. SHEARER SCREEN MEASURER AND TRIMMER SERVICE/TIME: Urology consulted at 1500 MEDICATIONS GIVEN IN ED: [ ] YES [X] NO DIFFERENTIAL DIAGNOSES CONSIDERED: DECISION to ADMIT / DISCHARGE TIME: 1545 SMOKING CESSATION RECOMMENDATION: N/A ABNORMAL BLOOD PRESSURE: The patient was advised vis-a-vis observation of abnormal blood pressure, risk and complications of same, need for possible treatment or enhanced treatment and advised to follow-up with their PCP for a 5- day blood pressure screen and determination of a diagnosis and possible need for treatment or enhanced treatment of previously established hypertension. DISPOSITION CONDITION:[ ] Improved [X] Unchanged [ ] Deteriorated CLINICAL IMPRESSION: 1 -anterior abdominal surgical site area localized swelling evaluation, status post prostatectomy, rule out incisional hernia 2 -constipation 3 - DISCHARGE INSTRUCTIONS AND PATIENT-DIRECTED FOLLOW-UP RECOMMENDATIONS: Home DIET: regular, increase fiber in the diet, increase p.o. fluids ACTIVITY: ad josh NEW MEDS: Magnesium citrate 1 bottle p.o. x 1 Dulcolax 10 mg as needed for constipation Docusate sodium 100 mg twice daily as stool softener as needed MEDICATION RECONCILIATION: CONTINUE ALL PRESCRIBED MEDICATIONS DIRECTED EXCEPT: FOLLOW-UP WITH PRIMARY COOK NIGHT/SPECIALIST: routine in 1-2 weeks if not improving, sooner if worse RETURN TO EMERGENCY: if any worries or concerns ADDITIONAL SIGNATURE PCP: [X] YES [ ] NO [ ] not listed Active Outpatient Medications (including Supplies): Active Outpatient Medications Status 1) ACETAMINOPHEN 500MG TAB TAKE TWO TABLETS BY MOUTH FOUR TIMES ACTIVE A DAY CAUTION: DO NOT EXCEED 4000MG PER DAY ACETAMINOPHEN (APAP) FROM ALL MEDS. Indication: FOR PAIN 2) AMLODIPINE BESYLATE 2.5MG TAB TAKE THREE TABLETS BY MOUTH ACTIVE ONCE A DAY Indication: FOR HIGH BLOOD PRESSURE 3) CEPHALEXIN 500MG CAP TAKE ONE CAPSULE BY MOUTH ONE-TIME FOR ACTIVE RODRIGUEZ CATHETER REMOVAL ON THURSDAY. TAKE BEFORE YOUR RODRIGUEZ CATHETER APPOINTMENT. TAKE WITH FOOD Indication: FOR URINARY TRACT INFECTION 4) IBUPROFEN 600MG TAB TAKE ONE TABLET BY MOUTH THREE TIMES A ACTIVE DAY NEEDED TAKE WITH FOOD. Indication: FOR PAIN 5) OXYBUTYNIN CHLORIDE 5MG TAB TAKE ONE TABLET BY MOUTH THREE ACTIVE TIMES A DAY NEEDED Indication: FOR OVERACTIVE BLADDER 6) OXYCODONE HCL 5MG TAB TAKE ONE TABLET BY MOUTH EVERY 6 HOURS ACTIVE NEEDED MAY CAUSE CONSTIPATION Indication: FOR POST-OPERATIVE PAIN 7) PHENAZOPYRIDINE HCL 100MG TAB TAKE TWO TABLETS BY MOUTH ACTIVE THREE TIMES A DAY NEEDED TAKE WITH PLENTY OF WATER*MAY DISCOLOR THE URINE Indication: FOR URINARY ANALGESIA 8) POLYETHYLENE GLYCOL 3350 ORAL PWDR MIX AND DRINK 1 CAPFUL BY ACTIVE MOUTH ONCE A DAY NEEDED (MEASURE WITH CAP AND MIX IN 8 OZ OF WATER) Indication: FOR CONSTIPATION /es/ Louis Rodrigues MD Staff Physician Signed: 06/28/2024 18:08 Receipt Acknowledged By: 06/29/2024 13:21 /paola/ BERTHA RAYMOND, ELIUD, AGNP-C NURSE PRACTITIONER LOUIS RODRIGUES [facility] Jun 28, 2024 02:08 PM EMERGENCY DEPT TRI AGE NOTE: LOCAL TITLE: EMERGENCY DEPARTMENT TRIAGE NOTE STANDARD TITLE: EMERGENCY DEPT TRIAGE NOTE DATE OF NOTE: JUN 28, 2024@14:08 ENTRY DATE: JUN 28, 2024@14:09 AUTHOR: JACINTO ADRIAN EXP COSIGNER: URGENCY: STATUS: COMPLETED Emergency Department/Urgent Care Center Triage Patient age:73 Sex in chart: MALE Mode of Arrival: Self Mode of Mobility: * Walk Chief Complaint: Knot over abdomen certified prosthetist/orthotist Note (Subjective/Objective): Pt c/o a knot over his abd that began shortly after pt had his prostate removed ~ 2 to 3 weeks ago. Pt also reports he has not had a BM in approx 2 weeks. Pt reports he is passing gas and has been taking oxycodone for pain relief. Denies tenderness over site where knot is located, n/v, fever, chills, urinary issues. Level of Consciousness (AVPU): Alert = Appears aware of and responsive to the environment on their own. Follows commands, opens eyes spontaneously, and tracks objects. Vital Signs: Temperature 98 F (36.7 C) Pulse 61 Respirations 16 Blood Pressure 170/66 Pulse Oximetry 96 Room Air Pain: No pain Pain Score: 0 Suicide Screen: [place] Suicide Severity Rating Scale (C-SSRS) screener 1. Over the past month, have you [...] required due to responses to other questions. Emergency Severity Index (KONG) level: Level 4 Previously documented allergies: Patient has answered NKA Current Problems: 1) Exposure to potentially hazardous substance ([facility] [id number]) 2) HTN - Hypertension ([facility] [id number]) 3) Prediabetes 4) Chronic Kidney Disease Stage 3A ([facility] [id number]) 5) Elevated PSA /es/ JACINTO ADRIAN RN REGISTERED NURSE Signed: 06/28/2024 14:17 JACINTO ADRIAN [facility]
--- OUTSIDE RECORDS SUMMARY | 2024-08-25 08:57 | XMS_ITS ---
Author Name [facility] ([place] Address [address] [place] [address] Care Team Providers Care Certified Cytotechnologist Name Role Phone BERTHA RAYMOND Primary Care Provider [facility] Insurance Providers: [...] Relationship to Policy Rios SHIKHA NIEVES - [facility] SPECIAL CLASS SHIKHA YOUSIF Apr 27, 2019 SHIKHA NIEVES [id number] [facility] PATIENT MEDICARE (WNR) MEDICARE (M) PART A Nov 21, 2014 PART A [id number] [phone] [facility] PATIENT MEDICARE (WNR) MEDICARE (M) PART B Nov 21, 2014 PART B [id number] [facility] PATIENT Selected Encounter This section includes the information on record at [place] for the Encounter. Date/Time Encounter Type Encounter Description Reason Provider Source Jun 09, 2024 04:26 PM Outpatient Encounter ADMIN PAT ACTIVTIES (MASNONCT) HOSSEIN PRICE Encounter Template Text not used by NE Plan of Treatment: Future Appointments (+ 6 months) and Future Tests (+/- 45 days) The Plan of Treatment section includes future care activities for the [facility] This section includes future appointments and future orders which are active, pending or scheduled. Future Appointments This section includes appointments that were scheduled to occur 6 months from the date of the Encounter, up to a maximum of 20 appointments. The data comes from all [facility]. Appointment Date/Time Appointment Type Appointme nt Facility Name Jun 14, 2024 09:30 AM AMBULATORY - MEDICINE [facility] Jun 17, 2024 11:00 AM AMBULATORY - SURGERY [facility] Jun 28, 2024 02:06 PM [facility] MED[facility] Jul 11, 2024 09:00 AM [facility] SURG[facility] August 19, 2024 02:00 PM AMBULATORY [facility] Oct 10, 2024 09:00 AM AMBULATORY SURGERY [facility] Oct 18, 2024 09:30 AM [facility] Active, Pending, and Scheduled Orders This section includes a listing of several types of active, pending, and scheduled orders, including clinic medications orders, diagnostic test orders, procedure orders and consult orders; where the start date of the order is 45 days before the date of the Encounter or 45 days after the date of theEncounter. The data comes from all [facility]. Test Date/Time Test Type Test Details Facility Name May 11, 2024 12:00 AM Laboratory - Blood Bank Order TYPE & SCREEN - LAB BLOOD SP [facility] Jun 09, 2024 12:00 AM Laboratory - Blood Bank Order TYPE & SCREEN - LAB BLOOD WC [facility] Lab Results: +/- 30 days of the encounter This section includes the Chemistry and Hematology Lab Results on record with NE for the patient. Radiology Reports and Pathology Reports are provided separately, in subsequent sections. Lab Results This section contains the Chemistry/Hematology Results that were resulted 30 days before or 30 daysafter the date of the Encounter. Date/Time Source Result Type Result - Unit Interpretation Reference Range Specimen Type Comment Jun 28, 2024 04:30 PM [facility] CBC BLOOD Specimen Type: BLOOD No comment entered. Ordering Provider: ABY RODRIGUES Report Released Date/Time: Jun 28, 2024 04:23 PM Reporting Lab: [facility] [address] [place] [phone] Performing Lab: [facility] [address] [place] [address] WBC 5.5 10*3/uL 3.6-11.2 RBC 4.44 10*6/uL [...] 0.00-0. 20 Jun 28, 2024 04:30 PM [facility] COMPREHENSIVE METABOLIC PANEL PLASMA Specimen Type: PLASMA Comment: No hemolysis noted. Ordering Provider: ABY RODRIGUES Report Released Date/Time: Jun 28, 2024 04:23 PM Reporting Lab: [facility] [address] [place] [phone] Performing Lab: [address] [address] CREATININE 1.18 mg/dL 0.7-1.3 UREA NITROGEN 19.0 [...] 64.8 >60 Jun 10, 2024 04:46 AM [facility] GLUCOSE,BLOOD-poct (STL) BLOOD Specimen Type: BLOOD Comment: Test Performed by: [id number] Meter #: [id number] Ordering Provider: BRADLEY OVALLES Report Released Date/Time: Jun 10, 2024 05:21 AM Reporting Lab: [address] [address] Performing Lab: [address] [address] GLUCOSE,BLOOD-poct (STL) 146 mg/dL H 72-99 Jun 09, 2024 08:12 PM [facility] CBC BLOOD Specimen Type: BLOOD No comment entered. Ordering Provider: BETO MCMILLAN Report Released Date/Time: Jun 09, 2024 05:43 PM Reporting Lab: [address] [address] Performing Lab: [address] [address] WBC 11.1 10*3/uL 3.6-11.2 RBC 4.00 10*6/uL [...] H 2.10-8.00 Jun 09, 2024 07:00 PM [facility] MRSA SURVL NARES DNA NARES Specimen [...] Jun 09, 2024 05:57 PM Reporting Lab: [address] [address] Performing Lab: [address] [address] MRSA SURVL NARES DNA Negative Negative Jun 09, 2024 10:40 AM [facility] COVID-19 DIAGNOSTIC (FLU/RSV)(STL) NASOPHARYNX Spec imen [...] Jun 07, 2024 02:47 PM Reporting Lab: [address] [address] Performing Lab: [address] [place] [address] INFLUENZA A NEG Negative INFLUENZA B NEG Negative COVID-19 (L-PB) NEG Not Detected RSV (Cepheid) Negative Negative May 11, 2024 10:38 AM [facility] HGA1C BLOOD Specimen Type: BLOOD No comment entered. Ordering Provider: BERTHA RAYMOND Report Released Date/Time: Apr 22, 2024 01:42 PM Reporting Lab: [address] [address] Performing Lab: [place] [phone] HGA1C 5.7 4.0-6.0 May 11, 2024 10:37 AM [facility] PT/INR NEW ([facility]) PLASMA Specimen Type: PLAS MA No comment entered. Ordering Provider: MANJINDER CORBIN Report Released Date/Time: May 11, 2024 10:21 AM Reporting Lab: [address] [address] Performing Lab: [address] [address] PROTIME 11.6 s 9.4-12.5 INR VALUE 1.0 {INR} May 11, 2024 10:37 AM [facility] BASIC METABOLIC PANEL PLASMA Specimen Type: PL ASMA Comment: No hemolysis noted. Ordering Provider: MANJINDER CORBIN Report Released Date/Time: May 11, 2024 10:21 AM Reporting Lab: [address] [address] Performing Lab: [address] [address] CREATININE 1.08 mg/dL 0.7-1.3 UREA NITROGEN 17.0 mg/dL 9.0-25.0 GLUCOSE 101 mg/dL H 72-99 SODIUM 140 meq/L 136-145 POTASSIUM 4.4 meq/L 3.5-5 CHLORIDE 106 meq/L 98-107 CARBON DIOXIDE 27 meq/L 22-31 CALCIUM 9.3 mg/dL 8.4-10.4 EGFR (CKD-EPI 2020) 72.0 >60 May 11, 2024 10:37 AM [facility] CBC BLOOD Specimen Type: BLOOD No comment entered. Ordering Provider: MANJINDER CORBIN Report Released Date/Time: May 11, 2024 10:21 AM Reporting Lab: [facility] [address] [facility] [address] Performing Lab: [facility] [address] [facility] [address] WBC 6.4 10*3/uL 3.6-11.2 RBC 5.21 10*6/uL [...] Source Jun 09, 2024 09:28 PM 3 [facility] N Jun 09, 2024 09:02 PM 97.4 87 123/72 18 92 3 [facility] N Jun 09, 2024 06:05 PM 4 [facility] Jun 09, 2024 06:03 PM 4 [facility] Jun 09, 2024 05:58 PM 97.7 91 103/64 20 95 4 [facility] N Social History: Smoking Status (Most current) and Tobacco Use (All prior to encounter date) This section includes the most current, and the historical, smoking and tobacco- related health factors from the NE facility where the Encounter took place. Current Smoking Status This section includes the most current smoking, or tobacco-related health factor, from the [place] facility where the Encounter took place. Date/Time Current Smoking Status Comment Facil ity Dec 24, 2023 11:44 AM VA-TOBACCO NEVER USED [facility] Radiology Reports: +/- 30 days of [...] the Encounter. The data comes from all [place] treatment facilities. Date/Time Radiology Report Provider Source Jun 28, 2024 04:33 PM OBSTRUCTIVE SERIES : RAMEZ GODINEZ [id number] -1950 M Exm Date: JUN 28, 2024@16:33 Req Phys: ABY RODRIGUES Loc: -EMERGENCY DEPT 2ND SHIFT (R Img Loc: -MAIN RADIOLOGY SUITE Service: [facility], [facility] [address] [place] [address] (Case [id number] COMPLETE) OBSTRUCTIVE SERIES (RAD Detailed) CPT:81696 Reason for Study: constipation x 2 wks Clinical History: Report Status: Verified Date Reported: JUN 28, 2024 Date Verified: JUN 28, 2024 Grade Teacher E-Sig:/ES/Ramez Schaffer MD Report: CASE #: [id number] DATE:06/28/2024 4:43 PM CLINICAL HISTORY:constipation x 2 [...] Primary Interpreting Staff: Ramez Schaffer MD, Radiologist (Grade Teacher) /RAMEZ OLIVAS [facility] May 11, 2024 10:27 AM CHEST X-RAY, 2 VIE WS: RAMEZ GODINEZ [id number] -1950 M Exm Date: MAY 11, 2024@10:27 Req Phys: MANJINDER CORBIN Loc: -UROLOGY RES (Req'g Loc) Img Loc: -MAIN RADIOLOGY SUITE Service: [address] [address] (Case [id number] COMPLETE) CHEST X-RAY, 2 VIEWS (RAD Detailed) CPT:10768 Reason for Study: pre-operative testing Clinical History: Report Status: Verified Date Reported: MAY 12, 2024 Date Verified: MAY 12, 2024 Grade Teacher E-Sig:/PAOLA/ELIJAH MCCOY Report: CHEST X-RAY, 2 VIEWS COMPARISON: None. HISTORY: pre-operative testing FINDINGS: The heart size and pulmonary vasculature are normal. There is no consolidating infiltrate, effusion or pneumothorax. Mild hyperinflation. Impression: No active lung disease. RR Primary Interpreting Staff: ELIJAH MCCOY Staff Physician (Grade Teacher) /ELIJAH DELEON [facility] Pathology Reports: +/- 30 days of [...] the Encounter. The data comes from all [place] treatment facilities. Date/Time Pathology Report Provider Source [...] cut surface with no dominant nodule identified. Buyer sections are submitted as follows: B1: fragment [...] conventional (usual) Histologic Grade: Grade group 5 (Eden Score 4 + 5 = 9) Intraductal [...] Performing Laboratory: Surgical Pathology Report Performed By: [facility] [address] [facility] CLCARMEN# [id number] [address] [address] [place] [address] $FTR - - - - - - - - - - - - - - - - - - - - - - - - - - - - - - - - - - - - - - - - (End of report) VIVEK ALLEN MD evp head of [employer] strategy Date Jun 12, 2024 - - - - - - - - - - - - - - - - - - - - - - - - - - - - - - - - - - - - - - - - RAMEZ GODINEZ STANDARD FORM 515 ID:[id number] SEX:M :1950 AGE: 73 LOC:APFEE PCP: Bertha Raymond NP /paola/ VIVEK ALLEN M.D., PH.D. PATHOLOGIST Signed: 06/16/2024 14:49 VIVEK ALLEN [facility] May 31, 2024 04:37 PM [...] Performing Laboratory: Surgical Pathology Report Performed By: [address] CLIA# [id number] [address] [place] [phone] $FTR - - - - - - [...] - - RAMEZ GODINEZ STANDARD FORM 515 ID:[id number] SEX:M :1950 AGE: 73 LOC:GILABA PCP: Bertha Raymond NP /paola/ ALMA SÁNCHEZ MD, PhD STAFF PATHOLOGIST Signed: 05/31/2024 16:37 ALMA SÁNCHEZ [facility] May 11, 2024 10:45 AM LR MICROBIOLOGY RE PORT: Accession [UID]: [id number] [[id number]] Received: May 11, 2024@10:46 Collection sample: URINE,CLEAN CATCH Collection date: May 11, 2024 10:45 Site/Specimen: URINE Provider: MANJINDER CORBIN Test(s) ordered: C&S URINE..................... completed: May 13, 2024 13:51 * BACTERIOLOGY FINAL REPORT => May 13, 2024 14:19 TECH CODE: [id number] GRAM STAIN: Bacteriology Remark(s): 2.20.25 KAA Culture in progress 2.21.25 KAA CULTURE SHOWS >10,000 - <25,000 CFU/ML PROTEUS MIRABILIS AND >10,000 - <25,000 CFU/ML STAPH EPIDERMIDIS There will be no work up. =--=--=--=--=--=--=--=--=--=- -=--=--=--=--=--=--=--=--=--= --=--=--=--=--=--=-- Performing Laboratory: Bacteriology Report Performed By: [facility] CLIA# [id number] [facility] [address] [place] [address] LIZZIE COYNE [facility] Encounter Notes: All associated encounter notes This section contains the clinical notes associated to the Encounter. Date/Time Encounter Note(s) Provider Source Jun 09, 2024 04:26 PM ANESTHESIOLOGY SIVA WSHEET: LOCAL TITLE: ANES INTRA-OP FLOWSHEET ST STANDARD TITLE: ANESTHESIOLOGY FLOWSHEET DATE OF NOTE: JUN 09, 2024@16:26 ENTRY DATE: JUN 09, 2024@16:26:06 AUTHOR: HOSSEIN PRICE EXP COSIGNER: URGENCY: STATUS: COMPLETED Patient: RAMEZ GODINEZ SSN: [id number] Date of Operation: 06/09/2024 Surgery Start Time: 06/09/2024 11:36 Surgery End Time: 06/09/2024 16:13 Anesthesia Care Start: 06/09/2024 11:12 Anesthesia Care End: 06/09/2024 16:28 Anesthesia Method: - General 06/09/2024 11:46 (Primary), Airway: Endotracheal Intubation, Technique: Direct Laryngoscopy, Level Of Consciousness: Sedated, Patient Position: Supine, Preoxygenated, Induction Type: Intravenous, Breathing Circuit: [place] Adult, Ventilation by Mask: Easy to Ventilate with Aid/Adjunct, Intubating Device: Curved Blade, Ease: Easy, 1 Number Of Attempts, Intubation View: Grade 1, Blade Size: 4, Size: 7.5 mm, Depth (cm): 24, Tube: Cuffed, Depth Measurement Location: Teeth, Tracheal Cuff Inflated With Min. Volume To Create Seal, Tracheal Cuff Inflated With: Air, EtCO2 Verified: Waveform, Breath Sounds: Equal And Bilateral, Epigastric Sounds Negative, Performed By: Other, Result: Successful Rationale For Selected Technique: Elective Route: Oral Tube Checklist: Balloons Checked, Attachments Available Airway Tube: Standard Adjunct Devices: Oral Airway, Stylet Verification Of Tube Placement: Tube Inserted Via DVVC (Direct Vision Vocal Cords), Bilateral Chest Movement Securement: Taped Eye Protection: Both Eyes, Tape Insertion Complication: No Complications Noted Positioning: Head Neutral, Head And Neck In Alignment With Spine, Pressure Points Padded & Checked, Eyes, Ears And Nose Free Of Pressure, Groin Free Of Pressure Intubated by Oskar [facility] ASA Number: 3 Procedure: ROBOTIC ASSISTED LAPAROSCOPIC PROSTATECTOMY WITH BILATERAL PELVIC LYMPH NODE DISSECTION Diagnosis: PROSTATE CANCER Holding, Anesthesia, PACU Drugs: --------- Phenylephrine gtt: 46928.226 mcg FentaNYL: 200 mcg Lidocaine: 100 mg Propofol: 150 mg Sugammadex: 280 mg Rocuronium: 210 mg Phenylephrine: 450 mcg ePHEDrine: 50 mg HYDROmorphone: 0.8 mg Ondansetron: 4 mg Glycopyrrolate: 0.3 mg ceFAZolin: 4 g Dexamethasone: 8 mg Acetaminophen IVPB: 1 g Holding, Anesthesia, PACU Fluids: Ringers Lactated Solution: 2000 ml Normal Saline: 300 ml Urine Output: 275 ml Albumin, 5%(Plasmanate): 500 ml Estimated Blood Loss: 500 ml Resources: Aquacel foam placed on travis prominence to protect skin during surgery Safety Belt Staff: --------- BETO MCMILLAN, KARLA IVEY, ATT. SURGEON GENOVEVA PULIDO ANES. SUPER. FELDMANN, REBECCA, PRIN. ANES. CRECELIUS, CURT, RELIEF INTERNETWORKING TECHNICIAN MARIA TERESA CASPER, RELIEF INTERNETWORKING TECHNICIAN HOSSEIN PRICE, RELIEF INTERNETWORKING TECHNICIAN Anesthesia Procedure: ----- Procedure 06/09/2024 11:12 In Situ, Line Number: 1, Site: Hand, Laterality: Left, Catheter Type: Angio, Catheter Size: 20 Ga Securement: Taped, Sterile Occlusive Dressing Procedure 06/09/2024 12:12 Line Number: 2, Level Of Consciousness: Anesthetized, Site: Arm, Laterality: Left, Catheter Type: Angio, Catheter Size: 18 Ga, Inserted By: Other, 1 Number Of Attempts, Ease: Easy Patient Location: Post Induction - OR Technique: Standard Securement: Taped, Sterile Occlusive Dressing placed by Oskar Alvarez RN/OSIRIS Procedure Date: 06/09/2024 Procedure Start Time: Procedure End Time: /paola/ HOSSEIN PRICE BOWLING BALL GRADER AND MARKER Signed: 06/09/2024 16:26 HOSSEIN PRICE [facility]
--- OUTSIDE RECORDS SUMMARY | 2024-08-25 08:57 | XMS_ITS ---
Author Name [facility] [place] [facility] [place] Address [address] [place] [address] Care Team Providers Care Improvement Coordinator Name Role Phone BERTHA RAYMOND Primary Care Provider [facility] Insurance Providers: All historical and current [...] to Policy Rios SHIKHA NIEVES - [place] SPECIAL [place] SHIKHA YOUSIF Apr 27, 2019 SHIKHA NIEVES [id number] [facility] (WNR) MEDICARE (M) PART A Nov 21, 2014 PART A [id number] [facility]LY [facility] OM PATIENT MEDICARE (WNR) MEDICARE (M) PART B Nov 21, 2014 PART B [id number] [phone] [facility] PATIENT Selected Encounter This section includes the information on record at [place] for the Encounter. Date/Time Encounter Type Encounter Description Reason Provider Source Jun 09, 2024 03:37 PM Outpatient Encounter ADMIN PAT ACTIVTIES (MASNONCT) ZULLY GONZALEZ [facility] Encounter Template Text not used by [place] Plan of Treatment: Future Appointments (+ 6 months) and Future Tests (+/- 45 days) The Plan of Treatment section includes future care activities for the patient [facility] [place] [facility] This section includes future appointments and future orders which are active, pending or scheduled. Future Appointments This section includes appointments that were scheduled to occur 6 months from the date of the Encounter, up to a maximum of 20 appointments. The data comes from all [facility]. Appointment Date/Time Appointment Type Appointme nt Facility Name Jun 14, 2024 09:30 AM AMBULATORY - MEDICINE [facility] Jun 17, 2024 11:00 AM AM[facility]ATORY - SURGERY [facility] Jun 28, 2024 02:06 PM [facility] MEDICINE [facility] Jul 11, 2024 09:00 AM [facility] SURGERY [facility] August 19, 2024 02:00 PM AMBULATORY [facility] Oct 10, 2024 09:00 AM AMBULATORY SURGERY [facility] Oct 18, 2024 09:30 AM [facility] Active, Pending, and Scheduled Orders This section includes a listing of several types of active, pending, and scheduled orders, including clinic medications orders, diagnostic test orders, procedure orders and consult orders; where the start date of the order is 45 days before the date of the Encounter or 45 days after the date of theEncounter. The data comes from all [facility]. Test Date/Time Test Type Test Details Facility Name May 11, 2024 12:00 AM Laboratory - Blood Bank Order TYPE & SCREEN - LAB BLOOD SP [facility] Jun 09, 2024 12:00 AM Laboratory - Blood Bank Order TYPE & SCREEN - LAB BLOOD WC [facility] Lab Results: +/- 30 days of [...] Type Comment Jun 28, 2024 04:30 PM [facility] CBC BLOOD Specimen Type: BLOOD No comment entered. Ordering Provider: ABY RODRIGUES Report Released Date/Time: Jun 28, 2024 04:23 PM Reporting Lab: [facility] [address] [place] [phone] Performing Lab: [address] [address] WBC 5.5 10*3/uL 3.6-11.2 RBC 4.44 10*6/uL [...] 0.00-0. 20 Jun 28, 2024 04:30 PM [facility] COMPREHENSIVE METABOLIC PANEL PLASMA Specimen Type: PLASMA Comment: No hemolysis noted. Ordering Provider: ABY RODRIGUES Report Released Date/Time: Jun 28, 2024 04:23 PM Reporting Lab: [facility] [address] [place] [phone] Performing Lab: [address] [address] CREATININE 1.18 mg/dL 0.7-1.3 UREA NITROGEN 19.0 [...] 64.8 >60 Jun 10, 2024 04:46 AM [facility] GLUCOSE,BLOOD-poct (STL) BLOOD Specimen Type: BLOOD Comment: Test Performed by: [id number] Meter #: [id number] Ordering Provider: BRADLEY OVALLES Report Released Date/Time: Jun 10, 2024 05:21 AM Reporting Lab: [address] [address] Performing Lab: [address] [address] GLUCOSE,BLOOD-poct (STL) 146 mg/dL H 72-99 Jun 09, 2024 08:12 PM [facility] CBC BLOOD Specimen Type: BLOOD No comment entered. Ordering Provider: BETO MCMILLAN Report Released Date/Time: Jun 09, 2024 05:43 PM Reporting Lab: [address] [address] Performing Lab: [address] [address] WBC 11.1 10*3/uL 3.6-11.2 RBC 4.00 10*6/uL [...] H 2.10-8.00 Jun 09, 2024 07:00 PM [facility] MRSA SURVL NARES DNA NARES Specimen [...] Jun 09, 2024 05:57 PM Reporting Lab: [address] [address] Performing Lab: [address] [address] MRSA SURVL NARES DNA Negative Negative Jun 09, 2024 10:40 AM [facility] COVID-19 DIAGNOSTIC (FLU/RSV)(STL) NASOPHARYNX Spec imen [...] Jun 07, 2024 02:47 PM Reporting Lab: [address] [address] Performing Lab: [address] [place] [address] INFLUENZA A NEG Negative INFLUENZA B NEG Negative COVID-19 ([facility]) NEG Not Detected RSV (Cepheid) Negative Negative May 11, 2024 10:38 AM [facility] HGA1C BLOOD Specimen Type: BLOOD No comment entered. Ordering Provider: BERTHA RAYMOND Report Released Date/Time: Apr 22, 2024 01:42 PM Reporting Lab: [place] [phone] Performing Lab: [place] [phone] HGA1C 5.7 4.0-6.0 May 11, 2024 10:37 AM [facility] PT/INR NEW ([facility]) PLASMA Specimen Type: PLAS MA No comment entered. Ordering Provider: MANJINDER CORBIN Report Released Date/Time: May 11, 2024 10:21 AM Reporting Lab: [address] [address] Performing Lab: [address] [address] PROTIME 11.6 s 9.4-12.5 INR VALUE 1.0 {INR} May 11, 2024 10:37 AM [facility] BASIC METABOLIC PANEL PLASMA Specimen Type: PL ASMA Comment: No hemolysis noted. Ordering Provider: MANJINDER CORBIN Report Released Date/Time: May 11, 2024 10:21 AM Reporting Lab: [address] [address] Performing Lab: [address] [address] CREATININE 1.08 mg/dL 0.7-1.3 UREA NITROGEN 17.0 mg/dL 9.0-25.0 GLUCOSE 101 mg/dL H 72-99 SODIUM 140 meq/L 136-145 POTASSIUM 4.4 meq/L 3.5-5 CHLORIDE 106 meq/L 98-107 CARBON DIOXIDE 27 meq/L 22-31 CALCIUM 9.3 mg/dL 8.4-10.4 EGFR (CKD-EPI 2020) 72.0 >60 May 11, 2024 10:37 AM [facility] CBC BLOOD Specimen Type: BLOOD No comment entered. Ordering Provider: MANJINDER CORBIN Report Released Date/Time: May 11, 2024 10:21 AM Reporting Lab: [facility] [address] [facility] [address] Performing Lab: [facility] [address] [facility] [address] WBC 6.4 10*3/uL 3.6-11.2 RBC 5.21 10*6/uL [...] Source Jun 09, 2024 09:28 PM [address] [facility] Jun 09, 2024 09:02 PM 97.4 87 123/72 18 92 [address] [facility] Jun 09, 2024 06:05 PM 4 [facility] Jun 09, 2024 06:03 PM 4 [facility] Jun 09, 2024 05:58 PM 97.7 91 103/64 20 95 4 [facility] Social History: Smoking [...] 24, 2023 11:44 AM VA-TOBACCO NEVER USED [facility] Radiology Reports: +/- 30 [...] 04:33 PM OBSTRUCTIVE SERIES : RAMEZ GODINEZ [id number] -1950 M Exm Date: JUN 28, 2024@16:33 Req Phys: ABY RODRIGUES Loc: -EMERGENCY DEPT 2ND SHIFT (R Img Loc: -MAIN RADIOLOGY SUITE Service: [facility], [facility] [address] [place] [address] (Case [id number] COMPLETE) OBSTRUCTIVE SERIES (RAD Detailed) CPT:88263 Reason for Study: constipation x 2 wks Clinical History: Report Status: Verified Date Reported: JUN 28, 2024 Date Verified: JUN 28, 2024 Pit Clerk E-Sig:/ES/Ramez Schaffer MD Report: CASE #: [id number] DATE:06/28/2024 4:43 PM CLINICAL HISTORY:constipation x 2 [...] Primary Interpreting Staff: Ramez Schaffer MD, Radiologist (Pit Clerk) /RAMEZ OLIVAS [facility] May 11, 2024 10:27 AM CHEST X-RAY, 2 VIE WS: RAMEZ GODINEZ [id number] -1950 M Exm Date: MAY 11, 2024@10:27 Req Phys: MANJINDER CORBIN Loc: PAT-UROLOGY RES (Req'g Loc) Img Loc: -MAIN RADIOLOGY SUITE Service: [address] [address] (Case [id number] COMPLETE) CHEST X-RAY, 2 VIEWS (RAD Detailed) CPT:68854 Reason for Study: pre-operative testing Clinical History: [...] Primary Interpreting Staff: ELIJAH MCCOY Staff Physician (Pit Clerk) /ELIJAH DELEON [facility] Pathology Reports: +/- 30 days [...] comes from all [place] treatment facilities. Date/Time Pathology Report Provider Source [...] cut surface with no dominant nodule identified. Senior Net Developer sections are submitted as follows: B1: fragment [...] conventional (usual) Histologic Grade: Grade group 5 (Atwood Score 4 + 5 = 9) Intraductal [...] Performing Laboratory: Surgical Pathology Report Performed By: [facility] [address] [facility] CLCARMEN# [id number] [address] [facility] [address] [place] [address] $FTR - - - - - - - - - - - - - - - - - - - - - - - - - - - - - - - - - - - - - - - - (End of report) VIVEK ALLEN MD svp chief marketing officer Date Jun 12, 2024 - - - - - - - - - - - - - - - - - - - - - - - - - - - - - - - - - - - - - - - - RAMEZ GODINEZ STANDARD FORM 515 ID:[id number] SEX:M :1950 AGE: 73 LOC:APFEE PCP: Bertha Raymond NP /carlita ALLEN M.D., PH.D. PATHOLOGIST Signed: 06/16/2024 14:[address] [facility] May 31, 2024 04:37 PM LR [...] Performing Laboratory: Surgical Pathology Report Performed By: [address] CLIA# [id number] [address] [place] [phone] $FTR - - - - - - [...] - - RAMEZ GODINEZ STANDARD FORM 515 ID:[id number] SEX:M :1950 AGE: 73 LOC:GILABA PCP: Bertha Raymond NP /es/ ALMA SÁNCHEZ MD, PhD STAFF PATHOLOGIST Signed: 05/31/2024 16:37 AL[address] SÁ[address]HEZ [facility] May 11, 2024 10:45 AM LR MICROBIOLOGY RE PORT: Accession [UID]: [id number] [[id number]] Received: May 11, 2024@10:46 Collection sample: URINE,CLEAN CATCH Collection date: May 11, 2024 10:45 Site/Specimen: URINE Provider: MANJINDER CORBIN Test(s) ordered: C&S URINE..................... completed: May 13, 2024 13:51 * BACTERIOLOGY FINAL REPORT => May 13, 2024 14:19 TECH CODE: [id number] GRAM STAIN: Bacteriology Remark(s): 2.20.25 KAA Culture in progress 2.21.25 KAA CULTURE SHOWS >10,000 - <25,000 CFU/ML PROTEUS MIRABILIS AND >10,000 - <25,000 CFU/ML STAPH EPIDERMIDIS There will be no work up. =--=--=--=--=--=--=--=--=--=- -=--=--=--=--=--=--=--=--=--= --=--=--=--=--=--=-- Performing Laboratory: Bacteriology Report Performed By: [facility] [address] [facility] CLIA# [id number] [facility] [address] [place] [address] [facility] Encounter Notes: All associated encounter notes This section contains the clinical notes associated to the Encounter. Date/Time Encounter Note(s) Provider Source Jun 09, 2024 03:37 PM ANESTHESIOLOGY NOT E: LOCAL TITLE: ANESTHESIA ALBUMIN MEDICATION NOTE STL STANDARD TITLE: ANESTHESIOLOGY NOTE DATE OF NOTE: JUN 09, 2024@15:37 ENTRY DATE: JUN 09, 2024@15:37:32 AUTHOR: ZULLY GONZALEZ EXP COSIGNER: URGENCY: STATUS: COMPLETED ALBUMIN ADMINISTRATION Bottle 2 Lot# [id number] Expiration Date: 2026 /paola/ ZULLY GONZALEZ CRNA TERRAZZO TILE SETTER, Anesthesiology Signed: 06/09/2024 15:38 ZULLY GONZALEZ [facility]
--- OUTSIDE RECORDS SUMMARY | 2024-08-25 08:57 | XMS_ITS | Encounter Summary ---
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 Date/Time Encounter Type Encounter Description Reason Provider Source Apr 20, 2024 09:30 AM [facility] ICD-10-CM R97.20 Elevated prostate specific antigen [PSA] MALORIE FERGUSON Encounter Template Text not used by [place] Assessments - Encounter Diagnoses This section includes the primary and secondary diagnoses documented for the Encounter. Date/Time Primary/Secondary Diagnosis Diagnosis Name Provider Source Apr 20, 2024 09:52 AM PRIMARY Elevated prostate specific antigen [PSA] SAMANTHA JOINER [facility] Plan of Treatment: Future Appointments (+ 6 months) and Future Tests (+/- 45 days) The Plan of Treatment section includes future care activities for the patient from all [place] [facility]. This section includes future appointments and future orders which are active, pending or scheduled. Future Appointments This section includes appointments that were scheduled to occur 6 months from the date of the Encounter, up to a maximum of 20 appointments. The data comes from all [place] treatment facilities. Appointment Date/Time Appointment Type Appointme nt Facility Name Apr 22, 2024 01:30 PM AMBULATORY - MEDICINE [facility] Apr 27, 2024 11:00 AM AMBULATORY - NONE [facility] May 06, 2024 10:00 AM AMBULATORY - MEDICINE [facility] May 11, 2024 10:00 AM AMBULATORY - SURGERY [facility] May 27, 2024 07:15 AM AMBULATORY - MEDICINE [facility] May 31, 2024 09:00 AM AMBULATORY - SURGERY [facility] Jun 09, 2024 08:44 AM AMBULATORY - NONE [facility] Jun 14, 2024 09:30 AM AMBULATORY - MEDICINE [facility] Jun 17, 2024 11:00 AM AMBULATORY - SURGERY [facility] Jun 28, 2024 02:06 PM AMBULATORY - MEDICINE [facility] Jul 11, 2024 09:00 AM AMBULATORY - SURGERY [facility] August 19, 2024 02:00 PM AMBULATORY - MEDICINE [facility] Oct 10, 2024 09:00 AM AMBULATORY - SURGERY [facility] Oct 18, 2024 09:30 AM AMBULATORY - MEDICINE [facility] Active, Pending, and Scheduled Orders This section includes a listing of several types of active, pending, and scheduled orders, including clinic medications orders, diagnostic test orders, procedure orders and consult orders; where the start date of the order is 45 days before the date of the Encounter or 45 days after the date of theEncounter. The data comes from all [place] treatment facilities. Test Date/Time Test Type Test Details Facility Name Apr 22, 2024 12:00 AM Laboratory - Chemi stry Order BASIC METABOLIC PANEL GREEN LI/HEP BLD/PLAS PLASMA SP [facility] May 11, 2024 12:00 AM Laboratory - Blood Bank Order TYPE & SCREEN - LAB BLOOD SP [facility] Lab Results: +/- 30 days of the encounter This section includes the Chemistry and Hematology Lab Results on record with [place] for the patient. Radiology Reports and Pathology Reports are provided separately, in subsequent sections. Lab Results This section contains the Chemistry/Hematology Results that were resulted 30 days before or 30 daysafter the date of the Encounter. Date/Time Source Result Type Result - Unit Interpretation Reference Range Specimen Type Comment May 11, 2024 10:38 AM [facility] HGA1C BLOOD Specimen Type: BLOOD No comment entered. Ordering Provider: BERTHA RAYMOND Report Released Date/Time: Apr 22, 2024 01:42 PM Reporting Lab: [facility] [address] [facility] [address] Performing Lab: [place] [address] [facility] [address] HGA1C 5.7 4.0-6.0 May 11, 2024 10:[address] [facility] PT/INR NEW (STL-MA) PLASMA Specimen Type: PLAS MA No comment entered. Ordering Provider: MANJINDER CORBIN Report Released Date/Time: May 11, 2024 10:21 AM Reporting Lab: [facility] [address] [facility] [address] Performing Lab: [facility] [address] [facility] [address] PROTIME 11.6 s 9.4-12.5 INR VALUE 1.0 {INR} May 11, 2024 10:[address] [facility] BASIC METABOLIC PANEL PLASMA Specimen Type: PL ASMA Comment: No hemolysis noted. Ordering Provider: MANJINDER CORBIN Report Released Date/Time: May 11, 2024 10:21 AM Reporting Lab: [address] [address] Performing Lab: [address] [address] CREATININE 1.08 mg/dL 0.7-1.3 UREA NITROGEN 17.0 mg/dL 9.0-25.0 GLUCOSE 101 mg/dL H 72-99 SODIUM 140 meq/L 136-145 POTASSIUM 4.4 meq/L 3.5-5 CHLORIDE 106 meq/L 98-107 CARBON DIOXIDE 27 meq/L 22-31 CALCIUM 9.3 mg/dL 8.4-10.4 EGFR (CKD-EPI 2020) 72.0 >60 May 11, 2024 10:[address] [facility] CBC BLOOD Specimen Type: BLOOD No comment entered. Ordering Provider: MANJINDER CORBIN Report Released Date/Time: May 11, 2024 10:21 AM Reporting Lab: [address] [address] Performing Lab: [address] [address] WBC 6.4 10*3/uL 3.6-11.2 RBC 5.21 10*6/uL [...] and tobacco- related health factors from the [place] facility where the Encounter took place. Current Smoking Status This section includes the most current smoking, or tobacco-related health factor, from the [place] facility where the Encounter took place. Date/Time Current Smoking Status Comment Facil ity Dec 24, 2023 11:44 AM VA-TOBACCO NEVER USED [facility] Radiology Reports: +/- 30 days of [...] the Encounter. The data comes from all [place] treatment facilities. Date/Time Radiology Report Provider Source May 11, 2024 10:27 AM CHEST X-RAY, 2 VIE WS: RAMEZ GODINEZ [id number] -1950 M Ex Date: MAY 11, 2024@10:27 Req Phys: MANJINDER CORBIN Loc: PAT-UROLOGY MD RES (Req'g Loc) Im Loc: -MAIN RADIOLOGY SUITE Service: [address] [address] (Case [id number] COMPLETE) CHEST X-RAY, 2 VIEWS (RAD Detailed) CPT:46975 Reason for Study: pre-operative testing Clinical History: Report Status: Verified Date Reported: MAY 12, 2024 Date Verified: MAY 12, 2024 Sole Leather Cutting Machine Operator E-Sig:/PAOLA/ELIJAH MCCOY Report: CHEST X-RAY, 2 VIEWS COMPARISON: None. HISTORY: pre-operative testing FINDINGS: The heart size and pulmonary vasculature are normal. There is no consolidating infiltrate, effusion or pneumothorax. Mild hyperinflation. Impression: No active lung disease. RR Primary Interpreting Staff: ELIJAH MCCOY, Staff Physician (Sole Leather Cutting Machine Operator) /ELIJAH DELEON [facility] Apr 27, 2024 11:21 AM PET/CT PSMA-P: RAMEZ GODINEZ [id number] -1950 M Exm Date: APR 27, 2024@11:21 Req Phys: SAMANTHA JOINER Pat Loc: PAT-UROLOGY TRUS NON-OR (Req'g Img Loc: PAT-PET-CT Service: Unknown [facility] [address] [place] [address] (Case [id number] COMPLETE) PET/CT SKULL BASE TO MID-THIGH (NM Detailed) CPT:79872 CPT Modifiers : PI PET TUMOR INIT [...] 27, 2024 Date Verified: APR 27, 2024 Sole Leather Cutting Machine Operator E-Sig:/ES/EMMANUEL PEREZ Report: PATIENT NAME: RAMEZ GODINEZ. CASE #: [id number], [id number]. PROCEDURE: PET/CT study Indication: high volume 4+5 [...] NEEDED Primary Interpreting Staff: EMMANUEL PEREZ MD (Sole Leather Cutting Machine Operator) /[facility] Mar 25, 2024 01:00 PM MRI PROSTATE W&W/O CONTRAST: RAMEZ GODIENZ [id number] -1950 M Exm Date: MAR 25, 2024@13:00 Req Phys: RICKY RUSHING Loc: -UROLOGY MD [place] (Req'g Loc) Img Loc: OUTSIDE -MRI Service: Unknown (Case [id number] COMPLETE) MRI PROSTATE W&W/O CONTRAST (MRI Detailed) CPT:90497 Reason for Study: OUTSIDE EXAM Clinical History: OUTSIDE EXAM Report Status: Electronically Filed Date Reported: JUL 12, 2024 Report: This study was performed outside the [place] in another facility and images were uploaded into [facility] in [place]. The report has been scanned into [employer]. In order to upload images a case number was needed, therefore this is an administrative report. Impression: This study was performed outside the [place] in another facility and images were uploaded into [facility] in [place]. The report has been scanned into [employer]. In order to upload images a case number was needed, therefore this is an administrative report VERIFIED BY: / *ELECTRONICALLY FILED* [facility] Pathology Reports: +/- 30 [...] the Encounter. The data comes from all [place] treatment facilities. Date/Time Pathology Report Provider Source May 11, 2024 10:45 AM LR MICROBIOLOGY REPORT: Accession [UID]: [id number] [[id number]] Received: May 11, 2024@10:46 Collection sample: URINE,CLEAN CATCH Collection date: May 11, 2024 10:45 Site/Specimen: URINE Provider: MANJINDER CORBIN Test(s) ordered: C&S URINE..................... completed: May 13, 2024 13:51 * BACTERIOLOGY FINAL REPORT => May 13, 2024 14:19 TECH CODE: [id number] GRAM STAIN: Bacteriology Remark(s): 2.20.25 KAA Culture in progress 2.21.25 KAA CULTURE SHOWS >10,000 - <25,000 CFU/ML PROTEUS MIRABILIS AND >10,000 - <25,000 CFU/ML STAPH EPIDERMIDIS There will be no work up. =--=--=--=--=--=--=--=--=--=-- =--=--=--=--=--=--=--=--=--=-- =--=--=--=--=--=-- Performing Laboratory: Bacteriology Report Performed By: [facility]# [id number] [address] [facility] [address] [place] [address] LIZZIE COYNE [facility] Apr 22, 2024 11:50 AM LR [...] Performing Laboratory: Surgical Pathology Report Performed By: [facility] CLIA# [id number] [address] [facility] [facility] [address] [place] [address] $FTR - - - - - - [...] - - RAMEZ GODINEZ STANDARD FORM 515 ID:[id number] SEX:M :1950 AGE: 73 LOC:PAT-UROLOGY TRUS NON-OR PCP: Bertha Raymond NP /paola/ KIMBERLY PEREZ PATHOLOGIST Signed: 04/22/2024 11:50 KIMBERLY PEREZ [facility] Encounter Notes: All associated encounter notes This section contains the clinical notes associated to the Encounter. Date/Time Encounter Note(s) Provider Source Apr 22, 2024 11:51 AM PATHOLOGY REPORT: LOCAL TITLE: PATHOLOGY REPORT [facility] STANDARD TITLE: PATHOLOGY REPORT DATE OF NOTE: APR 22, 2024@11:51 ENTRY DATE: APR 22, 2024@11:51:42 AUTHOR: KIMBERLY PEREZ EXP COSIGNER: URGENCY: STATUS: COMPLETED PATHOLOGY REPORT Accession No. [id number] - - - - - - - - - - - - - - - - - - - - - - - - - - - - - - - - - - - - - - Submitted by: SAMANTHA JOINER Date obtained: Apr [...] left prostate C. right MRI targeted lesion Surgeon/physician: SAMANTHA JOINER MD =-=-=-=-=-=-=-=-=-=-=-=-=-=-= -=-=-=-=-=-=-=-=-=-=-=-=-=-=- =-=-=-=-=-=-=-=-=-= MICROSCOPIC EXAM: (Kaden Perez MD) Microscopic examination [...] TOTAL PROSTATIC TISSUE /paola/ KIMBERLY PEREZ PATHOLOGIST Signed: 04/22/2024 11:54 Receipt Acknowledged By: 04/22/2024 12:04 /es/ BERTHA RAYMOND, MSN, AGNP-C NURSE PRACTITIONER 04/23/2024 10:18 /es/ SAMANTHA JOINER Urology Resident 04/22/2024 15:13 /es/ KARLA FERGUSON MD Staff Physician, Urology KIMBERLY PEREZ [facility] Apr 20, 2024 09:33 AM UROLOGY PROCEDURE NOTE: LOCAL TITLE: UROLOGY PROCEDURE STL STANDARD TITLE: UROLOGY PROCEDURE NOTE DATE OF NOTE: APR 20, 2024@09:33 ENTRY DATE: APR 20, 2024@09:33:38 AUTHOR: SAMANTHA JOINER COSIGNER: KARLA FERGUSON URGENCY: STATUS: COMPLETED UROLOGY PROCEDURE STL Has ADDENDA PROCEDURE NOTE - TRUS BIOPSY Procedure Date: Mar INFORMED CONSENT Informed consent completed iMedConsent Patient was conscious and able to answer, patient stated: Full Name, Full SSN, Date of , Procedure to be done Patient name, SSN, or was verified against the following: Patient's armband or picture ID? YES Consent form? 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 SPECIFIC AG.(PB-STL) 8.914 H* ng/mL 01/06/2024 13:14 PROST. SPECIFIC AG.(PB-STL) 8.468 H* ng/mL 12/28/2023 13:15 Digital Rectal Exam Results: 60 gm prostate, smooth, symmetric, no nodules TRUS Findings: No abnormal findings on TRUS Texture: Mixed foci Capsule Intact: Yes Seminal Vesicles: Normal Procedure Narrative: Informed consent was obtained and pt was brought to procedure room. A time-out was performed and the patient was then placed in the left lateral decubitus position on his strethcer. While in left lateral decubitus position a digital rectal examination was performed. After digital rectal examination a 7.5 megahertz ultrasound probe was inserted into the rectum. 5 mL of 1% lidocaine were instilled posterior to the prostatic capsule and anterior to the seminal vesicles bilaterally giving a total volume of 10 mL injected. The prostate was located and examined thoroughly with the ultrasound probe. The prostate was also measured. After performing a prostatic block six core biopsies were taken from both the left and right prostatic lobes without difficulty. After the 12th biopsy was taken the ultrasound probe was removed and the patients perineum was cleaned. He was then monitored with another set of vitals in the procedure room and deemed stable. Specimen Core Biopsy: Left: 6 Right: 6 MRI targeted:3 Complications: none Disposition: stable Assessment/Plan: - Return to clinic in 2 weeks - Will call with pathology results Please return to the emergency department if you have any of the following: - Fever >38.3 C or chills - Severe abdominal pain - Intractable nausea or vomiting. - Inability to urinate - Chest pain - Shortness of breath Instructions after prostate biopsy WHAT WAS DONE: Today you had a prostate biopsy which was done to help determine if you have prostate cancer. Small pieces of prostate tissue were removed with a needle that was passed through the rectum. The removed tissue will be analyzed by the Pathology Department and they will issue a report in about 7 days. WHAT TO WATCH FOR: 1--The urine may turn pink from blood for 24 hours. But heavier bleeding is abnormal. For instance, you should go to the Emergency Department if you are forming blood clots in the urine. 2--You should go to the Emergency Department if you feel sick (like the flu) or have fever/chills. Temperature over 100 degrees is considered abnormal 3--You should go to the Emergency Department if you have difficulty urinating. 4--Blood in the semen will occur for several weeks and is not a sign of any serious problem WHAT TO DO NEXT: 1--Be sure to come to the clinic or contact one of the Urology Staff a week after the biopsy to get the results. 2--Ask the Urologist if you will require more evaluation or biopsies in the future. Sometimes a prostate biopsy will not show cancer even though it is there. That is why we sometimes repeat the biopsy to look again for cancer. 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 He is in the high risk category per NCCN guidelines, therefore we discussed obtaining a PSMA-PET scan. Patient is agreeable. Will order scan and reschedule his clinic visit from 05/02 to 05/09 to allow him time to obtain imaging prior to his appointment. /paola/ SAMANTHA JOINER Urology Resident Signed: 04/22/2024 15:47 /paola/ BOB MYRICK MD Staff Physician, Urology Cosigned: 04/22/2024 16:06 SAMANTHA JOINER [facility] Apr 20, 2024 09:32 AM NURSING NOTE: LOCAL TITLE: JARVIS PROGRESS NOTE ST STANDARD TITLE: NURSING NOTE DATE OF NOTE: APR 20, 2024@09:32 ENTRY DATE: APR 20, 2024@09:32:15 AUTHOR: ILDA COLEY EXP COSIGNER: URGENCY: STATUS: COMPLETED Procedure: TRUS Biopsy Patient Verified: yes :1950 Full Social:[id number] Time out performed prior to procedure Right Patient: yes Right Procedure: yes Consent signed: yes Start time:935 End time:944 Scope: TRUS Serial number:[id number] 1% Lidocaine injection given per provider. PRE PROCEDURE VITALS Temp:98.3 Pulse:65 Resp:18 BP:158/102 SaO2:97% POST PROCEDURE VITALS Pulse:73 Resp:18 BP:152/96 Biopsies cores verified with provider and sent to lab. Post TRUS biopsy instruction sheet explained and provided to the patient. Patient verbalized good understanding of the information provided and agreed with the plan of care. Patient discharged stable, without difficulty. /MATTEO Leiva, RN REGISTERED NURSE Signed: 04/20/2024 09:54 ILDA COLEY [facility]
--- OUTSIDE RECORDS SUMMARY | 2024-08-25 08:57 | XMS_ITS | Encounter Summary ---
Author Name [facility] of [facility] ([place]) Organization [facility] Address [address] [place] [address] Care Team Providers Care Culinary Chef Name Role Phone BERTHA RAYMOND Primary Care Provider [facility] Insurance Providers: All historical and current Section [...] to Policy Rios SHIKHA NIEVES - GELA DE SPECIAL CLASS SHIKHA YOUSIF Apr 27, 2019 SHIKHA NIEVES [id number] [facility] MEDICARE (WNR) MEDICARE (M) PART A Nov 21, 2014 PART A [id number] ([facility]NR) MEDICARE (M) PART B Nov 21, 2014 PART B [id number] [phone] [facility] PATIENT Selected Encounter This section includes the information on record at [place] for the Encounter. Date/Time Encounter Type Encounter Description Reason Pro vider Source May 26, 2024 02:22 PM Outpatient Encounter PRE-SURG EVAL IHE Encounter Template Text not used by [place] Plan of Treatment: Future Appointments (+ 6 months) and Future Tests (+/- 45 days) The Plan of Treatment section includes future care activities for the patient [facility] [place] [facility] This section includes future appointments and future orders which are active, pending or scheduled. Future Appointments This section includes appointments that were scheduled to occur 6 months from the date of the Encounter, up to a maximum of 20 appointments. The data comes from all [facility]. Appointment Date/Time Appointment Type Appointme nt Facility Name May 27, 2024 07:15 AM AMBULATORY - [facility]ICINE [facility] May 31, 2024 09:00 AM AMBULATORY - SURGERY [facility] Jun 09, 2024 08:44 AM AMBULATORY - NONE . [facility] Jun 14, 2024 09:30 AM AMBULATORY - MEDICINE [facility] Jun 17, 2024 11:00 AM AMBUL[facility]ORY - SURGERY [facility] Jun 28, 2024 02:06 PM AMBULATORY - MEDICINE [facility] Jul 11, 2024 09:00 AM AMBULATORY - SURGERY [facility] August 19, 2024 02:00 PM AMBULATORY - MEDICINE [facility] Oct 10, 2024 09:00 AM AMBULATORY - SURGERY [facility] Oct 18, 2024 09:30 AM AMBULATORY - MEDICINE [facility] Active, Pending, and Scheduled Orders This section includes a listing of several types of active, pending, and scheduled orders, including clinic medications orders, diagnostic test orders, procedure orders and consult orders; where the start date of the order is 45 days before the date of the Encounter or 45 days after the date of theEncounter. The data comes from all [facility]. Test Date/Time Test Type Test Details Facility Name Apr 22, 2024 12:00 AM Laboratory - Chemi stry Order BASIC METABOLIC PANEL GREEN LI/HEP BLD/PLAS PLASMA [facility] May 11, 2024 12:00 AM Laboratory - Blood Bank Order TYPE & SCREEN - LAB BLOOD SP [facility] Jun 09, 2024 12:00 AM Laboratory - Blood Bank Order TYPE & SCREEN - LAB BLOOD WC [facility] Lab Results: +/- 30 days of the encounter This section includes the Chemistry and Hematology Lab Results on record with [place] for the patient. Radiology Reports and Pathology Reports are provided separately, in subsequent sections. Lab Results This section contains the Chemistry/Hematology Results that were resulted 30 days before or 30 daysafter the date of the Encounter. Date/Time Source Result Type Result - Unit Interpretation Reference Range Specimen Type Comment Jun 10, 2024 04:46 AM [facility] GLUCOSE,BLOOD-poct (STL) BLOOD Specimen Type: BLOOD Comment: Test Performed by: [id number] Meter #: [id number] Ordering Provider: HEBER OVALLES Report Released Date/Time: Jun 10, 2024 05:21 AM Reporting Lab: [address] [address] Performing Lab: [address] [address] GLUCOSE,BLOOD-poct (STL) 146 mg/dL H 72-99 Jun 09, 2024 08:12 PM [facility] CBC BLOOD Specimen Type: BLOOD No comment entered. Ordering Provider: BETO MCMILLAN Report Released Date/Time: Jun 09, 2024 05:43 PM Reporting Lab: [address] [address] Performing Lab: [address] [address] WBC 11.1 10*3/uL 3.6-11.2 RBC 4.00 10*6/uL [...] H 2.10-8.00 Jun 09, 2024 07:00 PM [facility] MRSA SURVL NARES DNA NARES Specimen [...] Jun 09, 2024 05:57 PM Reporting Lab: [address] [address] Performing Lab: [address] [address] MRSA SURVL NARES DNA Negative Negative Jun 09, 2024 10:40 AM [facility] COVID-19 DIAGNOSTIC (FLU/RSV)(STL) NASOPHARYNX Spec imen [...] Jun 07, 2024 02:47 PM Reporting Lab: [address] [address] Performing Lab: [address] [address] INFLUENZA A NEG Negative INFLUENZA B NEG Negative COVID-19 (STL-PB) NEG Not Detected RSV (Cepheid) Negative Negative May 11, 2024 10:38 AM [facility] HGA1C BLOOD Specimen Type: BLOOD No comment entered. Ordering Provider: BERTHA RAYMOND Report Released Date/Time: Apr 22, 2024 01:42 PM Reporting Lab: [facility] [address] [address] Performing Lab: [address] [address] HGA1C 5.7 4.0-6.0 May 11, 2024 10:37 AM [facility] PT/INR NEW (STL-MA) PLASMA Specimen Type: PLAS MA No comment entered. Ordering Provider: MANJINDER CORBIN Report Released Date/Time: May 11, 2024 10:21 AM Reporting Lab: [address] [address] Performing Lab: [address] [address] PROTIME 11.6 s 9.4-12.5 INR VALUE 1.0 {INR} May 11, 2024 10:37 AM [facility] BASIC METABOLIC PANEL PLASMA Specimen Type: PL ASMA Comment: No hemolysis noted. Ordering Provider: MANJINDER CORBIN Report Released Date/Time: May 11, 2024 10:21 AM Reporting Lab: [address] [address] Performing Lab: [address] [address] CREATININE 1.08 mg/dL 0.7-1.3 UREA NITROGEN 17.0 mg/dL 9.0-25.0 GLUCOSE 101 mg/dL H 72-99 SODIUM 140 meq/L 136-145 POTASSIUM 4.4 meq/L 3.5-5 CHLORIDE 106 meq/L 98-107 CARBON DIOXIDE 27 meq/L 22-31 CALCIUM 9.3 mg/dL 8.4-10.4 EGFR (CKD-EPI 2020) 72.0 >60 May 11, 2024 10:37 AM [facility] CBC BLOOD Specimen Type: BLOOD No comment entered. Ordering Provider: MANJINDER CORBIN Report Released Date/Time: May 11, 2024 10:21 AM Reporting Lab: [facility] [address] [address] Performing Lab: [facility] [address] [address] WBC 6.4 10*3/uL 3.6-11.2 RBC 5.21 10*6/uL [...] and tobacco- related health factors from the [place] facility where the Encounter took place. Current Smoking Status This section includes the most current smoking, or tobacco-related health factor, from the [place] facility where the Encounter took place. Date/Time [...] the Encounter. The data comes from all [place] treatment facilities. Date/Time Radiology Report Provider Source May 11, 2024 10:27 AM CHEST X-RAY, 2 VIE WS: RAMEZ GODINEZ [id number] -1950 M Exm Date: MAY 11, 2024@10:27 Req Phys: MANJINDER CORBIN Loc: -UROLOGY MD RES (Req'g Loc) Img Loc: -MAIN RADIOLOGY SUITE Service: Unknown [address] [address] (Case [id number] COMPLETE) CHEST X-RAY, 2 VIEWS (RAD Detailed) CPT:28208 Reason for Study: pre-operative testing Clinical History: Report Status: Verified Date Reported: MAY 12, 2024 Date Verified: MAY 12, 2024 Business Development Specialist E-Sig:/PAOLA/ELIJAH MCCOY Report: CHEST X-RAY, 2 VIEWS COMPARISON: None. HISTORY: pre-operative testing FINDINGS: The heart size and pulmonary vasculature are normal. There is no consolidating infiltrate, effusion or pneumothorax. Mild hyperinflation. Impression: No active lung disease. RR Primary Interpreting Staff: ELIJAH MCCOY, Staff Physician (Business Development Specialist) /ELIJAH DELEON [facility] Apr 27, 2024 11:21 AM PET/CT PSMA-P: RAMEZ GODINEZ [id number] -1950 M Exm Date: APR 27, 2024@11:21 Req Phys: SAMANTHA JOINER Pat Loc: -UROLOGY TRUS NON-OR (Req'g Img Loc: -PET-CT Service: Unknown [address] [address] (Case [id number] COMPLETE) PET/CT SKULL BASE TO MID-THIGH (NM Detailed) CPT:86274 CPT Modifiers : PI PET TUMOR INIT [...] 27, 2024 Date Verified: APR 27, 2024 Business Development Specialist E-Sig:/ES/EMMANUEL PEREZ Report: PATIENT NAME: RAMEZ GODINEZ. CASE #: [id number], [id number]. PROCEDURE: PET/CT study Indication: high volume 4+5 [...] NEEDED Primary Interpreting Staff: EMMANUEL PEREZ MD (Business Development Specialist) /PFEMMANUEL JEREZ [facility] Pathology Reports: +/- 30 days [...] the Encounter. The data comes from all [place] treatment facilities. Date/Time Pathology Report Provider Source [...] cut surface with no dominant nodule identified. 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 There is focal extraprostatic extension [...] Pathology Report Performed By: [facility] [address] [place] [address] CLIA# [id number] [address] [address] $FTR - - - - - - - - - - - - - - - - - - - - - - - - - - - - - - - - - - - - - - - - (End of report) VIVEK ALLEN MD vp analytics Date Jun 12, 2024 - - - - - - - - - - - - - - - - - - - - - - - - - - - - - - - - - - - - - - - - RAMEZ GODINEZ STANDARD FORM 515 ID:[id number] SEX:M :1950 AGE: 73 LOC:APFEE PCP: Bertha Raymond NP /paola/ VIVEK ALLEN M.D., PH.D. PATHOLOGIST Signed: 06/16/2024 14:49 VIVEK ALLEN [facility] May 31, 2024 04:37 PM [...] Performing Laboratory: Surgical Pathology Report Performed By: [address]# [id number] [address] [place] [id number] $FTR - - - - - - [...] - - RAMEZ GODINEZ STANDARD FORM 515 ID:[id number] SEX:M :1950 AGE: 73 LOC:GILABA2 PCP: Bertha Raymond NP /paola/ ALMA SÁNCHEZ MD, PhD STAFF PATHOLOGIST Signed: 05/31/2024 16:37 ALMA SÁNCHEZ [facility] May 11, 2024 10:45 AM LR MICROBIOLOGY RE PORT: Accession [UID]: [id number] [[id number]] Received: May 11, 2024@10:46 Collection sample: URINE,CLEAN CATCH Collection date: May 11, 2024 10:45 Site/Specimen: URINE Provider: MANJINDER CORBIN Test(s) ordered: C&S URINE..................... completed: May 13, 2024 13:51 * BACTERIOLOGY FINAL REPORT => May 13, 2024 14:19 TECH CODE: [id number] GRAM STAIN: Bacteriology Remark(s): 2.20.25 KAA Culture in progress 2..25 KAA CULTURE SHOWS >10,000 - <25,000 CFU/ML PROTEUS MIRABILIS AND >10,000 - <25,000 CFU/ML STAPH EPIDERMIDIS There will be no work up. =--=--=--=--=--=--=--=--=--=- -=--=--=--=--=--=--=--=--=--= --=--=--=--=--=--=-- Performing Laboratory: Bacteriology Report Performed By: [facility] [address] [place] [address] CLIA# [id number] [facility] [address] [address] LIZZIE COYNE [facility] Encounter Notes: All associated encounter notes This section contains the clinical notes associated to the Encounter. Date/Time Encounter Note(s) Provider Source May 26, 2024 02:26 PM PHYSICIAN LETTERS: LOCAL TITLE: PHYSICIAN LETTERS STANDARD TITLE: PHYSICIAN LETTERS DATE OF NOTE: MAY 26, 2024@14:26 ENTRY DATE: MAY 26, 2024@14:26:54 AUTHOR: GRACE RAMOS EXP COSIGNER: URGENCY: STATUS: COMPLETED [address] [place] [address] RAMEZ GODINEZ [address] [place], [place] [address] Dear Ramez Godinez: UROLOGY SURGERY PRE-PROCEDURE/SURGERY INSTRUCTIONS Your surgery is scheduled on: May Day of surgery you will report to: [address] [place] [address] ([facility]) at 6am - Take main elevator to 4th floor, turn left and check in at desk You will be admitted to the hospital after your surgery. Please note you cannot drive after receiving anesthesia. Please have transportation arranged You can take your morning medications with a sip of water. THINGS TO REMEMBER: - DO NOT bring your medications with you. Any medications you need will be provided for you. Bring your inhalers and CPAP machine, if you use them. - DO NOT EAT or DRINK anything after midnight the night before surgery - Please shower with antibacterial soap if available, wash hair, clean finger nails and wear clean clothes prior to reporting the hospital for surgery to decrease risk for infection. Please call Urology if you have any questions or need to cancel or reschedule your surgery ext [phone] [place] ext [phone] Sincerely, GRACE RAMOS Physician Mobile Unit Assistant, Urology HERBERT,GRACE HATHAWAY [facility]
--- OUTSIDE RECORDS SUMMARY | 2024-08-25 08:57 | XMS_ITS | Continuity of Care Document ---
Author Name [facility] Organization [facility] Care Team Providers Care Mill Operator Name Role Phone [facility] Unavailable Unavailable Problems Combined list of problems from Department of Defense and Veterans Affairs facilities. It does not include entries that were removed or entered in error. Problem Status Onset Date Problem Type Date of Resolution Comments Source Chronic Kidney Disease Stage 3A ([facility] [id number]) Active Condition [facility] Elevated PSA Active Condition [facility] Exposure to potentially hazardous substance ([facility] [id number]) Active Condition Dec 29 4 Entered By: LAUREN CASH Comment: Entered automatically through JOSE Problem List documentation program [facility] HTN - Hypertension ([facility] [id number]) Active Condition [facility] Prediabetes Inactive Condition 08/19/2024 [facility] Diagnosis: ICD-10-CM I10 Essential (primary) hypertension Active Diagnosis [facility] Diagnosis: ICD-10-CM C61 Malignant neoplasm of prostate Active Diagnosis [facility] Diagnosis: ICD-10-CM K59.00 Constipation, unspecified Active Diagnosis [facility] Diagnosis: ICD-10-CM N42.89 Other specified disorders of prostate Active Diagnosis [facility] Diagnosis: ICD-10-CM R97.20 Elevated prostate specific antigen [PSA] Active Diagnosis [facility] Admit Reason: PROSTATE CANCER Active Diagnosis [facility] Diagnosis: ICD-10-CM Z01.818 Encounter for other preprocedural examination Active Diagnosis [facility] Diagnosis: ICD-10-CM Z12.11 Encounter for screening for malignant neoplasm of colon Active Diagnosis [facility] Diagnosis: ICD-10-CM 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 Medication Details Route Status Patient Instructions Prescription Expires Prescription Number Last Dispense Date Ordering Provider Order Date Order Qty Source ACETAMINOPH EN 500MG TAB TAKE TWO TABLETS BY MOUTH FOUR TIMES A DAY FOR PAIN CAUTION: DO NOT EXCEED 4000MG PER DAY ACETAMIN OPHEN (APAP) FROM ALL MEDS. ORAL 07/10/2024 [id number] 5 Hugo CORBIN 2024 90 [facility] AMLODIPINE BESYLATE 10MG TAB TAKE ONE TABLET BY MOUTH ONCE A DAY FOR HIGH BLOOD PRESSURE ORAL ACTIVE 08/20/2025 [id number] 5 BERTHA PERES 2024 90 [facility] AMLODIPINE BESYLATE 2.5MG TAB TAKE THREE TABLETS BY MOUTH ONCE A DAY FOR HIGH BLOOD PRESSURE ORAL DISCONT INUED (EDIT) 04/23/2025 [id number] 5 BERTHA PERES 2024 270 [facility] AMLODIPINE BESYLATE 5MG TAB TAKE ONE TABLET BY MOUTH ONCE A DAY ORAL DISCONT INUED (EDIT) 01/06/2025 [id number] 4 BERTHA PERES 2023 90 [facility] BISACODYL 5MG TAB,EC TAKE TWO TABLETS BY MOUTH ONE TIME TAKE BISACODY L TABLETS AT 4PM ON AFTERNOO N PRIOR TO TEST. CALL WITH ANY QUESTION S ABOUT THESE INSTRUCT IONS. MAIL TAKE BISACODY L TABLETS AT 4PM ON AFTERNOO N PRIOR TO TEST. CALL WITH ANY QUESTION S ABOUT THESE INSTRUCT IONS. MAIL ORAL DISCONT INUED 03/16/2024 [id number] 4 JEANNE SIMMONS 2023 2 [facility] BISACODYL 5MG TAB,EC TAKE THREE TABLETS BY MOUTH ONE TIME (TAKE ON EVENING PRIOR TO PROSTATE BIOPSY APPOINTM ENT) ORAL DISCONT INUED 02/28/2024 [id number] 4 BALTAZAR GARCIA 2023 3 [facility] BISACODYL 5MG TAB,EC TAKE TWO TABLETS BY MOUTH ONCE A DAY NEEDED FOR CONSTIPA TION ORAL 07/28/2024 [id number] 5 Shaan RODRIGUES 2024 10 [facility] BISACODYL 5MG TAB,EC TAKE TWO TABLETS BY MOUTH ONE TIME TAKE BISACODY L TABLETS AT 4PM ON AFTERNOO N PRIOR TO TEST. CALL WITH ANY QUESTION S ABOUT THESE INSTRUCT IONS. MAIL TAKE BISACODY L TABLETS AT 4PM ON AFTERNOO N PRIOR TO TEST. CALL [phone] WITH ANY QUESTION S ABOUT THESE INSTRUCT IONS. MAIL ORAL 06/25/2024 [id number] 5 GERRY GALLEGOS 2024 2 [facility] CEPHALEXIN 500MG CAP TAKE ONE CAPSULE BY MOUTH EVERY 6 HOURS FOR PREVENTI ON OF INFECTIO N (START IN THE MORNING ON THE DAY BEFORE THE BIOPSY). TAKE WITH FOOD. ORAL DISCONT INUED 02/28/2024 [id number] 4 BALTAZAR GARCIA 2023 8 [facility] CEPHALEXIN 500MG CAP TAKE ONE CAPSULE BY MOUTH ONE-TIME FOR RODRIGUEZ CATHETER REMOVAL ON THURSDAY. TAKE BEFORE YOUR RODRIGUEZ CATHETER APPOINTM ENT. TAKE WITH FOOD ORAL 07/10/2024 [id number] 5 Hugo CORBIN 2024 1 [facility] DOCUSATE NA 100MG CAP TAKE ONE CAPSULE BY MOUTH TWICE A DAY FOR SOFTENIN G STOOL HOLD FOR LOOSE STOOL/DI ARRHEA. ORAL 07/28/2024 [id number] 5 Shaan RODRIGUES 2024 60 [facility] IBUPROFEN 600MG TAB TAKE ONE TABLET BY MOUTH THREE TIMES A DAY NEEDED FOR PAIN TAKE WITH FOOD. ORAL 07/10/2024 [id number] 5 Hugo CORBIN A 2024 30 [facility] MAGNESIUM CITRATE LIQUID,ORAL TAKE 1 BOTTLE BY MOUTH ONCE A DAY FOR BOWEL EMPTYING ORAL 07/28/2024 [id number] 5 Shaan RODRIGUES 2024 1 [facility] OXYBUTYNIN CL 5MG TAB TAKE ONE TABLET BY MOUTH THREE TIMES A DAY NEEDED FOR OVERACTI VE BLADDER ORAL DISCONT INUED BY PROVIDE R 07/10/2024 [id number] 5 Hugo CORBIN 2024 21 [facility] OXYCODONE HCL 5MG TAB TAKE ONE TABLET BY MOUTH EVERY 6 HOURS NEEDED FOR POST-OPE RATIVE PAIN MAY CAUSE CONSTIPA TION ORAL DISCONT INUED BY PROVIDE R 07/10/2024 [id number] 5 Hguo CORBIN 2024 15 [facility] N PEG-3350/EL ECTROLYTES PWDR MIX AND DRINK CONTENTS OF BOTTLE BY MOUTH DIRECTED (THE DAY BEFORE YOUR TEST ONLY DRINK CLEAR LIQUIDS- NO SOLID FOOD! TAKE THE BISACODY L TABLETS AT 4PM AND MIX THE GOLYTELY WITH WATER AND REFRIGER ATE. AT 7PM DRINK HALF OF THE GOLYTELY . REFRIGER ATE OVERNIGH T. COMPLETE GOLYTELY 3 HRS BEFORE LEAVING HOME FOR TEST. READ YOUR INSTRUCT IONS!) (THE DAY BEFORE YOUR TEST ONLY DRINK CLEAR LIQUIDS- NO SOLID FOOD! TAKE THE BISACODY L TABLETS AT 4PM AND MIX THE GOLYTELY WITH WATER AND REFRIGER ATE. AT 7PM DRINK HALF OF THE GOLYTELY . REFRIGER ATE OVERNIGH T. COMPLETE GOLYTELY 3 HRS BEFORE LEAVING HOME FOR TEST. READ YOUR INSTRUCT IONS!) ORAL DISCONT INUED 03/16/2024 [id number] 4 JEANNE SIMMONS 2023 1 [facility] PEG-3350/EL ECTROLYTES PWDR MIX AND DRINK CONTENTS OF BOTTLE BY MOUTH DIRECTED FILL WITH WATER TO THE LINE INDICATE D ON CONTAINE R. DRINK DIRECTED . (THE DAY BEFORE YOUR TEST ONLY DRINK CLEAR LIQUIDS- NO SOLID FOOD! TAKE THE BISACODY L TABLETS AT 4PM AND MIX THE GOLYTELY WITH WATER AND REFRIGER ATE. AT 7PM DRINK HALF OF THE GOLYTELY . REFRIGER ATE OVERNIGH T. COMPLETE GOLYTELY 3 HRS BEFORE LEAVING HOME FOR TEST. READ YOUR INSTRUCT IONS!) FILL WITH WATER TO THE LINE INDICATE D ON CONTAINE R. DRINK DIRECTED . (THE DAY BEFORE YOUR TEST ONLY DRINK CLEAR LIQUIDS- NO SOLID FOOD! TAKE THE BISACODY L TABLETS AT 4PM AND MIX THE GOLYTELY WITH WATER AND REFRIGER ATE. AT 7PM DRINK HALF OF THE GOLYTELY . REFRIGER ATE OVERNIGH T. COMPLETE GOLYTELY 3 HRS BEFORE LEAVING HOME FOR TEST. READ YOUR INSTRUCT IONS!) ORAL 06/25/2024 [id number] 5 GERRY GALLEGOS 2024 1 [facility] PHENAZOPYRI DINE HCL 100MG TAB TAKE TWO TABLETS BY MOUTH THREE TIMES A DAY NEEDED FOR URINARY ANALGESI A TAKE WITH PLENTY OF WATER*GERRY Islas DISCOLOR THE URINE ORAL DISCONT INUED BY PROVIDE R 07/10/2024 [id number] 5 Hguo CORBIN A 2024 20 [facility] POLYETHYLEN E GLYCOL 3350 PWDR,ORAL MIX AND DRINK 1 CAPFUL BY MOUTH ONCE A DAY NEEDED FOR CONSTIPA TION (MEASURE WITH CAP AND MIX IN 8 OZ OF WATER) ORAL 07/10/2024 [id number] 5 Hugo CORBIN A 2024 238 [facility] SIMETHICONE 80MG TAB,CHEW CHEW AND SWALLOW FOUR TABLETS BY MOUTH DIRECTED FOR GAS DISCOMFO RT FOR TWO DOSES BEFORE GI PROCEDUR E ORAL DISCONT INUED 03/16/2024 [id number] 4 JEANNE SIMMONS 2023 8 [facility] SIMETHICONE 80MG TAB,CHEW CHEW AND SWALLOW FOUR TABLETS BY MOUTH DIRECTED FOR GAS DISCOMFO RT FOR TWO DOSES BEFORE GI PROCEDUR E ORAL 06/25/2024 [id number] 5 GERRY GALLEGOS 2024 8 [facility] SODIUM BIPHOSPHATE 19GM/SODIUM PHOSPHATE 7GM ENEMA INSERT CONTENTS OF 1 ENEMA RECTALLY ONE TIME (FOR RECTAL USE ONLY) DO NOT USE MORE THAN 1 PHOSPHAT E ENEMA IN 24 HOURS (USE IN THE MORNING PRIOR TO PROSTATE BIOPSY APPOINTM ENT) RECTAL DISCONT INUED 02/28/2024 [id number] 4 BALTAZAR GARCIA 2023 1 [facility] Immunizations Combined list of available immunizations from the Department of Defense and Veterans Affairs facilities. Immunization Series Date Given Administered By Site Reaction Lot Number CVX Code Drug Compliance Program Manager Status Comments Source COVID-19, mRNA, LNP-S, PF, 30 mcg/0.3 mL dose 2020 [employer] (PFR) Not Given COVID-19, mRNA, LNP-S, PF, 30 mcg/0.3 mL dose [facility] COVID-19 (vChatter), MRNA, LNP-S, PF, 30 MCG/0.3 ML DOSE 2 2020 208 complet ed HISTORICA L INFORMATI ON - FROM PATIENT'S WRITTEN RECORD, [facility] COVID-19, mRNA, LNP-S, PF, 30 mcg/0.3 mL dose 2020 [employer] (PFR) Not Given COVID-19, mRNA, LNP-S, PF, 30 mcg/0.3 mL dose [facility] COVID-19 (vChatter), MRNA, LNP-S, PF, 30 MCG/0.3 ML DOSE 1 2020 208 complet ed HISTORICA L INFORMATI ON - FROM PATIENT'S WRITTEN RECORD, [facility] Results Combined list of recent chemistry, hematology and other laboratory results from Department of Defense and Veterans Affairs, ranging from 15 months to all on record, depending upon the facility. Order Name Results Value Reference Range Date Interpretation Specimen Comments Source PROST. SPECIFIC AG.(PB-S TL) PROSTATE SPECIFIC AG [MASS/VOLU ME] IN SERUM OR PLASMA <0.100ng /mL 0 - 4 07/11 Specimen Type: SERUM Comment: The listed sex of this patient may not be a typical indication for this test. Therefore, reference ranges or interpretiv e criteria listed may not be valid. Clinical correlation suggested. Ordering Provider: KARLA FERGUSON Report Released Date/Time: Jul 11, 2024 08:55 AM Reporting Lab: [place] [address] Performing Lab: [address] CBC LEUKOCYTES [#/VOLUME] IN BLOOD BY AUTOMATED COUNT 5.5 10*3/uL 3.6 - 11.2 06/28 Specimen Type: BLOOD No comment entered. Ordering Provider: DARCY RODRIGUES Report Released Date/Time: Jun 28, 2024 04:23 PM Reporting Lab: [place] [address] Performing Lab: [address] CBC ERYTHROCYT ES [#/VOLUME] IN BLOOD BY AUTOMATED COUNT 4.44 10*6/uL 4.10 - 5.70 06/28 Specimen Type: BLOOD No comment entered. Ordering Provider: DARCY RODRIGUES Report Released Date/Time: Jun 28, 2024 04:23 PM Reporting Lab: [place] [address] Performing Lab: [address] CBC HEMOGLOBIN [MASS/VOLU ME] IN BLOOD 14.2 g/dL 13.1 - 16.8 06/28 Specimen Type: BLOOD No comment entered. Ordering Provider: DARCY RODRIGUES Report Released Date/Time: Jun 28, 2024 04:23 PM Reporting Lab: [address] [address] Performing Lab: [address] [address] [facility] CBC HEMATOCRIT [VOLUME FRACTION] OF BLOOD 42.3 38.2 - 48.4 06/28 Specimen Type: BLOOD No comment entered. Ordering Provider: DARCY RODRIGUES Report Released Date/Time: Jun 28, 2024 04:23 PM Reporting Lab: [place] [address] Performing Lab: [address] [phone] [address] CBC MCV [ENTITIC VOLUME] BY AUTOMATED COUNT 95.3 fL 80.0 - 100.0 06/28 Specimen Type: BLOOD No comment entered. Ordering Provider: DARCY RODRIGUES Report Released Date/Time: Jun 28, 2024 04:23 PM Reporting Lab: [address] [address] Performing Lab: [address] [phone] [place] [address] CBC MCH [ENTITIC MASS] BY AUTOMATED COUNT 32.0 pg 27.0 - 34.0 06/28 Specimen Type: BLOOD No comment entered. Ordering Provider: DARCY RODRIGUES Report Released Date/Time: Jun 28, 2024 04:23 PM Reporting Lab: [address] [address] Performing Lab: [address] [phone] [address] CBC MCHC [MASS/VOLU ME] BY AUTOMATED COUNT 33.6 g/dL 33.0 - 36.0 06/28 Specimen Type: BLOOD No comment entered. Ordering Provider: DARCY RODRIGUES Report Released Date/Time: Jun 28, 2024 04:23 PM Reporting Lab: [place] [id number] Performing Lab: [address] [phone] [place] [address] CBC PLATELETS [#/VOLUME] IN BLOOD BY AUTOMATED COUNT 257 10*3/uL 150 - 400 06/28 Specimen Type: BLOOD No comment entered. Ordering Provider: DARCY RODRIGUES Report Released Date/Time: Jun 28, 2024 04:23 PM Reporting Lab: [place] [address] Performing Lab: [place] [phone] CBC PLATELET MEAN VOLUME [ENTITIC VOLUME] IN BLOOD BY AUTOMATED COUNT 10.2 fL 7.5 - 11.2 06/28 Specimen Type: BLOOD No comment entered. Ordering Provider: DARCY RODRIGUES Report Released Date/Time: Jun 28, 2024 04:23 PM Reporting Lab: [place] [id number] Performing Lab: [address] [phone] [place] [address] CBC ERYTHROCYT E DISTRIBUTI ON WIDTH [RATIO] BY AUTOMATED COUNT 13.1 11.8 - 15.1 06/28 Specimen Type: BLOOD No comment entered. Ordering Provider: DARCY RODRIGUES Report Released Date/Time: Jun 28, 2024 04:23 PM Reporting Lab: [place] [id number] Performing Lab: [address] [phone] [place] [address] CBC LYMPHOCYTE S/100 LEUKOCYTES IN BLOOD BY AUTOMATED COUNT 43 06/28 Specimen Type: BLOOD No comment entered. Ordering Provider: DARCY RODRIGUES Report Released Date/Time: Jun 28, 2024 04:23 PM Reporting Lab: [facility] [address] [facility] [address] Performing Lab: [facility] [address] [facility] [address] [facility] CBC MONOCYTES/ 100 LEUKOCYTES IN BLOOD BY AUTOMATED COUNT 7 06/28 Specimen Type: BLOOD No comment entered. Ordering Provider: DARCY RODRIGUES Report Released Date/Time: Jun 28, 2024 04:23 PM Reporting Lab: [facility] [address] [facility] [address] Performing Lab: [facility] [address] [facility] [address] [facility] CBC NEUTROPHIL S/100 LEUKOCYTES IN BLOOD BY AUTOMATED COUNT 45 06/28 Specimen Type: BLOOD No comment entered. Ordering Provider: DARCY RODRIGUES Report Released Date/Time: Jun 28, 2024 04:23 PM Reporting Lab: [facility] [address] [facility] [address] Performing Lab: [facility] [address] [facility] [address] [facility] CBC EOSINOPHIL S/100 LEUKOCYTES IN BLOOD BY AUTOMATED COUNT 3 06/28 Specimen Type: BLOOD No comment entered. Ordering Provider: DARCY RODRIGUES Report Released Date/Time: Jun 28, 2024 04:23 PM Reporting Lab: [facility] [address] [facility] [address] Performing Lab: [facility] [address] [facility] [address] [facility] CBC BASOPHILS/ 100 LEUKOCYTES IN BLOOD BY AUTOMATED COUNT 1 06/28 Specimen Type: BLOOD No comment entered. Ordering Provider: DARCY RODRIGUES Report Released Date/Time: Jun 28, 2024 04:23 PM Reporting Lab: [facility] [address] [facility] [address] Performing Lab: [address] [address] [facility] CBC LYMPHOCYTE S [#/VOLUME] IN BLOOD BY AUTOMATED COUNT 2.38 10*3/uL 0.77 - 4.50 06/28 Specimen Type: BLOOD No comment entered. Ordering Provider: DARCY RODRIGUES Report Released Date/Time: Jun 28, 2024 04:23 PM Reporting Lab: [place] [id number] Performing Lab: [place] [phone] CBC MONOCYTES [#/VOLUME] IN BLOOD BY AUTOMATED COUNT 0.41 10*3/uL 0.19 - 0.80 06/28 Specimen Type: BLOOD No comment entered. Ordering Provider: DARCY RODRIGUES Report Released Date/Time: Jun 28, 2024 04:23 PM Reporting Lab: [address] [address] Performing Lab: [place] [phone] CBC NEUTROPHIL S [#/VOLUME] IN BLOOD BY AUTOMATED COUNT 2.47 10*3/uL 2.10 - 8.00 06/28 Specimen Type: BLOOD No comment entered. Ordering Provider: DARCY RODRIGUES Report Released Date/Time: Jun 28, 2024 04:23 PM Reporting Lab: [address] [address] Performing Lab: [place] [phone] CBC EOSINOPHIL S [#/VOLUME] IN BLOOD BY AUTOMATED COUNT 0.19 10*3/uL 0.00 - 0.60 06/28 Specimen Type: BLOOD No comment entered. Ordering Provider: DARCY RODRIGUES Report Released Date/Time: Jun 28, 2024 04:23 PM Reporting Lab: [place] [address] [facility] [address] Performing Lab: [place] [address] [facility] [phone] [address] CBC BASOPHILS [#/VOLUME] IN BLOOD BY AUTOMATED COUNT 0.06 10*3/uL 0.00 - 0.20 06/28 Specimen Type: BLOOD No comment entered. Ordering Provider: DARCY RODRIGUES Report Released Date/Time: Jun 28, 2024 04:23 PM Reporting Lab: [place] [address] [facility] [address] Performing Lab: [address] [phone] [address] COMPREHE NSIVE METABOLI C PANEL CREATININE [MASS/VOLU ME] IN SERUM OR PLASMA 1.18 mg/dL 0.7 - 1.3 06/28 Specimen Type: PLASMA Comment: No hemolysis noted. Ordering Provider: DARCY RODRIGUES Report Released Date/Time: Jun 28, 2024 04:23 PM Reporting Lab: [address] [address] Performing Lab: [place] [address] [facility] [phone] [place] [address] COMPREHE NSIVE METABOLI C PANEL UREA NITROGEN [MASS/VOLU ME] IN SERUM OR PLASMA 19.0 mg/dL 9.0 - 25.0 06/28 Specimen Type: PLASMA Comment: No hemolysis noted. Ordering Provider: DARCY RODRIGUES Report Released Date/Time: Jun 28, 2024 04:23 PM Reporting Lab: [address] [address] Performing Lab: [address] [address] [facility] COMPREHE NSIVE METABOLI C PANEL GLUCOSE [MASS/VOLU ME] IN SERUM OR PLASMA 100 mg/dL 72 - 99 06/28 H Specimen Type: PLASMA Comment: No hemolysis noted. Ordering Provider: DARCY RODRIGUES Report Released Date/Time: Jun 28, 2024 04:23 PM Reporting Lab: [facility] [address] [facility] [address] Performing Lab: [facility] [address] [facility] [address] [facility] COMPREHE NSIVE METABOLI C PANEL SODIUM [MOLES/VOL UME] IN SERUM OR PLASMA 140 meq/L 136 - 145 06/28 Specimen Type: PLASMA Comment: No hemolysis noted. Ordering Provider: DARCY RODRIGUES Report Released Date/Time: Jun 28, 2024 04:23 PM Reporting Lab: [facility] [address] [place] [phone] Performing Lab: [facility] [address] [place] [address] [facility] COMPREHE NSIVE METABOLI C PANEL POTASSIUM [MOLES/VOL UME] IN SERUM OR PLASMA 4.3 meq/L 3.5 - 5 06/28 Specimen Type: PLASMA Comment: No hemolysis noted. Ordering Provider: DARCY RODRIGUES Report Released Date/Time: Jun 28, 2024 04:23 PM Reporting Lab: [facility] [address] [facility] [address] Performing Lab: [facility] [address] [place] [address] [facility] COMPREHE NSIVE METABOLI C PANEL CHLORIDE [MOLES/VOL UME] IN SERUM OR PLASMA 107 meq/L 98 - 107 06/28 Specimen Type: PLASMA Comment: No hemolysis noted. Ordering Provider: DARCY RODRIGUES Report Released Date/Time: Jun 28, 2024 04:23 PM Reporting Lab: [facility] [address] [place] [address] Performing Lab: [facility] [address] [place] [address] [facility] COMPREHE NSIVE METABOLI C PANEL CARBON DIOXIDE, TOTAL [MOLES/VOL UME] IN SERUM OR PLASMA 26 meq/L 22 - 31 06/28 Specimen Type: PLASMA Comment: No hemolysis noted. Ordering Provider: DARCY RODRIGUES Report Released Date/Time: Jun 28, 2024 04:23 PM Reporting Lab: [place] [address] [facility] [address] Performing Lab: [place] [address] [place] [phone] COMPREHE NSIVE METABOLI C PANEL CALCIUM [MASS/VOLU ME] IN SERUM OR PLASMA 9.3 mg/dL 8.4 - 10.4 06/28 Specimen Type: PLASMA Comment: No hemolysis noted. Ordering Provider: DARCY RODRIGUES Report Released Date/Time: Jun 28, 2024 04:23 PM Reporting Lab: [place] [address] [place] [phone] Performing Lab: [place] [address] [facility] [address] [facility] COMPREHE NSIVE METABOLI C PANEL PROTEIN [MASS/VOLU ME] IN SERUM OR PLASMA 7.3 g/dL 6 - 8.6 06/28 Specimen Type: PLASMA Comment: No hemolysis noted. Ordering Provider: DARCY RODRIGUES Report Released Date/Time: Jun 28, 2024 04:23 PM Reporting Lab: [place] [address] [facility] [address] Performing Lab: [place] [address] [address] [facility] [address] [facility] COMPREHE NSIVE METABOLI C PANEL ALBUMIN [MASS/VOLU ME] IN SERUM OR PLASMA 4.2 g/dL 3.4 - 5 06/28 Specimen Type: PLASMA Comment: No hemolysis noted. Ordering Provider: DARCY RODRIGUES Report Released Date/Time: Jun 28, 2024 04:23 PM Reporting Lab: [facility] [address] [address] Performing Lab: [place] [address] [facility] [address] [facility] COMPREHE NSIVE METABOLI C PANEL BILIRUBIN. TOTAL [MASS/VOLU ME] IN SERUM OR PLASMA 0.6 mg/dL 0.2 - 1.2 06/28 Specimen Type: PLASMA Comment: No hemolysis noted. Ordering Provider: DARCY RODRIGUES Report Released Date/Time: Jun 28, 2024 04:23 PM Reporting Lab: [place] [address] [facility] [address] Performing Lab: [address] [address] [facility] COMPREHE NSIVE METABOLI C PANEL ALKALINE PHOSPHATAS E [ENZYMATIC ACTIVITY/V OLUME] IN SERUM OR PLASMA 106 U/L 40 - 150 06/28 Specimen Type: PLASMA Comment: No hemolysis noted. Ordering Provider: DARCY RODRIGUES Report Released Date/Time: Jun 28, 2024 04:23 PM Reporting Lab: [address] [address] Performing Lab: [place] [address] [facility] [address] [facility] COMPREHE NSIVE METABOLI C PANEL ASPARTATE AMINOTRANS FERASE [ENZYMATIC ACTIVITY/V OLUME] IN SERUM OR PLASMA 20 U/L 5 - 34 06/28 Specimen Type: PLASMA Comment: No hemolysis noted. Ordering Provider: DARCY RODRIGUES Report Released Date/Time: Jun 28, 2024 04:23 PM Reporting Lab: [address] [phone] Performing Lab: [address] [address] [facility] COMPREHE NSIVE METABOLI C PANEL ALANINE AMINOTRANS FERASE [ENZYMATIC ACTIVITY/V OLUME] IN SERUM OR PLASMA 15 U/L 8 - 40 06/28 Specimen Type: PLASMA Comment: No hemolysis noted. Ordering Provider: DARCY RODRIGUES Report Released Date/Time: Jun 28, 2024 04:23 PM Reporting Lab: [place] [address] [facility] [id number] Performing Lab: [place] [address] [facility] [id number] [place] [address] COMPREHE NSIVE METABOLI C PANEL GLOMERULAR FILTRATION RATE/1.73 SQ M.PREDICTE D [VOLUME RATE/AREA] IN SERUM, PLASMA OR BLOOD BY CREATININE -BASED FORMULA (CKD-EPI 2020) 64.8 60 06/28 Specimen Type: PLASMA Comment: No hemolysis noted. Ordering Provider: DARCY RODRIGUES Report Released Date/Time: Jun 28, 2024 04:23 PM Reporting Lab: [place] [address] [facility] [facility] [address] Performing Lab: [place] [address] [facility] [phone] [place] [address] GLUCOSE, BLOOD-po ct (STL) GLUCOSE [MASS/VOLU ME] IN BLOOD BY AUTOMATED TEST STRIP 146 mg/dL 72 - 99 06/10 H Specimen Type: BLOOD Comment: Test Performed by: [id number] Meter #: [id number] Ordering Provider: DARREN OVALLES Report Released Date/Time: Jun 10, 2024 05:21 AM Reporting Lab: [place] [address] [facility] [address] Performing Lab: [place] [address] CBC LEUKOCYTES [#/VOLUME] IN BLOOD BY AUTOMATED COUNT 11.1 10*3/uL 3.6 - 11.2 06/09 Specimen Type: BLOOD No comment entered. Ordering Provider: BETO MCMILLAN Report Released Date/Time: Jun 09, 2024 05:43 PM Reporting Lab: [place] [address] [place] [address] Performing Lab: [address] [address] [facility] CBC ERYTHROCYT ES [#/VOLUME] IN BLOOD BY AUTOMATED COUNT 4.00 10*6/uL 4.10 - 5.70 06/09 L Specimen Type: BLOOD No comment entered. Ordering Provider: BETO MCMILLAN Report Released Date/Time: Jun 09, 2024 05:43 PM Reporting Lab: [address] [address] Performing Lab: [address] [address] [facility] CBC HEMOGLOBIN [MASS/VOLU ME] IN BLOOD 12.6 g/dL 13.1 - 16.8 06/09 L Specimen Type: BLOOD No comment entered. Ordering Provider: BETO MCMILLAN Report Released Date/Time: Jun 09, 2024 05:43 PM Reporting Lab: [address] [address] Performing Lab: [address] [address] [facility] CBC HEMATOCRIT [VOLUME FRACTION] OF BLOOD 36.8 38.2 - 48.4 06/09 L Specimen Type: BLOOD No comment entered. Ordering Provider: BETO MCMILLAN Report Released Date/Time: Jun 09, 2024 05:43 PM Reporting Lab: [address] [address] Performing Lab: [address] [address] [facility] CBC MCV [ENTITIC VOLUME] BY AUTOMATED COUNT 92.0 fL 80.0 - 100.0 06/09 Specimen Type: BLOOD No comment entered. Ordering Provider: BETO MCMILLAN Report Released Date/Time: Jun 09, 2024 05:43 PM Reporting Lab: [address] [address] Performing Lab: [address] [address] [facility] CBC MCH [ENTITIC MASS] BY AUTOMATED COUNT 31.5 pg 27.0 - 34.0 06/09 Specimen Type: BLOOD No comment entered. Ordering Provider: BETO MCMILLAN Report Released Date/Time: Jun 09, 2024 05:43 PM Reporting Lab: [address] [address] Performing Lab: [address] [address] [facility] CBC MCHC [MASS/VOLU ME] BY AUTOMATED COUNT 34.2 g/dL 33.0 - 36.0 06/09 Specimen Type: BLOOD No comment entered. Ordering Provider: BETO MCMILLAN Report Released Date/Time: Jun 09, 2024 05:43 PM Reporting Lab: [address] [address] Performing Lab: [address] [address] [facility] CBC PLATELETS [#/VOLUME] IN BLOOD BY AUTOMATED COUNT 173 10*3/uL 150 - 400 06/09 Specimen Type: BLOOD No comment entered. Ordering Provider: BETO MCMILLAN Report Released Date/Time: Jun 09, 2024 05:43 PM Reporting Lab: [address] [address] Performing Lab: [address] [address] [facility] CBC PLATELET MEAN VOLUME [ENTITIC VOLUME] IN BLOOD BY AUTOMATED COUNT 10.3 fL 7.5 - 11.2 06/09 Specimen Type: BLOOD No comment entered. Ordering Provider: BETO MCMILLAN Report Released Date/Time: Jun 09, 2024 05:43 PM Reporting Lab: [address] [address] Performing Lab: [address] [facility] [address] [facility] CBC ERYTHROCYT E DISTRIBUTI ON WIDTH [RATIO] BY AUTOMATED COUNT 13.2 11.8 - 15.1 06/09 Specimen Type: BLOOD No comment entered. Ordering Provider: BETO MCMILLAN Report Released Date/Time: Jun 09, 2024 05:43 PM Reporting Lab: [place] [address] [facility] [address] Performing Lab: [place] [address] [facility] [address] [facility] CBC SEGMENTED NEUTROPHIL S/100 LEUKOCYTES IN BLOOD BY MANUAL COUNT 95.6 06/09 Specimen Type: BLOOD No comment entered. Ordering Provider: BETO MCMILLAN Report Released Date/Time: Jun 09, 2024 05:43 PM Reporting Lab: [place] [address] [facility] [address] Performing Lab: [place] [address] [facility] [address] [facility] CBC MONOCYTES/ 100 LEUKOCYTES IN BLOOD BY AUTOMATED COUNT 0.9 06/09 Specimen Type: BLOOD No comment entered. Ordering Provider: BETO MCMILLAN Report Released Date/Time: Jun 09, 2024 05:43 PM Reporting Lab: [place] [address] [facility] [address] Performing Lab: [place] [address] [facility] [address] [facility] CBC PAPPENHEIM ER BODIES 0 06/09 Specimen Type: BLOOD No comment entered. Ordering Provider: BETO MCMILLAN Report Released Date/Time: Jun 09, 2024 05:43 PM Reporting Lab: [place] [address] [facility] [address] Performing Lab: [place] [address] [facility] [address] [facility] CBC LYMPHOCYTE S/100 LEUKOCYTES IN BLOOD BY MANUAL COUNT 3.5 03/20 /2025 Specimen Type: BLOOD No comment entered. Ordering Provider: BETO MCMILLAN Report Released Date/Time: Jun 09, 2024 05:43 PM Reporting Lab: [address] [address] Performing Lab: [place] [address] [address] [facility] [address] [facility] CBC PLATELET ADEQUACY [PRESENCE] IN BLOOD BY LIGHT MICROSCOPY ADEQUATE 06/09 Specimen Type: BLOOD No comment entered. Ordering Provider: BETO MCMILLAN Report Released Date/Time: Jun 09, 2024 05:43 PM Reporting Lab: [place] [address] Performing Lab: [place] [address] [facility] [phone] CBC MANUAL DIFFERENTI AL COMMENT [INTERPRET ATION] IN BLOOD NARRATIVE Yes 06/09 Specimen Type: BLOOD No comment entered. Ordering Provider: BETO MCMILLAN Report Released Date/Time: Jun 09, 2024 05:43 PM Reporting Lab: [place] [address] [place] [phone] Performing Lab: [address] [address] [facility] CBC MONOCYTES [#/VOLUME] IN BLOOD BY MANUAL COUNT 0.10 10*3/uL 0.19 - 0.80 06/09 L Specimen Type: BLOOD No comment entered. Ordering Provider: BETO MCMILLAN Report Released Date/Time: Jun 09, 2024 05:43 PM Reporting Lab: [place] [address] [facility] [address] Performing Lab: [address] [address] [facility] CBC LYMPHOCYTE S [#/VOLUME] IN BLOOD BY MANUAL COUNT 0.39 10*3/uL 0.77 - 4.50 03/20 /2025 L Specimen Type: BLOOD No comment entered. Ordering Provider: BETO MCMILLAN Report Released Date/Time: Jun 09, 2024 05:43 PM Reporting Lab: [address] [address] Performing Lab: [address] [address] [place] [address] CBC NEUTROPHIL S [#/VOLUME] IN BLOOD BY MANUAL COUNT 10.61 10*3/uL 2.10 - 8.00 06/09 H Specimen Type: BLOOD No comment entered. Ordering Provider: BETO MCMILLAN Report Released Date/Time: Jun 09, 2024 05:43 PM Reporting Lab: [address] [address] Performing Lab: [address] MRSA SURVL NARES DNA METHICILLI N RESISTANT STAPHYLOCO CCUS AUREUS (MRSA) DNA [PRESENCE] IN NOSE BY KAITLYN WITH PROBE DETECTION Negative 06/09 Specimen Type: NARES Comment: Qualitative real-time PCR test for the rapid detection of methicillin -resistant Staphylococ cus aureus (MRSA) DNA from nasal swabs. A negative result does not preclude infection with the agent(s) tested and should not be used as the sole basis for treatment or other patient management decisions. A positive test does not necessarily indicate the presence of viable organisms, following bacterial culture to recover the organism for further characteriz ation and susceptibil ity testing. All results must be combined with clinical observation s, patient history, and epidemiolog ical information for final interpretat ion. Ordering Provider: DARREN OVALLES Report Released Date/Time: Jun 09, 2024 05:57 PM Reporting Lab: [address] [address] Performing Lab: [address] [phone] [place] [address] COVID-19 DIAGNOST IC (FLU/RSV )(STL) INFLUENZA VIRUS A AG [PRESENCE] IN NASOPHARYN X NEG 06/09 Specimen Type: NASOPHARYNX Comment: Qualitative real-time PCR and RT-PCR to detect viral RNA. A negative result does not preclude infection with the agent(s) tested and should not be used as the sole basis for treatment or other patient management decisions. If negative, but symptoms persist, consider re-testing. Positive results do not rule out bacterial infection or co-infectio n with other viruses. All results must be combined with clinical observation s, patient history, and epidemiolog ical information for final interpretat ion. Ordering Provider: MARGARITA RUSHING Report Released Date/Time: Jun 07, 2024 02:47 PM Reporting Lab: [place] [address] [facility] [address] Performing Lab: [place] [address] [facility] [address] [facility] COVID-19 DIAGNOST IC (FLU/RSV )(STL) INFLUENZA B NEG 06/09 Specimen Type: NASOPHARYNX Comment: Qualitative real-time PCR and RT-PCR to detect viral RNA. A negative result does not preclude infection with the agent(s) tested and should not be used as the sole basis for treatment or other patient management decisions. If negative, but symptoms persist, consider re-testing. Positive results do not rule out bacterial infection or co-infectio n with other viruses. All results must be combined with clinical observation s, patient history, and epidemiolog ical information for final interpretat ion. Ordering Provider: MARGARITA RUSHING Report Released Date/Time: Jun 07, 2024 02:47 PM Reporting Lab: [place] [address] [facility] [address] Performing Lab: [place] [address] [facility] [address] [facility] COVID-19 DIAGNOST IC (FLU/RSV )(STL) SARS-COV-2 (COVID-19) RNA [PRESENCE] IN RESPIRATOR Y SYSTEM SPECIMEN BY KAITLYN WITH PROBE DETECTION NEG 06/09 Specimen Type: NASOPHARYNX Comment: Qualitative real-time PCR and RT-PCR to detect viral RNA. A negative result does not preclude infection with the agent(s) tested and should not be used as the sole basis for treatment or other patient management decisions. If negative, but symptoms persist, consider re-testing. Positive results do not rule out bacterial infection or co-infectio n with other viruses. All results must be combined with clinical observation s, patient history, and epidemiolog ical information for final interpretat ion. Ordering Provider: MARGARITA RUSHING Report Released Date/Time: Jun 07, 2024 02:47 PM Reporting Lab: [facility] [address] [facility] [address] Performing Lab: [place] [address] [facility] [address] [facility] COVID-19 DIAGNOST IC (FLU/RSV )([facility]) RESPIRATOR Y SYNCYTIAL VIRUS RNA [PRESENCE] IN RESPIRATOR Y SYSTEM SPECIMEN BY KAITLYN WITH PROBE DETECTION Negative 06/09 Specimen Type: NASOPHARYNX Comment: Qualitative real-time PCR and RT-PCR to detect viral RNA. A negative result does not preclude infection with the agent(s) tested and should not be used as the sole basis for treatment or other patient management decisions. If negative, but symptoms persist, consider re-testing. Positive results do not rule out bacterial infection or co-infectio n with other viruses. All results must be combined with clinical observation s, patient history, and epidemiolog ical information for final interpretat ion. Ordering Provider: MARGARITA RUSHING Report Released Date/Time: Jun 07, 2024 02:47 PM Reporting Lab: [facility] [address] [facility] [address] Performing Lab: [place] [address] [facility] [address] [facility] HGA1C HEMOGLOBIN A1C/HEMOGL OBIN.TOTAL IN BLOOD 5.7 4.0 - 6.0 05/11 Specimen Type: BLOOD No comment entered. Ordering Provider: XIOMARA PERES Report Released Date/Time: Apr 22, 2024 01:42 PM Reporting Lab: [place] [address] [facility] [address] Performing Lab: [facility] [address] [facility] [address] [facility] BASIC METABOLI C PANEL CREATININE [MASS/VOLU ME] IN SERUM OR PLASMA 1.08 mg/dL 0.7 - 1.3 05/11 Specimen Type: PLASMA Comment: No hemolysis noted. Ordering Provider: MARISOL CORBIN Report Released Date/Time: May 11, 2024 10:21 AM Reporting Lab: [facility] [address] [place] [address] Performing Lab: [place] [address] [facility] [address] [facility] BASIC METABOLI C PANEL UREA NITROGEN [MASS/VOLU ME] IN SERUM OR PLASMA 17.0 mg/dL 9.0 - 25.0 05/11 Specimen Type: PLASMA Comment: No hemolysis noted. Ordering Provider: MARISOL CORBIN Report Released Date/Time: May 11, 2024 10:21 AM Reporting Lab: [place] [address] [facility] [address] Performing Lab: [address] [address] [facility] BASIC METABOLI C PANEL GLUCOSE [MASS/VOLU ME] IN SERUM OR PLASMA 101 mg/dL 72 - 99 05/11 H Specimen Type: PLASMA Comment: No hemolysis noted. Ordering Provider: MARISOL CORBIN Report Released Date/Time: May 11, 2024 10:21 AM Reporting Lab: [place] [address] [facility] [address] Performing Lab: [address] [address] [facility] BASIC METABOLI C PANEL SODIUM [MOLES/VOL UME] IN SERUM OR PLASMA 140 meq/L 136 - 145 05/11 Specimen Type: PLASMA Comment: No hemolysis noted. Ordering Provider: MARISOL CORBIN Report Released Date/Time: May 11, 2024 10:21 AM Reporting Lab: [facility] [address] [facility] [address] Performing Lab: [facility] [address] [facility] [address] [facility] BASIC METABOLI C PANEL POTASSIUM [MOLES/VOL UME] IN SERUM OR PLASMA 4.4 meq/L 3.5 - 5 05/11 Specimen Type: PLASMA Comment: No hemolysis noted. Ordering Provider: MARISOL CORBIN Report Released Date/Time: May 11, 2024 10:21 AM Reporting Lab: [facility] [address] [facility] [address] Performing Lab: [facility] [address] [facility] [address] [facility] BASIC METABOLI C PANEL CHLORIDE [MOLES/VOL UME] IN SERUM OR PLASMA 106 meq/L 98 - 107 05/11 Specimen Type: PLASMA Comment: No hemolysis noted. Ordering Provider: MARISOL CORBIN Report Released Date/Time: May 11, 2024 10:21 AM Reporting Lab: [facility] [address] [facility] [address] Performing Lab: [place] [address] [facility] [address] [facility] BASIC METABOLI C PANEL CARBON DIOXIDE, TOTAL [MOLES/VOL UME] IN SERUM OR PLASMA 27 meq/L 22 - 31 05/11 Specimen Type: PLASMA Comment: No hemolysis noted. Ordering Provider: MARISOL CORBIN Report Released Date/Time: May 11, 2024 10:21 AM Reporting Lab: [facility] [address] [facility] [address] Performing Lab: [facility] [address] [facility] [address] [facility] BASIC METABOLI C PANEL CALCIUM [MASS/VOLU ME] IN SERUM OR PLASMA 9.3 mg/dL 8.4 - 10.4 05/11 Specimen Type: PLASMA Comment: No hemolysis noted. Ordering Provider: MARISOL CORBIN Report Released Date/Time: May 11, 2024 10:21 AM Reporting Lab: [facility] [address] [facility] [address] Performing Lab: [place] [address] [facility] [address] [facility] BASIC METABOLI C PANEL GLOMERULAR FILTRATION RATE/1.73 SQ M.PREDICTE D [VOLUME RATE/AREA] IN SERUM, PLASMA OR BLOOD BY CREATININE -BASED FORMULA (CKD-EPI 2020) 72.0 60 05/11 Specimen Type: PLASMA Comment: No hemolysis noted. Ordering Provider: MARISOL CORBIN Report Released Date/Time: May 11, 2024 10:21 AM Reporting Lab: [place] [address] [facility] [address] Performing Lab: [place] [address] [facility] [phone] [place] [address] PT/INR NEW (STL-MA) PROTHROMBI N TIME (PT) 11.6 s 9.4 - 12.5 05/11 Specimen Type: PLASMA No comment entered. Ordering Provider: MARISOL CORBIN Report Released Date/Time: May 11, 2024 10:21 AM Reporting Lab: [facility] [address] [facility] [address] Performing Lab: [facility] [address] [facility] [address] [facility] PT/INR NEW (STL-MA) INR IN PLATELET POOR PLASMA BY COAGULATIO N ASSAY 1.0 {INR} 05/11 Specimen Type: PLASMA No comment entered. Ordering Provider: MARISOL CORBIN Report Released Date/Time: May 11, 2024 10:21 AM Reporting Lab: [facility] [address] [facility] [address] Performing Lab: [facility] [address] [facility] [address] [facility] Vital Signs Combined list of inpatient and outpatient Vital Signs from Department of Defense and Veterans Affairs, ranging from 12 months to all on record, depending upon the facility. Vital Sign Value Date Comments Source SYSTOLIC BLOOD PRESSURE 147 08/19/2024 11:15:17 [facility] DIASTOLIC BLOOD PRESSURE 78 08/19/2024 11:15:17 [facility] PULSE OXIMETRY 95 08/19/2024 11:15:17 [facility] WEIGHT 195.4 08/19/2024 [facility]15[facility] 28 kg/m2 08/19/2024 11:15:17 [facility] PAIN 9 08/19/2024 11:15:17 [facility] TEMPERATURE 97.5 08/19/2024 11:15:17 [facility] PULSE 62 08/19/2024 11:15:17 [facility] RESPIRATION 20 08/19/2024 11:15:17 [facility] SYSTOLIC BLOOD PRESSURE 148 07/11/2024 08:54:03 [facility] DIASTOLIC BLOOD PRESSURE 87 07/11/2024 08:54:03 [facility] PULSE OXIMETRY 98 07/11/2024 08:54:03 [facility] WEIGHT 197.5 07/11/2024 08:54:03 [facility] Karla [facility] BMI 28 kg/m2 07/11/2024 08:54:03 [facility] PAIN 0 07/11/2024 08:54:03 [facility] HEIGHT 70 07/11/2024 08:54:03 [facility] TEMPERATURE 97.3 07/11/2024 08:54:03 [facility] PULSE 70 07/11/2024 08:54:03 [facility] RESPIRATION 18 07/11/2024 08:54:03 [facility] SYSTOLIC BLOOD PRESSURE 170 06/28/2024 14:16:00 [facility] DIASTOLIC BLOOD PRESSURE 66 06/28/2024 14:16:00 [facility] PAIN 0 06/28/2024 14:16:00 [facility] TEMPERATURE 98 06/28/2024 14:16:00 [facility] PULSE 61 06/28/2024 14:16:00 [facility] RESPIRATION 16 06/28/2024 14:16:00 [facility] SYSTOLIC BLOOD PRESSURE 128 06/10/2024 00:48:04 [facility] DIASTOLIC BLOOD PRESSURE 67 06/10/2024 00:48:04 [facility] PULSE OXIMETRY 92 06/10/2024 00:48:04 [facility] PAIN 3 06/10/2024 00:48:04 [facility] TEMPERATURE 98.3 06/10/2024 00:48:04 [facility] PULSE 77 06/10/2024 00:48:04 [facility] RESPIRATION 18 06/10/2024 00:48:04 [facility] SYSTOLIC BLOOD PRESSURE 173 06/09/2024 11:00:00 [facility] DIASTOLIC BLOOD PRESSURE 89 06/09/2024 11:00:00 [facility] PULSE OXIMETRY 96 06/09/2024 11:00:00 [facility] WEIGHT 198.7 06/09/2024 11:00:00 [facility] BMI 28 kg/m2 06/09/2024 11:00:00 [facility] PAIN 2 06/09/2024 11:00:00 [facility] HEIGHT 71 06/09/2024 11:00:00 [facility] TEMPERATURE 97.5 06/09/2024 11:00:00 [facility] PULSE 75 06/09/2024 11:00:00 [facility] RESPIRATION 23 06/09/2024 11:00:00 [facility] Encounters Combined list of: 1) Encounters from Department of [facility] Affairs facilities going backup to the last 18 months, not all VA inpatient encounters are included; 2) Encounters from the Department of [facility] facilities going backup to 280 months. Location Location Details Encounter Type Encounter Number Reason For Visit Attending Provider ADM Date DC Date Status Disposition Source [facility] Outpatient Encounter [id number] 12/22 [facility] Outpatient Encounter [id number] TASHI JACK 12/23 [facility] Outpatient Encounter [id number] 12/27 [facility] Outpatient Encounter [id number] 12/27 [facility] OFFICE O/P EST LOW 20 MIN [id number] Diagnos is: ICD-10- CM Z00.01 Encount er for general adult medical exam w abnorma l meli s Apple PERES 12/27 [facility] Outpatient Encounter [id number] 12/27 [facility] En[facility] [id number] TASHI JACK 01/04 [facility] Outpatient Encounter [id number] 01/05 [facility] Outpatient Encounter [id number] 01/05 [facility] OFFICE O/P EST LOW 20 MIN [id number] Diagnos is: ICD-10- CM I10 Essenti al (primar y) hyperte nsion Apple PERES L 01/05 [facility] SELF-MGMT EDUC & TRAIN 1 [place] [id number] Diagnos is: ICD-10- CM I10 Essenti al (primar y) hyperte nskelly [place] POSADA E 01/14 [facility] Outpatient Encounter [id number] 01/17 [facility] OFF/OP EST MAY X REQ PHY/QHP [id number] Diagnos is: ICD-10- CM I10 Essenti al (primar y) hyperte kasia CJ,KHURRAM LARISSA 01/20 [facility] OFFICE O/P NEW MOD 45 MIN [id number] Diagnos is: ICD-10- CM R97.20 Elevate d prostat e specifi c antigen [PSA] JUSTINE MYRICK IS J 01/28 [facility] Outpatient Encounter [id number] 01/31 [facility] Outpatient Encounter [id number] Rolan ESTRADA 02/07 [facility] OFF/OP CNSLTJ NEW/EST MOD 40 [id number] Diagnos is: ICD-10- CM R19.5 Other fecal abnorma lities MISSY GAVIRIA 02/14 [facility] Outpatient Encounter [id number] 03/25 [facility] ECHO GUIDE FOR BIOPSY [id number] Diagnos is: ICD-10- CM R97.20 Elevate d prostat e specifi c antigen [PSA] KARLA FERGUSON 04/20 [facility] Outpatient Encounter [id number] 04/20 [facility] Outpatient Encounter [id number] [id number] TASHI JACK 04/20 [facility] Outpatient Encounter [id number] [id number] 04/22 [facility] Outpatient Encounter [id number] FARHAN CEE 04/22 [facility] OFFICE O/P EST LOW 20 MIN 17802-7.65 [id number] Diagnos is: ICD-10- CM I10 Essenti al (primar y) hyperte Apple Atwood 04/22 [facility] PH1 ASSMT&MGMT NQHP 11-20 [id number] [id number] Diagnos is: ICD-10- CM I10 Essenti al (primar y) hyperte TASHI Mcintyre NDBENJAMÍN 05/06 [facility] OFFICE O/P EST HI 40 MIN [id number] [id number] Diagnos is: ICD-10- CM 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 KARLA FERGUSON 05/11 [facility] Outpatient Encounter [id number] 05/11 [facility] Outpatient Encounter [id number] [id number] 2 INÉSFABI SIMMONS 05/17 [facility] Outpatient Encounter [id number] 9 05/24 [facility] Outpatient Encounter [id number] 05/25 [facility] Outpatient Encounter [id number] 3 05/26 [facility] OFFICE O/P EST LOW 20 MIN [id number] Diagnos is: ICD-10- CM Z01.818 Encount er for other preproc edural examina AYANNA Cosme W 05/27 [facility] OFF/OP CNSLTJ NEW/EST MOD 40 [id number] 2 Diagnos is: ICD-10- CM Z12.11 Encount er for screeni ng for maligna nt neoplas m of colon RUSSELL CASTANEDA 05/27 [facility] Outpatient Encounter [id number] 3 05/27 [facility] Outpatient Encounter [id number] PADMINI NATALIE Beltre 05/27 [facility] OFFICE O/P EST HI 40 MIN [id number] [id number] Diagnos is: ICD-10- CM Z01.818 Encount er for other preproc edural examina DAVID High 05/31 [facility] Outpatient Encounter [id number] 1 ALMA SÁNCHEZ 05/31 [facility] Outpatient Encounter [id number] 06/01 [facility] Outpatient Encounter [id number] 1 06/04 [facility] SYNCH AUDIO-ONLY EST SF 10 [id number] [id number] Diagnos is: ICD-10- CM C61 Maligna nt neoplas m of prostat e ROCIO RUSHING MA E 06/06 [facility] OFF/OP EST MAY X REQ PHY/QHP [id number] Diagnos is: ICD-10- CM C61 Maligna nt neoplas m of prostat e KARLA FERGUSON 06/09 [facility] [place] [id number] [id number] Diagnos is: ICD-10- CM R97.20 Elevate d prostat e specifi c antigen [PSA] TOMASZ MARKS 06/09 [facility] Outpatient Encounter [id number] 06/09 [facility] OFFICE O/P EST LOW 20 MIN [id number] [id number] Diagnos is: ICD-10- CM Z01.818 Encount er for other preproc edural examina Patt Farias 06/09 [facility] Outpatient Encounter [id number] [id number] 1 Patt PULIDO 06/09 [facility] Outpatient Encounter [id number] [id number] 2 KARLA FERGUSON 06/09 [facility] Outpatient Encounter [id number] [id number] 2 KARLA FERGUSON 06/09 [facility] EXTENSIVE PROSTATE SURGERY [id number] [id number] 4 ALEX RODRIGUEZ 06/09 [facility] Outpatient Encounter [id number] [id number] 2 ALEX RODRIGUEZ 06/09 [facility] Outpatient Encounter [id number] [id number] 6 Patt GONZALEZ 06/09 [facility] Outpatient Encounter [id number] [id number] 3 Patt GONZALEZ 06/09 [facility] Inpatient Encounter [id number] [id number] ALEX RODRIGUEZ Mt 06/09 [facility] Outpatient Encounter [id number] [id number] 7 [facility]ICE 06[facility]09 [facility] Outpatient Encounter [id number] [id number] 3 BRITNEYMICHELLE P 06/09 [facility] Inpatient Encounter [id number] [id number] Admit Reason: PROSTAT E CANCER Case [facility]ALLES 06[facility] Inpatient Encounter [id number] [id number] Case OVALLES 06/09 [facility] Inpatient Encounter [id number] [id number] Case OVALLES 06/09 [facility] Inpatient Encounter [id number] [id number] Case OVALLES 06/09 [facility] Inpatient Encounter [id number] [id number] Case OVALLES 06/09 [facility] Inpatient Encounter [id number] Case OVALLES 06/09 [facility] Inpatient Encounter [id number] [id number] KING06/09 [facility] Inpatient Encounter [id number] [id number] 3 ANGELO06/09 [facility] Inpatient Encounter [id number] [id number] 2 ANGELO06/09 [facility] En[facility] [id number] [id number] 3 ANGELO06/10 [facility] Encounter [id number] [id number] 1 KING06/10 [facility] Encounter [id number] [id number] 3 VASQUEZ COSTELLO S 06/10 [facility] Encounter [id number] [id number] 4 VASQUEZ COSTELLO S 06/10 [facility] Encounter [id number] [id number] 9 VASQUEZ COSTELLO S 06/10 [facility] Inpatient Encounter [id number] 4 VASQUEZ COSTELLO S 06/10 [facility] PH1 ASSMT&MGMT NQHP 21-30 [id number] Diagnos is: ICD-10- CM R97.20 Elevate d prostat e specifi c antigen [PSA] TASHI JACK ASHOK 06/14 [facility] Outpatient Encounter [id number] AUSTIN,DANNIE T 06/16 [facility] OFF/OP EST MAY X REQ PHY/QHP [id number] [id number] Diagnos is: ICD-10- CM N42.89 Other specifi ed disorde rs of prostat e KARLA FERGUSON 06/17 [facility] Outpatient Encounter [id number] TASHI JACK ASHOK 06/20 [facility] SYNCH AUDIO-ONLY EST LOW 20 [id number] [id number] 4 Diagnos is: ICD-10- CM C61 Maligna nt neoplas m of prostat e KARLA FERGUSON 06/23 [facility] Outpatient Encounter [id number] JOSEFINA RODRIGUES ED K 06/28 [facility] EMERGENCY DEPT VISIT LOW MDM [id number] [id number] Diagnos is: ICD-10- CM K59.00 Constip ation, unspeci fied JOSEFINA RODRIGUES ED K 06/28 [facility] OFFICE O/P EST LOW 20 MIN [id number] [id number] Diagnos is: ICD-10- CM C61 Maligna nt neoplas m of prostat e JOSE FERGUSONW 06/28 [facility] Outpatient Encounter [id number] RAVIJOSEIFNA ED K 06/28 [facility] Outpatient Encounter [id number] [id number] 2 INÉSTROYFABI 06/30 [facility] POSTOP FOLLOW-UP VISIT [id number] [id number] 5 Diagnos is: ICD-10- CM C61 Maligna nt neoplas m of prostKARLA Josue 07/11 [facility] Outpatient Encounter [id number] SANGEETHA PALUMBO 08/18 [facility] OFFICE O/P EST LOW 20 MIN [id number] Diagnos is: ICD-10- CM I10 Felice al (primar y) hyperte Apple Atwood 08/19 [facility] Procedures Combined list of: 1) Procedures from Department of [facility] facilities going back up to thelast 18 months, not all VA non-surgical procedures are included; 2) All procedures from the Department of Defense facilities. Procedure Procedure Type Code Date Perfomer Comments Sourc e ROBOTIC ASSISTED LAPAROSCOPIC PROSTATECTOMY WITH BILATERAL PELVIC LYMPH NODE DISSECTION EXTENSIVE PROSTATE SURGERY 08677 06/09/2024 BETO MCMILLAN [facility] Social History Combined list of available smoking, tobacco, and other social history from Department of Defense and Veterans Affairs facilities. Social History Type Response Date Comment Sourc e Tobacco smoking status [facility] NEVER USED 12/24/2023 [facility] This section is an empty social history section. DoD Plan of Care List of future care activities from Department of [facility] facilities. Additional future care activities may be listed in the Assessment and Plan section. Date/Time Care Activity Care Activity Detail Tiffi ty 10/10/2024 AMBULATORY - SURGERY AMBULATORY - SURGERY [facility]
--- OUTSIDE RECORDS SUMMARY | 2024-08-25 08:57 | XMS_ITS | Encounter Summary ---
Author Name [facility] Organization [facility] Address [address] [place] [address] Care Team Providers Care Small Engine Specialist Name Role Phone BERTHA PERES Primary Care Provider [facility] Insurance [...] to Policy Rios SHIKHA NIEVES - [place] [facility] [place] SHIKHA YOUSIF Apr 27, 2019 SHIKHA NIEVES [id number] [facility] PATIENT MEDICARE (WNR) MEDICARE (M) PART A Nov 21, 2014 PART A [id number] [facility] PATIENT MEDICARE (WNR) MEDICARE (M) PART B Nov 21, 2014 PART B [id number] [facility] PATIENT Selected Encounter This section includes the information on record at [place] for the Encounter. Date/Time Encounter Type Encounter Description Reason Provider Source Feb 08, 2024 08:01 AM Outpatient Encounter COMMUNITY CARE CONSULT AIDE THOMPSON Hugo Encounter Template Text not used by [place] Plan of Treatment: Future Appointments (+ 6 months) and Future Tests (+/- 45 days) The Plan of Treatment section includes future care activities for the patient from all [place] [facility]. This section includes future appointments and future orders which are active, pending or scheduled. Future Appointments This section includes appointments that were scheduled to occur 6 months from the date of the Encounter, up to a maximum of 20 appointments. The data comes from all [place] treatment facilities. Appointment Date/Time Appointment Type Appointme nt Facility Name Feb 15, 2024 01:00 PM AMBULATORY - MEDICINE [facility] Mar 25, 2024 09:30 AM AMBULATORY - NONE . [facility] Apr 20, 2024 09:30 AM AMBULATORY - SURGERY . [facility] Apr 22, 2024 01:30 PM AMBULATORY - MEDICINE [facility] Apr 27, 2024 11:00 AM AMBULATORY - NONE [facility] May 06, 2024 10:00 AM AMBULATORY - MEDICINE [facility] May 11, 2024 10:00 AM AMBULATORY - SURGERY [facility] May 27, 2024 07:15 AM AMBULATORY - MEDICINE [facility] May 31, 2024 09:00 AM AMBULATORY - SURGERY . [facility] Jun 09, 2024 08:44 AM AMBULATORY - NONE [facility] Jun 14, 2024 09:30 AM AMBULATORY - MEDICINE [facility] Jun 17, 2024 11:00 AM AMBULATORY - SURGERY [facility] Jun 28, 2024 02:06 PM AMBULATORY - MEDICINE [facility] Jul 11, 2024 09:00 AM AMBULATORY - SURGERY [facility] Social History: Smoking Status (Most current) and Tobacco Use (All prior to encounter date) This section includes the most current, and the historical, smoking and tobacco- related health factors from the [place] facility where the Encounter took place. Current Smoking Status This section includes the most current smoking, or tobacco-related health factor, from the [place] facility where the Encounter took place. Date/Time Current Smoking Status Eliana fuentes Dec 24, 2023 11:44 AM [facility] NEVER USED [facility] Encounter Notes: All associated encounter notes This section contains the clinical notes associated to the Encounter. Date/Time Encounter Note(s) Provider Source Feb 08, 2024 08:01 AM NONVA NOTE: LOCAL TITLE: COMMUNITY CARE-CARE COORDINATION PLAN NOTE [address] TITLE: NONVA NOTE DATE OF NOTE: FEB 08, 2024@08:01 ENTRY DATE: FEB 08, 2024@08:11:10 AUTHOR: AIDE THOMPSON EXP COSIGNER: URGENCY: STATUS: COMPLETED Community Care Consult: COMMUNITY CARE-MRI [place] 02/04/2023 Consult No: [id number] [facility] Referral #: [id number] Chief Complaint: PROSTATE PSA FOR ELEVATED PSA, SEND TO [facility] F[facility] Patient Admitted? No Level of Care Coordination Basic Care Coordination was determined from: Chart Review Facility Community Care Office Contact Care Coordination Point of Contact: Aide Thompson RN Services: Navigation Scheduling Post-Appointment Follow-Up E-Communications to referring provider Plan: Send to [facility]. Fax authorization to provider. Follow up with provider or for scheduling update. Follow up with after appointment. Retrieve records for visit. Review imaging report, document any significant finding. Send to scanner. Request disc of images. Assess if any other care is needed. /paola/ AIDE THOMPSON Registered Nurse Signed: 02/08/2024 08:13 AIDE THOMPSON [facility]
--- OUTSIDE RECORDS SUMMARY | 2024-08-25 08:58 | XMS_ITS | Encounter Summary ---
Author Name [facility] Address [address] [place] [address] Care Team Providers Care Planograph Operator Name Role Phone BERTHA RAYMOND Primary Care Provider [facility] Insurance Providers: All historical and current [...] to Policy Rios SHIKHA NIEVES - [place] SPECIAL [place] SHIKHA YOUSIF Apr 27, 2019 SHIKHA NIEVES [id number] [facility] PATIENT MEDICARE (WNR) MEDICARE (M) PART A Nov 21, 2014 PART A [id number] [facility] OM PATIENT MEDICARE (WNR) MEDICARE (M) PART B Nov 21, 2014 PART B [id number] [facility] PATIENT Selected Encounter This section includes the information on record at [place] for the Encounter. Date/Time Encounter Type Encounter Description Reason Provider Source Jun 09, 2024 05:30 PM Outpatient Encounter ADMIN PAT ACTIVTIES (MASNONCT) MIHCELLE TAN IHHugo Encounter Template Text not used by [place] Plan of Treatment: Future Appointments (+ 6 months) and Future Tests (+/- 45 days) The Plan of Treatment section includes future care activities for the patient [facility] [place] [facility] This section includes future appointments and future orders which are active, pending or scheduled. Future Appointments This section includes appointments that were scheduled to occur 6 months from the date of the Encounter, up to a maximum of 20 appointments. The data comes from all [facility]. Appointment Date/Time Appointment Type Appointme nt Facility Name Jun 14, 2024 09:30 AM AMBULATORY - MEDICINE [facility] Jun 17, 2024 11:00 AM AMBULATORY - SURGERY [facility] Jun 28, 2024 02:06 PM [facility] MEDICINE [facility] Jul 11, 2024 09:00 AM [facility] SURGERY [facility] August 19, 2024 02:00 PM [facility] Oct 10, 2024 09:00 AM AMBULATORY SURGERY [facility] Oct 18, 2024 09:30 AM [facility] Active, Pending, and Scheduled Orders This section includes a listing of several types of active, pending, and scheduled orders, including clinic medications orders, diagnostic test orders, procedure orders and consult orders; where the start date of the order is 45 days before the date of the Encounter or 45 days after the date of theEncounter. The data comes from all [facility]. Test Date/Time Test Type Test Details Facility Name May 11, 2024 12:00 AM Laboratory - Blood Bank Order TYPE & SCREEN - LAB BLOOD SP [facility] Jun 09, 2024 12:00 AM Laboratory - Blood Bank Order TYPE & SCREEN - LAB BLOOD WC [facility] Lab Results: +/- 30 days of the encounter This section includes the Chemistry and Hematology Lab Results on record with [place] for the patient. Radiology Reports and Pathology Reports are provided separately, in subsequent sections. Lab Results This section contains the Chemistry/Hematology Results that were resulted 30 days before or 30 daysafter the date of the Encounter. Date/Time Source Result Type Result - Unit Interpretation Reference Range Specimen Type Comment Jun 28, 2024 04:30 PM [facility] CBC BLOOD Specimen Type: BLOOD No comment entered. Ordering Provider: ABY RODRIGUES Report Released Date/Time: Jun 28, 2024 04:23 PM Reporting Lab: [facility] [address] [place] [phone] Performing Lab: [address] [address] WBC 5.5 10*3/uL 3.6-11.2 RBC 4.44 10*6/uL [...] 0.00-0. 20 Jun 28, 2024 04:30 PM [facility] COMPREHENSIVE METABOLIC PANEL PLASMA Specimen Type: PLASMA Comment: No hemolysis noted. Ordering Provider: ABY RODRIGUES Report Released Date/Time: Jun 28, 2024 04:23 PM Reporting Lab: [facility] [address] [place] [phone] Performing Lab: [address] [address] CREATININE 1.18 mg/dL 0.7-1.3 UREA NITROGEN 19.0 [...] 64.8 >60 Jun 10, 2024 04:46 AM [facility] GLUCOSE,BLOOD-poct (STL) BLOOD Specimen Type: BLOOD Comment: Test Performed by: [id number] Meter #: [id number] Ordering Provider: BRADLEY OVALLES Report Released Date/Time: Jun 10, 2024 05:21 AM Reporting Lab: [address] [phone] Performing Lab: [address] [address] GLUCOSE,BLOOD-poct (STL) 146 mg/dL H 72-99 Jun 09, 2024 08:12 PM [facility] CBC BLOOD Specimen Type: BLOOD No comment entered. Ordering Provider: BETO MCMILLAN Report Released Date/Time: Jun 09, 2024 05:43 PM Reporting Lab: [address] [address] Performing Lab: [address] [address] WBC 11.1 10*3/uL 3.6-11.2 RBC 4.00 10*6/uL [...] H 2.10-8.00 Jun 09, 2024 07:00 PM [facility] MRSA SURVL NARES DNA [...] Jun 09, 2024 05:57 PM Reporting Lab: [address] [address] Performing Lab: [address] [address] MRSA SURVL NARES DNA Negative Negative Jun 09, 2024 10:40 AM [facility] COVID-19 DIAGNOSTIC (FLU/RSV)(STL) NASOPHARYNX [...] Jun 07, 2024 02:47 PM Reporting Lab: [address] [address] Performing Lab: [address] [place] [address] INFLUENZA A NEG Negative INFLUENZA B NEG Negative COVID-19 ([facility]) NEG Not Detected RSV (Cepheid) Negative Negative May 11, 2024 10:38 AM [facility] HGA1C BLOOD Specimen Type: BLOOD No comment entered. Ordering Provider: BERTHA RAYMOND Report Released Date/Time: Apr 22, 2024 01:42 PM Reporting Lab: [place] [phone] Performing Lab: [place] [phone] HGA1C 5.7 4.0-6.0 May 11, 2024 10:37 AM [facility] PT/INR NEW ([facility]) PLASMA Specimen Type: PLAS MA No comment entered. Ordering Provider: MANJINDER CORBIN Report Released Date/Time: May 11, 2024 10:21 AM Reporting Lab: [address] [address] Performing Lab: [address] [address] PROTIME 11.6 s 9.4-12.5 INR VALUE 1.0 {INR} May 11, 2024 10:37 AM [facility] BASIC METABOLIC PANEL PLASMA Specimen Type: PL ASMA Comment: No hemolysis noted. Ordering Provider: MANJINDER CORBIN Report Released Date/Time: May 11, 2024 10:21 AM Reporting Lab: [address] [address] Performing Lab: [address] [address] CREATININE 1.08 mg/dL 0.7-1.3 UREA NITROGEN 17.0 mg/dL 9.0-25.0 GLUCOSE 101 mg/dL H 72-99 SODIUM 140 meq/L 136-145 POTASSIUM 4.4 meq/L 3.5-5 CHLORIDE 106 meq/L 98-107 CARBON DIOXIDE 27 meq/L 22-31 CALCIUM 9.3 mg/dL 8.4-10.4 EGFR (CKD-EPI 2020) 72.0 >60 May 11, 2024 10:37 AM [facility] CBC BLOOD Specimen Type: BLOOD No comment entered. Ordering Provider: MANJINDER CORBIN Report Released Date/Time: May 11, 2024 10:21 AM Reporting Lab: [facility] [address] [facility] [address] Performing Lab: [facility] [address] [facility] [address] WBC 6.4 10*3/uL 3.6-11.2 RBC 5.21 10*6/uL [...] Source Jun 09, 2024 09:28 PM 3 [facility] Jun 09, 2024 09:02 PM 97.4 87 123/72 [address] [facility] N Jun 09, 2024 06:05 PM 4 [facility] Jun 09, 2024 06:03 PM 4 [facility] Jun 09, 2024 05:58 PM 97.7 91 103/64 20 95 4 [facility] N Social History: Smoking Status (Most current) and Tobacco Use (All prior to encounter date) This section includes the most current, and the historical, smoking and tobacco- related health factors from the [place] facility where the Encounter took place. Current Smoking Status This section includes the most current smoking, or tobacco-related health factor, from the [place] facility where the Encounter took place. Date/Time Current Smoking Status Comment Facil ity Dec 24, 2023 11:44 AM VA-TOBACCO NEVER USED [facility] Radiology Reports: +/- 30 days [...] the Encounter. The data comes from all [place] treatment facilities. Date/Time Radiology Report Provider Source Jun 28, 2024 04:33 PM OBSTRUCTIVE SERIES : RAMEZ GODINEZ [id number] -1950 M Exm Date: JUN 28, 2024@16:33 Req Phys: ABY RODRIGUES Loc: -EMERGENCY DEPT 2ND SHIFT (R Img Loc: -MAIN RADIOLOGY SUITE Service: [facility], [address] [address] (Case [id number] COMPLETE) OBSTRUCTIVE SERIES (RAD Detailed) CPT:95580 Reason for Study: constipation x 2 wks Clinical History: Report Status: Verified Date Reported: JUN 28, 2024 Date Verified: JUN 28, 2024 Telephone Order Clerk Room Service E-Sig:/ES/Ramez Schaffer MD Report: CASE #: [id number] DATE:06/28/2024 4:43 PM CLINICAL HISTORY:constipation x 2 [...] Primary Interpreting Staff: Ramez Schaffer MD, Radiologist (Telephone Order Clerk Room Service) /RAMEZ OLIVAS [facility] May 11, 2024 10:27 AM CHEST X-RAY, 2 VIE WS: RAMEZ GODINEZ Jay [id number] -1950 M Exm Date: MAY 11, 2024@10:27 Req Phys: MANJINDER CORBIN Loc: -UROLOGY RES (Req'g Loc) Img Loc: -MAIN RADIOLOGY SUITE Service: [address] [address] (Case [id number] COMPLETE) CHEST X-RAY, 2 VIEWS (RAD Detailed) CPT:82372 Reason for Study: pre-operative testing Clinical History: [...] Primary Interpreting Staff: ELIJAH MCCOY Staff Physician (Telephone Order Clerk Room Service) /ELIJAH DELEON [facility] Pathology Reports: +/- 30 days [...] the Encounter. The data comes from all [place] treatment facilities. Date/Time Pathology Report Provider Source [...] cut surface with no dominant nodule identified. Colliery Clerk sections are submitted as follows: B1: fragment [...] Performing Laboratory: Surgical Pathology Report Performed By: [facility]# [id number] [address] [address] $FTR - - - - - - - - - - - - - - - - - - - - - - - - - - - - - - - - - - - - - - - - (End of report) VIVEK ALLEN MD vp rheumatology Date Jun 12, 2024 - - - - - - - - - - - - - - - - - - - - - - - - - - - - - - - - - - - - - - - - RAMEZ GODINEZ STANDARD FORM 515 ID:[id number] SEX:M :1950 AGE: 73 LOC:APFEE PCP: Bertha Raymond NP /paola/ VIVEK ALLEN M.D., PH.D. PATHOLOGIST Signed: 06/16/2024 14:49 VIVEK ALLEN [facility] May 31, 2024 04:37 PM LR [...] Performing Laboratory: Surgical Pathology Report Performed By: [address] CLIA# [id number] [address] [place] [phone] $FTR - - - - - - [...] - - RAMEZ GODINEZ STANDARD FORM 515 ID:[id number] SEX:M :1950 AGE: 73 LOC:GILABA PCP: Bertha Raymond NP /paola/ ALMA SÁNCHEZ MD, PhD STAFF PATHOLOGIST Signed: 05/31/2024 16:37 ALMA SÁNCHEZ [facility] May 11, 2024 10:45 AM LR MICROBIOLOGY RE PORT: Accession [UID]: [id number] [[id number]] Received: May 11, 2024@10:46 Collection sample: URINE,CLEAN CATCH Collection date: May 11, 2024 10:45 Site/Specimen: URINE Provider: MANJINDER CORBIN Test(s) ordered: C&S URINE..................... completed: May 13, 2024 13:51 * BACTERIOLOGY FINAL REPORT => May 13, 2024 14:19 TECH CODE: [id number] GRAM STAIN: Bacteriology Remark(s): 2.20.25 KAA Culture in progress 2.21.25 KAA CULTURE SHOWS >10,000 - <25,000 CFU/ML PROTEUS MIRABILIS AND >10,000 - <25,000 CFU/ML STAPH EPIDERMIDIS There will be no work up. =--=--=--=--=--=--=--=--=--=- -=--=--=--=--=--=--=--=--=--= --=--=--=--=--=--=-- Performing Laboratory: Bacteriology Report Performed By: [facility] CLIA# [id number] [address] [facility] [address] [place] [address] LIZZIE COYNE [facility] Encounter Notes: All associated encounter notes This section contains the clinical notes associated to the Encounter. Date/Time Encounter Note(s) Provider Source Jun 09, 2024 05:30 PM ANESTHESIOLOGY SIVA WSHEET: LOCAL TITLE: PACU POST-OP FLOWSHEET [facility] STANDARD TITLE: ANESTHESIOLOGY FLOWSHEET DATE OF NOTE: JUN 09, 2024@17:30 ENTRY DATE: JUN 09, 2024@17:30:10 AUTHOR: MICHELLE TAN EXP COSIGNER: URGENCY: STATUS: COMPLETED Patient: RAMEZ GODINEZ SSN: [id number] Anesthesia Method: General 06/09/2024 11:46 (Primary), Airway: Endotracheal Intubation, Technique: Direct Laryngoscopy, Level Of Consciousness: Sedated, Patient Position: Supine, Preoxygenated, Induction Type: Intravenous, Breathing Circuit: [place] Adult, Ventilation by Mask: Easy to Ventilate [...] Pressure, Groin Free Of Pressure Intubated by [facility] [place], operated by [facility] ASA Number: 3 Procedure: ROBOTIC ASSISTED LAPAROSCOPIC PROSTATECTOMY WITH BILATERAL PELVIC LYMPH NODE DISSECTION Diagnosis: PROSTATE CANCER PACU Drugs: PACU Fluids: Anesthesia Procedure: --- Procedure 06/09/2024 11:12 In Situ, Line Number: [...] Occlusive Dressing placed by Oskar Alvarez RN/OSIRIS Date of Operation: 06/09/2024 Anesthesia Care End: 06/09/2024 16:28 Resources: Aquacel foam placed on travis prominence to protect skin during surgery Safety Belt Staff: --------- BETO MCMILLAN, SURGEON KARLA FERGUSON, ATT. SURGEON GENOVEVA PULIDO ANES. SUPER. ZULLY GONZALEZ PRIN. ANES. NATALIE WASHINGTON, RELIEF CHUCKING MACHINE SET UP OPERATOR MARIA TERESA CASPER, RELIEF CHUCKING MACHINE SET UP OPERATOR HOSSEIN PRICE, RELIEF CHUCKING MACHINE SET UP OPERATOR MICHELLE TAN, Post-Op Nurse Surgery Start Time: 06/09/2024 11:36 Procedure End Time: Moderate Sedation Care End: /paola/ MICHELLE TAN MS, BSN, RN REGISTERED NURSE Signed: 06/09/2024 17:30 MICHELLE TAN [facility]
--- OUTSIDE RECORDS SUMMARY | 2024-08-25 09:04 | XMS_ITS | Continuity of Care Document ---
Author Name [facility] Organization [facility] Care Team Providers Care Recep Name Role Phone [facility] Unavailable Unavailable Problems Combined list of problems from Department of Defense and Veterans Affairs facilities. It does not include entries that were removed or entered in error. Problem Status Onset Date Problem Type Date of Resolution Comments Source Chronic Kidney Disease Stage 3A ([facility] [id number]) Active Condition [facility] Elevated PSA Active Condition [facility] Exposure to potentially hazardous substance ([facility] [id number]) Active Condition Dec 29 4 Entered By: LAUREN CASH Comment: Entered automatically through JOSE Problem List documentation program [facility] HTN - Hypertension ([facility] [id number]) Active Condition [facility] Prediabetes Inactive Condition 08/19/2024 [facility] Diagnosis: ICD-10-CM I10 Essential (primary) hypertension Active Diagnosis [facility] Diagnosis: ICD-10-CM C61 Malignant neoplasm of prostate Active Diagnosis [facility] Diagnosis: ICD-10-CM K59.00 Constipation, unspecified Active Diagnosis [facility] Diagnosis: ICD-10-CM N42.89 Other specified disorders of prostate Active Diagnosis [facility] Diagnosis: ICD-10-CM R97.20 Elevated prostate specific antigen [PSA] Active Diagnosis [facility] Admit Reason: PROSTATE CANCER Active Diagnosis [facility] Diagnosis: ICD-10-CM Z01.818 Encounter for other preprocedural examination Active Diagnosis [facility] Diagnosis: ICD-10-CM Z12.11 Encounter for screening for malignant neoplasm of colon Active Diagnosis [facility] Diagnosis: ICD-10-CM 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 ORAL 07/10/2024 [id number] 5 Hugo CORBIN 2024 90 [facility] AMLODIPINE BESYLATE 10MG TAB TAKE ONE TABLET BY MOUTH ONCE A DAY FOR HIGH BLOOD PRESSURE ORAL ACTIVE 08/20/2025 [id number] 5 BERTHA PERES 2024 90 [facility] AMLODIPINE BESYLATE 2.5MG TAB TAKE THREE TABLETS BY MOUTH ONCE A DAY FOR HIGH BLOOD PRESSURE ORAL DISCONT INUED (EDIT) 04/23/2025 [id number] 5 BERTHA PERES 2024 270 [facility] AMLODIPINE BESYLATE 5MG TAB TAKE ONE TABLET BY MOUTH ONCE A DAY ORAL DISCONT INUED (EDIT) 01/06/2025 [id number] 4 BERTHA PERES 2023 90 [facility] BISACODYL 5MG TAB,EC TAKE TWO TABLETS BY MOUTH ONE TIME TAKE BISACODY L TABLETS AT 4PM ON AFTERNOO N PRIOR TO TEST. CALL WITH ANY QUESTION S ABOUT THESE INSTRUCT IONS. MAIL TAKE BISACODY L TABLETS AT 4PM ON AFTERNOO N PRIOR TO TEST. CALL WITH ANY QUESTION S ABOUT THESE INSTRUCT IONS. MAIL ORAL DISCONT INUED 03/16/2024 [id number] 4 JEANNE SIMMONS 2023 2 [facility] BISACODYL 5MG TAB,EC TAKE THREE TABLETS BY MOUTH ONE TIME (TAKE ON EVENING PRIOR TO PROSTATE BIOPSY APPOINTM ENT) ORAL DISCONT INUED 02/28/2024 [id number] 4 BALTAZAR GARCIA 2023 3 [facility] BISACODYL 5MG TAB,EC TAKE TWO TABLETS BY MOUTH ONCE A DAY NEEDED FOR CONSTIPA TION ORAL 07/28/2024 [id number] 5 Shaan RODRIGUES 2024 10 [facility] BISACODYL 5MG TAB,EC TAKE TWO TABLETS BY MOUTH ONE TIME TAKE BISACODY L TABLETS AT 4PM ON AFTERNOO N PRIOR TO TEST. CALL [phone] WITH ANY QUESTION S ABOUT THESE INSTRUCT IONS. MAIL TAKE BISACODY L TABLETS AT 4PM ON AFTERNOO N PRIOR TO TEST. CALL WITH ANY QUESTION S ABOUT THESE INSTRUCT IONS. MAIL ORAL 06/25/2024 [id number] 5 GERRY GALLEGOS 2024 2 [facility] CEPHALEXIN 500MG CAP TAKE ONE CAPSULE BY MOUTH EVERY 6 HOURS FOR PREVENTI ON OF INFECTIO N (START IN THE MORNING ON THE DAY BEFORE THE BIOPSY). TAKE WITH FOOD. ORAL DISCONT INUED 02/28/2024 [id number] 4 BALTAZAR GARCIA 2023 8 [facility] CEPHALEXIN 500MG CAP TAKE ONE CAPSULE BY MOUTH ONE-TIME FOR RODRIGUEZ CATHETER REMOVAL ON THURSDAY. TAKE BEFORE YOUR RODRIGUEZ CATHETER APPOINTM ENT. TAKE WITH FOOD ORAL 07/10/2024 [id number] 5 Hugo CORBIN 2024 1 [facility] DOCUSATE NA 100MG CAP TAKE ONE CAPSULE BY MOUTH TWICE A DAY FOR SOFTENIN G STOOL HOLD FOR LOOSE STOOL/DI ARRHEA. ORAL 07/28/2024 [id number] 5 Shaan RODRIGUES 2024 60 [facility] IBUPROFEN 600MG TAB TAKE ONE TABLET BY MOUTH THREE TIMES A DAY NEEDED FOR PAIN TAKE WITH FOOD. ORAL 07/10/2024 [id number] 5 Hugo CORBIN A 2024 30 [facility] MAGNESIUM CITRATE LIQUID,ORAL TAKE 1 BOTTLE BY MOUTH ONCE A DAY FOR BOWEL EMPTYING ORAL 07/28/2024 [id number] 5 Shaan RODRIGUES 2024 1 [facility] OXYBUTYNIN CL 5MG TAB TAKE ONE TABLET BY MOUTH THREE TIMES A DAY NEEDED FOR OVERACTI VE BLADDER ORAL DISCONT INUED BY PROVIDE R 07/10/2024 [id number] 5 Hugo CORBIN 2024 21 [facility] OXYCODONE HCL 5MG TAB TAKE ONE TABLET BY MOUTH EVERY 6 HOURS NEEDED FOR POST-OPE RATIVE PAIN MAY CAUSE CONSTIPA TION ORAL DISCONT INUED BY PROVIDE R 07/10/2024 [id number] 5 Hugo CORBIN 2024 15 [facility] N PEG-3350/EL ECTROLYTES PWDR MIX AND DRINK [...] YOUR INSTRUCT IONS!) ORAL DISCONT INUED 03/16/2024 [id number] 4 JEANNE SIMMONS 2023 1 [facility] PEG-3350/EL ECTROLYTES PWDR MIX AND [...] TEST. READ YOUR INSTRUCT IONS!) ORAL 06/25/2024 [id number] 5 GERRY GALLEGOS 2024 1 [facility] PHENAZOPYRI DINE HCL 100MG TAB TAKE TWO TABLETS BY MOUTH THREE TIMES A DAY NEEDED FOR URINARY ANALGESI A TAKE WITH PLENTY OF WATER*GERRY Islas DISCOLOR THE URINE ORAL DISCONT INUED BY PROVIDE R 07/10/2024 [id number] 5 Hugo CORBIN A 2024 20 [facility] N POLYETHYLEN E GLYCOL 3350 PWDR,ORAL MIX AND DRINK 1 CAPFUL BY MOUTH ONCE A DAY NEEDED FOR CONSTIPA TION (MEASURE WITH CAP AND MIX IN 8 OZ OF WATER) ORAL 07/10/2024 [id number] 5 Hugo CORBIN A 2024 238 [facility] N SIMETHICONE 80MG TAB,CHEW CHEW AND SWALLOW FOUR TABLETS BY MOUTH DIRECTED FOR GAS DISCOMFO RT FOR TWO DOSES BEFORE GI PROCEDUR E ORAL DISCONT INUED 03/16/2024 [id number] 4 JEANNE SIMMONS 2023 8 [facility] N SIMETHICONE 80MG TAB,CHEW CHEW AND SWALLOW FOUR TABLETS BY MOUTH DIRECTED FOR GAS DISCOMFO RT FOR TWO DOSES BEFORE GI PROCEDUR E ORAL 06/25/2024 [id number] 5 GERRY GALLEGOS 2024 8 [facility] SODIUM BIPHOSPHATE 19GM/SODIUM PHOSPHATE 7GM ENEMA INSERT CONTENTS OF 1 ENEMA RECTALLY ONE TIME (FOR RECTAL USE ONLY) DO NOT USE MORE THAN 1 PHOSPHAT E ENEMA IN 24 HOURS (USE IN THE MORNING PRIOR TO PROSTATE BIOPSY APPOINTM ENT) RECTAL DISCONT INUED 02/28/2024 [id number] 4 BALTAZAR GARCIA 2023 1 [facility] Immunizations Combined list of available immunizations from the Department of Defense and Veterans Affairs facilities. Immunization Series Date Given Administered By Site Reaction Lot Number CVX Code Drug Operations Trainer Status Comments Source COVID-19, mRNA, LNP-S, PF, 30 mcg/0.3 mL dose 2020 [employer] (PFR) Not Given COVID-19, mRNA, LNP-S, PF, 30 mcg/0.3 mL dose [facility] COVID-19 ([employer]), MRNA, LNP-S, PF, 30 MCG/0.3 ML DOSE 2 2020 208 complet ed HISTORICA L INFORMATI ON - FROM PATIENT'S WRITTEN RECORD, [facility] [employer] COVID-19, mRNA, LNP-S, PF, 30 mcg/0.3 mL dose 2020 [employer] (PFR) Not Given COVID-19, mRNA, LNP-S, PF, 30 mcg/0.3 mL dose [facility] COVID-19 ([employer]), MRNA, LNP-S, PF, 30 MCG/0.3 ML DOSE 1 2020 208 complet ed HISTORICA L INFORMATI ON - FROM PATIENT'S WRITTEN RECORD, [facility] Results Combined list of recent chemistry, [...] Jul 11, 2024 08:55 AM Reporting Lab: [place] [address] Performing Lab: [address] CBC LEUKOCYTES [#/VOLUME] IN BLOOD BY AUTOMATED COUNT 5.5 10*3/uL 3.6 - 11.2 06/28 Specimen Type: BLOOD No comment entered. Ordering Provider: DARCY RODRIGUES Report Released Date/Time: Jun 28, 2024 04:23 PM Reporting Lab: [place] [address] Performing Lab: [address] CBC ERYTHROCYT ES [#/VOLUME] IN BLOOD BY AUTOMATED COUNT 4.44 10*6/uL 4.10 - 5.70 06/28 Specimen Type: BLOOD No comment entered. Ordering Provider: DARCY RODRIGUES Report Released Date/Time: Jun 28, 2024 04:23 PM Reporting Lab: [place] [address] Performing Lab: [address] CBC HEMOGLOBIN [MASS/VOLU ME] IN BLOOD 14.2 g/dL 13.1 - 16.8 06/28 Specimen Type: BLOOD No comment entered. Ordering Provider: DARCY RODRIGUES Report Released Date/Time: Jun 28, 2024 04:23 PM Reporting Lab: [address] [address] Performing Lab: [address] [address] [facility] CBC HEMATOCRIT [VOLUME FRACTION] OF BLOOD 42.3 38.2 - 48.4 06/28 Specimen Type: BLOOD No comment entered. Ordering Provider: DARCY RODRIGUES Report Released Date/Time: Jun 28, 2024 04:23 PM Reporting Lab: [place] [address] Performing Lab: [address] [phone] CBC MCV [ENTITIC VOLUME] BY AUTOMATED COUNT 95.3 fL 80.0 - 100.0 06/28 Specimen Type: BLOOD No comment entered. Ordering Provider: DARCY RODRIGUES Report Released Date/Time: Jun 28, 2024 04:23 PM Reporting Lab: [address] [address] Performing Lab: [address] [phone] [place] [address] CBC MCH [ENTITIC MASS] BY AUTOMATED COUNT 32.0 pg 27.0 - 34.0 06/28 Specimen Type: BLOOD No comment entered. Ordering Provider: DARCY RODRIGUES Report Released Date/Time: Jun 28, 2024 04:23 PM Reporting Lab: [address] [address] Performing Lab: [address] [phone] CBC MCHC [MASS/VOLU ME] BY AUTOMATED COUNT 33.6 g/dL 33.0 - 36.0 06/28 Specimen Type: BLOOD No comment entered. Ordering Provider: DARCY RODRIGUES Report Released Date/Time: Jun 28, 2024 04:23 PM Reporting Lab: [place] [phone] Performing Lab: [phone] [place] [address] CBC PLATELETS [#/VOLUME] IN BLOOD BY AUTOMATED COUNT 257 10*3/uL 150 - 400 06/28 Specimen Type: BLOOD No comment entered. Ordering Provider: DARCY RODRIGUES Report Released Date/Time: Jun 28, 2024 04:23 PM Reporting Lab: [place] [address] Performing Lab: [place] [phone] CBC PLATELET MEAN VOLUME [ENTITIC VOLUME] IN BLOOD BY AUTOMATED COUNT 10.2 fL 7.5 - 11.2 06/28 Specimen Type: BLOOD No comment entered. Ordering Provider: DARCY RODRIGUES Report Released Date/Time: Jun 28, 2024 04:23 PM Reporting Lab: [place] [phone] Performing Lab: [address] [phone] [place] [address] CBC ERYTHROCYT E DISTRIBUTI ON WIDTH [RATIO] BY AUTOMATED COUNT 13.1 11.8 - 15.1 06/28 Specimen Type: BLOOD No comment entered. Ordering Provider: DARCY RODRIGUES Report Released Date/Time: Jun 28, 2024 04:23 PM Reporting Lab: [place] [phone] Performing Lab: [address] [phone] [place] [address] CBC LYMPHOCYTE S/100 LEUKOCYTES IN BLOOD BY AUTOMATED COUNT 43 06/28 Specimen Type: BLOOD No comment entered. Ordering Provider: DARCY RODRIGUES Report Released Date/Time: Jun 28, 2024 04:23 PM Reporting Lab: [facility] [address] [address] Performing Lab: [facility] [address] [address] [facility] CBC MONOCYTES/ 100 LEUKOCYTES IN BLOOD BY AUTOMATED COUNT 7 06/28 Specimen Type: BLOOD No comment entered. Ordering Provider: DARCY RODRIGUES Report Released Date/Time: Jun 28, 2024 04:23 PM Reporting Lab: [facility] [address] [address] Performing Lab: [facility] [address] [address] [facility] CBC NEUTROPHIL S/100 LEUKOCYTES IN BLOOD BY AUTOMATED COUNT 45 06/28 Specimen Type: BLOOD No comment entered. Ordering Provider: DARCY RODRIGUES Report Released Date/Time: Jun 28, 2024 04:23 PM Reporting Lab: [facility] [address] [address] Performing Lab: [facility] [address] [address] [facility] CBC EOSINOPHIL S/100 LEUKOCYTES IN BLOOD BY AUTOMATED COUNT 3 06/28 Specimen Type: BLOOD No comment entered. Ordering Provider: DARCY RODRIGUES Report Released Date/Time: Jun 28, 2024 04:23 PM Reporting Lab: [facility] [address] [address] Performing Lab: [facility] [address] [address] [facility] CBC BASOPHILS/ 100 LEUKOCYTES IN BLOOD BY AUTOMATED COUNT 1 06/28 Specimen Type: BLOOD No comment entered. Ordering Provider: DARCY RODRIGUES Report Released Date/Time: Jun 28, 2024 04:23 PM Reporting Lab: [facility] [address] [address] Performing Lab: [address] [address] [facility] CBC LYMPHOCYTE S [#/VOLUME] IN BLOOD BY AUTOMATED COUNT 2.38 10*3/uL 0.77 - 4.50 06/28 Specimen Type: BLOOD No comment entered. Ordering Provider: DARCY RODRIGUES Report Released Date/Time: Jun 28, 2024 04:23 PM Reporting Lab: [place] [phone] Performing Lab: [place] [phone] CBC MONOCYTES [#/VOLUME] IN BLOOD BY AUTOMATED COUNT 0.41 10*3/uL 0.19 - 0.80 06/28 Specimen Type: BLOOD No comment entered. Ordering Provider: DARCY RODRIGUES Report Released Date/Time: Jun 28, 2024 04:23 PM Reporting Lab: [address] [address] Performing Lab: [place] [phone] CBC NEUTROPHIL S [#/VOLUME] IN BLOOD BY AUTOMATED COUNT 2.47 10*3/uL 2.10 - 8.00 06/28 Specimen Type: BLOOD No comment entered. Ordering Provider: DARCY RODRIGUES Report Released Date/Time: Jun 28, 2024 04:23 PM Reporting Lab: [address] [phone] Performing Lab: [place] [phone] CBC EOSINOPHIL S [#/VOLUME] IN BLOOD BY AUTOMATED COUNT 0.19 10*3/uL 0.00 - 0.60 06/28 Specimen Type: BLOOD No comment entered. Ordering Provider: DARCY RODRIGUES Report Released Date/Time: Jun 28, 2024 04:23 PM Reporting Lab: [place] [address] [address] [address] Performing Lab: [place] [address] [address] [phone] CBC BASOPHILS [#/VOLUME] IN BLOOD BY AUTOMATED COUNT 0.06 10*3/uL 0.00 - 0.20 06/28 Specimen Type: BLOOD No comment entered. Ordering Provider: DARCY RODRIGUES Report Released Date/Time: Jun 28, 2024 04:23 PM Reporting Lab: [place] [address] [address] [address] Performing Lab: [address] [phone] COMPREHE NSIVE METABOLI C PANEL CREATININE [MASS/VOLU ME] IN SERUM OR PLASMA 1.18 mg/dL 0.7 - 1.3 06/28 Specimen Type: PLASMA Comment: No hemolysis noted. Ordering Provider: DARCY RODRIGUES Report Released Date/Time: Jun 28, 2024 04:23 PM Reporting Lab: [address] [address] Performing Lab: [place] [address] [address] [phone] [place] [address] COMPREHE NSIVE METABOLI C PANEL UREA NITROGEN [MASS/VOLU ME] IN SERUM OR PLASMA 19.0 mg/dL 9.0 - 25.0 06/28 Specimen Type: PLASMA Comment: No hemolysis noted. Ordering Provider: DARCY RODRIGUES Report Released Date/Time: Jun 28, 2024 04:23 PM Reporting Lab: [address] [address] Performing Lab: [address] [address] [facility] COMPREHE NSIVE METABOLI C PANEL GLUCOSE [MASS/VOLU ME] IN SERUM OR PLASMA 100 mg/dL 72 - 99 06/28 H Specimen Type: PLASMA Comment: No hemolysis noted. Ordering Provider: DARCY RODRIGUES Report Released Date/Time: Jun 28, 2024 04:23 PM Reporting Lab: [facility] [address] [facility] [address] Performing Lab: [facility] [address] [address] [facility] COMPREHE NSIVE METABOLI C PANEL SODIUM [MOLES/VOL UME] IN SERUM OR PLASMA 140 meq/L 136 - 145 06/28 Specimen Type: PLASMA Comment: No hemolysis noted. Ordering Provider: DARCY RODRIGUES Report Released Date/Time: Jun 28, 2024 04:23 PM Reporting Lab: [facility] [address] [place] [phone] Performing Lab: [facility] [address] [place] [phone] [facility] COMPREHE NSIVE METABOLI C PANEL POTASSIUM [MOLES/VOL UME] IN SERUM OR PLASMA 4.3 meq/L 3.5 - 5 06/28 Specimen Type: PLASMA Comment: No hemolysis noted. Ordering Provider: DARCY RODRIGUES Report Released Date/Time: Jun 28, 2024 04:23 PM Reporting Lab: [facility] [address] [address] Performing Lab: [facility] [address] [place] [phone] [facility] COMPREHE NSIVE METABOLI C PANEL CHLORIDE [MOLES/VOL UME] IN SERUM OR PLASMA 107 meq/L 98 - 107 06/28 Specimen Type: PLASMA Comment: No hemolysis noted. Ordering Provider: DARCY RODRIGUES Report Released Date/Time: Jun 28, 2024 04:23 PM Reporting Lab: [facility] [address] [place] [phone] Performing Lab: [facility] [address] [place] [phone] [facility] COMPREHE NSIVE METABOLI C PANEL CARBON DIOXIDE, TOTAL [MOLES/VOL UME] IN SERUM OR PLASMA 26 meq/L 22 - 31 06/28 Specimen Type: PLASMA Comment: No hemolysis noted. Ordering Provider: DARCY RODRIGUES Report Released Date/Time: Jun 28, 2024 04:23 PM Reporting Lab: [place] [address] [facility] [address] Performing Lab: [place] [address] [place] [phone] COMPREHE NSIVE METABOLI C PANEL CALCIUM [MASS/VOLU ME] IN SERUM OR PLASMA 9.3 mg/dL 8.4 - 10.4 06/28 Specimen Type: PLASMA Comment: No hemolysis noted. Ordering Provider: DARCY RODRIGUES Report Released Date/Time: Jun 28, 2024 04:23 PM Reporting Lab: [place] [address] [place] [phone] Performing Lab: [place] [address] [facility] [address] [facility] COMPREHE NSIVE METABOLI C PANEL PROTEIN [MASS/VOLU ME] IN SERUM OR PLASMA 7.3 g/dL 6 - 8.6 06/28 Specimen Type: PLASMA Comment: No hemolysis noted. Ordering Provider: DARCY RODRIGUES Report Released Date/Time: Jun 28, 2024 04:23 PM Reporting Lab: [place] [address] [facility] [address] Performing Lab: [place] [address] [address] [facility] [address] [facility] COMPREHE NSIVE METABOLI C PANEL ALBUMIN [MASS/VOLU ME] IN SERUM OR PLASMA 4.2 g/dL 3.4 - 5 06/28 Specimen Type: PLASMA Comment: No hemolysis noted. Ordering Provider: DARCY RODRIGUES Report Released Date/Time: Jun 28, 2024 04:23 PM Reporting Lab: [facility] [address] [address] Performing Lab: [place] [address] [facility] [address] [facility] COMPREHE NSIVE METABOLI C PANEL BILIRUBIN. TOTAL [MASS/VOLU ME] IN SERUM OR PLASMA 0.6 mg/dL 0.2 - 1.2 06/28 Specimen Type: PLASMA Comment: No hemolysis noted. Ordering Provider: DARCY RODRIGUES Report Released Date/Time: Jun 28, 2024 04:23 PM Reporting Lab: [place] [address] [facility] [address] Performing Lab: [address] [address] [facility] COMPREHE NSIVE METABOLI C PANEL ALKALINE PHOSPHATAS E [ENZYMATIC ACTIVITY/V OLUME] IN SERUM OR PLASMA 106 U/L 40 - 150 06/28 Specimen Type: PLASMA Comment: No hemolysis noted. Ordering Provider: DARCY RODRIGUES Report Released Date/Time: Jun 28, 2024 04:23 PM Reporting Lab: [address] [address] Performing Lab: [place] [address] [address] [facility] [address] [facility] COMPREHE NSIVE METABOLI C PANEL ASPARTATE AMINOTRANS FERASE [ENZYMATIC ACTIVITY/V OLUME] IN SERUM OR PLASMA 20 U/L 5 - 34 06/28 Specimen Type: PLASMA Comment: No hemolysis noted. Ordering Provider: DARCY RODRIGUES Report Released Date/Time: Jun 28, 2024 04:23 PM Reporting Lab: [address] [address] Performing Lab: [address] [address] [facility] COMPREHE NSIVE METABOLI C PANEL ALANINE AMINOTRANS FERASE [ENZYMATIC ACTIVITY/V OLUME] IN SERUM OR PLASMA 15 U/L 8 - 40 06/28 Specimen Type: PLASMA Comment: No hemolysis noted. Ordering Provider: DARCY RODRIGUES Report Released Date/Time: Jun 28, 2024 04:23 PM Reporting Lab: [place] [address] [facility] [address] Performing Lab: [place] [address] [facility] [phone] [place] [address] COMPREHE NSIVE METABOLI C PANEL GLOMERULAR FILTRATION RATE/1.73 SQ M.PREDICTE D [VOLUME RATE/AREA] IN SERUM, PLASMA OR BLOOD BY CREATININE -BASED FORMULA (CKD-EPI 2020) 64.8 60 06/28 Specimen Type: PLASMA Comment: No hemolysis noted. Ordering Provider: DARCY RODRIGUES Report Released Date/Time: Jun 28, 2024 04:23 PM Reporting Lab: [place] [address] [address] [address] Performing Lab: [place] [address] [facility] [phone] [place] [address] GLUCOSE, BLOOD-po ct (STL) GLUCOSE [MASS/VOLU ME] IN BLOOD BY AUTOMATED TEST STRIP 146 mg/dL 72 - 99 06/10 H Specimen Type: BLOOD Comment: Test Performed by: [id number] Meter #: [id number] Ordering Provider: DARREN OVALLES Report Released Date/Time: Jun 10, 2024 05:21 AM Reporting Lab: [place] [address] [facility] [address] Performing Lab: [place] [address] CBC LEUKOCYTES [#/VOLUME] IN BLOOD BY AUTOMATED COUNT 11.1 10*3/uL 3.6 - 11.2 06/09 Specimen Type: BLOOD No comment entered. Ordering Provider: BETO MCMILLAN Report Released Date/Time: Jun 09, 2024 05:43 PM Reporting Lab: [place] [address] [place] [address] Performing Lab: [address] [address] [facility] CBC ERYTHROCYT ES [#/VOLUME] IN BLOOD BY AUTOMATED COUNT 4.00 10*6/uL 4.10 - 5.70 06/09 L Specimen Type: BLOOD No comment entered. Ordering Provider: BETO MCMILLAN Report Released Date/Time: Jun 09, 2024 05:43 PM Reporting Lab: [address] [address] Performing Lab: [address] [address] [facility] CBC HEMOGLOBIN [MASS/VOLU ME] IN BLOOD 12.6 g/dL 13.1 - 16.8 06/09 L Specimen Type: BLOOD No comment entered. Ordering Provider: BETO MCMILLAN Report Released Date/Time: Jun 09, 2024 05:43 PM Reporting Lab: [address] [address] Performing Lab: [address] [phone] [facility] HEMATOCRIT [VOLUME FRACTION] OF BLOOD 36.8 38.2 - 48.4 06/09 L Specimen Type: BLOOD No comment entered. Ordering Provider: BETO MCMILLAN Report Released Date/Time: Jun 09, 2024 05:43 PM Reporting Lab: [address] [phone] Performing Lab: [address] [address] [facility] MCV [ENTITIC VOLUME] BY AUTOMATED COUNT 92.0 fL 80.0 - 100.0 06/09 Specimen Type: BLOOD No comment entered. Ordering Provider: BETO MCMILLAN Report Released Date/Time: Jun 09, 2024 05:43 PM Reporting Lab: [address] [phone] Performing Lab: [address] [address] [facility] MCH [ENTITIC MASS] BY AUTOMATED COUNT 31.5 pg 27.0 - 34.0 06/09 Specimen Type: BLOOD No comment entered. Ordering Provider: BETO MCMILLAN Report Released Date/Time: Jun 09, 2024 05:43 PM Reporting Lab: [address] [phone] Performing Lab: [address] [phone] [facility] MCHC [MASS/VOLU ME] BY AUTOMATED COUNT 34.2 g/dL 33.0 - 36.0 06/09 Specimen Type: BLOOD No comment entered. Ordering Provider: BETO MCMILLAN Report Released Date/Time: Jun 09, 2024 05:43 PM Reporting Lab: [address] [phone] Performing Lab: [address] [address] [facility] PLATELETS [#/VOLUME] IN BLOOD BY AUTOMATED COUNT 173 10*3/uL 150 - 400 06/09 Specimen Type: BLOOD No comment entered. Ordering Provider: BETO MCMILLAN Report Released Date/Time: Jun 09, 2024 05:43 PM Reporting Lab: [address] [phone] Performing Lab: [address] [phone] [facility] [facility] CBC PLATELET MEAN VOLUME [ENTITIC VOLUME] IN BLOOD BY AUTOMATED COUNT 10.3 fL 7.5 - 11.2 06/09 Specimen Type: BLOOD No comment entered. Ordering Provider: BETO MCMILLAN Report Released Date/Time: Jun 09, 2024 05:43 PM Reporting Lab: [address] [address] Performing [facility] [address] [facility] [address] [facility] CBC ERYTHROCYT E DISTRIBUTI ON WIDTH [RATIO] BY AUTOMATED COUNT 13.2 11.8 - 15.1 06/09 Specimen Type: BLOOD No comment entered. Ordering Provider: BETO MCMILLAN Report Released Date/Time: Jun 09, 2024 05:43 PM Reporting Lab: [place] [address] [facility] [address] Performing Lab: [place] [address] [facility] [address] [facility] CBC SEGMENTED NEUTROPHIL S/100 LEUKOCYTES IN BLOOD BY MANUAL COUNT 95.6 06/09 Specimen Type: BLOOD No comment entered. Ordering Provider: BETO MCMILLAN Report Released Date/Time: Jun 09, 2024 05:43 PM Reporting Lab: [place] [address] [facility] [address] Performing Lab: [place] [address] [facility] [address] [facility] CBC MONOCYTES/ 100 LEUKOCYTES IN BLOOD BY AUTOMATED COUNT 0.9 06/09 Specimen Type: BLOOD No comment entered. Ordering Provider: BETO MCMILLAN Report Released Date/Time: Jun 09, 2024 05:43 PM Reporting Lab: [place] [address] [facility] [address] Performing Lab: [place] [address] [facility] [address] [facility] CBC PAPPENHEIM ER BODIES 0 06/09 Specimen Type: BLOOD No comment entered. Ordering Provider: BETO MCMILLAN Report Released Date/Time: Jun 09, 2024 05:43 PM Reporting Lab: [place] [address] [facility] [address] Performing Lab: [place] [address] [facility] [address] [facility] CBC LYMPHOCYTE S/100 LEUKOCYTES IN BLOOD BY MANUAL COUNT 3.5 03/20 /2025 Specimen Type: BLOOD No comment entered. Ordering Provider: EBTO MCMILLAN Report Released Date/Time: Jun 09, 2024 05:43 PM Reporting Lab: [address] [address] Performing Lab: [place] [address] [address] [facility] [address] [facility] CBC PLATELET ADEQUACY [PRESENCE] IN BLOOD BY LIGHT MICROSCOPY ADEQUATE 06/09 Specimen Type: BLOOD No comment entered. Ordering Provider: BETO MCMILLAN Report Released Date/Time: Jun 09, 2024 05:43 PM Reporting Lab: [place] [address] Performing Lab: [place] [address] [facility] [phone] CBC MANUAL DIFFERENTI AL COMMENT [INTERPRET ATION] IN BLOOD NARRATIVE Yes 06/09 Specimen Type: BLOOD No comment entered. Ordering Provider: BETO MCMILLAN Report Released Date/Time: Jun 09, 2024 05:43 PM Reporting Lab: [place] [address] [place] [id number] Performing Lab: [address] [address] [facility] CBC MONOCYTES [#/VOLUME] IN BLOOD BY MANUAL COUNT 0.10 10*3/uL 0.19 - 0.80 06/09 L Specimen Type: BLOOD No comment entered. Ordering Provider: BETO MCMILLAN Report Released Date/Time: Jun 09, 2024 05:43 PM Reporting Lab: [place] [address] [facility] [address] Performing Lab: [address] [address] [facility] CBC LYMPHOCYTE S [#/VOLUME] IN BLOOD BY MANUAL COUNT 0.39 10*3/uL 0.77 - 4.50 03/20 /2025 L Specimen Type: BLOOD No comment entered. Ordering Provider: BETO MCMILLAN Report Released Date/Time: Jun 09, 2024 05:43 PM Reporting Lab: [address] [address] Performing Lab: [address] [phone] [place] [address] CBC NEUTROPHIL S [#/VOLUME] IN BLOOD BY MANUAL COUNT 10.61 10*3/uL 2.10 - 8.00 06/09 H Specimen Type: BLOOD No comment entered. Ordering Provider: BETO MCMILLAN Report Released Date/Time: Jun 09, 2024 05:43 PM Reporting Lab: [address] [address] Performing Lab: [address] MRSA SURVL NARES DNA METHICILLI N [...] Jun 09, 2024 05:57 PM Reporting Lab: [address] [address] Performing Lab: [address] [phone] [place] [address] COVID-19 DIAGNOST IC (FLU/RSV )(STL) INFLUENZA VIRUS [...] Jun 07, 2024 02:47 PM Reporting Lab: [place] [address] [facility] [address] Performing Lab: [place] [address] [facility] [address] [facility] COVID-19 DIAGNOST IC (FLU/RSV )(STL) INFLUENZA B [...] Jun 07, 2024 02:47 PM Reporting Lab: [place] [address] [facility] [address] Performing Lab: [place] [address] [facility] [address] [facility] COVID-19 DIAGNOST IC (FLU/RSV )(STL) SARS-COV-2 (COVID-19) [...] 07, 2024 02:47 PM Reporting Lab: [facility] [address] [facility] [address] Performing Lab: [place] [address] [facility] [address] [facility] COVID-19 DIAGNOST IC (FLU/RSV )([facility]) RESPIRATOR Y SYNCYTIAL VIRUS RNA [PRESENCE] IN [...] 07, 2024 02:47 PM Reporting Lab: [facility] [address] [facility] [address] Performing Lab: [place] [address] [facility] [address] [facility] HGA1C HEMOGLOBIN A1C/HEMOGL OBIN.TOTAL IN BLOOD 5.7 4.0 - 6.0 05/11 Specimen Type: BLOOD No comment entered. Ordering Provider: XIOMARA PERES Report Released Date/Time: Apr 22, 2024 01:42 PM Reporting Lab: [place] [address] [facility] [address] Performing Lab: [facility] [address] [facility] [address] [facility] BASIC METABOLI C PANEL CREATININE [MASS/VOLU ME] IN SERUM OR PLASMA 1.08 mg/dL 0.7 - 1.3 05/11 Specimen Type: PLASMA Comment: No hemolysis noted. Ordering Provider: MARISOL CORBIN Report Released Date/Time: May 11, 2024 10:21 AM Reporting Lab: [facility] [address] [place] [address] Performing Lab: [place] [address] [facility] [address] [facility] BASIC METABOLI C PANEL UREA NITROGEN [MASS/VOLU ME] IN SERUM OR PLASMA 17.0 mg/dL 9.0 - 25.0 05/11 Specimen Type: PLASMA Comment: No hemolysis noted. Ordering Provider: MARISOL CORBIN Report Released Date/Time: May 11, 2024 10:21 AM Reporting Lab: [place] [address] [facility] [address] Performing Lab: [address] [address] [facility] BASIC METABOLI C PANEL GLUCOSE [MASS/VOLU ME] IN SERUM OR PLASMA 101 mg/dL 72 - 99 05/11 H Specimen Type: PLASMA Comment: No hemolysis noted. Ordering Provider: MARISOL CORBIN Report Released Date/Time: May 11, 2024 10:21 AM Reporting Lab: [place] [address] [facility] [address] Performing Lab: [address] [address] [facility] BASIC METABOLI C PANEL SODIUM [MOLES/VOL UME] IN SERUM OR PLASMA 140 meq/L 136 - 145 05/11 Specimen Type: PLASMA Comment: No hemolysis noted. Ordering Provider: MARISOL CORBIN Report Released Date/Time: May 11, 2024 10:21 AM Reporting Lab: [facility] [address] [facility] [address] Performing Lab: [facility] [address] [facility] [address] [facility] BASIC METABOLI C PANEL POTASSIUM [MOLES/VOL UME] IN SERUM OR PLASMA 4.4 meq/L 3.5 - 5 05/11 Specimen Type: PLASMA Comment: No hemolysis noted. Ordering Provider: MARISOL CORBIN Report Released Date/Time: May 11, 2024 10:21 AM Reporting Lab: [facility] [address] [facility] [address] Performing Lab: [facility] [address] [facility] [address] [facility] BASIC METABOLI C PANEL CHLORIDE [MOLES/VOL UME] IN SERUM OR PLASMA 106 meq/L 98 - 107 05/11 Specimen Type: PLASMA Comment: No hemolysis noted. Ordering Provider: MARISOL CORBIN Report Released Date/Time: May 11, 2024 10:21 AM Reporting Lab: [facility] [address] [facility] [address] Performing Lab: [place] [address] [facility] [address] [facility] BASIC METABOLI C PANEL CARBON DIOXIDE, TOTAL [MOLES/VOL UME] IN SERUM OR PLASMA 27 meq/L 22 - 31 05/11 Specimen Type: PLASMA Comment: No hemolysis noted. Ordering Provider: MARISOL CORBIN Report Released Date/Time: May 11, 2024 10:21 AM Reporting Lab: [facility] [address] [facility] [address] Performing Lab: [facility] [address] [facility] [address] [facility] BASIC METABOLI C PANEL CALCIUM [MASS/VOLU ME] IN SERUM OR PLASMA 9.3 mg/dL 8.4 - 10.4 05/11 Specimen Type: PLASMA Comment: No hemolysis noted. Ordering Provider: MARISOL CORBIN Report Released Date/Time: May 11, 2024 10:21 AM Reporting Lab: [facility] [address] [facility] [address] Performing Lab: [place] [address] [facility] [address] [facility] BASIC METABOLI C PANEL GLOMERULAR FILTRATION RATE/1.73 SQ M.PREDICTE D [VOLUME RATE/AREA] IN SERUM, PLASMA OR BLOOD BY CREATININE -BASED FORMULA (CKD-EPI 2020) 72.0 60 05/11 Specimen Type: PLASMA Comment: No hemolysis noted. Ordering Provider: MARISOL CORBIN Report Released Date/Time: May 11, 2024 10:21 AM Reporting Lab: [place] [address] [facility] [address] Performing Lab: [place] [address] [facility] [address] [place] [address] PT/INR NEW (STL-MA) PROTHROMBI N TIME (PT) 11.6 s 9.4 - 12.5 05/11 Specimen Type: PLASMA No comment entered. Ordering Provider: MARISOL CORBIN Report Released Date/Time: May 11, 2024 10:21 AM Reporting Lab: [facility] [address] [facility] [address] Performing Lab: [facility] [address] [facility] [address] [facility] PT/INR NEW (STL-MA) INR IN PLATELET POOR PLASMA BY COAGULATIO N ASSAY 1.0 {INR} 05/11 Specimen Type: PLASMA No comment entered. Ordering Provider: MARISOL CORBIN Report Released Date/Time: May 11, 2024 10:21 AM Reporting Lab: [facility] [address] [facility] [address] Performing Lab: [facility] [address] [facility] [address] [facility] Vital Signs Combined list of inpatient and outpatient Vital Signs from Department of Defense and Veterans Affairs, ranging from 12 months to all on record, depending upon the facility. Vital Sign Value Date Comments Source SYSTOLIC BLOOD PRESSURE 147 08/19/2024 11:15:17 [facility] DIASTOLIC BLOOD PRESSURE 78 08/19/2024 11:15:17 [facility] PULSE OXIMETRY 95 08/19/2024 11:15:17 [facility] WEIGHT 195.4 08/19/2024 [facility]15[facility] 28 kg/m2 08/19/2024 11:15:17 [facility] PAIN 9 08/19/2024 11:15:17 [facility] TEMPERATURE 97.5 08/19/2024 11:15:17 [facility] PULSE 62 08/19/2024 11:15:17 [facility] RESPIRATION 20 08/19/2024 11:15:17 [facility] SYSTOLIC BLOOD PRESSURE 148 07/11/2024 08:54:03 [facility] DIASTOLIC BLOOD PRESSURE 87 07/11/2024 08:54:03 [facility] PULSE OXIMETRY 98 07/11/2024 08:54:03 Shaan [facility] WEIGHT 197.5 07/11/2024 08:54:03 [facility] Karla [facility] BMI 28 kg/m2 07/11/2024 08:54:03 [facility] PAIN 0 07/11/2024 08:54:03 [facility] HEIGHT 70 07/11/2024 08:54:03 [facility] TEMPERATURE 97.3 07/11/2024 08:54:03 [facility] PULSE 70 07/11/2024 08:54:03 [facility] RESPIRATION 18 07/11/2024 08:54:03 [facility] SYSTOLIC BLOOD PRESSURE 170 06/28/2024 14:16:00 [facility] DIASTOLIC BLOOD PRESSURE 66 06/28/2024 14:16:00 [facility] PAIN 0 06/28/2024 14:16:00 [facility] TEMPERATURE 98 06/28/2024 14:16:00 [facility] PULSE 61 06/28/2024 14:16:00 [facility] RESPIRATION 16 06/28/2024 14:16:00 [facility] SYSTOLIC BLOOD PRESSURE 128 06/10/2024 00:48:04 [facility] DIASTOLIC BLOOD PRESSURE 67 06/10/2024 00:48:04 [facility] PULSE OXIMETRY 92 06/10/2024 00:48:04 [facility] PAIN 3 06/10/2024 00:48:04 [facility] TEMPERATURE 98.3 06/10/2024 00:48:04 [facility] PULSE 77 06/10/2024 00:48:04 [facility] RESPIRATION 18 06/10/2024 00:48:04 [facility] SYSTOLIC BLOOD PRESSURE 173 06/09/2024 11:00:00 [facility] DIASTOLIC BLOOD PRESSURE 89 06/09/2024 11:00:00 [facility] PULSE OXIMETRY 96 06/09/2024 11:00:00 [facility] WEIGHT 198.7 06/09/2024 11:00:00 [facility] BMI 28 kg/m2 06/09/2024 11:00:00 [facility] PAIN 2 06/09/2024 11:00:00 [facility] HEIGHT 71 06/09/2024 11:00:00 [facility] TEMPERATURE 97.5 06/09/2024 11:00:00 [facility] PULSE 75 06/09/2024 11:00:00 [facility] RESPIRATION 23 06/09/2024 11:00:00 [facility] Encounters Combined list of: 1) Encounters from Department of [facility] Affairs facilities going backup to the last 18 months, not all VA inpatient encounters are included; 2) Encounters from the Department of [facility] facilities going backup to 280 months. Location Location Details Encounter Type Encounter Number Reason For Visit Attending Provider ADM Date DC Date Status Disposition Source [facility] Outpatient Encounter [id number] 12/22 [facility] Outpatient Encounter [id number] TASHI JACK 12/23 [facility] N [facility] Outpatient Encounter [id number] 12/27 [facility] N [facility] Outpatient Encounter [id number] 12/27 [facility] OFFICE O/P EST LOW 20 MIN [id number] Diagnos is: ICD-10- CM Z00.01 Encount er for general adult medical exam w abnorma l meli s Apple PERES 12/27 [facility] Outpatient Encounter [id number] 12/27 [facility] En[facility] [id number] TASHI JACK 01/04 [facility] Outpatient Encounter [id number] 01/05 [facility] Outpatient Encounter [id number] 01/05 [facility] OFFICE O/P EST LOW 20 MIN [id number] Diagnos is: ICD-10- CM I10 Essenti al (primar y) hyperte nsion Apple PERES L 01/05 [facility] SELF-MGMT EDUC & TRAIN 1 [place] [id number] Diagnos is: ICD-10- CM I10 Essenti al (primar y) hyperte nskelly KENTON POSADA E 01/14 [facility] Outpatient Encounter [id number] 01/17 [facility] OFF/OP EST MAY X REQ PHY/QHP [id number] Diagnos is: ICD-10- CM I10 Essenti al (primar y) hyperte kasia CJ,KHURRAM LARISSA 01/20 [facility] OFFICE O/P NEW MOD 45 MIN [id number] Diagnos is: ICD-10- CM R97.20 Elevate d prostat e specifi c antigen [PSA] JUSTINE MYRICK IS J 01/28 [facility] Outpatient Encounter [id number] 01/31 [facility] Outpatient Encounter [id number] Rolan ESTRADA 02/07 [facility] OFF/OP CNSLTJ NEW/EST MOD 40 [id number] Diagnos is: ICD-10- CM R19.5 Other fecal abnorma lities MISSY GAVIRIA 02/14 [facility] Outpatient Encounter [id number] 03/25 [facility] ECHO GUIDE FOR BIOPSY [id number] Diagnos is: ICD-10- CM R97.20 Elevate d prostat e specifi c antigen [PSA] KARLA FERGUSON 04/20 [facility] Outpatient Encounter [id number] 04/20 [facility] Outpatient Encounter [id number] TASHI JACK 04/20 [facility] Outpatient Encounter [id number] 04/22 [facility] Outpatient Encounter [id number] FARHAN CEE 04/22 [facility] OFFICE O/P EST LOW 20 MIN [id number] Diagnos is: ICD-10- CM I10 Essenti al (primar y) hyperte Apple Atwood 04/22 [facility] PH1 ASSMT&MGMT NQHP 11-20 [id number] Diagnos is: ICD-10- CM I10 Essenti al (primar y) hyperte TASHI Mcintyre NDBENJAMÍN 05/06 [facility] OFFICE O/P EST HI 40 MIN [id number] Diagnos is: ICD-10- CM 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 KARLA FERGUSON 05/11 [facility] Outpatient Encounter [id number] 05/11 [facility] Outpatient Encounter [id number] INÉSFABI SIMMONS 05/17 [facility] Outpatient Encounter [id number] 05/24 [facility] Outpatient Encounter [id number] 05/25 [facility] Outpatient Encounter [id number] 05/26 [facility] OFFICE O/P EST LOW 20 MIN [id number] Diagnos is: ICD-10- CM Z01.818 Encount er for other preproc edural examina AYANNA Cosme W 05/27 [facility] OFF/OP CNSLTJ NEW/EST MOD 40 [id number] Diagnos is: ICD-10- CM Z12.11 Encount er for screeni ng for maligna nt neoplas m of colon RUSSELL CASTANEDA 05/27 [facility] Outpatient Encounter [id number] 05/27 [facility] Outpatient Encounter [id number] PADMINI NATALIE Beltre 05/27 [facility] OFFICE O/P EST HI 40 MIN [id number] Diagnos is: ICD-10- CM Z01.818 Encount er for other preproc edural examina DAVID High 05/31 [facility] Outpatient Encounter [id number] ALMA SÁNCHEZ 05/31 [facility] Outpatient Encounter [id number] 06/01 [facility] Outpatient Encounter [id number] 06/04 [facility] SYNCH AUDIO-ONLY EST SF 10 [id number] Diagnos is: ICD-10- CM C61 Maligna nt neoplas m of prostat e ROCIO RUSHING MA E 06/06 [facility] OFF/OP EST MAY X REQ PHY/QHP [id number] Diagnos is: ICD-10- CM C61 Maligna nt neoplas m of prostat e KARLA FERGUSON 06/09 [facility] [place] [id number] Diagnos is: ICD-10- CM R97.20 Elevate d prostat e specifi c antigen [PSA] TOMASZ MARKS 06/09 [facility] N [facility] Outpatient Encounter [id number] 06/09 [facility] OFFICE O/P EST LOW 20 MIN [id number] Diagnos is: ICD-10- CM Z01.818 Encount er for other preproc edural examina Patt Farias 06/09 [facility] Outpatient Encounter [id number] Patt PULIDO 06/09 [facility] Outpatient Encounter [id number] KARLA FERGUSON 06/09 [facility] Outpatient Encounter [id number] KARLA FERGUSON 06/09 [facility] EXTENSIVE PROSTATE SURGERY [id number] ALEX RODRIGUEZ 06/09 [facility] Outpatient Encounter [id number] ALEX RODRIGUEZ 06/09 [facility] Outpatient Encounter [id number] Patt GONZALEZ 06/09 [facility] Outpatient Encounter [id number] Patt GONZALEZ 06/09 [facility] Inpatient Encounter [id number] ALEX RODRIGUEZ Mt 06/09 [facility] Outpatient Encounter [id number] PAUL PRICE 06[facility]09 [facility] Outpatient Encounter [id number] BRITNEYMICHELLE P 06/09 [facility] N [facility] Inpatient Encounter [id number] Admit Reason: PROSTAT E CANCER Case OVALLES 06/09 [facility] Inpatient Encounter [id number] Case OVALLES 06/09 [facility] Inpatient Encounter [id number] Case OVALLES 06/09 [facility] Inpatient Encounter [id number] Case OVALLES 06/09 [facility] Inpatient Encounter [id number] Case OVALLES 06/09 [facility] Inpatient Encounter [id number] Case OVALLES 06/09 [facility] Inpatient Encounter [id number] KING06/09 [facility] Inpatient Encounter [id number] ANGELO06/09 [facility] Inpatient Encounter [id number] 2 ANGELO06/09 [facility] En[facility] [id number] 3 ANGELO06/10 [facility] En[facility] [id number] 1 KING06/10 [facility] Encounter [id number] 3 VASQUEZ COSTELLO S 06/10 [facility] Encounter [id number] VASQUEZ COSTELLO S 06/10 [facility] Encounter [id number] VASQUEZ COSTELLO S 06/10 [facility] Inpatient Encounter [id number] VASQUEZ COSTELLO S 06/10 [facility] ASS[facility]&MGMT NQHP 21-30 [id number] Diagnos is: ICD-10- CM R97.20 Elevate d prostat e specifi c antigen [PSA] TASHI JACK ASHOK 06/14 [facility] Outpatient Encounter [id number] AUSTIN,DANNIE T 06/16 [facility] OFF/OP EST MAY X REQ PHY/QHP [id number] Diagnos is: ICD-10- CM N42.89 Other specifi ed disorde rs of prostat e KARLA FERGUSON 06/17 [facility] Outpatient Encounter [id number] TASHI JACK ASHOK 06/20 [facility] SYNCH AUDIO-ONLY EST LOW 20 [id number] Diagnos is: ICD-10- CM C61 Maligna nt neoplas m of prostat e KARLA FERGUSON 06/23 [facility] Outpatient Encounter [id number] JOSEFINA RODRIGUES ED K 06/28 [facility] EMERGENCY DEPT VISIT LOW MDM [id number] Diagnos is: ICD-10- CM K59.00 Constip ation, unspeci fied JOSEFINA RODRIGUES ED K 06/28 [facility] OFFICE O/P EST LOW 20 MIN [id number] Diagnos is: ICD-10- CM C61 Maligna nt neoplas m of prostat e JOSE FERGUSONW 06/28 [facility] Outpatient Encounter [id number] RAVIJOSEFINA ED K 06/28 [facility] Outpatient Encounter [id number] INÉSTROYFABI 06/30 [facility] POSTOP FOLLOW-UP VISIT [id number] [id number] Diagnos is: ICD-10- CM C61 Maligna nt neoplas m of prostKARLA Josue 07/11 [facility] Outpatient Encounter [id number] SANGEETHA PALUMBO 08/18 [facility] OFFICE O/P EST LOW 20 MIN [id number] [id number] Diagnos is: ICD-10- CM I10 Felice al (primar y) hyperte [place] 08/19 [facility] Procedures Combined list of: 1) Procedures from Department of [facility] Affairs facilities going back up to thelast 18 months, not all [facility] non-surgical procedures are included; 2) All procedures from the Department of Defense facilities. Procedure Procedure Type Code Date Perfomer Comments Sourc e ROBOTIC ASSISTED LAPAROSCOPIC PROSTATECTOMY WITH BILATERAL PELVIC LYMPH NODE DISSECTION EXTENSIVE PROSTATE SURGERY 84211 06/09/2024 BETO MCMILLAN [facility] Social History Combined list of available smoking, tobacco, and other social history from Department of Defense and Veterans Affairs facilities. Social History Type Response Date Comment Sourc e Tobacco smoking status [facility] NEVER USED 12/24/2023 [facility] This section is an empty social history section. DoD Plan of Care List of future care activities from Department of [facility] Affairs facilities. Additional future care activities may be listed in the Assessment and Plan section. Date/Time Care Activity Care Activity Detail Tiffi ty 10/10/2024 AMBULATORY - SURGERY AMBULATORY - SURGERY [facility]
--- NOTE | 2024-08-25 09:07 | ED_ITS ---
HPI - Extremity Injury (Lower) General Chief Complaint: Extremity Injury, Lower Stated Complaint: Right Foot Pain Time Seen by Provider: 08/25/24 09:05 Source: patient and RN notes reviewed Mode of arrival: ambulatory Limitations: no limitations History of Present Illness HPI Narrative: 73-year-old male Presents to [facility] complaining of right foot pain for 1 year. Patient denies any apparent injury stated that they put a new trails near his house approximately 1 year ago and ran on the trails and might have injured his right foot during. Patient states the pain is worse when he bares weight on the right foot. States he has pain on medial plantar surface his right foot near his healed. Patient recently saw his PCP who wanted to get a x-ray of his foot to evaluate a possible cause of his pain. Patient's has been taking Tylenol or ibuprofen with relief. Patient denies any numbness, tingling or any other injuries. Patient has a decent significant past medical history. Related Data Home Medications ?Medication ?Instructions ?Recorded ?Confirmed ?Last Taken ?Type amlodipine 5 mg tablet 5 mg PO DAILY 08/25/24 Unknown History Allergies Allergy/AdvReac Type Severity Reaction Status Date / Time No Known Allergies Allergy Mild Verified 08/25/24 09:04 Review of Systems Review of Systems: CONSTITUTIONAL: Denies fever, chills, or sweats. EYES: Denies visual changes, redness, or discharge. ENT: Denies rhinorrhea, congestion, sore throat, or otalgia. CARDIOVASCULAR: Denies chest pain, palpitations, or edema. RESPIRATORY: Denies cough or dyspnea. GASTROINTESTINAL: Denies abdominal pain, nausea, vomiting, or diarrhea. GENITOURINARY: Denies dysuria or hematuria. SKIN: Denies rash, wound, or itching. MUSCULOSKELETAL: Denies back pain, joint pain, or myalgia. Positive right foot pain NEUROLOGIC: Denies headache, numbness, or weakness. PSYCHIATRIC: Denies anxiety or depression. All other systems reviewed are negative, except as documented in HPI. PMFSH Comments At the time of my signature, I reviewed and agree with the nursing past medical, surgical, social, and family history. There is no relevant family history perti nent to the patient complaint. Exam Narrative: GENERAL: This is a well-nourished, well-developed adult, in no apparent distress. They are non ill-appearing, nontoxic appearing. HEAD: normocephalic, atraumatic. EYES: Sclera clear/white. Vision is grossly intact. Conjunctiva normal. Extraocular movement intact. EARS: External ears normal Hearing grossly intact. NOSE: External nose normal THROAT: Mucous membranes moist NECK: Neck supple CARDIOVASCULAR: Regular rate and rhythm RESPIRATORY: Respiratory rate normal, respiratory effort nonlabored, no respiratory distress NEURO: awake, alert, and oriented to person, place and time. There were no obvious focal neurologic abnormalities. EXTREMITIES: Right foot: No obvious deformity, injury, swelling, bruising, redness. Normal range of motion. Tenderness to palpation to the medial proximal plantar surface of foot near the calcaneus and navicular region. Capillary refill less than 3 seconds. Right pedal Pulse 2 +palpable. Normal sensation. Neurovascular status intact distal injury. Normal dorsiflexion and plantar flexion of foot. BACK: Nontender without deformity. Course Course Emergency Course: Portions of this record may have been created with voice recognition software Level of Care: Express Care Visit Vital Signs Vital signs: Vital Signs Temperature 98.7 F 08/25/24 08:49 Pulse Rate 62 08/25/24 08:49 Respiratory Rate 16 08/25/24 08:49 Blood Pressure 166/95 H 08/25/24 08:49 Pulse Oximetry 99 08/25/24 08:49 Oxygen Delivery Room Air 08/25/24 08:49 Temperature 98.7 F 08/25/24 08:49 Pulse Rate 62 08/25/24 08:49 Respiratory Rate 16 08/25/24 08:49 Blood Pressure 166/95 H 08/25/24 08:49 Pulse Oximetry 99 08/25/24 08:49 Oxygen Delivery Room Air 08/25/24 08:49 Reviewed MDM - Extremity Injury (Lower) [facility] Narrative Medical decision making narrative: X-ray right foot showed no evidence of acute fractures or acute findings. A bone spur was noted on the calcaneus. Symptoms are likely consistent with a plantar fasciitis. Discussed physical exam findings. Advised supportive measures and signs/symptoms to go to the ER. Pt is appropriate for outpt treatment and f/u. Differential Diagnosis Differential diagnosis: Likely other (Foot strain, plantar fasciitis, fracture, bone spurs) Imaging Data Radiologist's impression: ITS Impressions Foot X-Ray 08/25/24 09:49 Impression: 1: No acute fracture. Critical Care Time Critical Care Time Critical Care Time: No Discharge Plan Discharge Clinical Impression: Bone spur of right foot Right foot strain Qualifiers: Encounter type: initial encounter Qualified Code(s): S96.911A - Strain of unspecified muscle and tendon at ankle and foot level, right foot, initial encounter Patient Disposition: Home Condition: Stable Instructions: Antibiotic Form, Plantar Fasciitis (ED), Heel Spur (ED), Plantar Fasciitis Exercises (ED) Additional Instructions: Your x-ray was negative for any acute fractures, it was noted there was a bone spur on the heel your foot. Rest and elevate the leg; bear weight as tolerated Apply ice 15-20 minute intervals several times a day Wear good fitting and supportive shoes. Avoid activities that may aggravate your foot pain such as running, jogging, jumping Motrin 600mg -800mg every 8 hours, alternate with Tylenol 1000mg every 8 hours as needed Follow up with your primary care provider or groundsman and 1 week. Patient Language: Maltese Prescriptions: No Action amlodipine 5 mg tablet 5 mg PO DAILY Follow-up/Referrals: Murtaza Sánchez DPM [Physician] - [facility] [Primary Care Provider] - Time of Disposition: 10:01
== END 2024-08-25 10:03 | disposition home or self-care (01) ==
DX: M77.31 Calcaneal spur, right foot (principal); S96.911A Strain of unspecified muscle and tendon at ankle and foot level, right foot, initial encounter; X58.XXXA Exposure to other specified factors, initial encounter; I10 Essential (primary) hypertension
CPT/HCPCS: 73630; 99213; G0463